=== PATIENT | female | born 2000 | race Caucasian/White ===

== ENCOUNTER 2024-02-28 10:14 | Outpatient (OUT) | payer OTHER, SELFPAY ==
--- NOTE | 2024-02-28 10:14 | US_ITS ---
The [address] [address] Patient Name: ARGENIS PINA MRN: [id number] date: 2000 Sex: F Assigned Patient Location: [facility] Current Patient Location: Accession/Order Number: [id number] Exam Date: 02/28/2024 10:15 Report Date: 03/03/2024 04:19 At the request of: MIKE PILLAI Procedure: US OB >= 14 weeks Fetus EXAMINATION: US OB >= 14 weeks Fetus HISTORY: Missed menses COMPARISON: No relevant comparison available. FINDINGS: Heart Rate: 144.39 bpm Amniotic Fluid Volume: Subjectively normal Number: 1 Position: Variable BIOMETRY: BPD: 3.03 cm; 15 weeks 4 days; 44.20 % HC: 11.78 cm; 15 weeks 6 days; 47.30 % AC: 10.13 cm; 16 weeks 1 day; 72 % FL: 1.84 cm; 15 weeks 3 days; 40.40 % EFW: 135.43 g; 56 % FL/AC: 18.18 FL/BPD: 60.77 HC/AC: 1.16 GESTATIONAL AGE: Age by EDC: 15 weeks 4 days ZEINAB by EDC: 08/17/2024 Age by US: 15 weeks 5 days ZEINAB by US: 08/16/2024 US/US OB >= 14 weeks Fetus IMPRESSION: 1. Single live intrauterine . Electronically authenticated by: CHARITY FLORES Date: 03/03/2024 04:19
== END 2024-02-28 10:15 | disposition home or self-care (01) ==
LOC: NOMS 10:14
PROVIDERS: Visit Provider Obstetrics & Gynecology
DX: N92.6 Irregular menstruation, unspecified (principal); Z3A.15 15 weeks gestation of pregnancy
CPT/HCPCS: 76815

== ENCOUNTER 2024-02-28 11:34 | Outpatient (OUT) | payer OTHER, SELFPAY ==
[2024-02-28 12:04] LABS: Basophils Absolute Auto 0.1 10^3/uL (0.0-0.1); Basophils Percent Auto 0.6 % (0.2-2.0); Eosinophils Absolute Auto 0.1 10^3/uL (0.0-0.7); Eosinophils Percent Auto 0.8 % (0.9-7.0); Hemoglobin 11.3 g/dL (12.0-16.0); Immature Granulocytes Abs Auto 0.04 10^3/uL (0.00-0.03); Immature Granulocytes Pct Auto 0.5 % (0.0-0.5); Lymphocytes Absolute Auto 2.4 10^3/uL (1.2-3.8); Lymphocytes Percent Auto 27.7 % (20.5-60.0); Mean Corpuscular HGB Conc 35.3 g/dL (29.9-35.2); Mean Corpuscular Hemoglobin 32.3 pg (26.7-34.0); Mean Corpuscular Volume 91.4 fL (81.0-99.0); Mean Platelet Volume 9.9 fL (9.5-13.5); Monocytes Absolute Auto 0.4 10^3/uL (0.3-0.8); Monocytes Percent Auto 5.1 % (1.7-12.0); Neutrophils Absolute Auto 5.6 10^3/uL (1.4-6.5); Neutrophils Percent Auto 65.3 % (43.0-75.0); Platelet Count 208 10^3/uL (150-450); Red Cell Distribution Width 13.4 % (11.0-15.0); White Blood Count 8.6 10^3/uL (4.0-11.0)
[2024-02-28 12:08] LABS: BOX Test Sent Out Y
[2024-02-28 12:44] LABS: Estimated Average Glucose 85 mg/dL; Glycohemoglobin A1C 4.6 % (4.5-6.2)
[2024-02-29 06:10] LABS: HBsAg Screen Negative (Negative); HCV Ab Non Reactive (Non Reactive); HIV Ab/p24 Ag Screen Non Reactive (Non Reactive)
[2024-02-29 07:11] LABS: Rubella Antibodies, IgG 1.31 index (Immune >0.99)
[2024-02-29 12:08] LABS: Rapid Plasma Reagin, Quant Non Reactive titer (NonRea<1:1)
== END 2024-02-28 11:35 | disposition home or self-care (01) ==
LOC: LAB 11:38
PROVIDERS: Visit Provider Obstetrics & Gynecology
DX: Z36.0 Encounter for antenatal screening for chromosomal anomalies (principal); N92.6 Irregular menstruation, unspecified
CPT/HCPCS: 36415; 83036; 85025; 86592; 86762; 86803; 86850; 86900; 86901; 87086; 87340; 87389

== ENCOUNTER 2024-03-16 21:21 | Outpatient (REF) | payer OTHER, SELFPAY ==
--- OUTSIDE RECORDS SUMMARY | 2024-03-16 21:25 | XMS_ITS | CCD ---
Author Organization [facility] Care Team Providers Care Pediatric Rn Name Role Phone ROSAS, DR MCKEON Attending Unavailable REQUEST, DR DAVIDSON LISTED Primary Care Unavaila ble ROSAS, DR MCKEON Admitting Unavailable ROSAS, DR MCKEON Attending Unavailable REQUEST, DR DAVIDSON LISTED Primary Care Unavaila ble ROSAS, DR MCKEON Consulting Unavailable ROSAS, DR MCKEON Admitting Unavailable MORGOSBRYCE Consulting Unavailable ROSAS, DR MCKEON Procedure Practitioner Unavailab JORGE [place] Consulting Unavailable ROSAS, DR MCKEON Attending Unavailable ROSAS, DR MCKEON Admitting Unavailable ROSAS, DR MCKEON Attending Unavailable REQUEST, DR DAVIDSON LISTED Primary Care Unavaila ble ROSAS, DR MCKEON Admitting Unavailable ROSAS, DR MCKEON Attending Unavailable REQUEST, DR DAVIDSON LISTED Primary Care Unavaila ble ROSAS, DR MCKEON Admitting Unavailable ROSAS, DR MCKEON Attending Unavailable REQUEST, DR DAVIDSON LISTED Primary Care Unavaila ble ROSAS, DR MCKEON Admitting Unavailable ROSAS, DR MCKEON Attending Unavailable CHESTER, DR CHASITY Barber Consulting Unavailable ROSAS, DR MCKEON Admitting Unavailable ROSAS, DR MCKEON Consulting Unavailable REQUEST, DR DAVIDSON LISTED Primary Care Unavaila ble ROSAS, DR MCKEON Attending Unavailable ROSAS, DR MCKEON Consulting Unavailable ROSAS, DR MCKEON Admitting Unavailable ROSAS, DR MCKEON Attending Unavailable REQUEST, DR DAVIDSON LISTED Primary Care Unavaila ble ROSAS, DR MCKEON Consulting Unavailable ROSAS, DR MCKEON Admitting Unavailable ZIEBER, DR CHARITY Felix Consulting Unavailable ROSAS, DR MCKEON Attending Unavailable REQUEST, DR DAVIDSON LISTED Primary Care Unavaila ble ROSAS, DR MCKEON Consulting Unavailable ROSAS, DR MCKEON Admitting Unavailable ZIEBER, DR CHARITY Felix Consulting Unavailable Gilbert TANK BUILDER AND ERECTOR-PROJECT BUYER, Evelin Gonsalvesth Attending Unavailable HERI ARREOLA Referring Unavailable HERI ARREOLA Primary Care Unavailable HERI ARREOLA Attending Unavailable HERI ARREOLA Referring Unavailable HERI ARREOLA Primary Care Unavailable ANNALISE ROUSE Attending Unavailable HERI ARREOLA Referring Unavailable HERI ARREOLA Primary Care Unavailable Problems Active Problems Problem Classification Problem Date Documented Date Episodic/Chronic OB-related trauma to perineum and vulva (1 source) First degree perineal laceration during delivery; Translations: [FIRST DEG PERINEAL LAC DUR DELIV] Onset: 03-27-2022 Episodic Other complications of ; puerperium affecting management of mother (1 source) Streptococcus B carrier state complicating childbirth; Translations: [STREP B TORRES STATE COMP CHILDBIRTH] Onset: 03-27-2022 Episodic Other complications of (2 sources) Other viral diseases complicating , third trimester; Translations: [OTH VIRAL DZ COMP PREG THIRD TRI] Onset: 03-22-2022 Episodic Other complications of (4 sources) Maternal 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, not applicable or unspecified; Translations: [MAT CARE RELIGIOUS EDUCATION COORDINATOR MALFORM FETUS NA/UNS] Onset: 02-28-2022 Episodic Other female genital disorders (1 source) Other specified noninflammatory disorders of vagina; Translations: [OTH SPEC NONINFLAMMATORY D/O VAGINA] Onset: 03-17-2022 Episodic Other and delivery including normal (9 sources) Encounter for routine follow-up; Translations: [Single live ] Onset: 01-08-2022 Episodic Other screening for suspected conditions (not mental disorders or infectious disease) (4 sources) Encounter for screening for Streptococcus B; Translations: [ENC SCR STREPTOCOCCUS B] Onset: 03-12-2022 Episodic Residual codes; unclassified (1 source) 37 weeks gestation of ; Translations: [37 WEEKS GESTATION OF ] Onset: 03-27-2022 Episodic Residual codes; unclassified (1 source) 34 weeks gestation of ; Translations: [34 WEEKS GESTATION OF ] Onset: 03-02-2022 Episodic Residual codes; unclassified (1 source) 30 weeks gestation of ; Translations: [30 WEEKS GESTATION OF ] Onset: 02-04-2022 Episodic Unclassified (1 source) CONTACT W/AND (SUSP) EXPOS COVID-19; Translations: [CONTACT W/AND (SUSP) EXPOS COVID-19] Onset: 03-27-2022 Unclassified (1 source) new patient Onset: 10-21-2023 Unclassified (1 source) Annual Exam Onset: 10-21-2023 Viral infection (1 source) Herpesviral infection, unspecified; Translations: [Herpesviral infection, unspecified] Onset: 02-18-2024 Episodic Past or Other Problems Problem Classification Problem Date Documented Da te Episodic/Chronic Other nutritional; endocrine; and metabolic disorders (2 sources) Underweight; Translations: [Underweight] Onset: 10-21-2023 Episodic Results Test Name Value Interpretation Reference Range Facil ity CBC AND AUTO DIFFon 11-15-19 ABSOLUTE BASOPHIL 0.0 X10E9/L Normal 0.0-0.2 [facility] Comment on above: Performed By: #### C BCA, CMP, FEPR, THYR, 08458-5 #### [facility] ([id number]) [address], [address] [place] [address] ABSOLUTE NEUTROPHIL 2.5 X10E9/L Normal 1.5-6.6 [facility] Comment on above: Performed By: #### C BCA, CMP, FEPR, THYR, 07214-6 #### [facility] ([id number]) [address] [address] [place] [address] Basophils/100 WBC (Bld) 0.8 % Normal [facility] Comment on above: Performed By: #### C BCA, CMP, FEPR, THYR, 61881-1 #### [facility] ([id number]) [address] [place] [address] Eosinophils (Bld) [#/Vol] 0.1 10*3/uL Normal 0.0-0.4 [facility] Comment on above: Performed By: #### C BCA, CMP, FEPR, THYR, 87859-3 #### [facility] ([id number]) [address], [address] [place] [address] Eosinophils/100 WBC (Bld) 1.4 % Normal [facility] Comment on above: Performed By: #### C BCA, CMP, FEPR, THYR, 90040-9 #### [facility] ([id number]) [address], [facility] [address] [place] [address] Erythrocyte distribution width (RBC) [Ratio] 12.9 % Normal 11.5-15.0 [facility] Comment on above: Performed By: #### C BCA, CMP, FEPR, THYR, 15625-4 #### [facility] ([id number]) [address], [facility] [address] [place] [address] Hematocrit (Bld) [Volume fraction] 35.4 % Normal 35-47 [facility] Comment on above: Performed By: #### C BCA, CMP, FEPR, THYR, 82840-6 #### [facility] ([id number]) [address] [address] [place] [address] Hemoglobin (Bld) [Mass/Vol] 12.2 g/dL Normal 11.7-15.5 [facility] Comment on above: Performed By: #### C BCA, CMP, FEPR, THYR, 00644-9 #### [facility] ([id number]) [address] [address] [place] [address] Lymphocytes (Bld) [#/Vol] 2.1 10*3/uL Normal 1.0-3.5 [facility] Comment on above: Performed By: #### C BCA, CMP, FEPR, THYR, 03625-4 #### [facility] ([id number]) [address] [address] [place] [address] Lymphocytes/100 WBC (Bld) 41.5 % Normal [facility] Comment on above: Performed By: #### C BCA, CMP, FEPR, THYR, 14356-6 #### [facility] ([id number]) [address] [place] [address] MCH (RBC) [Entitic mass] 31.2 pg Normal 27-34 [facility] Comment on above: Performed By: #### C BCA, CMP, FEPR, THYR, 44859-9 #### [facility] ([id number]) [address], [address] [place] [address] MCHC (RBC) [Mass/Vol] 34.5 g/dL Normal 32-36 [facility] Comment on above: Performed By: #### C BCA, CMP, FEPR, THYR, 32033-0 #### [facility] ([id number]) [address] [place] [address] MCV (RBC) [Entitic vol] 90 fL Normal 80-100 [facility] Comment on above: Performed By: #### C BCA, CMP, FEPR, THYR, 44224-5 #### [facility] ([id number]) [address] [place] [address] Monocytes (Bld) [#/Vol] 0.4 10*3/uL Normal 0-0.9 [facility] Comment on above: Performed By: #### C BCA, CMP, FEPR, THYR, 97716-6 #### [facility] ([id number]) [address] [place] [address] Monocytes/100 WBC (Bld) 7.0 % Normal [facility] Comment on above: Performed By: #### C BCA, CMP, FEPR, THYR, 24312-5 #### [facility] ([id number]) [address] [place] [address] Neutrophils/100 WBC (Bld) 49.3 % Normal [facility] Comment on above: Performed By: #### C BCA, CMP, FEPR, THYR, 87790-5 #### [facility] ([id number]) [address] [place] [address] Platelet mean volume (Bld) [Entitic vol] 8.7 fL Normal 7-12 [facility] Comment on above: Performed By: #### C BCA, CMP, FEPR, THYR, 68739-7 #### [facility] ([id number]) [address], [address] [place] [address] Platelets (Bld) [#/Vol] 232 10*3/uL Normal 150-450 [facility] Comment on above: Performed By: #### C BCA, CMP, FEPR, THYR, 50047-6 #### [facility] ([id number]) [address] [place] [address] RBC COUNT 3.92 X10E12/L Normal 3.80-5.20 [facility] Comment on above: Performed By: #### C BCA, CMP, FEPR, THYR, 41556-1 #### [facility] ([id number]) [address] [address] [place] [address] WBC (Bld) [#/Vol] 5.0 10*3/uL Normal 4.0-11.0 [facility] Comment on above: Performed By: #### C BCA, CMP, FEPR, THYR, 84860-1 #### [facility] ([id number]) [address] [place] [address] COMPREHENSIVE METABOLIC PANE Wang 11-15-2023 Albumin [Mass/Vol] 4.4 g/dL Normal 3.2-5.3 [facility] Comment on above: Performed By: #### C BCA, CMP, FEPR, THYR, 07195-2 #### [facility] ([id number]) [address] [place] [address] ALP [Catalytic activity/Vol] 37 U/L Low 39-130 [facility] Comment on above: Performed By: #### C BCA, CMP, FEPR, THYR, 78409-1 #### [facility] ([id number]) [address] [place] [address] ALT [Catalytic activity/Vol] 11 U/L Normal 0-31 [facility] Comment on above: Performed By: #### C BCA, CMP, FEPR, THYR, 04338-6 #### [facility] ([id number]) [address] [place] [address] Anion gap [Moles/Vol] 9 mmol/L Normal 5-15 [facility] Comment on above: Performed By: #### C BCA, CMP, FEPR, THYR, 69646-9 #### [facility] ([id number]) [address] [place] [address] AST [Catalytic activity/Vol] 15 U/L Normal 0-41 [facility] Comment on above: Performed By: #### C BCA, CMP, FEPR, THYR, 35794-6 #### [facility] ([id number]) [address] [place] [address] Bilirubin [Mass/Vol] 1.4 mg/dL High 0.3-1.2 [facility] Comment on above: Performed By: #### C BCA, CMP, FEPR, THYR, 05178-5 #### [facility] ([id number]) [address] [place] [address] Calcium [Mass/Vol] 9.1 mg/dL Normal 8.5-10.5 [facility] Comment on above: Performed By: #### C BCA, CMP, FEPR, THYR, 66977-9 #### [facility] ([id number]) [address] [place] [address] Chloride [Moles/Vol] 104 mmol/L Normal 98-109 [facility] Comment on above: Performed By: #### C BCA, CMP, FEPR, THYR, 51543-6 #### [facility] ([id number]) [address] [place] [address] CO2 [Moles/Vol] 25 mmol/L Normal 22-32 [facility] Comment on above: Performed By: #### C BCA, CMP, FEPR, THYR, 33619-1 #### [facility] ([id number]) [address] [place] [address] Creatinine [Mass/Vol] 0.74 mg/dL Normal 0.40-1.00 [facility] Comment on above: Result Comment: METH OD TRACEABLE TO IDMS STANDARD Performed By: #### C BCA, CMP, FEPR, THYR, 71911-9 #### [facility] ([id number]) [address] [place] [address] eGFR (CKD-EPI) NON-RACE DEPENDENT >90 Normal >59 [facility] Comment on above: Result Comment: Reported eGFR is based on the CKD-EPI 2020 equation that does not use a race coefficient. Performed By: #### C BCA, CMP, FEPR, THYR, 77527-4 #### [facility] ([id number]) [address] [place] [address] Glucose [Mass/Vol] 100 mg/dL High 65-99 [facility] Comment on above: Performed By: #### C BCA, CMP, FEPR, THYR, 43246-6 #### [facility] ([id number]) [address] [place] [address] Potassium [Moles/Vol] 3.7 mmol/L Normal 3.5-5.0 [facility] Comment on above: Performed By: #### C BCA, CMP, FEPR, THYR, 97221-0 #### [facility] ([id number]) [address] [place] [address] Protein [Mass/Vol] 6.9 g/dL Normal 6.0-8.0 [facility] Comment on above: Performed By: #### C BCA, CMP, FEPR, THYR, 32822-6 #### [facility] ([id number]) [address] [address] [place] [address] Sodium [Moles/Vol] 138 mmol/L Normal 134-146 [facility] Comment on above: Performed By: #### C BCA, CMP, FEPR, THYR, 93552-6 #### [facility] ([id number]) [address] [address] [place] [address] Urea nitrogen [Mass/Vol] 12 mg/dL Normal 5-23 [facility] Comment on above: Performed By: #### C BCA, CMP, FEPR, THYR, 52721-7 #### [facility] ([id number]) [address] [place] [address] IRON PROFILEon 11-15-2023 Iron [Mass/Vol] 81 ug/dL Normal 50-170 [facility] Comment on above: Performed By: #### C BCA, CMP, FEPR, THYR, 50295-1 #### [facility] ([id number]) [address] [address] [place] [address] IRON BINDING 309 ug/dL Normal 250-425 [facility] Comment on above: Performed By: #### C BCA, CMP, FEPR, THYR, 48082-1 #### [facility] ([id number]) [address] [place] [address] IRON SATURATION 26 % SATURATION Normal 15-50 [facility] Comment on above: Performed By: #### C BCA, CMP, FEPR, THYR, 50452-4 #### [facility] ([id number]) [address] [place] [address] THYROID PROFILEon 11-15-2023 Free T4 [Mass/Vol] 1.01 ng/dL Normal 0.61-1.60 [facility] Comment on above: Performed By: #### C BCA, CMP, FEPR, THYR, 63061-2 #### [facility] ([id number]) [address] [facility] [address] [place] [address] TSH 1.81 uIU/mL Normal 0.49-4.67 [facility] Comment on above: Performed By: #### C BCA, CMP, FEPR, THYR, 50282-4 #### [facility] ([id number]) [address] [facility] [address] [place] [address] Vitamin D+Metabolites [Mass/ Vol]on 11-15-2023 VITAMIN D 25 HYD TOT 18.7 ng/mL Low 30-100 [facility] Comment on above: Result Comment: Vitamin D status 25 [place] Vitamin D Deficiency <20 ng/mL Insufficiency 20-29 ng/mL Sufficiency 30-100 ng/mL Toxicity >100 ng/mL NOTE: A pediatric reference range has not been established by the comber setter of this kit. The [place] [employer] recommends a Vitamin D level of = or >20ng/mL in infants and children. Performed By: #### C BCA, CMP, FEPR, THYR, 89112-7 #### [facility] ([id number]) [address] [facility] [facility] [facility] [address] [address] [place] [address] Urgent Care Office/Clinic No zcakary 07-10-2023 Urgent Care Office/Clinic Note Chief Complaint Pt states N/v starting today History of Present Illness Argenis Pina is a 23 Years old Female who presents with nausea and vomiting that started today. Patient states that she has had 6 episodes of vomiting. Denies any abdominal pain, constipation or diarrhea. She is not experiencing fever, chills, shortness of breath or wheezing. She states that she has had some nasal congestion, rhinorrhea and a cough for the past couple of weeks since she was exposed to her son who had RSV. She declines COVID testing in office today. No [id number]-[id number]-[id number] medications for symptom management. Significant other is experiencing similar symptoms. Patient states that it is possible that she is but she does not think that she has. She states that her period is due in 2 days. Review of Systems General Other General: No fever, chills EENMT Nasal congestion: Yes Nasal discharge: Yes Sore_throat: No Gastrointestinal Abdominal pain: No Diarrhea: No Nausea: Yes Vomiting: Yes Genitourinary Dysuria: No Frequency: No Hematuria: No Urgency: No Musculoskeletal Muscle aches: No Neurological Headache: Yes Physical Exam Vitals & Measurements T: 36.7 ?C (Oral) HR: 112 (Peripheral) RR: 20 BP: 132/74 SpO2: 96 HT: 160 cm WT: 48.5 kg WT: 48.5 kg (Dosing) BMI: 18.95 General: Alert and oriented, well nourished, no acute distress. HENT: Normocephalic, pearly aguayo tympanic membranes, normal hearing, moist oral mucosa, no sinus tenderness. Oropharynx without erythema, swelling or exudate. Neck: Supple, non-tender, no lymphadenopathy. Lungs: Clear to auscultation, non-labored respiration. Heart: Rapid rate, regular rhythm, no murmur. Abdomen: Soft, non-tender, non-distended, normal bowel sounds. Skin: Skin is warm, dry and pink. Neurologic: Awake, alert, and oriented X3. Psychiatric: Cooperative, appropriate mood and affect. Additional Vitals BP Position/Location: Sitting Assessment/Plan 1. Nausea and vomiting Increase fluids and rest at home. Continue to increase fluids as tolerated. Rehydrate with fluids such as water, Powerade, Gatorade or Propel. Recommend bland diet, as tolerated. BRAT-bananas, rice, applesauce, toast as tolerated Foods high in simple sugars, juice, and highly sugared liquids should be avoided. Dairy products should also be avoided for the next 1 to 2 days. Carbonated soft drinks should also be avoided. Drink plenty of fluids and take salt in soups and salted crackers. Follow-up with your PCP for any further concerns. Go to the ER for any worsening or emergent symptoms. Medical Decision Making Chronic conditions NOT treated during this visit that affected my overall medical decision making: [] Treatment plans discussed but not opted for at this time: [] Prescribed medication that requires intensive monitoring for toxicity: [] I have reviewed the patient?s medication list for medication interactions/contrai ndications and/or for upcoming procedures: [yes] Time Spent with the Patient I have personally spent [10] minutes on this date, directly related to today's patient visit, including pre and post visit work, for this date of service. Time listed does not include time spent on separately billable services. Physician Comments Reviewed assessment and plan as explained above and patient is agreeable. No questions upon discharge. Patient medical history reviewed, vital signs and nurses notes reviewed as documented. This report has been created using voice recognition software. It may contain minor errors which are inherent in voice recognition technology. Problem List/Past Medical History Ongoing No chronic problems Historical No qualifying data Procedure/Surgical History denies Medications No active medications Allergies No Known Allergies Social History Tobacco 4 or less cigarettes(less than 1/4 pack)/day in last 30 days Use:. Cigarettes Lab Results Test Name Test Result Date/Time Result Negative 07/10/2023 19:11 EST Amb Influenza A Probe Negative 07/10/2023 19:06 EST Amb Influenza B Probe Negative 07/10/2023 19:06 EST Electronically signed by Evelin Smith 07/10/23 19:47 EST Normal [facility] CBC AUTO DIFFon 03-23-2022 BASO # 0.0 103/ul Normal 0.0-0.1 [facility] Comment on above: Performed By: #### C BC #### [facility] [address] [address] [address] Ana Maria Alexandre Basophils/100 WBC (Bld) 0.2 % Normal 0.2-2.0 [facility] Comment on above: Performed By: #### C BC #### [facility] [address] [place] [address] Dr. Ana Maria Alexandre EO # 0.0 103/ul Normal 0.0-0.[address] [facility] Comment on above: Performed By: #### C BC #### [facility] [address] [place] [address] Dr. Ana Maria Alexandre Eosinophils/100 WBC (Bld) 0.3 % Critically low 0.9-7.0 [facility] Comment on above: Performed By: #### C BC #### [facility] [address] [place] [address] Dr. Ana Maria Alexandre Erythrocyte distribution width (RBC) [Ratio] 12.9 % Normal 11.0-15.0 [facility] Comment on above: Performed By: #### C BC #### [facility] [address] [place] [address] Dr. Ana Maria Alexandre Hematocrit (Bld) [Volume fraction] 25.6 % Critically low 36.0-48.0 [facility] Comment on above: Performed By: #### C BC #### [facility] [address] [place] [address] Dr. Ana Maria Alexandre Hemoglobin (Bld) [Mass/Vol] 8.5 g/dL Critically low 12.0-16.0 [facility] Comment on above: Performed By: #### C BC #### [facility] [address] [place] [address] Dr. Ana Maria Alexandre IG # 0.05 10e3/ul Critically high 0.00-0.03 [facility] Comment on above: Performed By: #### C BC #### [facility] [address] [place] [address] Dr. Ana Maria Alexandre IG % 0.4 % Normal 0.0-0.[address] [facility] Comment on above: Performed By: #### C BC #### [facility] [address] [place] [address] Dr. Ana Maria Alexandre LYMPH # 2.5 103/ul Normal 1.2-3.[address] [facility] Comment on above: Performed By: #### C BC #### [facility] [address] [place] [address] Dr. Ana Maria Alexandre Lymphocytes/100 WBC (Bld) 17.2 % Critically low 20.5-60.[address] [facility] Comment on above: Performed By: #### C BC #### [facility] [address] [place] [address] Dr. Ana Maria Alexandre MANUAL DIFF REQ NO Normal [facility] Comment on above: Performed By: #### C BC #### [facility] [address] [place] [address] Dr. Ana Maria Alexandre MCH (RBC) [Entitic mass] 28.1 pg Normal 26.7-34.[address] [facility] Comment on above: Performed By: #### C BC #### [facility] [address] [place] [address] Dr. Ana Maria Alexandre MCHC (RBC) [Mass/Vol] 33.2 g/dL Normal 29.9-35.[address] [facility] Comment on above: Performed By: #### C BC #### [facility] [address] [place] [address] Dr. Ana Maria Alexandre MCV (RBC) [Entitic vol] 84.5 fL Normal 81.0-99.[address] [facility] Comment on above: Performed By: #### C BC #### [facility] [address] [place] [address] Dr. Ana Maria Alexandre MONO # 0.9 103/ul Critically high 0.3-0.8 [facility] Comment on above: Performed By: #### C BC #### [facility] [address] [place] [address] Dr. Ana Maria Alexandre Monocytes/100 WBC (Bld) 6.0 % Normal 1.7-12.[address] [facility] Comment on above: Performed By: #### C BC #### [facility] [address] [place] [address] Dr. Ana Maria Alexandre NEUT # 10.8 103/ul Critically high 1.4-6.5 [facility] Comment on above: Performed By: #### C BC #### [facility] [address] [place] [address] Dr. Ana Maria Alexandre Neutrophils/100 WBC (Bld) 75.9 % Critically high 43.0-75.[address] [facility] Comment on above: Performed By: #### C BC #### [facility] [address] [place] [address] Dr. Ana Maria Alexandre Platelet mean volume (Bld) [Entitic vol] 11.4 fL Normal 9.5-13.[address] [facility] Comment on above: Performed By: #### C BC #### [facility] [address] [place] [address] Dr. Ana Maria Alexandre PLT 152 103/ul Normal 150-[address] [facility] Comment on above: Performed By: #### C BC #### [facility] [address] [place] [address] Dr. Ana Maria Alexandre RBC 3.03 106/ul Critically low 4.20-5.40 [facility] Comment on above: Performed By: #### C BC #### [facility] [address] [place] [address] Dr. Ana aMria Alexandre WBC 14.2 103/ul Critically high 4.0-11.0 [facility] Comment on above: Performed By: #### C BC #### [facility] [address] [place] [address] Dr. Ana Maria Alexandre CBC AUTO DIFFon 03-22-2022 BASO # 0.0 103/ul Normal 0.0-0.[address] [facility] Comment on above: Performed By: #### C BC #### [facility] [address] [place] [address] Dr. Ana Maria Alexandre Basophils/100 WBC (Bld) 0.3 % Normal 0.2-2.[address] [facility] Comment on above: Performed By: #### C BC #### [facility] [address] [place] [address] Dr. Ana Maria Alexandre EO # 0.1 103/ul Normal 0.0-0.[address] [facility] Comment on above: Performed By: #### C BC #### [facility] [address] [place] [address] Dr. Ana Maria Alexandre Eosinophils/100 WBC (Bld) 0.6 % Critically low 0.9-7.0 [facility] Comment on above: Performed By: #### C BC #### [facility] [address] [place] [address] Dr. Ana Maria Alexandre Erythrocyte distribution width (RBC) [Ratio] 12.6 % Normal 11.0-15.0 [facility] Comment on above: Performed By: #### C BC #### [facility] [address] [place] [address] Dr. Ana Maria Alexandre Hematocrit (Bld) [Volume fraction] 30.4 % Critically low 36.0-48.0 [facility] Comment on above: Performed By: #### C BC #### [facility] [address] [place] [address] Dr. Ana Maria Alexandre Hemoglobin (Bld) [Mass/Vol] 9.9 g/dL Critically low 12.0-16.0 [facility] Comment on above: Performed By: #### C BC #### [facility] [address] [place] [address] Dr. Ana Maria Alexandre IG # 0.08 10e3/ul Critically high 0.00-0.03 [facility] Comment on above: Performed By: #### C BC #### [facility] [address] [place] [address] Dr. Ana Maria Alexandre IG % 0.6 % Critically high 0.0-0.5 [facility] Comment on above: Performed By: #### C BC #### [facility] [address] [place] [address] Dr. Ana Maria Alexandre LYMPH # 1.9 103/ul Normal 1.2-3.[address] [facility] Comment on above: Performed By: #### C BC #### [facility] [address] [place] [address] Dr. Ana Maria Alexandre Lymphocytes/100 WBC (Bld) 15.5 % Critically low 20.5-60.0 [facility] Comment on above: Performed By: #### C BC #### [facility] [address] [place] [address] Dr. Ana Maria Alexandre MANUAL DIFF REQ NO Normal [facility] Comment on above: Performed By: #### C BC #### [facility] [address] [place] [address] Dr. Ana Maria Alexandre MCH (RBC) [Entitic mass] 27.5 pg Normal 26.7-34.0 [facility] Comment on above: Performed By: #### C BC #### [facility] [address] [place] [address] Dr. Ana Maria Alexandre MCHC (RBC) [Mass/Vol] 32.6 g/dL Normal 29.9-35.2 [facility] Comment on above: Performed By: #### C BC #### [facility] [address] [place] [address] Dr. Ana Maria Alexandre MCV (RBC) [Entitic vol] 84.4 fL Normal 81.0-99.0 [facility] Comment on above: Performed By: #### C BC #### [facility] [address] [place] [address] Dr. Ana Maria Alexandre MONO # 0.7 103/ul Normal 0.3-0.8 [facility] Comment on above: Performed By: #### C BC #### [facility] [address] [place] [address] Dr. Ana Maria Alexandre Monocytes/100 WBC (Bld) 5.2 % Normal 1.7-12.[address] [facility] Comment on above: Performed By: #### C BC #### [facility] [address] [place] [address] Dr. Ana Maria Alexandre NEUT # 9.7 103/ul Critically high 1.4-6.5 [facility] Comment on above: Performed By: #### C BC #### [facility] [address] [place] [address] Dr. Ana Maria Alexandre Neutrophils/100 WBC (Bld) 77.8 % Critically high 43.0-75.[address] [facility] Comment on above: Performed By: #### C BC #### [facility] [address] [place] [address] Dr. Ana Maria Alexandre Platelet mean volume (Bld) [Entitic vol] 11.5 fL Normal 9.5-13.[address] [facility] Comment on above: Performed By: #### C BC #### [facility] [address] [place] [address] Dr. Ana Maria Alexandre PLT 202 103/ul Normal 150-[address] [facility] Comment on above: Performed By: #### C BC #### [facility] [address] [place] [address] Dr. Ana Maria Alexandre RBC 3.60 106/ul Critically low 4.20-5.40 [facility] Comment on above: Performed By: #### C BC #### [facility] [address] [place] [address] Dr. Ana Maria Alexandre WBC 12.5 103/ul Critically high 4.0-11.0 [facility] Comment on above: Performed By: #### C BC #### [facility] [address] [place] [address] Dr. Ana Maria Alexandre Covid-19 PCR ([facility])on 03-02 SARS-CoV-2 (COVID-19) RNA RUTH ANN+probe Ql (Unsp spec) Not detected Normal NOT DETECTED [facility] Comment on above: Result Comment: When diagnostic testing is negative, the possibility of a false negative should be considered in the context of a patient's recent exposures and the presence of clinical signs and symptoms consistent with SARS-CoV-2. This test is not yet approved or cleared by the [place] FDA. When there are no FDA-approved or cleared tests available, and other criteria are met, FDA can make tests available under an emergency access mechanism called an Emergency Use Authorization (EUA). The EUA for this test is supported by the [place] of Health and Human Service's declaration that circumstances exist to justify the emergency use of in vitro diagnostics for the detection and/or diagnosis of the virus that causes COVID-19. This EUA will remain in effect for the duration of the COVID-19 declaration justifying emergency of IVDs, unless it is terminated or revoked by the FDA (after which the test may no longer be used). Performed By: #### C VDTBH #### [facility] [address] [address] [address] Ana Maria Alexandre DRUG SCREEN RAPID (URINE)on 03-22-2022 AMP Negative Normal NEGATIVE [facility] Comment on above: Performed By: #### D RUGRPD #### [facility] [address] [address] [address] Ana Maria Alexandre BAR Negative Normal NEGATIVE [facility] Comment on above: Performed By: #### D RUGRPD #### [facility] [address] [address] [address] Ana Maria Alexandre BUP Negative Normal NEGATIVE [facility] Comment on above: Performed By: #### D RUGRPD #### [facility] [address] [place] [address] Dr. Ana Maria Alexandre BZO Negative Normal NEGATIVE [facility] Comment on above: Performed By: #### D RUGRPD #### [facility] [address] [place] [address] Dr. Ana Maria Alexandre BRIGHT Negative Normal NEGATIVE [facility] Comment on above: Performed By: #### D RUGRPD #### [facility] [address] [address] [address] Ana Maria Alexandre CUT-OFFS SEE BELOW Normal [facility] Comment on above: Result Comment: AMP (Amphetamine): 500ng/mL, BAR (Barbituates): 200 ng/mL, BZO (Benzodiazepines): 150 ng/mL, BUP (Buprenorphine): 10 ng/mL, BRIGHT (Cocaine): 150 ng/mL, mAMP (Methamphetamine): 500 ng/mL, MTD (Methadone): 200 ng/mL, OPI (Opiates): 100 ng/mL, OXY (Oxycodone): 100 ng/mL, PCP (Phencyclidine): 25 ng/mL, PPX (Propoxyphene): 300 ng/mL, THC (Cannabinoids): 50 ng/mL, TCA (Trycyclic Antidepressants): 300 ng/mL Performed By: #### D RUGRPD #### [facility] [address] [place] [address] Dr. Ana Maria Alexandre DRUG CUT HEADER DRUG CLASS TEST SYSTEM CUT-OFF CONCENTRATIONS ARE FOLLOWS: Normal [facility] Comment on above: Performed By: #### D RUGRPD #### [facility] [address] [address] [address] Ana Maria Alexandre mAMP Negative Normal NEGATIVE [facility] Comment on above: Performed By: #### D RUGRPD #### [facility] [address] [place] [address] Dr. Ana Maria Alexandre MTD Negative Normal NEGATIVE [facility] Comment on above: Performed By: #### D RUGRPD #### [facility] [address] [place] [address] Dr. Ana Maria Alexandre OPI Negative Normal NEGATIVE [facility] Comment on above: Performed By: #### D RUGRPD #### [facility] [address] [place] [address] Dr. Ana Maria Alexandre OXY Negative Normal NEGATIVE [facility] Comment on above: Performed By: #### D RUGRPD #### [facility] [address] [place] [address] Dr. Ana Maria Alexandre PCP Negative Normal NEGATIVE [facility] Comment on above: Performed By: #### D RUGRPD #### [facility] [address] [place] [address] Dr. Ana Maria Alexandre PPX Negative Normal NEGATIVE [facility] Comment on above: Performed By: #### D RUGRPD #### [facility] [address] [place] [address] Dr. Ana Maria Alexandre TCA Negative Normal NEGATIVE [facility] Comment on above: Performed By: #### D RUGRPD #### [facility] [address] [place] [address] Dr. Ana Maria Alexandre THC Negative Normal NEGATIVE [facility] Comment on above: Performed By: #### D RUGRPD #### [facility] [address] [place] [address] Dr. Ana Maria Alexandre TYPE AND SCREENon 03-22-2022 TYPE AND SCREEN Negative Normal [facility] Comment on above: Performed By: #### T NS #### [facility] [address] [place] [address] Dr. Ana Maria Alexandre GROUP B STREP CULTUREon 03-01 S. agalactiae Ag Ql (Unsp spec) Culture Observations: Called group B to Madeline Hurtado LPN on 03/15 @ 1502 Isolate 1 Streptococcus agalactiae Light growth of ORGANISM 1 Streptococcus agalactiae ANTIBIOTIC M.I.C RX STATUS Benzylpenicillin <=0.06 S F Ampicillin <=0.25 S F Cefotaxime <=0.12 S F Ceftriaxone <=0.12 S F Levofloxacin 0.5 S F Inducible Clindamycin Resistance Neg NEG F Erythromycin >=8 R F Clindamycin >=1 R F Linezolid <=2 S F Vancomycin 0.5 S F Tetracycline >=16 R F Normal [address] [facility] Comment on above: Performed By: #### G BSCX #### [facility] [address] [place] [address] Dr. Ana Maria Alexandre VAGINITIS/VAGINOSIS DNA PROB Chad 03-14-2022 Elena species Negative Normal Negative [facility] Comment on above: Performed By: #### V AGINT #### [facility] [address] [place] [address] Dr. Ana Maria Alexandre Gardnerella vaginalis Negative Normal Negative [facility] Comment on above: Performed By: #### V AGINT #### [facility] [address] [place] [address] Dr. Ana Maria Alexandre Trichomonas vaginalis Negative Normal Negative [facility] Comment on above: Performed By: #### V AGINT #### [facility] [address] [place] [address] Dr. Ana Maria Alexandre US PREG GROWTHon 03-01-2022 US PREG GROWTH EXAMINATION: US PREG GROWTH HISTORY: choroid plexus cyst COMPARISON: No relevant comparison available. FINDINGS: Heart Rate: 155.2 bpm Number: 1.0 Position: CEPHALIC Amniotic Fluid Volume: 13.5 cm Maximum Vertical Pocket: 4.6 cm BIOMETRY: BPD: 8.6 cm cm; 34 weeks 4 days; 50% HC: 31.1 cmcm; 34 weeks 5 days; 20% AC: 30.7 cm cm; 34 weeks 4 days; 57% FL: 6.3 cm cm; 32 weeks 5 days; 6 % EFW: 2349.2 grams; 32% FL/AC: 20.6 FL/BPD: 73.7 HC/AC: 1.0 GESTATIONAL AGE: Age by EDC: 34 weeks 4 days ZEINAB by EDC: 04/07/2022 Age by US: 34 weeks 1 day ZEINAB by US: 04/10/2022 IMPRESSION: 1. Single live intrauterine with growth detailed above. 2. Femur length is at sixth percentile. Electronically authenticated by: CHARITY FLORES Date: 2022-03-01 16:15 Normal [facility] US PREG GROWTHon 02-01-2022 US PREG GROWTH EXAMINATION: US PREG GROWTH HISTORY: choroid plexus cyst COMPARISON: Ultrasound limited 01/08/2022 FINDINGS: Heart Rate: 159.8 bpm Number: 1.0 Position: CEPHALIC Amniotic Fluid Volume: 15.8 cm Maximum Vertical Pocket: 5.4 cm BIOMETRY: BPD: 7.7 cm cm; 30 weeks 6 days HC: 29.2 cmcm; 32 weeks 1 days AC: 26.4 cm cm; 30 weeks 3 days FL: 5.7 cm cm; 29 weeks 6 days EFW: 1580.4 grams; 34% FL/AC: 21.6 FL/BPD: 74.0 HC/AC: 1.1 GESTATIONAL AGE: Age by EDC: 30 weeks 4 days ZEINAB by EDC: 04/07/2022 Age by US: 30 weeks, 6 days ZEINAB by US: 04/05/2022 IMPRESSION: 1. Single live intrauterine with growth detailed above. Electronically authenticated by: CHARITY FLORES Date: 2022-02-01 16:43 Normal [facility] PREG REEVAL ABNon 022 US PREG REEVAL ABN EXAMINATION: US PREG REEVAL ABN HISTORY: screening COMPARISON: No relevant comparison available. FINDINGS: presentation: Cephalic Amniotic fluid volume: 10.7 cm Largest fluid pocket: 3.3 cm Heart rate: 139 bpm BPD: 6.9 cm, 27 weeks 4 days, 50% Head circumference: 26.2 cm, 28 weeks 3 days, 61% Abdominal circumference: 23.3 cm, 27 weeks 5 days, 54% Femur length: 5.1 cm, 27 weeks 3 days, 38% Estimated weight: 1107 g, 2 lbs. 7 oz., 52% Femur length abdominal circumference: 21.95 Femur length at circumference: 19.55 Head circumference to abdominal circumference: 1.12 Clinical age: 27 weeks 2 days Clinical ZEINAB: 04/07/2022 Ultrasound age: 27 weeks 6 days Ultrasound ZEINAB: 04/03/2022 No choroid plexus cyst is observed The hands are not adequately visualized for comment IMPRESSION: Viable p[place]man intrauterine gestation measuring 27 weeks 6 days Electronically authenticated by: CHASITY NGUYEN Date: 2022-01-08 19:27 Normal [facility] Encounters Encounter Date Encounter Type Care Provider Facility Start: 02-18-2024 End: 02-18-2024 ambulatory ANNALISE L [facility] Start: 11-15-2023 End: 11-16-2023 ambulatory [facility] Start: 11-15-2023 Encounter for genera l adult medical examination without abnormal findings [facility] Start: 10-21-2023 End: 10-21-2023 ambulatory [facility] Start: 10-21-2023 Encounter for genera l adult medical examination without abnormal findings [facility] Start: 07-10-2023 End: 07-10-2023 ambulatory Evelin FENG Facility:[facility] Start: 04-02-[address] MIKE PILLAI Facility :[facility] Start: 03-30-[address] MIKE PILLAI Facility :[facility] Start: 03-28-2022 End: 03-28-[address] MIKE PILLAI Facility:[facility] Start: 03-26-[address] MIKE PILLAI Facility :[facility] Start: 03-22-2022 End: 03-24-2022 Evaluation and management of inpatient DR MIKE PILLAI Facility:[facility] Start: 03-12-2022 End: 03-12-[address] DAVIDSON LISTED REQUEST Facility:[facility] Start: 02-28-2022 End: 03-01-[address] MIKE PILLAI Facility:[facility] Start: 01-31-2022 End: 02-01-[address] MIKE PILLAI Facility:[facility] Start: 01-12-[address] MIKE PILLAI Facility :[facility] Start: 01-08-2022 End: 01-09-[address] MIKE PILLAI Facility:[facility] Procedures Date Procedure Procedure Detail Performing Clinician Start: 03-22-2022 Delivery of Products of Conception, External Approach DR MIKE PILLAI Start: 03-22-2022 Drainage of Amniotic Fluid, Therapeutic from Products of Conception, Via Natural or Artificial Opening DR MIKE PILLAI Start: 03-22-2022 Repair Perineum Skin , External Approach DR MIKE PILLAI Payers Date Payer Category Payer Unknown 2023 Private Health Insurance [id number] 2001 Unknown [id number] 2.16.84 [id number] 2001 Unknown [id number] 2.16.84 [id number] 2001 Unknown [id number] 2.16.84 [id number] 2001 Unknown [id number] 2.16.84 [id number] 2001 Unknown [id number] 2.16.84 [id number] 2001 Unknown [id number] 2.16.84 [id number] 2001 Unknown [id number] 2.16.84 [id number] 2001 Unknown [id number] 2.16.84 [id number] 2001 Unknown [id number] 2.16.84 [id number] 2001 Unknown [id number] 2.16.84 [id number] 2001 Unknown [id number] 2.16. [id number] 2001 Unknown [id number] 2.16.8 [id number] 2001 Unknown [id number] 2.16.8 [id number] 2001 Unknown [id number] 2.16.8 [id number] 1959 Self-pay 1958 Unknown [id number] 1959 Unknown [id number] Clinical Note 07-10-2023 Note Date & Type Note Facility 07-10-2023 Note Patient Education Ma terials Name: Argenis Pina Current Date: 07/10/2023 19:27:39 [facility] : 2000 The following sheet(s) are the Patient Education Leaflets for Argenis Pina Vomiting (Adult) Vomiting is a common symptom that may be due to different causes. These include gastroenteritis ( stomach flu ), food poisoning and gastritis. There are other more serious causes of vomiting which may be hard to diagnose early in the illness. Therefore, it is important to watch for the warning signs listed below. The main danger from repeated vomiting is dehydration. This is due to excess loss of water and minerals from the body. When this occurs, your body fluids must be replaced. Home care ? If symptoms are severe, rest at home for the next 24 hours. ? Because your symptoms may be from an infection, wash your hands often and well. If soap and water are not available, use alcohol-based head up operator to keep from spreading the infection to others. ? Wash your hands for at least 20 seconds. Humming the happy birthday song twice while you wash is an easy way to make sure you've washed for 20 seconds. ? Wash your hands after using the toilet, before and after preparing food, before eating food, after changing a diaper, cleaning a wound, caring for a sick person, and blowing your nose, coughing, or sneezing. You should also wash your hands after caring for someone who is sick, touching pet food, or treats, and touching an animal, or animal waste. ? You may use acetaminophen or NSAID medicines like ibuprofen or naproxen to control fever, unless another medicine was prescribed. If you have chronic liver or kidney disease or ever had a stomach ulcer or gastrointestinal bleeding, talk with your doctor before using these medicines. Aspirin should never be used in anyone under 18 years of age who is ill with a fever. It may cause severe liver damage. Don't use NSAID medicines if you are already taking one for another condition (like arthritis) or are on aspirin (such as for heart disease, or after a stroke) ? Don't use tobacco and or drink alcohol, which may worsen your symptoms. ? If medicines for vomiting were prescribed, take as directed. ? Once vomiting stops, then follow these guidelines: During the first 12 to 24 hours follow the diet below: ? Fruit juices. Apple, grape juice, clear fruit drinks, and electrolyte replacement drinks. ? Beverages. Soft drinks without caffeine; mineral water (plain or flavored), decaffeinated tea and coffee. ? Soups. Clear broth and bouillon ? Desserts. Plain gelatin, ice pops, and fruit juice bars. As you feel better, you may add 6 to 8 ounces of yogurt per day. During the next 24 hours you may add the following to the above: ? Hot cereal, plain toast, bread, rolls, crackers ? Plain noodles, rice, mashed potatoes, chicken noodle or rice soup ? Unsweetened canned fruit such as applesauce, bananas (avoid pineapple and citrus) ? Limit caffeine and chocolate. No spices or seasonings except salt. During the next 24 hours: Gradually resume a normal diet, as you feel better and your symptoms lessen. Follow-up care Follow up with your healthcare provider, or as advised. When to seek medical advice Call your healthcare provider right away if any of these occur: ? Constant right-sided lower belly pain or increasing general belly pain ? Continued vomiting (unable to keep liquids down) for 24 hours ? Vomiting blood or coffee grounds ? Swollen belly ? Frequent diarrhea (more than 5 times a day); blood (red or black color) or mucus in diarrhea ? Reduced urine output or extreme thirst ? Weakness, dizziness or fainting ? Unusually drowsy or confused ? Fever of 100.4?F (38?C) oral or higher, or as directed ? Yellow color of the eyes or skin ? [id number] [employer] [address] [place] [address], [place] [address]. All rights reserved. This information is not intended as a substitute for professional medical care. Always follow your healthcare professional's instructions. 1. Nausea and vomiting Increase fluids and rest at home. Continue to increase fluids as tolerated. Rehydrate with fluids such as water, Powerade, Gatorade or Propel. Recommend bland diet, as tolerated. BRAT-bananas, rice, applesauce, toast as tolerated Foods high in simple sugars, juice, and highly sugared liquids should be avoided. Dairy products should also be avoided for the next 1 to 2 days. Carbonated soft drinks should also be avoided. Drink plenty of fluids and take salt in soups and salted crackers. Follow-up with your PCP for any further concerns. Go to the ER for any worsening or emergent symptoms. [facility] Summary Purpose Family History No Family History Records FoundNo Family History Records FoundNo Family History Records FoundNo Family History Records Found Advance Directives No Advanced Directives Records FoundNo Advanced Directives Records FoundNo Advanced Directives Records FoundNo Advanced Directives Records Found Additional Source Comments INFORMATION SOURCE (unrecogn ized section and content) DATE CREATED AUTHOR 04/03/2022 [facility] DATE CREATED AUTHOR AUTHOR'S ORGANIZ ATION 07/11/2023 [facility] DATE CREATED AUTHOR AUTHOR'S ORGANIZ ATION 11/18/2023 [facility] DATE CREATED AUTHOR AUTHOR'S ORGANIZ ATION 02/20/2024 [facility] FOR RECORDS PERTAINING TO PATIENTS WHO ARE OR HAVE BEEN ENROLLED IN A CHEMICAL DEPENDENCY/SUBSTANCEABUSE PROGRAM, SOME INFORMATION MAY BE OMITTED. This clinical summary was aggregated from multiple sources. Caution should be exercised in using it in the provision of clinical care. This summary normalizes information from multiple sources, and as a consequence, information in this document may materially change the coding, format and clinical context of patient data. In addition, data may be omitted in some cases. CLINICAL DECISIONS SHOULD BE BASED ON THE PRIMARY CLINICAL RECORDS. [facility]. provides no warranty or guarantee of the accuracy or completeness of information in this document.
[2024-03-20 14:10] LABS: Age Gdln ACOG Testing Note (.); IGP, rfx Aptima HPV ASCU Note (.)
== END 2024-03-16 21:22 | disposition home or self-care (01) ==
LOC: LAB 21:21
PROVIDERS: Visit Provider Obstetrics & Gynecology
DX: Z01.419 Encounter for gynecological examination (general) (routine) without abnormal findings (principal)
CPT/HCPCS: 88175

== ENCOUNTER 2024-03-31 13:09 | Outpatient (OUT) | payer OTHER, SELFPAY ==
--- NOTE | 2024-03-31 13:11 | US_ITS ---
[address] [address] Patient Name: ARGENIS IPNA MRN: [id number] date: 2000 Sex: F Assigned Patient Location: [facility] Current Patient Location: [facility] Accession/Order Number: [id number] Exam Date: 03/31/2024 13:12 Report Date: 03/31/2024 14:19 At the request of: MIKE PILLAI Procedure: US OB cervical length EXAMINATION: US OB anatomy, US OB cervical length HISTORY: ANATOMY COMPARISON: No relevant comparison available. TECHNIQUE: Transabdominal sonographic examination was performed for obstetrical and evaluation. FINDINGS: Number: 1 Heart Rate: 144 bpm H.B. /min Amniotic Fluid Volume: Subjectively normal position: Breech presentation, longitudinal lie Placental Location: Anterior. The placental edge is 4.9 cm from the internal cervical os Cervix Length: 4.21 cm , closed Normal anatomy: Lateral ventricles, cerebellum, posterior fossa, nose, lips, orbits, four-chamber heart, RVOT, LVOT, diaphragm, stomach, kidneys, abdominal cord insertion, bladder, umbilical arteries, three-vessel cord, spine, extremities Abnormal: 3.9 x 6.5 cm choroid plexus cyst BIOMETRY: BPD: 4.45 cm; 19 weeks 3 days; 22.20 % HC: 17.95 cm; 20 weeks 3 days; 53.50 % AC: 15.95 cm; 21 weeks 0 days; 74.20 % FL: 3.43 cm; 20 weeks 6 days; 65.40 % EFW:343.08 g; 82.20 %, 13 ounces FL/AC: 21.50 FL/BPD: 77.08 HC/AC: 1.13 GESTATIONAL AGE: Age by EDC: 20 weeks 1 day ZEINAB by EDC: 2024-08-17 Age by current US: 20 weeks 3 days ZEINAB by current US: 2024-08-15 US/US OB cervical length IMPRESSION: 6.5 mm choroid plexus cyst Borderline low lying placenta Otherwise normal anatomy scan *Reference: [employer] Practice Guideline for the performance of Obstetric Ultrasound Examinations, March 31, 2007. Electronically authenticated by: CHASITY NGUYEN Date: 03/31/2024 14:19
--- NOTE | 2024-03-31 13:12 | US_ITS ---
[address] [address] Patient Name: ARGENIS PINA MRN: [id number] date: 2000 Sex: F Assigned Patient Location: [facility] Current Patient Location: [facility] Accession/Order Number: [id number] Exam Date: 03/31/2024 13:12 Report Date: 03/31/2024 14:19 At the request of: MIKE PILLAI Procedure: US OB anatomy EXAMINATION: US OB anatomy, US OB cervical length HISTORY: ANATOMY COMPARISON: No relevant comparison available. TECHNIQUE: Transabdominal sonographic examination was performed for obstetrical and evaluation. FINDINGS: Number: 1 Heart Rate: 144 bpm H.B. /min Amniotic Fluid Volume: Subjectively normal position: Breech presentation, longitudinal lie Placental Location: Anterior. The placental edge is 4.9 cm from the internal cervical os Cervix Length: 4.21 cm , closed Normal anatomy: Lateral ventricles, cerebellum, posterior fossa, nose, lips, orbits, four-chamber heart, RVOT, LVOT, diaphragm, stomach, kidneys, abdominal cord insertion, bladder, umbilical arteries, three-vessel cord, spine, extremities Abnormal: 3.9 x 6.5 cm choroid plexus cyst BIOMETRY: BPD: 4.45 cm; 19 weeks 3 days; 22.20 % HC: 17.95 cm; 20 weeks 3 days; 53.50 % AC: 15.95 cm; 21 weeks 0 days; 74.20 % FL: 3.43 cm; 20 weeks 6 days; 65.40 % EFW:343.08 g; 82.20 %, 13 ounces FL/AC: 21.50 FL/BPD: 77.08 HC/AC: 1.13 GESTATIONAL AGE: Age by EDC: 20 weeks 1 day ZEINAB by EDC: 2024-08-17 Age by current US: 20 weeks 3 days ZEINAB by current US: 2024-08-15 US/US OB anatomy IMPRESSION: 6.5 mm choroid plexus cyst Borderline low lying placenta Otherwise normal anatomy scan *Reference: [employer] Practice Guideline for the performance of Obstetric Ultrasound Examinations, March 31, 2007. Electronically authenticated by: CHASITY NGUYEN Date: 03/31/2024 14:19
--- OUTSIDE RECORDS SUMMARY | 2024-03-31 13:23 | XMS_ITS | CCD ---
Author Organization [facility] Care Team Providers Care Social Work Program Coordinator Name Role Phone ROSAS, DR MCKEON Attending [...] Admitting Unavailable ROSAS, DR MCKEON Attending Unavailable [place], DR CHASITY Barber [employer] Unavailable ROSAS, DR [...] Unavailable ZIEBER, DR CHARITY Felix Consulting Unavailable [place] OPHTHALMIC PHOTOGRAPHER-HEALTH INFORMATION SPECIALIST, Evelin Gonsalvesth Attending Unavailable HERI ARREOLA Referring Unavailable ELBAHERI Primary Care Unavailable HERI ARREOLA Attending Unavailable HERI ARREOLA Referring Unavailable HERI ARREOLA Primary Care Unavailable ANNALISE ROUSE Attending Unavailable HERI ARREOLA Referring Unavailable ELBAHERI Primary Care Unavailable MIKE PILLAI Attending Unavailable Problems Active Problems Problem Classification Problem [...] not applicable or unspecified; Translations: [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] Onset: 02-28-2022 Episodic Other [...] Facil ity CBC AND AUTO DIFFon 11-15-19 24 ABSOLUTE BASOPHIL 0.0 X10E9/L Normal 0.0-0.2 [place] Comment on above: Performed By: #### C BCA, CMP, FEPR, THYR, 19557-4 #### [facility] ([id number]) [address], [address] [place] [address] ABSOLUTE NEUTROPHIL 2.5 X10E9/L Normal 1.5-6.6 [facility] Comment on above: Performed By: #### C BCA, CMP, FEPR, THYR, 24725-6 #### [facility] ([id number]) [address], [address] [place] [address] Basophils/100 WBC (Bld) 0.8 % Normal [facility] Comment on above: Performed By: #### C BCA, CMP, FEPR, THYR, 71098-0 #### [facility] ([id number]) [address], [address] [place] [address] Eosinophils (Bld) [#/Vol] 0.1 10*3/uL Normal 0.0-0.4 [facility] Comment on above: Performed By: #### C BCA, CMP, FEPR, THYR, 41302-1 #### [facility] ([id number]) [address] [address] [place] [address] Eosinophils/100 WBC (Bld) 1.4 % Normal [facility] Comment on above: Performed By: #### C BCA, CMP, FEPR, THYR, 23817-0 #### [facility] ([id number]) [address] [address] [place] [address] Erythrocyte distribution width (RBC) [Ratio] 12.9 % Normal 11.5-15.0 [facility] Comment on above: Performed By: #### C BCA, CMP, FEPR, THYR, 88846-9 #### [facility] ([id number]) [address] [address] [place] [address] Hematocrit (Bld) [Volume fraction] 35.4 % Normal 35-47 [facility] Comment on above: Performed By: #### C BCA, CMP, FEPR, THYR, 55430-8 #### [facility] ([id number]) [address] [address] [place] [address] Hemoglobin (Bld) [Mass/Vol] 12.2 g/dL Normal 11.7-15.5 [facility] Comment on above: Performed By: #### C BCA, CMP, FEPR, THYR, 64339-9 #### [facility] ([id number]) [address] [address] [place] [address] Lymphocytes (Bld) [#/Vol] 2.1 10*3/uL Normal 1.0-3.5 [facility] Comment on above: Performed By: #### C BCA, CMP, FEPR, THYR, 02711-4 #### [facility] ([id number]) [address] [address] [place] [address] Lymphocytes/100 WBC (Bld) 41.5 % Normal [facility] Comment on above: Performed By: #### C BCA, CMP, FEPR, THYR, 79331-4 #### [facility] ([id number]) [address] [place] [address] MCH (RBC) [Entitic mass] 31.2 pg Normal 27-34 [facility] Comment on above: Performed By: #### C BCA, CMP, FEPR, THYR, 57681-5 #### [facility] ([id number]) [address] [place] [address] MCHC (RBC) [Mass/Vol] 34.5 g/dL Normal 32-36 [facility] Comment on above: Performed By: #### C BCA, CMP, FEPR, THYR, 81166-0 #### [facility] ([id number]) [address] [place] [address] MCV (RBC) [Entitic vol] 90 fL Normal 80-100 [facility] Comment on above: Performed By: #### C BCA, CMP, FEPR, THYR, 24232-5 #### [facility] ([id number]) [address] [address] [place] [address] Monocytes (Bld) [#/Vol] 0.4 10*3/uL Normal 0-0.9 [facility] Comment on above: Performed By: #### C BCA, CMP, FEPR, THYR, 91064-9 #### [facility] ([id number]) [address] [place] [address] Monocytes/100 WBC (Bld) 7.0 % Normal [facility] Comment on above: Performed By: #### C BCA, CMP, FEPR, THYR, 97447-8 #### [facility] ([id number]) [address] [address] [place] [address] Neutrophils/100 WBC (Bld) 49.3 % Normal [facility] Comment on above: Performed By: #### C BCA, CMP, FEPR, THYR, 42870-4 #### [facility] ([id number]) [address] [address] [place] [address] Platelet mean volume (Bld) [Entitic vol] 8.7 fL Normal 7-12 [facility] Comment on above: Performed By: #### C BCA, CMP, FEPR, THYR, 21434-6 #### [facility] ([id number]) [address] [address] [place] [address] Platelets (Bld) [#/Vol] 232 10*3/uL Normal 150-450 [facility] Comment on above: Performed By: #### C BCA, CMP, FEPR, THYR, 89804-3 #### [facility] ([id number]) [address] [address] [place] [address] RBC COUNT 3.92 X10E12/L Normal 3.80-5.20 [facility] Comment on above: Performed By: #### C BCA, CMP, FEPR, THYR, 10851-3 #### [facility] ([id number]) [address] [address] [place] [address] WBC (Bld) [#/Vol] 5.0 10*3/uL Normal 4.0-11.0 [place] Comment on above: Performed By: #### C BCA, CMP, FEPR, THYR, 37322-1 #### [facility] ([id number]) [address] [address] [place] [address] COMPREHENSIVE METABOLIC PANE Wang 11-15-2023 Albumin [Mass/Vol] 4.4 g/dL Normal 3.2-5.3 [place] Comment on above: Performed By: #### C BCA, CMP, FEPR, THYR, 88816-6 #### [facility] ([id number]) [address] [address] [place] [address] ALP [Catalytic activity/Vol] 37 U/L Low 39-130 [facility] Comment on above: Performed By: #### C BCA, CMP, FEPR, THYR, 62058-4 #### [facility] ([id number]) [address] [place] [address] ALT [Catalytic activity/Vol] 11 U/L Normal 0-31 [facility] Comment on above: Performed By: #### C BCA, CMP, FEPR, THYR, 55508-7 #### [facility] ([id number]) [address] [place] [address] Anion gap [Moles/Vol] 9 mmol/L Normal 5-15 [facility] Comment on above: Performed By: #### C BCA, CMP, FEPR, THYR, 48963-1 #### [facility] ([id number]) [address] [place] [address] AST [Catalytic activity/Vol] 15 U/L Normal 0-41 [facility] Comment on above: Performed By: #### C BCA, CMP, FEPR, THYR, 33519-1 #### [facility] ([id number]) [address] [place] [address] Bilirubin [Mass/Vol] 1.4 mg/dL High 0.3-1.2 [facility] Comment on above: Performed By: #### C BCA, CMP, FEPR, THYR, 88265-4 #### [facility] ([id number]) [address] [place] [address] Calcium [Mass/Vol] 9.1 mg/dL Normal 8.5-10.5 [place] Comment on above: Performed By: #### C BCA, CMP, FEPR, THYR, 44892-8 #### [facility] ([id number]) [address] [place] [address] Chloride [Moles/Vol] 104 mmol/L Normal 98-109 [facility] Comment on above: Performed By: #### C BCA, CMP, FEPR, THYR, 61413-5 #### [facility] ([id number]) [address] [place] [address] CO2 [Moles/Vol] 25 mmol/L Normal 22-32 [facility] Comment on above: Performed By: #### C BCA, CMP, FEPR, THYR, 55817-9 #### [facility] ([id number]) [address] [address] [place] [address] Creatinine [Mass/Vol] 0.74 mg/dL Normal 0.40-1.00 [facility] Comment on above: Result Comment: METH OD TRACEABLE TO IDMS STANDARD Performed By: #### C BCA, CMP, FEPR, THYR, 52956-1 #### [facility] ([id number]) [address] [place] [address] eGFR (CKD-EPI) NON-RACE DEPENDENT >90 Normal >59 [facility] Comment on above: Result Comment: Reported eGFR is based on the CKD-EPI 2020 equation that does not use a race coefficient. Performed By: #### C BCA, CMP, FEPR, THYR, 35543-2 #### [facility] ([id number]) [address] [place] [address] Glucose [Mass/Vol] 100 mg/dL High 65-99 [place] Comment on above: Performed By: #### C BCA, CMP, FEPR, THYR, 56259-5 #### [facility] ([id number]) [address] [address] [place] [address] Potassium [Moles/Vol] 3.7 mmol/L Normal 3.5-5.0 [facility] Comment on above: Performed By: #### C BCA, CMP, FEPR, THYR, 38147-3 #### [facility] ([id number]) [address] [place] [address] Protein [Mass/Vol] 6.9 g/dL Normal 6.0-8.0 [place] Comment on above: Performed By: #### C BCA, CMP, FEPR, THYR, 06417-9 #### [facility] ([id number]) [address], [facility] [address] [place] [address] Sodium [Moles/Vol] 138 mmol/L Normal 134-146 [place] Comment on above: Performed By: #### C BCA, CMP, FEPR, THYR, 00659-7 #### [facility] ([id number]) [address] [address] [place] [address] Urea nitrogen [Mass/Vol] 12 mg/dL Normal 5-23 [facility] Comment on above: Performed By: #### C BCA, CMP, FEPR, THYR, 41385-0 #### [facility] ([id number]) [address] [address] [place] [address] IRON PROFILEon 11-15-2023 Iron [Mass/Vol] 81 ug/dL Normal 50-170 [facility] Comment on above: Performed By: #### C BCA, CMP, FEPR, THYR, 47344-3 #### [facility] ([id number]) [address] [address] [place] [address] IRON BINDING 309 ug/dL Normal 250-425 [facility] Comment on above: Performed By: #### C BCA, CMP, FEPR, THYR, 56083-5 #### [facility] ([id number]) [address] [address] [place] [address] IRON SATURATION 26 % SATURATION Normal 15-50 [facility] Comment on above: Performed By: #### C BCA, CMP, FEPR, THYR, 79423-7 #### [facility] ([id number]) [address] [place] [address] THYROID PROFILEon 11-15-2023 Free T4 [Mass/Vol] 1.01 ng/dL Normal 0.61-1.60 [place] Comment on above: Performed By: #### C BCA, CMP, FEPR, THYR, 79193-1 #### [facility] ([id number]) [address] [place] [address] TSH 1.81 uIU/mL Normal 0.49-4.67 [facility] Comment on above: Performed By: #### C BCA, CMP, FEPR, THYR, 00140-7 #### [facility] ([id number]) [address] [place] [address] Vitamin D+Metabolites [Mass/ Vol]on 11-15-2023 VITAMIN D 25 HYD TOT 18.7 ng/mL Low 30-100 [facility] Comment on above: Result Comment: Vitamin D status 25 [place] Vitamin D Deficiency <20 ng/mL Insufficiency 20-29 ng/mL Sufficiency 30-100 ng/mL Toxicity >100 ng/mL NOTE: A pediatric reference range has not been established by the counter cutter of this kit. The [place] [employer] recommends a Vitamin D level of = or >20ng/mL in infants and children. Performed By: #### C BCA, CMP, FEPR, THYR, 94711-8 #### [facility] ([id number]) [address] [place] [address] Urgent Care Office/Clinic No zackary 07-10-2023 Urgent Care Office/Clinic Note Chief Complaint [...] declines COVID testing in office today. No [id number] medications for symptom management. Significant other is [...] by Evelin Smith 07/10/23 19:47 EST Normal [facility] CBC AUTO DIFFon 03-23-2022 BASO # 0.0 103/ul Normal 0.0-0.1 [facility] Comment on above: Performed By: #### C BC #### [facility] [address] [address] [address] Ana Maria Alexandre Basophils/100 WBC (Bld) 0.2 % Normal 0.2-2.0 [facility] Comment on above: Performed By: #### C BC #### [facility] [address] [place] [address] Dr. Ana Maria Alexandre EO # 0.0 103/ul Normal 0.0-0.7 [facility] Comment on above: Performed By: #### C BC #### [facility] [address] [place] [address] Dr. Ana Maria Alexandre Eosinophils/100 WBC (Bld) 0.3 % Critically low 0.9-7.0 [facility] Comment on above: Performed By: #### C BC #### [facility] [address] [place] [address] Dr. Ana Maria Alexandre Erythrocyte distribution width (RBC) [Ratio] 12.9 % Normal 11.0-15.0 [facility] Comment on above: Performed By: #### C BC #### [facility] [address] [place] [address] Dr. Ana Maria Alexandre Hematocrit (Bld) [Volume fraction] 25.6 % Critically low 36.0-48.0 [facility] Comment on above: Performed By: #### C BC #### [facility] [address] [place] [address] Dr. Ana Maria Alexandre Hemoglobin (Bld) [Mass/Vol] 8.5 g/dL Critically low 12.0-16.0 [facility] Comment on above: Performed By: #### C BC #### [facility] [address] [place] [address] Dr. Ana Maria Alexandre IG # 0.05 10e3/ul Critically high 0.00-0.03 [facility] Comment on above: Performed By: #### C BC #### [facility] [address] [place] [address] Dr. Ana Maria Alexandre IG % 0.4 % Normal 0.0-0.5 [facility] Comment on above: Performed By: #### C BC #### [facility] [address] [place] [address] Dr. Ana Maria Alexandre LYMPH # 2.5 103/ul Normal 1.2-3.8 [facility] Comment on above: Performed By: #### C BC #### [facility] [address] [place] [address] Dr. Ana Maria Alexandre Lymphocytes/100 WBC (Bld) 17.2 % Critically low 20.5-60.0 [facility] Comment on above: Performed By: #### C BC #### [facility] [address] [place] [address] Dr. Ana Maria Alexandre MANUAL DIFF REQ NO Normal [facility] Comment on above: Performed By: #### C BC #### [facility] [address] [place] [address] Dr. Ana Maria Alexandre MCH (RBC) [Entitic mass] 28.1 pg Normal 26.7-34.0 [facility] Comment on above: Performed By: #### C BC #### [facility] [address] [place] [address] Dr. Ana Maria Alexandre MCHC (RBC) [Mass/Vol] 33.2 g/dL Normal 29.9-35.2 [facility] Comment on above: Performed By: #### C BC #### [facility] [address] [place] [address] Dr. Ana Maria Alexandre MCV (RBC) [Entitic vol] 84.5 fL Normal 81.0-99.0 [facility] Comment on above: Performed By: #### C BC #### [facility] [address] [place] [address] Dr. Ana Maria Alexandre MONO # 0.9 103/ul Critically high 0.3-0.8 [facility] Comment on above: Performed By: #### C BC #### [facility] [address] [place] [address] Dr. Ana Maria Alexandre Monocytes/100 WBC (Bld) 6.0 % Normal 1.7-12.0 [facility] Comment on above: Performed By: #### C BC #### [facility] [address] [place] [address] Dr. Ana Maria Alexandre NEUT # 10.8 103/ul Critically high 1.4-6.5 [facility] Comment on above: Performed By: #### C BC #### [facility] [address] [address] [address] Ana Maria Alexandre Neutrophils/100 WBC (Bld) 75.9 % Critically high 43.0-75.0 [facility] Comment on above: Performed By: #### C BC #### [facility] [address] [address] [address] Ana Maria Alexandre Platelet mean volume (Bld) [Entitic vol] 11.4 fL Normal 9.5-13.5 [facility] Comment on above: Performed By: #### C BC #### [facility] [address] [address] [address] Ana Maria Alexandre PLT 152 103/ul Normal 150-450 [facility] Comment on above: Performed By: #### C BC #### [facility] [address] [place] [address] Dr. Ana Maria Alexandre RBC 3.03 106/ul Critically low 4.20-5.40 [facility] Comment on above: Performed By: #### C BC #### [facility] [address] [place] [address] Dr. Ana Maria Alexandre WBC 14.2 103/ul Critically high 4.0-11.0 [facility] Comment on above: Performed By: #### C BC #### [facility] [address] [place] [address] Dr. Ana Maria Alexandre CBC AUTO DIFFon 03-22-2022 BASO # 0.0 103/ul Normal 0.0-0.1 [facility] Comment on above: Performed By: #### C BC #### [facility] [address] [place] [address] Dr. Ana Maria Alexandre Basophils/100 WBC (Bld) 0.3 % Normal 0.2-2.0 [facility] Comment on above: Performed By: #### C BC #### [facility] [address] [place] [address] Dr. Ana Maria Alexandre EO # 0.1 103/ul Normal 0.0-0.7 [facility] Comment on above: Performed By: #### C BC #### [facility] [address] [address] [address] Ana Maria Alexandre Eosinophils/100 WBC (Bld) 0.6 % Critically low 0.9-7.0 [facility] Comment on above: Performed By: #### C BC #### [facility] [address] [address] [address] Ana Maria Alexandre Erythrocyte distribution width (RBC) [Ratio] 12.6 % Normal 11.0-15.0 [facility] Comment on above: Performed By: #### C BC #### [facility] [address] [place] [address] Dr. Ana Maria Alexandre Hematocrit (Bld) [Volume fraction] 30.4 % Critically low 36.0-48.0 [facility] Comment on above: Performed By: #### C BC #### [facility] [address] [place] [address] Dr. Ana Maria Alexandre Hemoglobin (Bld) [Mass/Vol] 9.9 g/dL Critically low 12.0-16.0 [facility] Comment on above: Performed By: #### C BC #### [facility] [address] [place] [address] Dr. Ana Maria Alexandre IG # 0.08 10e3/ul Critically high 0.00-0.03 [facility] Comment on above: Performed By: #### C BC #### [facility] [address] [place] [address] Dr. Ana Maria Alexandre IG % 0.6 % Critically high 0.0-0.5 [facility] Comment on above: Performed By: #### C BC #### [facility] [address] [place] [address] Dr. Ana Maria Alexandre LYMPH # 1.9 103/ul Normal 1.2-3.8 [facility] Comment on above: Performed By: #### C BC #### [facility] [address] [place] [address] Dr. Ana Maria Alexandre Lymphocytes/100 WBC (Bld) 15.5 % Critically low 20.5-60.0 [facility] Comment on above: Performed By: #### C BC #### [facility] [address] [place] [address] Dr. Ana Maria Alexandre MANUAL DIFF REQ NO Normal [facility] Comment on above: Performed By: #### C BC #### [facility] [address] [address] [address] Ana Maria Alexandre MCH (RBC) [Entitic mass] 27.5 pg Normal 26.7-34.0 [facility] Comment on above: Performed By: #### C BC #### [facility] [address] [address] [address] Ana Maria Alexandre MCHC (RBC) [Mass/Vol] 32.6 g/dL Normal 29.9-35.2 [facility] Comment on above: Performed By: #### C BC #### [facility] [address] [place] [address] Dr. Ana Maria Alexandre MCV (RBC) [Entitic vol] 84.4 fL Normal 81.0-99.0 [facility] Comment on above: Performed By: #### C BC #### [facility] [address] [place] [address] Dr. Ana Maria Alexandre MONO # 0.7 103/ul Normal 0.3-0.8 [facility] Comment on above: Performed By: #### C BC #### [facility] [address] [place] [address] Dr. Ana Maria Alexandre Monocytes/100 WBC (Bld) 5.2 % Normal 1.7-12.0 [facility] Comment on above: Performed By: #### C BC #### [facility] [address] [place] [address] Dr. Ana Maria Alexandre NEUT # 9.7 103/ul Critically high 1.4-6.5 [facility] Comment on above: Performed By: #### C BC #### [facility] [address] [place] [address] Dr. Ana Maria Alexandre Neutrophils/100 WBC (Bld) 77.8 % Critically high 43.0-75.0 [facility] Comment on above: Performed By: #### C BC #### [facility] [address] [address] [address] Ana Maria Alexandre Platelet mean volume (Bld) [Entitic vol] 11.5 fL Normal 9.5-13.5 [facility] Comment on above: Performed By: #### C BC #### [facility] [address] [place] [address] Dr. Ana Maria Alexandre PLT 202 103/ul Normal 150-450 [facility] Comment on above: Performed By: #### C BC #### [facility] [address] [address] [address] Ana Maria Alexandre RBC 3.60 106/ul Critically low 4.20-5.40 [facility] Comment on above: Performed By: #### C BC #### [facility] [address] [place] [address] Dr. Ana Maria Alexandre WBC 12.5 103/ul Critically high 4.0-11.0 [facility] Comment on above: Performed By: #### C BC #### [facility] [address] [place] [address] Dr. Ana Maria Alexandre [facility] SARS-CoV-2 (COVID-19) RNA RUTH ANN+probe Ql (Unsp spec) Not detected Normal NOT DETECTED [facility] Comment on above: Result Comment: When [...] for this test is supported by the [place] of Health and Human Service's declaration that [...] used). Performed By: #### C VDTBH #### [facility] [address] [place] [address] Dr. Ana Maria Alexandre DRUG SCREEN RAPID (URINE)on 03-22-2022 AMP Negative Normal NEGATIVE [facility] Comment on above: Performed By: #### D RUGRPD #### [facility] [address] [place] [address] Dr. Ana Maria Alexandre BAR Negative Normal NEGATIVE [facility] Comment on above: Performed By: #### D RUGRPD #### [facility] [address] [place] [address] Dr. Ana Maria Alexandre BUP Negative Normal NEGATIVE [facility] Comment on above: Performed By: #### D RUGRPD #### [facility] [address] [place] [address] Dr. Ana Maria Alexandre BZO Negative Normal NEGATIVE [facility] Comment on above: Performed By: #### D RUGRPD #### [facility] [address] [place] [address] Dr. Ana Maria Alexandre BRIGHT Negative Normal NEGATIVE [facility] Comment on above: Performed By: #### D RUGRPD #### [facility] [address] [place] [address] Dr. Ana Maria Alexandre CUT-OFFS SEE BELOW Normal [facility] Comment on above: Result Comment: AMP [...] ng/mL Performed By: #### D RUGRPD #### [facility] [address] [place] [address] Dr. Ana Maria Alexandre DRUG CUT HEADER DRUG CLASS TEST SYSTEM CUT-OFF CONCENTRATIONS ARE FOLLOWS: Normal [facility] Comment on above: Performed By: #### D RUGRPD #### [facility] [address] [place] [address] Dr. Ana Maria Alexandre mAMP Negative Normal NEGATIVE [facility] Comment on above: Performed By: #### D RUGRPD #### [facility] [address] [place] [address] Dr. Ana Maria Alexandre MTD Negative Normal NEGATIVE [facility] Comment on above: Performed By: #### D RUGRPD #### [facility] [address] [place] [address] Dr. Ana Maria Alexandre OPI Negative Normal NEGATIVE [facility] Comment on above: Performed By: #### D RUGRPD #### [facility] [address] [place] [address] Dr. Ana Maria Alexandre OXY Negative Normal NEGATIVE [facility] Comment on above: Performed By: #### D RUGRPD #### [facility] [address] [place] [address] Dr. Ana Maria Alexandre PCP Negative Normal NEGATIVE [facility] Comment on above: Performed By: #### D RUGRPD #### [facility] [address] [place] [address] Dr. Ana Maria Alexandre PPX Negative Normal NEGATIVE [facility] Comment on above: Performed By: #### D RUGRPD #### [facility] [address] [place] [address] Dr. Ana Maria Alexandre TCA Negative Normal NEGATIVE [facility] Comment on above: Performed By: #### D RUGRPD #### [facility] [address] [place] [address] Dr. Ana Maria Alexandre THC Negative Normal NEGATIVE [facility] Comment on above: Performed By: #### D RUGRPD #### [facility] [address] [place] [address] Dr. Ana Maria Alexandre TYPE AND SCREENon 03-22-2022 TYPE AND SCREEN Negative Normal [facility] Comment on above: Performed By: #### T NS #### [facility] [address] [place] [address] Dr. Ana Maria Alexandre GROUP B STREP CULTUREon - S. agalactiae Ag Ql (Unsp spec) Culture [...] F Tetracycline >=16 R F Normal [facility] Comment on above: Performed By: #### G BSCX #### [facility] [address] [place] [address] Dr. Ana Maria Alexandre VAGINITIS/VAGINOSIS DNA PROB Chad 03-14-2022 Elena species Negative Normal Negative [facility] Comment on above: Performed By: #### V AGINT #### [facility] [address] [place] [address] Dr. Ana Maria Alexandre Gardnerella vaginalis Negative Normal Negative [facility] Comment on above: Performed By: #### V AGINT #### [facility] [address] [place] [address] Dr. Ana Maria Alexandre Trichomonas vaginalis Negative Normal Negative [facility] Comment on above: Performed By: #### V AGINT #### [facility] [address] [place] [address] Dr. Ana Maria Alexandre US PREG GROWTHon [...] by: CHARITY FLORES Date: 2022-03-01 16:15 Normal [facility] US PREG GROWTHon 02-01-2022 US PREG [...] by: CHARITY FLORES Date: 2022-02-01 16:43 Normal [facility] US PREG REEVAL ABNon 022 US PREG REEVAL [...] by: CHASITY NGUYEN Date: 2022-01-08 19:27 Normal [facility] Encounters Encounter Date Encounter Type Care Provider Facility Start: 03-16-2024 End: 03-16-2024 ambulatory MIKE PILLAI Not Available Start: 02-28-2024 End: 02-28-2024 ambulatory MIKE PILLAI Not Available Start: 02-18-2024 End: 02-18-2024 ambulatory [facility] Start: 11-15-2023 End: 11-16-2023 ambulatory [facility] Start: 11-15-2023 Encounter for genera l adult medical examination without abnormal findings [facility] Start: 10-21-2023 End: 10-21-2023 ambulatory [facility] Start: 10-21-2023 Encounter for genera l adult medical examination without abnormal findings [facility] Start: 07-10-2023 End: 07-10-2023 [...] PILLAI Facility:[facility] Start: 03-12-2022 End: 03-12-2022 ambulatory NONE LISTED REQUEST Facility:[facility] Start: 02-28-2022 End: 03-01-2022 [...] Payer Unknown 2023 Private Health Insurance [id number] 2001 Unknown [id number] 2.16.84 0.1.634386.3.579.2.593 2001 Unknown [id number] 2.16.84 0.1.295811.3.579.2.593 2001 Unknown [id number] 2.16.84 0.1.523754.3.579.2.593 2001 Unknown [id number] 2.16.84 0.1.179178.3.579.2.593 2001 Unknown [id number] 2.16.84 0.1.257518.3.579.2.593 2001 Unknown [id number] 2.16.84 0.1.370757.3.579.2.593 2001 Unknown [id number] 2.16.84 0.1.584650.3.579.2.593 2001 Unknown [id number] 2.16.84 0.1.533735.3.579.2.593 2001 Unknown [id number] 2.16.84 0.1.894998.3.579.2.593 2001 Unknown [id number] 2.16.84 0.1.455881.3.579.2.593 2001 Unknown [id number] 2.16. 840.1.775226.3.579.2.196 2001 Unknown [id number] 2.16.8 40.1.093813.3.579.2.1286 2001 Unknown [id number] 2.16.8 40.1.690183.3.579.2.1286 2001 Unknown [id number] 2.16.8 40.1.122493.3.579.2.1286 2001 Unknown [id number] 2.16.84 0.1.996801.3.579.2.1259 2001 Unknown [id number] 2.16.84 0.1.188675.3.579.2.1259 1959 Self-pay 1959 Unknown [id number] 1959 Unknown [id number] Clinical Note 07-10-2023 Note Date & Type Note Facility 07-10-2023 Note Patient Education Ma terials Name: Argenis Pina Current Date: 07/10/2023 19:27:39 [facility] : 2000 The following sheet(s) are the Patient Education Leaflets for [facility] Vomiting (Adult) Vomiting is a common symptom [...] and water are not available, use alcohol-based correction warden to keep from spreading the infection to [...] color of the eyes or skin ? [phone] [place] [place] [address]. All rights reserved. This information is not [...] ER for any worsening or emergent symptoms. [facility] Summary Purpose Family History No Family History Records FoundNo Family History Records FoundNo Family History Records FoundNo Family History Records FoundNo Family History Records Found Advance Directives No Advanced Directives Records FoundNo Advanced Directives Records FoundNo Advanced Directives Records FoundNo Advanced Directives Records FoundNo Advanced Directives Records Found Additional Source Comments INFORMATION SOURCE (unrecogn ized section and content) DATE CREATED AUTHOR 04/03/[address] [facility] DATE CREATED AUTHOR AUTHOR'S ORGANIZ ATION 07/11/2023 [facility] DATE CREATED AUTHOR AUTHOR'S ORGANIZ ATION 11/18/2023 [facility] DATE CREATED AUTHOR AUTHOR'S ORGANIZ ATION 02/20/2024 [facility] DATE CREATED AUTHOR AUTHOR'S ORGANIZ ATION 03/17/2024 [facility] FOR RECORDS PERTAINING TO PATIENTS WHO ARE [...] BE BASED ON THE PRIMARY CLINICAL RECORDS. [facility] [employer] [facility]. provides no warranty or guarantee of the accuracy or completeness of information in this document.
== END 2024-03-31 13:10 | disposition home or self-care (01) ==
LOC: NOMS 13:09
PROVIDERS: Visit Provider Obstetrics & Gynecology
DX: O35.03X1 Maternal care for (suspected) central nervous system malformation or damage in fetus, choroid plexus cysts, fetus 1 (principal); Z36.89 Encounter for other specified antenatal screening; Z3A.20 20 weeks gestation of pregnancy
CPT/HCPCS: 76805; 76817

== ENCOUNTER 2024-04-28 08:03 | Outpatient (OUT) | payer OTHER, SELFPAY ==
--- OUTSIDE RECORDS SUMMARY | 2024-04-28 08:05 | XMS_ITS | CCD ---
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 Name Role Phone ORSAS, DR MCKEON Attending Unavailable REQUEST, DR DAVIDSON LISTED Primary Care Unavaila ble ROSAS, DR MCKEON Admitting Unavailable ROSAS, DR MCKEON Attending Unavailable REQUEST, DR DAVIDSON LISTED Primary Care Unavaila ble ROSAS, DR MCKOEN Consulting Unavailable ROSAS, DR MCKEON Admitting Unavailable [...] Admitting Unavailable ROSAS, DR MCKEON Attending Unavailable WEST, DR CHASITY Barber Consulting Unavailable ROSAS, DR MCKEON Admitting Unavailable ROSAS, DR MCKEON Consulting Unavailable REQUEST, DR DAVISDON LISTED Primary Care Unavaila ble ROSAS, DR [...] Unavailable ZIEBER, DR CHARITY Felix Consulting Unavailable HIESTANDHERI Referring Unavailable HIESTAND, HUNTER Primary Care Unavailable HERI ARREOLA Attending Unavailable HERI ARREOLA Referring Unavailable HERI ARREOLA Primary Care Unavailable ANNALISE ROUSE Attending Unavailable HERI ARREOLA Referring Unavailable HERI ARREOLA Primary Care Unavailable MIKE KRISHNAMURTHY Attending Unavailable DAMARI TYLER Attending Unavailable Heri Arreola MD Primary Care Provider Raúl ACEVEDO, Hesham Agosto Attending Unav jocelyn FENG, Evelin Ya Attending Unavailable Medications Current Medications Medication Drug Class(es) Dates Sig (Normalized) Sig (Original) Ttpgxbmc-Avt-Jk-FA (, w/Iron & FA,) 27-0.8 MG tablet (3 sources) Fjzzqfdl-Cpi-Sf-FA (, w/Iron & FA,) 27-0.8 MG tablet 1 (one) time each day at the same time Active valACYclovir 1000 mg oral tablet (3 sources) Herpesvirus Nucleoside Analog DNA Polymerase Inhibitor, Herpes Simplex Virus Nucleoside Analog DNA Polymerase Inhibitor, Herpes Zoster Virus Nucleoside Analog DNA Polymerase Inhibitor Start: 02-18-2024 valACYclovir (Valtrex) 1 g tablet Take 1,000 mg by mouth in the morning. 02/18/2024 Active Problems Active Problems Problem Classification Problem Date [...] not applicable or unspecified; Translations: [MAT CARE DIRECTOR OF HEMOPHILIA MALFORM FETUS NA/UNS] Onset: 02-28-2022 Episodic Other female genital disorders (1 source) Other specified noninflammatory disorders of vagina; Translations: [OTH SPEC NONINFLAMMATORY D/O VAGINA] Onset: 03-17-2022 Episodic Other and delivery including normal (11 sources) Encounter for routine follow-up; Translations: [Single live ] Onset: 01-08-2022 Episodic Other screening for suspected conditions (not mental disorders or infectious disease) (6 sources) Encounter for screening for Streptococcus B; Translations: [Patient encounter status] Onset: 03-12-2022 Episodic Residual codes; unclassified (1 source) 37 weeks gestation of ; Translations: [37 WEEKS GESTATION OF ] Onset: 03-27-2022 Episodic Residual codes; unclassified (1 source) 34 weeks gestation of ; Translations: [34 WEEKS GESTATION OF ] Onset: 03-02-2022 Episodic Residual codes; unclassified (1 source) 30 weeks gestation of ; Translations: [30 WEEKS GESTATION OF ] Onset: 02-04-2022 Episodic Residual codes; unclassified (2 sources) Gestation period, 22 weeks; Translations: [22 weeks gestation of ] 04-13-2024 Episodic Unclassified (1 source) CONTACT W/AND (SUSP) [...] Results Test Name Value Interpretation Reference Range Facility TB-QFTon 04-17-2024 Mitogen minus Nil 9.91 IU/mL Normal [facility] Comment on above: Performed By: #### C [id number] #### [address] [address] Nil Result 0.09 IU/mL Normal [facility] Comment on above: Performed By: #### C [id number] #### [address] [place] [address] QuantiFERON-TB Gold Plus Negative Normal Negative [facility] Comment on above: Result Comment: No i nterferon-gamma response to M. tuberculosis antigens was detected. Latent infection with M. tuberculosis is unlikely. A single negative result does not exclude infection with M. tuberculosis. In patients at high risk for M.tuberculosis infection, a second test should be considered in accordance with the 2017 ATS/IDSA/ CDC Clinical Practice Guidelines for Diagnosis of Tuberculosis in Adults and Children [Danny FINCH et. al. Clin. Infect. Dis. 2017;64(2):111?115]. The reference range for the 'TB1 Ag minus Nil Result' and 'TB2 Ag minus Nil Result' is an Interferon-gamma level Performed By: #### C [id number] #### [place] [address] TB1 Ag minus Nil <0.00 [facility] Comment on above: Performed By: #### C [id number] #### [place] [id number] TB2 Ag minus Nil <0.00 [facility] Comment on above: Performed By: #### C D:[id number] #### [place] [id number] OR Trackon 04-16-2024 QuantiFeron TB Drk Grn Li Hep # [address] [facility] Comment on above: Performed By: #### O iron Tracking Order #### [place] [id number] Specimens Received From [facility] Comment on above: Performed By: #### O [facility] Tracking Order #### [address] [address] Urinalysis macro (dipstick) panel (U)on 04-13-2024 Bilirubin, UA Negative Negative - 4(70) +++ mg/dL [facility] Blood, UA Negative Negative - 50 Luis Alberto/mcL [facility] Clarity, UA Clear [facility] Color, UA Yellow [facility] Glucose, UA Negative Negative - 1999(110) ++++ mg/dL [facility] Interpretation and review of laboratory results Normal [facility] Ketones, UA Negative Negative - 160(16) ++++ mg/dL [facility] Leukocytes, UA Negative Negative - 500+++ Juan C/mcL [facility] Nitrite, UA Negative Negative - Positive [facility] pH, UA 7 5 - 9 [facility] Negative Negative - 1999(20) ++++ mg/dL [facility] Spec Grav, UA 1.025 1 - 1.03 [facility] Urobilinogen, UA 1.0 0.2 - 12 mg/dL [facility] CBC AND AUTO DIFFon 11-15-19 24 ABSOLUTE BASOPHIL 0.0 X10E9/L Normal 0.0-0.2 [facility] Comment on above: Performed By: #### C BCA, CMP, FEPR, THYR, 92927-9 #### [facility] ([id number]) [address], [address] [place] [address] ABSOLUTE NEUTROPHIL 2.5 X10E9/L Normal 1.5-6.6 [facility] Comment on above: Performed By: #### C BCA, CMP, FEPR, THYR, 21814-7 #### [facility] ([id number]) [address] [address] [place] [address] Basophils/100 WBC (Bld) 0.8 % Normal [facility] Comment on above: Performed By: #### C BCA, CMP, FEPR, THYR, 72696-5 #### [facility] ([id number]) [address] [address] [place] [address] Eosinophils (Bld) [#/Vol] 0.1 10*3/uL Normal 0.0-0.4 [facility] Comment on above: Performed By: #### C BCA, CMP, FEPR, THYR, 13547-5 #### [facility] ([id number]) [address], [address] [place] [address] Eosinophils/100 WBC (Bld) 1.4 % Normal [facility] Comment on above: Performed By: #### C BCA, CMP, FEPR, THYR, 51678-4 #### [facility] ([id number]) [address], [facility] [address] [place] [address] Erythrocyte distribution width (RBC) [Ratio] 12.9 % Normal 11.5-15.0 [facility] Comment on above: Performed By: #### C BCA, CMP, FEPR, THYR, 00758-3 #### [facility] ([id number]) [address] [facility] [address] [place] [address] Hematocrit (Bld) [Volume fraction] 35.4 % Normal 35-47 [facility] Comment on above: Performed By: #### C BCA, CMP, FEPR, THYR, 29762-5 #### [facility] ([id number]) [address] [address] [place] [address] Hemoglobin (Bld) [Mass/Vol] 12.2 g/dL Normal 11.7-15.5 [facility] Comment on above: Performed By: #### C BCA, CMP, FEPR, THYR, 48825-2 #### [facility] ([id number]) [address] [address] [place] [address] Lymphocytes (Bld) [#/Vol] 2.1 10*3/uL Normal 1.0-3.5 [facility] Comment on above: Performed By: #### C BCA, CMP, FEPR, THYR, 45617-4 #### [facility] ([id number]) [address] [address] [place] [address] Lymphocytes/100 WBC (Bld) 41.5 % Normal [facility] Comment on above: Performed By: #### C BCA, CMP, FEPR, THYR, 94303-4 #### [facility] ([id number]) [address], [address] [place] [address] MCH (RBC) [Entitic mass] 31.2 pg Normal 27-34 [facility] Comment on above: Performed By: #### C BCA, CMP, FEPR, THYR, 04020-6 #### [facility] ([id number]) [address], [address] [place] [address] MCHC (RBC) [Mass/Vol] 34.5 g/dL Normal 32-36 [facility] Comment on above: Performed By: #### C BCA, CMP, FEPR, THYR, 64613-7 #### [facility] ([id number]) [address] [place] [address] MCV (RBC) [Entitic vol] 90 fL Normal 80-100 [facility] Comment on above: Performed By: #### C BCA, CMP, FEPR, THYR, 75710-2 #### [facility] ([id number]) [address] [address] [place] [address] Monocytes (Bld) [#/Vol] 0.4 10*3/uL Normal 0-0.9 [facility] Comment on above: Performed By: #### C BCA, CMP, FEPR, THYR, 16708-1 #### [facility] ([id number]) [address] [place] [address] Monocytes/100 WBC (Bld) 7.0 % Normal [facility] Comment on above: Performed By: #### C BCA, CMP, FEPR, THYR, 00304-7 #### [facility] ([id number]) [address], [address] [place] [address] Neutrophils/100 WBC (Bld) 49.3 % Normal [facility] Comment on above: Performed By: #### C BCA, CMP, FEPR, THYR, 47074-2 #### [facility] ([id number]) [address] [address] [place] [address] Platelet mean volume (Bld) [Entitic vol] 8.7 fL Normal 7-12 [facility] Comment on above: Performed By: #### C BCA, CMP, FEPR, THYR, 49267-5 #### [facility] ([id number]) [address] [place] [address] Platelets (Bld) [#/Vol] 232 10*3/uL Normal 150-450 [facility] Comment on above: Performed By: #### C BCA, CMP, FEPR, THYR, 51435-0 #### [facility] ([id number]) [address] [address] [place] [address] RBC COUNT 3.92 X10E12/L Normal 3.80-5.20 [facility] Comment on above: Performed By: #### C BCA, CMP, FEPR, THYR, 69892-6 #### [facility] ([id number]) [address] [address] [place] [address] WBC (Bld) [#/Vol] 5.0 10*3/uL Normal 4.0-11.0 [facility] Comment on above: Performed By: #### C BCA, CMP, FEPR, THYR, 14351-1 #### [facility] ([id number]) [address] [place] [address] COMPREHENSIVE METABOLIC PANE Wang 11-15-2023 Albumin [Mass/Vol] 4.4 g/dL Normal 3.2-5.3 [facility] Comment on above: Performed By: #### C BCA, CMP, FEPR, THYR, 54258-5 #### [facility] ([id number]) [address] [address] [place] [address] ALP [Catalytic activity/Vol] 37 U/L Low 39-130 [facility] Comment on above: Performed By: #### C BCA, CMP, FEPR, THYR, 14295-9 #### [facility] ([id number]) [address] [place] [address] ALT [Catalytic activity/Vol] 11 U/L Normal 0-31 [facility] Comment on above: Performed By: #### C BCA, CMP, FEPR, THYR, 04610-8 #### [facility] ([id number]) [address] [place] [address] Anion gap [Moles/Vol] 9 mmol/L Normal 5-15 [facility] Comment on above: Performed By: #### C BCA, CMP, FEPR, THYR, 05739-9 #### [facility] ([id number]) [address] [place] [address] AST [Catalytic activity/Vol] 15 U/L Normal 0-41 [facility] Comment on above: Performed By: #### C BCA, CMP, FEPR, THYR, 72938-0 #### [facility] ([id number]) [address] [place] [address] Bilirubin [Mass/Vol] 1.4 mg/dL High 0.3-1.2 [facility] Comment on above: Performed By: #### C BCA, CMP, FEPR, THYR, 25327-3 #### [facility] ([id number]) [address] [place] [address] Calcium [Mass/Vol] 9.1 mg/dL Normal 8.5-10.5 [facility] Comment on above: Performed By: #### C BCA, CMP, FEPR, THYR, 76573-2 #### [facility] ([id number]) [address] [place] [address] Chloride [Moles/Vol] 104 mmol/L Normal 98-109 [facility] Comment on above: Performed By: #### C BCA, CMP, FEPR, THYR, 91167-0 #### [facility] ([id number]) [address] [place] [address] CO2 [Moles/Vol] 25 mmol/L Normal 22-32 [facility] Comment on above: Performed By: #### C BCA, CMP, FEPR, THYR, 43883-3 #### [facility] ([id number]) [address] [place] [address] Creatinine [Mass/Vol] 0.74 mg/dL Normal 0.40-1.00 [facility] Comment on above: Result Comment: METH OD TRACEABLE TO IDMS STANDARD Performed By: #### C BCA, CMP, FEPR, THYR, 89178-6 #### [facility] ([id number]) [address] [place] [address] eGFR (CKD-EPI) NON-RACE DEPENDENT >90 Normal >59 [facility] Comment on above: Result Comment: Reported eGFR is based on the CKD-EPI 2020 equation that does not use a race coefficient. Performed By: #### C BCA, CMP, FEPR, THYR, 60278-2 #### [facility] ([id number]) [address] [place] [address] Glucose [Mass/Vol] 100 mg/dL High 65-99 [facility] Comment on above: Performed By: #### C BCA, CMP, FEPR, THYR, 27865-6 #### [facility] ([id number]) [address] [address] [place] [address] Potassium [Moles/Vol] 3.7 mmol/L Normal 3.5-5.0 [facility] Comment on above: Performed By: #### C BCA, CMP, FEPR, THYR, 07026-0 #### [facility] ([id number]) [address] [address] [place] [address] Protein [Mass/Vol] 6.9 g/dL Normal 6.0-8.0 [facility] Comment on above: Performed By: #### C BCA, CMP, FEPR, THYR, 20417-8 #### [facility] ([id number]) [address] [address] [place] [address] Sodium [Moles/Vol] 138 mmol/L Normal 134-146 [facility] Comment on above: Performed By: #### C BCA, CMP, FEPR, THYR, 17797-0 #### [facility] ([id number]) [address] [address] [place] [address] Urea nitrogen [Mass/Vol] 12 mg/dL Normal 5-23 [facility] Comment on above: Performed By: #### C BCA, CMP, FEPR, THYR, 21079-2 #### [facility] ([id number]) [address] [address] [place] [address] IRON PROFILEon 11-15-2023 Iron [Mass/Vol] 81 ug/dL Normal 50-170 [facility] Comment on above: Performed By: #### C BCA, CMP, FEPR, THYR, 56891-6 #### [facility] ([id number]) [address] [address] [place] [address] IRON BINDING 309 ug/dL Normal 250-425 [facility] Comment on above: Performed By: #### C BCA, CMP, FEPR, THYR, 48766-5 #### [facility] ([id number]) [address] [address] [place] [address] IRON SATURATION 26 % SATURATION Normal 15-50 [facility] Comment on above: Performed By: #### C BCA, CMP, FEPR, THYR, 36777-5 #### [facility] ([id number]) [address] [place] [address] THYROID PROFILEon 11-15-2023 Free T4 [Mass/Vol] 1.01 ng/dL Normal 0.61-1.60 [facility] Comment on above: Performed By: #### C BCA, CMP, FEPR, THYR, 19304-1 #### [facility] ([id number]) [address] [address] [place] [address] TSH 1.81 uIU/mL Normal 0.49-4.67 [facility] Comment on above: Performed By: #### C BCA, CMP, FEPR, THYR, 81183-3 #### [facility] ([id number]) [address] [facility] [address] [place] [address] Vitamin D+Metabolites [Mass/ Vol]on 11-15-2023 VITAMIN D 25 HYD TOT 18.7 ng/mL Low 30-100 [facility] Comment on above: Result Comment: Vitamin D status 25 [place] Vitamin D Deficiency <20 ng/mL Insufficiency 20-29 ng/mL Sufficiency 30-100 ng/mL Toxicity >100 ng/mL NOTE: A pediatric reference range has not been established by the community engagement specialist of this kit. The [place] [employer] recommends a Vitamin D level of = or >20ng/mL in infants and children. Performed By: #### C BCA, CMP, FEPR, THYR, 04103-4 #### [facility] ([id number]) [address] [facility] [address] [place] [address] Urgent Care Office/Clinic No zackary 07-10-2023 Urgent Care Office/Clinic Note Chief Complaint Pt states N/v starting today History of Present Illness Angela Meeks is a 23 Years old Female who [...] declines COVID testing in office today. No ccxo-ebj-rfaqbke medications for symptom management. Significant other is [...] by Evelin Smith 07/10/23 19:47 EST Normal [facility] CBC AUTO DIFFon 03-23-2022 BASO # 0.0 103/ul Normal 0.0-0.1 [facility] Comment on above: Performed By: #### C BC #### [facility] [address] [address] [address] Ana Maria Alexandre Basophils/100 WBC (Bld) 0.2 % Normal 0.2-2.0 [facility] Comment on above: Performed By: #### C BC #### [facility] [address] [place] [address] Dr. Ana Maria Alexandre EO # 0.0 103/ul Normal 0.0-0.[address] [facility] Comment on above: Performed By: #### C BC #### [facility] [address] [place] [address] Dr. Ana Maria Alexandre Eosinophils/100 WBC (Bld) 0.3 % Critically low 0.9-7.0 [facility] Comment on above: Performed By: #### C BC #### [facility] [address] [place] [address] Dr. Ana Maria Alexandre Erythrocyte distribution width (RBC) [Ratio] 12.9 % Normal 11.0-15.0 [facility] Comment on above: Performed By: #### C BC #### [facility] [address] [place] [address] Dr. Ana Maria Alexandre Hematocrit (Bld) [Volume fraction] 25.6 % Critically low 36.0-48.0 [facility] Comment on above: Performed By: #### C BC #### [facility] [address] [place] [address] Dr. Ana Maria Alexandre Hemoglobin (Bld) [Mass/Vol] 8.5 g/dL Critically low 12.0-16.0 [facility] Comment on above: Performed By: #### C BC #### [facility] [address] [place] [address] Dr. Ana Maria Alexandre IG # 0.05 10e3/ul Critically high 0.00-0.03 [facility] Comment on above: Performed By: #### C BC #### [facility] [address] [place] [address] Dr. Ana Maria Alexandre IG % 0.4 % Normal 0.0-0.[address] [facility] Comment on above: Performed By: #### C BC #### [facility] [address] [place] [address] Dr. Ana Maria Alexandre LYMPH # 2.5 103/ul Normal 1.2-3.[address] [facility] Comment on above: Performed By: #### C BC #### [facility] [address] [place] [address] Dr. Ana Maria Alexandre Lymphocytes/100 WBC (Bld) 17.2 % Critically low 20.5-60.[address] [facility] Comment on above: Performed By: #### C BC #### [facility] [address] [place] [address] Dr. Ana Maria Alexandre MANUAL DIFF REQ NO Normal [facility] Comment on above: Performed By: #### C BC #### [facility] [address] [place] [address] Dr. Ana Maria Alexandre MCH (RBC) [Entitic mass] 28.1 pg Normal 26.7-34.[address] [facility] Comment on above: Performed By: #### C BC #### [facility] [address] [place] [address] Dr. Ana Maria Alexandre MCHC (RBC) [Mass/Vol] 33.2 g/dL Normal 29.9-35.[address] [facility] Comment on above: Performed By: #### C BC #### [facility] [address] [place] [address] Dr. Ana Maria Alexandre MCV (RBC) [Entitic vol] 84.5 fL Normal 81.0-99.[address] [facility] Comment on above: Performed By: #### C BC #### [facility] [address] [place] [address] Dr. Ana Maria Alexandre MONO # 0.9 103/ul Critically high 0.3-0.8 [facility] Comment on above: Performed By: #### C BC #### [facility] [address] [place] [address] Dr. Ana Maria Alexandre Monocytes/100 WBC (Bld) 6.0 % Normal 1.7-12.[address] [facility] Comment on above: Performed By: #### C BC #### [facility] [address] [place] [address] Dr. Ana Maria Alexandre NEUT # 10.8 103/ul Critically high 1.4-6.5 [facility] Comment on above: Performed By: #### C BC #### [facility] [address] [place] [address] Dr. Ana Maria Alexandre Neutrophils/100 WBC (Bld) 75.9 % Critically high 43.0-75.[address] [facility] Comment on above: Performed By: #### C BC #### [facility] [address] [place] [address] Dr. Ana Maria Alexandre Platelet mean volume (Bld) [Entitic vol] 11.4 fL Normal 9.5-13.[address] [facility] Comment on above: Performed By: #### C BC #### [facility] [address] [place] [address] Dr. Ana Maria Alexandre PLT 152 103/ul Normal 150-[address] [facility] Comment on above: Performed By: #### C BC #### [facility] [address] [place] [address] Dr. Ana Maria Alexandre RBC 3.03 106/ul Critically low 4.20-5.40 [facility] Comment on above: Performed By: #### C BC #### [facility] [address] [place] [address] Dr. Ana Maria Alexandre WBC 14.2 103/ul Critically high 4.0-11.0 [facility] Comment on above: Performed By: #### C BC #### [facility] [address] [place] [address] Dr. Ana Maria Alexandre CBC AUTO DIFFon 03-22-2022 BASO # 0.0 103/ul Normal 0.0-0.[address] [facility] Comment on above: Performed By: #### C BC #### [facility] [address] [place] [address] Dr. Ana Maria Alexandre Basophils/100 WBC (Bld) 0.3 % Normal 0.2-2.[address] [facility] Comment on above: Performed By: #### C BC #### [facility] [address] [place] [address] Dr. Ana Maria Alexandre EO # 0.1 103/ul Normal 0.0-0.[address] [facility] Comment on above: Performed By: #### C BC #### [facility] [address] [place] [address] Dr. Ana Maria Alexandre Eosinophils/100 WBC (Bld) 0.6 % Critically low 0.9-7.0 [facility] Comment on above: Performed By: #### C BC #### [facility] [address] [place] [address] Dr. Ana Maria Alexandre Erythrocyte distribution width (RBC) [Ratio] 12.6 % Normal 11.0-15.0 [facility] Comment on above: Performed By: #### C BC #### [facility] [address] [place] [address] Dr. Ana Maria Alexandre Hematocrit (Bld) [Volume fraction] 30.4 % Critically low 36.0-48.0 [facility] Comment on above: Performed By: #### C BC #### [facility] [address] [place] [address] Dr. Ana Maria Alexandre Hemoglobin (Bld) [Mass/Vol] 9.9 g/dL Critically low 12.0-16.0 [facility] Comment on above: Performed By: #### C BC #### [facility] [address] [place] [address] Dr. Ana Maria Alexandre IG # 0.08 10e3/ul Critically high 0.00-0.03 [facility] Comment on above: Performed By: #### C BC #### [facility] [address] [place] [address] Dr. Ana Maria Alexandre IG % 0.6 % Critically high 0.0-0.5 [facility] Comment on above: Performed By: #### C BC #### [facility] [address] [place] [address] Dr. Ana Maria Alexandre LYMPH # 1.9 103/ul Normal 1.2-3.[address] [facility] Comment on above: Performed By: #### C BC #### [facility] [address] [place] [address] Dr. Ana Maria Alexandre Lymphocytes/100 WBC (Bld) 15.5 % Critically low 20.5-60.0 [facility] Comment on above: Performed By: #### C BC #### [facility] [address] [place] [address] Dr. Ana Maria Alexandre MANUAL DIFF REQ NO Normal [facility] Comment on above: Performed By: #### C BC #### [facility] [address] [place] [address] Dr. Ana Maria Alexanrde MCH (RBC) [Entitic mass] 27.5 pg Normal 26.7-34.0 [facility] Comment on above: Performed By: #### C BC #### [facility] [address] [place] [address] Dr. Ana Maria Alexandre MCHC (RBC) [Mass/Vol] 32.6 g/dL Normal 29.9-35.2 [facility] Comment on above: Performed By: #### C BC #### [facility] [address] [place] [address] Dr. Ana Maria Alexandre MCV (RBC) [Entitic vol] 84.4 fL Normal 81.0-99.0 [facility] Comment on above: Performed By: #### C BC #### [facility] [address] [place] [address] Dr. Ana Maria Alexandre MONO # 0.7 103/ul Normal 0.3-0.8 [facility] Comment on above: Performed By: #### C BC #### [facility] [address] [place] [address] Dr. Ana Maria Alexandre Monocytes/100 WBC (Bld) 5.2 % Normal 1.7-12.[address] [facility] Comment on above: Performed By: #### C BC #### [facility] [address] [place] [address] Dr. Ana Maria Alexandre NEUT # 9.7 103/ul Critically high 1.4-6.5 [facility] Comment on above: Performed By: #### C BC #### [facility] [address] [place] [address] Dr. Ana Maria Alexandre Neutrophils/100 WBC (Bld) 77.8 % Critically high 43.0-75.[address] [facility] Comment on above: Performed By: #### C BC #### [facility] [address] [place] [address] Dr. Ana Maria Alexandre Platelet mean volume (Bld) [Entitic vol] 11.5 fL Normal 9.5-13.[address] [facility] Comment on above: Performed By: #### C BC #### [facility] [address] [place] [address] Dr. Ana Maria Alexandre PLT 202 103/ul Normal 150-[address] [facility] Comment on above: Performed By: #### C BC #### [facility] [address] [place] [address] Dr. Ana Maria Alexandre RBC 3.60 106/ul Critically low 4.20-5.40 [facility] Comment on above: Performed By: #### C BC #### [facility] [address] [place] [address] Dr. Ana Maria Alexandre WBC 12.5 103/ul Critically high 4.0-11.0 [facility] Comment on above: Performed By: #### C BC #### [facility] [address] [place] [address] Dr. Ana Maria Alexandre Covid-19 PCR ([facility])on 03-02 SARS-CoV-2 (COVID-19) RNA RUTH ANN+probe Ql (Unsp spec) Not detected Normal NOT DETECTED [facility] Comment on above: Result Comment: When [...] for this test is supported by the [place] of Health and Human Service's declaration that [...] used). Performed By: #### C VDTBH #### [facility] [address] [address] [address] Ana Maria Alexandre DRUG SCREEN RAPID (URINE)on 03-22-2022 AMP Negative Normal NEGATIVE [facility] Comment on above: Performed By: #### D RUGRPD #### [facility] [address] [address] [address] Ana Maria Alexandre BAR Negative Normal NEGATIVE [facility] Comment on above: Performed By: #### D RUGRPD #### [facility] [address] [address] [address] Ana Maria Alexandre BUP Negative Normal NEGATIVE [facility] Comment on above: Performed By: #### D RUGRPD #### [facility] [address] [place] [address] Dr. Ana Maria Alexandre BZO Negative Normal NEGATIVE [facility] Comment on above: Performed By: #### D RUGRPD #### [facility] [address] [place] [address] Dr. Ana Maria Alexandre BRIGHT Negative Normal NEGATIVE [facility] Comment on above: Performed By: #### D RUGRPD #### [facility] [address] [address] [address] Ana Maria Alexandre CUT-OFFS SEE BELOW Normal [facility] Comment on above: Result Comment: AMP [...] ng/mL Performed By: #### D RUGRPD #### [facility] [address] [place] [address] Dr. Ana aMria Alexandre DRUG CUT HEADER DRUG CLASS TEST SYSTEM CUT-OFF CONCENTRATIONS ARE FOLLOWS: Normal [facility] Comment on above: Performed By: #### D RUGRPD #### [facility] [address] [address] [address] Ana Maria Alexandre mAMP Negative Normal NEGATIVE [facility] Comment on above: Performed By: #### D RUGRPD #### [facility] [address] [place] [address] Dr. Ana Maria Alexandre MTD Negative Normal NEGATIVE [facility] Comment on above: Performed By: #### D RUGRPD #### [facility] [address] [place] [address] Dr. Ana Maria Alexandre OPI Negative Normal NEGATIVE [facility] Comment on above: Performed By: #### D RUGRPD #### [facility] [address] [place] [address] Dr. Ana Maria Alexandre OXY Negative Normal NEGATIVE [facility] Comment on above: Performed By: #### D RUGRPD #### [facility] [address] [place] [address] Dr. Ana Maria Alexandre PCP Negative Normal NEGATIVE [facility] Comment on above: Performed By: #### D RUGRPD #### [facility] [address] [place] [address] Dr. Ana Maria Alexandre PPX Negative Normal NEGATIVE [facility] Comment on above: Performed By: #### D RUGRPD #### [facility] [address] [place] [address] Dr. Ana Maria Alexadnre TCA Negative Normal NEGATIVE [facility] Comment on above: Performed By: #### D RUGRPD #### [facility] [address] [place] [address] Dr. Ana Maria Alexandre THC Negative Normal NEGATIVE [facility] Comment on above: Performed By: #### D RUGRPD #### [facility] [address] [place] [address] Dr. Ana Maria Alexandre TYPE AND SCREENon 03-22-2022 TYPE AND SCREEN Negative Normal [facility] Comment on above: Performed By: #### T NS #### [facility] [address] [place] [address] Dr. Ana Maria Alexandre GROUP B STREP [...] F Tetracycline >=16 R F Normal [facility] Comment on above: Performed By: #### G BSCX #### [facility] [address] [place] [address] Dr. Ana Maria Alexandre VAGINITIS/VAGINOSIS DNA PROB Chad 03-14-2022 Elena species Negative Normal Negative [facility] Comment on above: Performed By: #### V AGINT #### [facility] [address] [place] [address] Dr. Ana Maria Alexandre Gardnerella vaginalis Negative Normal Negative [facility] Comment on above: Performed By: #### V AGINT #### [facility] [address] [place] [address] Dr. Ana Maria Alexandre Trichomonas vaginalis Negative Normal Negative [facility] Comment on above: Performed By: #### V AGINT #### [facility] [address] [place] [address] Dr. Ana Maria Alexandre US PREG GROWTHon [...] by: CHARITY FLORES Date: 2022-03-01 16:15 Normal [facility] US PREG GROWTHon 02-01-2022 US PREG GROWTH [...] by: CHARITY FLORES Date: 2022-02-01 16:43 Normal [facility] PREG REEVAL ABNon 022 US PREG REEVAL [...] by: CHASITY NGUYEN Date: 2022-01-08 19:27 Normal [facility] Vital Signs Date Time Vital Sign Value Performing Clinician Christiei lity 04-13-2024 13:46-0400 Body weight 51.26 kg Damari GALAVIZ Work Phone: [facility] 04-13-2024 13:46-0400 Diastolic blood pressure 62 mm[Hg] Damari GALAVIZ Work Phone: [facility] 04-13-2024 13:46-0400 Systolic blood pressure 100 mm[Hg] Damari GALAVIZ Work Phone: [facility] Encounters Encounter Date Encounter Type Care Provider Facility Start: 04-16-2024 End: 04-16-2024 ambulatory Hesham Olsen MD Facility:[facility] Start: 04-13-2024 End: 04-13-2024 Bamboo flowsheet Damari GALAVIZ Work Phone: [facility] Start: 04-13-2024 End: 04-13-2024 Bamboo flowsheet Damari GALAVIZ Work Phone: [facility] Start: 04-13-2024 End: 04-13-2024 flow sheet Damari GALAVIZ Work Phone: [facility] Comment on above: Diabetes mellitus sc reening; Second trimester ; 22 weeks gestation of Start: 04-13-2024 End: 04-13-2024 ambulatory DAMARI TYLER Not Available Start: 03-16-2024 End: 03-16-2024 ambulatory MIKE ROSAS Not Available Start: 02-28-2024 End: 02-28-2024 ambulatory MIKE ROSAS Not Available Start: 02-18-2024 End: 02-18-2024 [facility] Start: 11-15-2023 End: 11-16-2023 ambulatory [facility] Start: 11-15-2023 Encounter for genera l adult medical examination without abnormal findings [facility] Start: 10-21-2023 End: 10-21-2023 ambulatory [facility] Start: 10-21-2023 Encounter for genera l adult medical examination without abnormal findings [facility] Start: 07-10-2023 End: 07-10-2023 ambulatory Evelin Matamoros 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 Facility:[facility] Start: 04-02-[address] MIKE KRISHNAMURTHY Facility :[facility] Start: 03-30-[address] MIKE KRISHNAMURTHY Facility :[facility] Start: 03-28-2022 End: 03-28-[address] MIKE KRISHNAMURTHY Facility:[facility] Start: 03-26-[address] MIKE KRISHNAMURTHY Facility :[facility] Start: 03-22-2022 End: 03-24-2022 Evaluation and management of inpatient DR MIKE KRISHNAMURTHY Facility:[facility] Start: 03-12-2022 End: 03-12-[address] LETY RAYMOND Facility:[facility] Start: 02-28-2022 End: 03-01-[address] MIKE KRISHNAMURTHY Facility:[facility] Start: 01-31-2022 End: 02-01-[address] MIKE KRISHNAMURTHY Facility:[facility] Start: 01-12-[address] MIKE KRISHNAMURTHY Facility :[facility] Start: 01-08-2022 End: 01-09-[address] MIKE KRISHNAMURTHY Facility:[facility] Procedures Date Procedure Procedure Detail Performing Clinician Start: 04-13-2024 Urnls dip stick/tabl et rgnt non-auto w/o micrscp Damari GALAVIZ Work Phone: Start: 03-22-2022 Delivery of Products of Conception, External Approach DR MIKE KRISHNAMURTHY Start: 03-22-2022 Drainage of Amniotic Fluid, Therapeutic from Products of Conception, Via Natural or Artificial Opening DR MIKE KRISHNAMURTHY Start: 03-22-2022 Repair Perineum Skin , External Approach DR MIKE KRISHNAMURTHY Plan of Treatment Date Care Activity Detail Author Start: 05-11-2024 End: 05-11-2024 Patient encounter procedure 05/11/2024 11:20 AM EST Routine [facility] [address] [place] [id number] Mike Krishnamurthy DO [address] [place], [place] [id number] [facility] Start: 04-28-2024 End: 04-28-2024 Professional / ancillary services management 04/28/2024 8:00 AM EDT Ancillary Procedure [facility] [address] [place] [address] [facility] Start: 04-13-2024 End: 04-13-2025 CBC panel - Blood by Automated count CBC Lab Routine Diabetes mellitus screening Expected: 04/13/2024 (Approximate), Expires: 04/13/2025 [facility] Work Phone: Comment on above: Expected: 04/13/2024 (Approximate), Expires: 04/13/2025 Start: 04-13-2024 End: 04-13-2025 Measurement of glucose 1 hour after glucose challenge for glucose tolerance test Glucose tolerance, 1 hour Lab Routine Diabetes mellitus screening Expected: 04/13/2024 (Approximate), Expires: 04/13/2025 [facility] Comment on above: Expected: 04/13/2024 (Approximate), Expires: 04/13/2025 Start: 04-13-2024 End: 04-13-2024 Patient encounter procedure 04/13/2024 1:30 PM EDT Routine [facility] [address] [place] [id number] Damari Tyler PA [address] [place], [place] [id number] Arrived [facility] Comment on above: Arrived Payers Date Payer Category Payer Unknown 2023 Private Health Insurance [facility] [id number] 2023 Private Health Insurance [id number] 2001 Unknown [id number] [id number]. 593 2001 Unknown [id number] 2.16.840.1.211298.3.579.2. 593 2001 Unknown [id number] 2.16.840.1.362619.3.579.2. 593 2001 Unknown [id number] 2.16.840.1.628704.3.579.2. 593 2001 Unknown [id number] 2.16.840.1.288822.3.579.2. 593 2001 Unknown [id number] 2.16.840.1.641283.3.579.2. 593 2001 Unknown [id number] 2.16.840.1.479852.3.579.2. 593 2001 Unknown [id number] 2.16.840.1.610483.3.579.2. 593 2001 Unknown [id number] 2.16.840.1.421031.3.579.2. 593 2001 Unknown [id number] 2.16.840.1.472502.3.579.2. 593 2001 Unknown [id number] 2.16.840.1.633123.3.579.2. 1286 2001 Unknown [id number] 2.16.840.1.390909.3.579.2. 1286 2001 Unknown [id number] 2.16.840.1.559955.3.579.2. 1286 2001 Unknown [id number] 2.16.840.1.043946.3.579.2. 9 2001 Unknown [id number] 2.16.840.1.922924.3.579.2. 9 2001 Unknown [id number] 2.16.840.1.133518.3.579.2. 1259 2001 Unknown [id number] 2.16.840.1.439008.3.579.2. 196 1959 Self-pay 1959 Unknown [id number] 1959 Unknown [id number] Social History Date Type Detail Facility [place] [facility] [place] smoking consumption unknown [facility] Start: 11-25-2023 [facility] Start: 2000 Sex assigned at Not on file [facility] Start: 04-13-2024 Gender identity Not on file [facility] Start: 04-13-2024 Tobacco smoking stat [facility] Never smoked tobacco [facility] End: 11-30-2023 History of tobacco use Cigarette Smoker [facility] History of tobacco use Passive smoker [facility] Start: 04-13-2024 Alcoholic beverage intake Ex-drinker (finding) [facility] Start: 04-13-2024 History of Social function [facility] History of Present illness Narrative 04-13-2024 ANASTACIA Barragan - 04/13/2024 1:30 PM EDT Note Date & Type Note Facility 04-13-2024 History of Presen t illness Narrative Reason for Appointment: Patient ID: Angela Meeks is a 24 y.o. female who presents for No chief complaint on file. Patient presents today for Return OB appointment. MEDICATIONS Current Outpatient Medications Medication Instructions Fopwpenf-Zoi-Gl-FA (, w/Iron & FA,) 27-0.8 MG tablet Every 24 hours valACYclovir (VALTREX) 1,000 mg, Oral, Daily RT ALLERGIES No Known Allergies PROBLEMS Active Ambulatory Problems Diagnosis Date Noted No Active Ambulatory Problems Resolved Ambulatory Problems Diagnosis Date Noted No Resolved Ambulatory Problems No Additional Past Medical History HISTORY PAST MEDICAL HISTORY SOCIAL HISTORY No past medical history on file. Social History Tobacco Use Smoking status: Not on file Smokeless tobacco: Not on file Substance Use Topics Alcohol use: Not on file Drug use: Not on file FAMILY HISTORY No family history on file. SURGICAL HISTORY No past surgical history on file. REVIEW OF SYSTEMS Review of Systems: Review of Systems Constitutional: Negative. HENT: Negative. Eyes: Negative. Respiratory: Negative. Cardiovascular: Negative. Gastrointestinal: Negative. Genitourinary: Negative. Musculoskeletal: Negative. Skin: Negative. Neurological: Negative. All other systems reviewed and are negative. Hematological: Negative. Endocrine: Negative. Allergic/Immunologic: Negative. OBJECTIVE Objective: Physical Exam Constitutional: Appearance: Normal appearance. She is normal weight. HENT: Head: Normocephalic. Cardiovascular: Rate and Rhythm: Normal rate. Pulses: Normal pulses. Pulmonary: Effort: Pulmonary effort is normal. Breath sounds: Normal breath sounds. Abdominal: Palpations: Abdomen is soft. Musculoskeletal: General: Normal range of motion. Neurological: General: No focal deficit present. Mental Status: She is alert and oriented to person, place, and time. Psychiatric: Mood and Affect: Mood normal. Behavior: Behavior normal. Thought Content: Thought content normal. Judgment: Judgment normal. Vitals and nursing note reviewed. Vitals: There is no height or weight on file to calculate BMI. BP: Patient's last menstrual period was 11/11/2023. ASSESSMENT & PLAN ICD-10-CM 1. Diabetes mellitus screening Z13.1 CBC Glucose tolerance, 1 hour CBC Glucose tolerance, 1 hour CANCELED: CBC CANCELED: Glucose tolerance, 1 hour 2. Second trimester Z34.92 3. 22 weeks gestation of Z3A.22 POCT urinalysis dipstick manually resulted Return OB: Patient presents today for a routine obstetrics appointment. Patient is currently 22w0d . Patient states she is doing well but has complaints of being tired due to current . Orders Placed This Encounter Procedures CBC Glucose tolerance, 1 hour POCT urinalysis dipstick manually resulted Follow Up: Patient is to return to office in 4 weeks for routine OB appointment. Documented by Abbey Vines on behalf of: ANASTACIA Barragan documented in this encounter [facility] Clinical Note 07-10-2023 Note Date & Type Note Facility 07-10-2023 Note Patient Education Ma terials Name: Angela Meeks Current Date: 07/10/2023 19:27:39 [place] : 2000 The following sheet(s) are the Patient Education Leaflets for Angela Meeks Vomiting (Adult) Vomiting is a common symptom [...] and water are not available, use alcohol-based custom home installer to keep from spreading the infection to [...] color of the eyes or skin ? [phone] [employer] [place] [address], [place] [address]. All rights reserved. This information is not [...] ER for any worsening or emergent symptoms. [facility] Evaluation note Note Date & Type Note Facility Evaluation note Diagnosis Diabetes mellitus screening Screening for diabetes mellitus Second trimester state, incidental 22 weeks gestation of documented in this encounter [facility] Summary Purpose Family History No Family History Records FoundNo Family History Records FoundNo Family History Records FoundNo Family History Records FoundNo Family History Records Found Advance Directives No Advanced Directives Records FoundNo Advanced Directives Records FoundNo Advanced Directives Records FoundNo Advanced Directives Records FoundNo Advanced Directives Records Found Additional Source Comments INFORMATION SOURCE (unrecogn ized section and content) DATE CREATED AUTHOR 04/03/2022 [facility] DATE CREATED AUTHOR AUTHOR'S ORGANIZ ATION 11/18/2023 [facility] DATE CREATED AUTHOR AUTHOR'S ORGANIZ ATION 02/20/2024 [facility] DATE CREATED AUTHOR AUTHOR'S ORGANIZ ATION 04/15/2024 [facility] EPIC DATE CREATED AUTHOR AUTHOR'S ORGANIZ ATION 04/18/2024 [facility] Care Teams (unrecognized sec tion and content) 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 [email or web address] [facility]. provides no warranty or guarantee of the accuracy or completeness of information in this document.
--- NOTE | 2024-04-28 08:06 | US_ITS ---
The [address] [address] Patient Name: ARGENIS PINA MRN: [id number] date: 2000 Sex: F Assigned Patient Location: [facility] Current Patient Location: [facility] Accession/Order Number: [id number] Exam Date: 04/28/2024 08:07 Report Date: 04/28/2024 11:21 At the request of: MIKE PILLAI Procedure: US OB placenta EXAMINATION: US OB follow up, US OB placenta HISTORY: CHOROID PLEXUS CYST , low-lying placenta COMPARISON: No relevant comparison available. FINDINGS: HEART RATE: 140 bpm ANATOMY: Normal appearance of the choroid plexus bilaterally. PLACENTA: Anterior with lower margin 3.6 cm from the internal os. OTHER: None. GA: 24 weeks 1 day ZEINAB: 08/17/2024 US/US OB placenta IMPRESSION: 1. Anterior placenta which is no longer low-lying. 2. Normal appearance of the lateral ventricles and choroid plexus bilaterally. Previously seen choroid plexus cyst is no longer present. Electronically authenticated by: CHARITY FLORES Date: 04/28/2024 11:21
--- NOTE | 2024-04-28 08:06 | US_ITS ---
The [address] [address] Patient Name: ARGENIS PINA MRN: [id number] date: 2000 Sex: F Assigned Patient Location: [facility] Current Patient Location: [facility] Accession/Order Number: [id number] Exam Date: 04/28/2024 08:06 Report Date: 04/28/2024 11:21 At the request of: MIKE PILLAI Procedure: US OB follow up EXAMINATION: US OB follow up, US OB placenta HISTORY: CHOROID PLEXUS CYST , low-lying placenta COMPARISON: No relevant comparison available. FINDINGS: HEART RATE: 140 bpm ANATOMY: Normal appearance of the choroid plexus bilaterally. PLACENTA: Anterior with lower margin 3.6 cm from the internal os. OTHER: None. GA: 24 weeks 1 day ZEINAB: 08/17/2024 US/US OB follow up IMPRESSION: 1. Anterior placenta which is no longer low-lying. 2. Normal appearance of the lateral ventricles and choroid plexus bilaterally. Previously seen choroid plexus cyst is no longer present. Electronically authenticated by: CHARITY FLORES Date: 04/28/2024 11:21
== END 2024-04-28 08:04 | disposition home or self-care (01) ==
LOC: NOMS 08:03
PROVIDERS: Visit Provider Obstetrics & Gynecology
DX: O44.42 Low lying placenta NOS or without hemorrhage, second trimester (principal); Z36.2 Encounter for other antenatal screening follow-up; G93.0 Cerebral cysts; Z3A.24 24 weeks gestation of pregnancy
CPT/HCPCS: 76815; 76816

== ENCOUNTER 2024-07-16 16:14 | Outpatient (OUT) | payer OTHER, SELFPAY ==
--- NOTE | 2024-07-16 16:16 | US_ITS ---
[address] [address] Patient Name: ARGENIS PINA MRN: [id number] date: 2000 Sex: F Assigned Patient Location: US Current Patient Location: US Accession/Order Number: [id number] Exam Date: 07/16/2024 16:24 Report Date: 07/16/2024 20:32 At the request of: SLIME TYLER Procedure: US OB growth EXAMINATION: US OB growth HISTORY: SGA P05.10 COMPARISON: Ultrasound OB anatomy 03/31/2024, ultrasound OB follow-up 04/28/2024 FINDINGS: Heart Rate: 149.17 bpm Amniotic Fluid Volume: 17.2 cm; normal range Number: 1 Position: CEPHALIC BIOMETRY: BPD: 8.96 cm; 36 weeks 2 days; 77.20 % HC: 34.32 cm; 39 weeks 4 days; 96.90 % AC: 32.56 cm; 36 weeks 3 days; 84.30 % FL: 6.87 cm; 35 weeks 2 days; 39.50 % EFW: 2949.67 g; 77.70 % FL/AC: 21.10 FL/BPD: 76.71 HC/AC: 1.05 GESTATIONAL AGE: Age by EDC: 35 weeks 3 days ZEINAB by EDC: 2024-08-17 Age by US: 36 weeks 6 days ZEINAB by US: 2024-08-07 US/US OB growth IMPRESSION: 1. Single live intrauterine with growth detailed above. 2. Possible nuchal cord. 3. Knotted umbilical cord. Follow-up recommended. Electronically authenticated by: CHARITY FLORES Date: 07/16/2024 20:32
== END 2024-07-16 16:15 | disposition home or self-care (01) ==
LOC: US 16:14
PROVIDERS: Visit Provider Physician Assistant
DX: O26.843 Uterine size-date discrepancy, third trimester (principal); Z3A.35 35 weeks gestation of pregnancy
CPT/HCPCS: 76816

== ENCOUNTER 2024-07-21 15:49 | Outpatient (OUT) | payer OTHER, SELFPAY ==
[2024-07-21 16:13] LABS: Basophils Percent Auto 0.4 % (0.2-2.0); Eosinophils Absolute Auto 0.1 10^3/uL (0.0-0.7); Eosinophils Percent Auto 0.7 % (0.9-7.0); Hematocrit 31.5 % (36.0-48.0); Hemoglobin 10.6 g/dL (12.0-16.0); Immature Granulocytes Abs Auto 0.04 10^3/uL (0.00-0.03); Immature Granulocytes Pct Auto 0.4 % (0.0-0.5); Lymphocytes Absolute Auto 1.8 10^3/uL (1.2-3.8); Lymphocytes Percent Auto 19.4 % (20.5-60.0); Mean Corpuscular HGB Conc 33.7 g/dL (29.9-35.2); Mean Corpuscular Hemoglobin 30.9 pg (26.7-34.0); Mean Corpuscular Volume 91.8 fL (81.0-99.0); Mean Platelet Volume 11.1 fL (9.5-13.5); Monocytes Absolute Auto 0.5 10^3/uL (0.3-0.8); Monocytes Percent Auto 5.7 % (1.7-12.0); Neutrophils Absolute Auto 6.7 10^3/uL (1.4-6.5); Neutrophils Percent Auto 73.4 % (43.0-75.0); Platelet Count 230 10^3/uL (150-450); Red Blood Count 3.43 10^6/uL (4.20-5.40); Red Cell Distribution Width 11.9 % (11.0-15.0); White Blood Count 9.1 10^3/uL (4.0-11.0)
[2024-07-21 16:51] LABS: Alanine Aminotransferase 94 U/L (14-59); Albumin Globulin Ratio 0.5; Albumin Level 2.2 g/dL (3.4-5.0); Alkaline Phosphatase 274 U/L (46-116); Aspartate Amino Transferase 36 U/L (15-37); Bilirubin Direct 0.4 mg/dL (0.0-0.2); Bilirubin Total 1.1 mg/dL (0.2-1.0); Globulin 4.5 g/dL; Thyroid Stimulating Hormone 3.037 uIU/mL (0.358-3.740); Total Protein 6.7 g/dL (6.4-8.2)
[2024-07-23 05:09] LABS: HCV Antibody Non Reactive (Non Reactive)
== END 2024-07-21 15:50 | disposition home or self-care (01) ==
LOC: LAB 15:49
PROVIDERS: Visit Provider Obstetrics & Gynecology
DX: L29.9 Pruritus, unspecified (principal)
CPT/HCPCS: 36415; 80076; 82239; 84443; 85025; 86803

== ENCOUNTER 2024-07-21 16:00 | Observation (INO) | payer OTHER, SELFPAY ==
--- NOTE | 2024-07-21 16:45 | US_ITS ---
The [address] [address] Patient Name: ARGENIS PINA MRN: [facility]:[id number] date: 2000 Sex: F Assigned Patient Location: [facility] Current Patient Location: [facility] Accession/Order Number: [id number] Exam Date: 07/21/2024 17:45 Report Date: 07/21/2024 19:52 At the request of: MIKE PILLAI Procedure: US OB umbilical artery Examination:US OB umbilical artery INDICATION:nuchal cord and true knot COMPARISON:07/16/2024 TECHNIQUE:Real-time sonography of the fetus was performed. FINDINGS:There is a single live intrauterine gestation in cephalic presentation. heartbeat 155 bpm was obtained. SALLY is 18.7 cm with largest pocket of fluid measuring 6.9 cm. There is a three-vessel cord present. There is normal forward vascular flow present within the umbilical arteries. Again noted is a nuchal cord and true knot appearance of the umbilical cord similar in appearance to the previous examination from 07/16/2024. US/US OB umbilical artery IMPRESSION: Single live intrauterine gestation in cephalic presentation. There is a nuchal cord and a true knot appearance of the umbilical cord on today's exam similar in appearance to the previous study. There is normal vascular flow in the umbilical arteries. Electronically authenticated by: WILNER PAUL Date: 07/21/2024 19:52
--- NOTE | 2024-07-21 16:47 | US_ITS ---
[address] [address] Patient Name: ARGENIS PINA MRN: [facility]:[id number] date: 2000 Sex: F Assigned Patient Location: [facility] Current Patient Location: [facility] Accession/Order Number: [id number] Exam Date: 07/21/2024 17:45 Report Date: 07/21/2024 23:35 At the request of: MIKE PILLAI Procedure: US OB BPP w non-stress EXAMINATION: US OB BPP w non-stress HISTORY:LGA COMPARISON: Ultrasound OB biophysical 07/21/2024 TECHNIQUE: Ultrasound biophysical profile was performed in the radiology department. BREATHING MOVEMENTS: 2 GROSS BODY MOVEMENTS: 2 TONE: 2 QUALITATIVE AMNIOTIC FLUID VOLUME: 2 PRESENTATION: Cephalic HEART RATE: 155 bpm AMNIOTIC FLUID VOLUME: 18.7 cm; normal range GESTATIONAL AGE: 36 weeks 1 day US/US OB BPP w non-stress IMPRESSION: Total biophysical profile score: 8 Electronically authenticated by: CHARITY FLORES Date: 07/21/2024 23:35
--- OUTSIDE RECORDS SUMMARY | 2024-07-21 16:53 | XMS_ITS | CCD ---
Author Organization [facility] Care Team Providers Care 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 Name Role Phone RAGHU, DR MCKEON Attending Unavailable REQUEST, DR DAVIDSON LISTED Primary Care Unavaila ble RAGHU, DR MCKEON Admitting Unavailable RAGHU, DR MCKEON Attending Unavailable REQUEST, DR DAVIDSON LISTED Primary Care Unavaila ble RAGHU, DR MCKEON Consulting Unavailable RAGHU, DR MCKEON Admitting Unavailable MORGOSBRYCE Consulting Unavailable RAGHU, DR MCKEON Procedure Practitioner Unavailab JORGE Alegria Consulting Unavailable RAGHU, DR MCKEON Attending Unavailable RAGHU, DR MCKEON Admitting Unavailable RAGHU, DR MCKEON Attending Unavailable REQUEST, NONE LISTED Primary Care Unavaila ble RAGHU, DR MCKEON Admitting Unavailable RAGHU, DR MCKEON Attending Unavailable REQUEST, NONE LISTED Primary Care Unavaila ble RAGHU, DR MCKEON Admitting Unavailable RAGHU, DR MCKEON Attending Unavailable REQUEST, DR DAVIDSON LISTED Primary Care Unavaila ble RAGHU, DR MCKEON Admitting Unavailable RAGHU, DR MCKEON Attending Unavailable WEST, DR CHASITY Barber Consulting Unavailable RAGHU, DR MCKEON Admitting Unavailable RAGHU, DR MCKEON Consulting Unavailable REQUEST, DR DAVIDSON LISTED Primary Care Unavaila ble RAGHU, DR MCKEON Attending Unavailable RAGHU, DR MCKEON Consulting Unavailable RAGHU, DR MCKEON Admitting Unavailable RAGHU, DR MCKEON Attending Unavailable REQUEST, DR DAVIDSON LISTED Primary Care Unavaila ble RAGHU, DR MCKEON Consulting Unavailable RAGHU, DR MCKEON Admitting Unavailable ZIEBER, DR CHARITY Felix Consulting Unavailable RAGHU, DR MCKEON Attending Unavailable REQUEST, DR DAVIDSON LISTED Primary Care Unavaila ble RAGHU, DR MCKEON Consulting Unavailable RAGHU, DR MCKEON Admitting Unavailable ZIEBER, DR CHARITY Felix Consulting Unavailable LINGESTHERI MERCHANT Referring Unavailable HERI ARREOLA Primary Care Unavailable HERI ARREOLA Attending Unavailable HERI ARREOLA Referring Unavailable HERI ARREOLA Primary Care Unavailable ANNALISE ROUSE Attending Unavailable HERI ARREOLA Referring Unavailable HERI ARREOLA Primary Care Unavailable Heri Arreola MD Primary Care Provider Hesham Olsen MD Attending Siddhartha FENG, Evelin Ya Attending Unavailable MIKE KRISHNAMURTHY Attending Unavailable DAMARI TYLER Attending Unavailable MIKE KRISHNAMURTHY Attending Unavailable DAMARI TYLER Attending Unavailable DAMARI TYLER Attending Unavailable MIKE KRISHNAMURTHY Attending Unavailable Medications Current Medications Medication Drug Class(es) Dates Sig (Normalized) Sig (Original) Dralzptm-Pvr-Cy-FA (, w/Iron & FA,) 27-0.8 MG tablet (20 sources) Kjfgsntu-Jcy-Va-FA (, w/Iron & FA,) 27-0.8 MG tablet 1 (one) time each day at the same time Active valACYclovir 500 mg oral tablet (20 sources) Herpesvirus Nucleoside Analog DNA Polymerase Inhibitor, Herpes Simplex Virus Nucleoside Analog DNA Polymerase Inhibitor, Herpes Zoster Virus Nucleoside Analog DNA Polymerase Inhibitor Start: 05-11-2024 End: 07-17-2024 take 1 tablet by mouth once daily valACYclovir (Valtrex) 500 MG tablet Indications: HSV infection Take 1 tablet (500 mg) by mouth Daily 30 tablet 11 06/17/2024 07/17/2024 Active Start: 02-18-2024 valACYclovir ( Valtrex) 1 g tablet Take 1,000 mg by mouth in the morning. 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 NA/UNS] Onset: 02-28-2022 Episodic Other female genital disorders (1 source) Other specified noninflammatory disorders of vagina; Translations: [OTH SPEC NONINFLAMMATORY D/O VAGINA] Onset: 03-17-2022 Episodic Other female genital disorders (2 sources) Vaginal discharge; Translations: [Other specified noninflammatory disorders of vagina] 03-16-2024 Episodic Other and delivery including normal (20 sources) Encounter for routine follow-up; Translations: [Single live ] Onset: 01-08-2022 Episodic Other screening for suspected conditions (not mental disorders or infectious disease) (8 sources) Encounter for screening for Streptococcus B; [...] [22 weeks gestation of ] 04-13-2024 Episodic Residual codes; unclassified (14 sources) Gestation period, 26 weeks; Translations: [26 weeks gestation of ] Onset: 05-11-2024 05-11-2024 Episodic Residual codes; unclassified (10 sources) Gestation period, 28 weeks; Translations: [28 weeks gestation of ] Onset: 05-25-2024 05-25-2024 Episodic Residual codes; unclassified (2 sources) Gestation period, 18 weeks; Translations: [18 weeks gestation of ] 03-16-2024 Episodic Residual codes; unclassified (2 sources) Gestation period, 31 weeks; Translations: [31 weeks gestation of ] 06-17-2024 Episodic Residual codes; unclassified (2 sources) Gestation period, 35 weeks; Translations: [35 weeks gestation of ] 07-14-2024 Episodic Short gestation; low weight; and growth retardation (2 sources) Getky-zpu-dvkql baby; Translations: [ small for gestational age, unspecified weight] 06-17-2024 Episodic Unclassified (1 source) CONTACT W/AND (SUSP) EXPOS COVID-19; Translations: [CONTACT W/AND (SUSP) EXPOS COVID-19] Onset: 03-27-2022 Unclassified (1 source) new patient Onset: 10-21-2023 Unclassified (1 source) Annual Exam Onset: 10-21-2023 Viral infection (5 sources) Herpesviral infection, unspecified; Translations: [Herpes simplex] Onset: 02-18-2024 05-11-2024 Episodic Past or Other Problems Problem Classification Problem Date Documented Da te Episodic/Chronic Other nutritional; endocrine; and metabolic disorders (2 sources) Underweight; Translations: [Underweight] Onset: 10-21-2023 Episodic Results Test Name Value Interpretation Reference Range Facility Urinalysis macro (dipstick) panel (U)on 07-14-2024 Bilirubin, UA Positive Negative - 4(70) +++ mg/dL [facility] Blood, UA Negative Negative - 50 Luis Alberto/mcL [facility] Clarity, UA Clear [facility] re Color, UA [facility] Glucose, UA Negative Negative - 1999(110) ++++ mg/dL [facility] Interpretation and review of laboratory results Abnormal [facility] re Ketones, UA Positive Negative - 160(16) ++++ mg/dL [facility] Leukocytes, UA Trace Negative - 500+++ Juan C/mcL [facility] Nitrite, UA Negative Negative - Positive [facility] pH, UA 7.5 5 - 9 [facility] e Protein, UA Positive Negative - 1999(20) ++++ mg/dL [facility] Spec Grav, UA 1.02 1 - 1.03 [facility] Urobilinogen, UA 2.0 0.2 - 12 mg/dL [facility] Urinalysis macro (dipstick) panel (U)on 06-17-2024 Bilirubin, UA Negative Negative - 4(70) +++ mg/dL [facility] Blood, UA Negative Negative - 50 Luis Alberto/mcL [facility] Clarity, UA Clear [facility] re Color, UA Yellow [facility] Glucose, UA Negative Negative - 1999(110) ++++ mg/dL [facility] Interpretation and review of laboratory results Normal [facility] re Ketones, UA Negative Negative - 160(16) ++++ mg/dL [facility] Leukocytes, UA Negative Negative - 500+++ Juan C/mcL [facility] Nitrite, UA Negative Negative - Positive [facility] pH, UA 7 5 - 9 [facility] Protein, UA Negative Negative - 1999(20) ++++ mg/dL [facility] Spec Grav, UA 1.025 1 - 1.03 [facility] Urobilinogen, UA 0.2 0.2 - 12 mg/dL [facility] Urinalysis macro (dipstick) panel (U)on 05-25-2024 Bilirubin, UA Negative Negative - 4(70) +++ mg/dL [facility] Blood, UA Negative Negative - 50 Luis Alberto/mcL [facility] Clarity, UA Clear [facility] re Color, UA Yellow [facility] e Glucose, UA Negative Negative - 1999(110) ++++ mg/dL [facility] Interpretation and review of laboratory results Abnormal [facility] re Ketones, UA Negative Negative - 160(16) ++++ mg/dL [facility] Leukocytes, UA Few Negative - 500+++ Juan C/mcL [facility] Comment on above: small Nitrite, UA Negative Negative - Positive [facility] pH, UA 7 5 - 9 [facility] Protein, UA Negative Negative - 1999(20) ++++ mg/dL [facility] Spec Grav, UA 1.015 1 - 1.03 [facility] Urobilinogen, UA 1.0 0.2 - 12 mg/dL [facility] Urinalysis macro (dipstick) panel (U)on 05-11-2024 Bilirubin, UA Negative Negative - 4(70) +++ mg/dL [facility] Blood, UA Negative Negative - 50 Luis Alberto/mcL [facility] Clarity, UA Clear [facility] re Color, UA Yellow [facility] e Glucose, UA Negative Negative - 1999(110) ++++ mg/dL [facility] Interpretation and review of laboratory results Normal [facility] re Ketones, UA Negative Negative - 160(16) ++++ mg/dL [facility] Leukocytes, UA Negative Negative - 500+++ Juan C/mcL [facility] Nitrite, UA Negative Negative - Positive [facility] pH, UA 7 5 - 9 [facility] e Protein, UA Negative Negative - 1999(20) ++++ mg/dL [facility] Spec Grav, UA 1.015 1 - 1.03 [facility] Urobilinogen, UA 1.0 0.2 - 12 mg/dL [facility] e TB-QFTon 04-17-2024 Mitogen minus Nil 9.91 IU/mL Normal [facility] Comment on above: Performed By: #### C [id number] #### [place] [address] Nil Result 0.09 IU/mL Normal [facility] Comment on above: Performed By: #### C D:[id number] #### [place] [id number] QuantiFERON-TB Gold Plus Negative Normal Negative [facility] Comment on above: Result Comment: No i [...] Diagnosis of Tuberculosis in Adults and Children [Kristinen DM et. al. Clin. Infect. Dis. 2017;64(2):111?115]. The reference range for the 'TB1 Ag minus Nil Result' and 'TB2 Ag minus Nil Result' is an Interferon-gamma level Performed By: #### C [id number] #### [address] [address] TB1 Ag minus Nil <0.00 [facility] Comment on above: Performed By: #### C [id number] #### [place] [address] [place] [address] TB2 Ag minus Nil <0.00 [facility] Comment on above: Performed By: #### C [id number] #### [address] [address] [place] Trackon 04-16-2024 QuantiFeron TB Drk Grn Li Hep # 1 [facility] Comment on above: Performed By: #### [facility] Tracking Order #### [address] [address] Specimens Received From [facility] Comment on above: Performed By: #### O [facility] Tracking Order #### [address] [address] Urinalysis macro (dipstick) panel (U)on 04-13-2024 Bilirubin, UA Negative Negative - 4(70) +++ mg/dL [facility] Blood, UA Negative Negative - 50 Luis Alberto/mcL [facility] Clarity, UA Clear [facility] re Color, UA Yellow [facility] Health[facility] e Glucose, UA Negative Negative - 1999(110) ++++ mg/dL [facility] Interpretation and review of laboratory results Normal [facility] re Ketones, UA Negative Negative - 160(16) ++++ mg/dL [facility] Leukocytes, UA Negative Negative - 500+++ Juan C/mcL [facility] Nitrite, UA Negative Negative - Positive [facility] pH, UA 7 5 - 9 [facility] e Protein, UA Negative Negative - 1999(20) ++++ mg/dL [facility] Spec Grav, UA 1.025 1 - 1.03 [facility] care Urobilinogen, UA 1.0 0.2 - 12 mg/dL [facility] IGP,APTIMA HPV,AGE GDLNon AGE GDLN ACOG TESTING Note . [facility] Comment on above: TESTS RESULT FLAG [facility] REF RANGE LAB Clinician Provided Cytology Information Source.............Cervix Other.............. No. of containers..01 ThinPrep Vial Age Algo ACOG Nohemi... FLAG LEGEND: L-Low Normal,H-High Normal,LL-Alert Low,HH-Alert High <-Panic Low,>-Panic High,A-Abnormal,AA-Critical Abnormal Performed at: 01 =G [address] [address] Lor Moy MD, IGP, RFX APTIMA HPV ASCU Note . [facility] Comment on above: TESTS RESULT FLAG ITS REF RANGE LAB DIAGNOSIS: 02 NEGATIVE FOR INTRAEPITHELIAL LESION OR MALIGNANCY. CELLULAR CHANGES ASSOCIATED WITH INFLAMMATION ARE PRESENT. Specimen adequacy: 02 Satisfactory for evaluation. Endocervical and/or squamous metaplastic cells (endocervical component) are present. Performed by: 02 Ameena Burks Graduate Engineer ([facility]) . 02 Note: Note 02 The Pap smear is a screening test designed to aid in the detection of premalignant and malignant conditions of the uterine cervix. It is not a diagnostic procedure and should not be used as the sole means of detecting cervical cancer. Both false-positive and false-negative reports do occur. Test Methodology: Note 02 This liquid based ThinPrep(R) pap test was screened with the use of an image guided system. . 02 The HPV DNA reflex criteria were not met with this specimen result therefore, no HPV testing was performed. FLAG LEGEND: L-Low Normal,H-High Normal,LL-Alert Low,HH-Alert High <-Panic Low,>-Panic High,A-Abnormal,AA-Critical Abnormal Performed at: [address] [address] Lor Moy MD, Performed at: = - [facility] [address] [id number] Unstacker: Lor Moy MD, Phone: [phone] Performed at: [facility] [address] [id number] Unstacker: Lor Moy MD, Phone: [phone] SPATULA-ALONE CERVIX [facility] Health[facility] e URETHRITIS/DISCHARGE PLUS VA GINITIS (HTRX)on 03-18-2024 ATOPOBIUM VAGINAE 0.000 [facility] ATOPOBIUM VAGINAE Not detected [facility] Healthcare BVAB 2,3 (BACTERIAL VAGINOSIS ASSOCIATED BACTERIA 2, 3); MOBILUNCUS SPP 0.000 [facility] BVAB 2,3 (BACTERIAL VAGINOSIS ASSOCIATED BACTERIA 2, 3); MOBILUNCUS SPP Not detected [facility] ELENA ALBICANS, PARAPSILOSIS, TROPICALIS 0.000 [facility] ELENA ALBICANS, PARAPSILOSIS, TROPICALIS Not detected [facility] ELENA GLABRATA 0.000 [facility] ELENA GLABRATA Not detected [facility] ELENA KRUSEI 0.000 [facility] Healt hcare ELENA KRUSEI Not detected [facility] CHLAMYDIA TRACHOMATIS 0.000 [facility] CHLAMYDIA TRACHOMATIS Not detected [facility] ERMB, C; MEFA 23.017 Abnormal [facility] care ERMB, C; MEFA Detected Abnormal [facility] GARDNERELLA VAGINALIS 32.321 Abnormal [facility] GARDNERELLA VAGINALIS Detected Abnormal [facility] Interpretation and review of laboratory results Abnormal [facility] re MEGASPHAERA (TYPES 1, 2) 0.000 [facility] MEGASPHAERA (TYPES 1, 2) Not detected [facility] MYCOPLASMA GENITALIUM 0.000 [facility] MYCOPLASMA GENITALIUM Not detected [facility] NEISSERIA GONORRHOEAE 0.000 [facility] NEISSERIA GONORRHOEAE Not detected [facility] TET B, TET M 25.883 Abnormal [facility] are TET B, TET M Detected Abnormal [facility] are TRICHOMONAS VAGINALIS 0.000 [facility] TRICHOMONAS VAGINALIS Not detected [facility] Urinalysis macro (dipstick) panel (U)on 03-16-2024 Bilirubin, UA Negative Negative - 4(70) +++ mg/dL [facility] Blood, UA Negative Negative - 50 Luis Alberto/mcL [facility] Clarity, UA Clear [facility] re Color, UA Yellow [facility] Glucose, UA Negative Negative - 1999(110) ++++ mg/dL [facility] Interpretation and review of laboratory results Normal [facility] re Ketones, UA Negative Negative - 160(16) ++++ mg/dL [facility] Leukocytes, UA Negative Negative - 500+++ Juan C/mcL [facility] Nitrite, UA Negative Negative - Positive [facility] pH, UA 7.0 5 - 9 [facility] e Protein, UA Negative Negative - 1999(20) ++++ mg/dL [facility] Spec Grav, UA 1.015 1 - 1.03 [facility] Urobilinogen, UA 0.2 0.2 - 12 mg/dL [facility] Health[facility] e ALL CBC WITH AUTO DIFFon BASOPHILS ABSOLUTE AUTO 0.1 [facility] Basophils/100 WBC (Bld) 0.6 % 0.2 - 2.0 % [facility] Eosinophils/100 WBC (Bld) 0.8 % Low 0.9 - 7.0 % [facility] Erythrocyte distribution width (RBC) [Ratio] 13.4 % 11.0 - 15.0 % [facility] Hematocrit (Bld) [Volume fraction] 32.0 % Low 36.0 - 48.0 % [facility] Health[facility] e Hemoglobin (Bld) [Mass/Vol] 11.3 g/dL Low 12.0 - 16.0 g/dL [facility] IMMATURE GRANULOCYTES ABS AUTO 0.04 High [facility] Immature granulocytes/100 WBC (Bld) 0.5 % 0.0 - 0.5 % [facility] Interpretation and review of laboratory results Abnormal [facility] re LYMPHOCYTES ABSOLUTE AUTO 2.4 [facility] Lymphocytes/100 WBC (Bld) 27.7 % 20.5 - 60.0 % [facility] MCH (RBC) [Entitic mass] 32.3 pg 26.7 - 34.0 pg [facility] MCHC (RBC) [Mass/Vol] 35.3 g/dL High 29.9 - 35.2 g/dL [facility] MCV (RBC) [Entitic vol] 91.4 fL 81.0 - 99.0 fL [facility] MONOCYTES ABSOLUTE AUTO 0.4 [facility] Monocytes/100 WBC (Bld) 5.1 % 1.7 - 12.0 % [facility] NEUTROPHILS ABSOLUTE AUTO 5.6 [facility] Neutrophils/100 WBC (Bld) 65.3 % 43.0 - 75.0 % [facility] Platelet mean volume (Bld) [Entitic vol] 9.9 fL 9.5 - 13.5 fL [facility] TBH EO # 0.1 [facility] TBH PLT 208 [facility] TB RBC 3.50 Low [facility] Health[facility] e TBH WBC 8.6 [facility] Health[facility] e HCG ( test) Ql (U)o n 02-28-2024 Interpretation and review of laboratory results Abnormal [facility] re Preg Test, Ur Positive [facility] e Urinalysis macro (dipstick) panel (U)on 02-28-2024 Bilirubin, UA Negative Negative - 4(70) +++ mg/dL [facility] Blood, UA Negative Negative - 50 Luis Alberto/mcL [facility] Clarity, UA Clear [facility] re Color, UA Yellow [facility] Health[facility] e Glucose, UA Negative Negative - 1999(110) ++++ mg/dL [facility] Interpretation and review of laboratory results Normal [facility] re Ketones, UA Negative Negative - 160(16) ++++ mg/dL [facility] Leukocytes, UA Negative Negative - 500+++ Juan C/mcL [facility] Nitrite, UA Negative Negative - Positive [facility] pH, UA 7.0 5 - 9 [facility] e Protein, UA Negative Negative - 1999(20) ++++ mg/dL [facility] Spec Grav, UA 1.020 1 - 1.03 [facility] Urobilinogen, UA 1.0 0.2 - 12 mg/dL [facility] CBC AND AUTO DIFFon 11-15-19 ABSOLUTE BASOPHIL 0.0 X10E9/L Normal 0.0-0.2 [facility] Comment on above: Performed By: #### C BCA, CMP, FEPR, THYR, 98350-1 #### [facility] ([id number]) [address], [address] [place] [address] ABSOLUTE NEUTROPHIL 2.5 X10E9/L Normal 1.5-6.6 [facility] Comment on above: Performed By: #### C BCA, CMP, FEPR, THYR, 04479-1 #### [facility] ([id number]) [address], [address] [place] [address] Basophils/100 WBC (Bld) 0.8 % Normal [facility] Comment on above: Performed By: #### C BCA, CMP, FEPR, THYR, 63477-1 #### [facility] ([id number]) [address], [address] [place] [address] Eosinophils (Bld) [#/Vol] 0.1 10*3/uL Normal 0.0-0.4 [facility] Comment on above: Performed By: #### C BCA, CMP, FEPR, THYR, 54597-4 #### [facility] ([id number]) [address] [address] [place] [address] Eosinophils/100 WBC (Bld) 1.4 % Normal [facility] Comment on above: Performed By: #### C BCA, CMP, FEPR, THYR, 72190-0 #### [facility] ([id number]) [address] [address] [place] [address] Erythrocyte distribution width (RBC) [Ratio] 12.9 % Normal 11.5-15.0 [facility] Comment on above: Performed By: #### C BCA, CMP, FEPR, THYR, 68770-1 #### [facility] ([id number]) [address] [address] [place] [address] Hematocrit (Bld) [Volume fraction] 35.4 % Normal 35-47 [facility] Comment on above: Performed By: #### C BCA, CMP, FEPR, THYR, 72848-0 #### [facility] ([id number]) [address] [address] [place] [address] Hemoglobin (Bld) [Mass/Vol] 12.2 g/dL Normal 11.7-15.5 [facility] Comment on above: Performed By: #### C BCA, CMP, FEPR, THYR, 98691-3 #### [facility] ([id number]) [address] [address] [place] [address] Lymphocytes (Bld) [#/Vol] 2.1 10*3/uL Normal 1.0-3.5 [facility] Comment on above: Performed By: #### C BCA, CMP, FEPR, THYR, 95159-7 #### [facility] ([id number]) [address] [address] [place] [address] Lymphocytes/100 WBC (Bld) 41.5 % Normal [facility] Comment on above: Performed By: #### C BCA, CMP, FEPR, THYR, 38427-9 #### [facility] ([id number]) [address] [place] [address] MCH (RBC) [Entitic mass] 31.2 pg Normal 27-34 [facility] Comment on above: Performed By: #### C BCA, CMP, FEPR, THYR, 26617-9 #### [facility] ([id number]) [address], [facility] [address] [place] [address] MCHC (RBC) [Mass/Vol] 34.5 g/dL Normal 32-36 [facility] Comment on above: Performed By: #### C BCA, CMP, FEPR, THYR, 18023-1 #### [facility] ([id number]) [address] [place] [address] MCV (RBC) [Entitic vol] 90 fL Normal 80-100 [facility] Comment on above: Performed By: #### C BCA, CMP, FEPR, THYR, 65287-1 #### [facility] ([id number]) [address] [address] [place] [address] Monocytes (Bld) [#/Vol] 0.4 10*3/uL Normal 0-0.9 [facility] Comment on above: Performed By: #### C BCA, CMP, FEPR, THYR, 35589-4 #### [facility] ([id number]) [address] [address] [place] [address] Monocytes/100 WBC (Bld) 7.0 % Normal [facility] Comment on above: Performed By: #### C BCA, CMP, FEPR, THYR, 14440-0 #### [facility] ([id number]) [address], [address] [place] [address] Neutrophils/100 WBC (Bld) 49.3 % Normal [facility] Comment on above: Performed By: #### C BCA, CMP, FEPR, THYR, 79322-7 #### [facility] ([id number]) [address], [address] [place] [address] Platelet mean volume (Bld) [Entitic vol] 8.7 fL Normal 7-12 [facility] Comment on above: Performed By: #### C BCA, CMP, FEPR, THYR, 70455-9 #### [facility] ([id number]) [address] [address] [place] [address] Platelets (Bld) [#/Vol] 232 10*3/uL Normal 150-450 [facility] Comment on above: Performed By: #### C BCA, CMP, FEPR, THYR, 84733-0 #### [facility] ([id number]) [address], [facility] [address] [place] [address] RBC COUNT 3.92 X10E12/L Normal 3.80-5.20 [facility] Comment on above: Performed By: #### C BCA, CMP, FEPR, THYR, 16366-1 #### [facility] ([id number]) [address] [address] [place] [address] WBC (Bld) [#/Vol] 5.0 10*3/uL Normal 4.0-11.0 [facility] Comment on above: Performed By: #### C BCA, CMP, FEPR, THYR, 33810-5 #### [facility] ([id number]) [address], [facility] [address] [place] [address] COMPREHENSIVE METABOLIC PANE Wang 11-15-2023 Albumin [Mass/Vol] 4.4 g/dL Normal 3.2-5.3 [facility] Comment on above: Performed By: #### C BCA, CMP, FEPR, THYR, 18731-0 #### [facility] ([id number]) [address], [address] [place] [address] ALP [Catalytic activity/Vol] 37 U/L Low 39-130 [facility] Comment on above: Performed By: #### C BCA, CMP, FEPR, THYR, 35420-4 #### [facility] ([id number]) [address], [address] [place] [address] ALT [Catalytic activity/Vol] 11 U/L Normal 0-31 [facility] Comment on above: Performed By: #### C BCA, CMP, FEPR, THYR, 12552-2 #### [facility] ([id number]) [address], [address] [place] [address] Anion gap [Moles/Vol] 9 mmol/L Normal 5-15 [facility] Comment on above: Performed By: #### C BCA, CMP, FEPR, THYR, 82410-0 #### [facility] ([id number]) [address], [address] [place] [address] AST [Catalytic activity/Vol] 15 U/L Normal 0-41 [facility] Comment on above: Performed By: #### C BCA, CMP, FEPR, THYR, 48474-1 #### [facility] ([id number]) [address], [address] [place] [address] Bilirubin [Mass/Vol] 1.4 mg/dL High 0.3-1.2 [facility] Comment on above: Performed By: #### C BCA, CMP, FEPR, THYR, 00981-7 #### [facility] ([id number]) [address] [place] [address] Calcium [Mass/Vol] 9.1 mg/dL Normal 8.5-10.5 [facility] Comment on above: Performed By: #### C BCA, CMP, FEPR, THYR, 36915-6 #### [facility] ([id number]) [address] [place] [address] Chloride [Moles/Vol] 104 mmol/L Normal 98-109 [facility] Comment on above: Performed By: #### C BCA, CMP, FEPR, THYR, 30082-9 #### [facility] ([id number]) [address], [address] [place] [address] CO2 [Moles/Vol] 25 mmol/L Normal 22-32 [facility] Comment on above: Performed By: #### C BCA, CMP, FEPR, THYR, 36490-7 #### [facility] ([id number]) [address] [place] [address] Creatinine [Mass/Vol] 0.74 mg/dL Normal 0.40-1.00 [facility] Comment on above: Result Comment: METH OD TRACEABLE TO IDMS STANDARD Performed By: #### C BCA, CMP, FEPR, THYR, 99120-1 #### [facility] ([id number]) [address] [place] [address] eGFR (CKD-EPI) NON-RACE DEPENDENT >90 Normal >59 [facility] Comment on above: Result Comment: Reported eGFR is based on the CKD-EPI 2020 equation that does not use a race coefficient. Performed By: #### C BCA, CMP, FEPR, THYR, 37626-7 #### [facility] ([id number]) [address], [address] [place] [address] Glucose [Mass/Vol] 100 mg/dL High 65-99 [facility] Comment on above: Performed By: #### C BCA, CMP, FEPR, THYR, 92415-6 #### [facility] ([id number]) [address], [address] [place] [address] Potassium [Moles/Vol] 3.7 mmol/L Normal 3.5-5.0 [facility] Comment on above: Performed By: #### C BCA, CMP, FEPR, THYR, 21608-2 #### [facility] ([id number]) [address], [address] [place] [address] Protein [Mass/Vol] 6.9 g/dL Normal 6.0-8.0 [facility] Comment on above: Performed By: #### C BCA, CMP, FEPR, THYR, 69207-8 #### [facility] ([id number]) [address] [place] [address] Sodium [Moles/Vol] 138 mmol/L Normal 134-146 [facility] Comment on above: Performed By: #### C BCA, CMP, FEPR, THYR, 36258-2 #### [facility] ([id number]) [address], [address] [place] [address] Urea nitrogen [Mass/Vol] 12 mg/dL Normal 5-23 [facility] Comment on above: Performed By: #### C BCA, CMP, FEPR, THYR, 31975-6 #### [facility] ([id number]) [address] [place] [address] IRON PROFILEon 11-15-2023 Iron [Mass/Vol] 81 ug/dL Normal 50-170 [facility] Comment on above: Performed By: #### C BCA, CMP, FEPR, THYR, 74190-8 #### [facility] ([id number]) [address] [address] [place] [address] IRON BINDING 309 ug/dL Normal 250-425 [facility] Comment on above: Performed By: #### C BCA, CMP, FEPR, THYR, 18493-9 #### [facility] ([id number]) [address] [address] [place] [address] IRON SATURATION 26 % SATURATION Normal 15-50 [facility] Comment on above: Performed By: #### C BCA, CMP, FEPR, THYR, 86580-0 #### [facility] ([id number]) [address] [place] [address] THYROID PROFILEon 11-15-2023 Free T4 [Mass/Vol] 1.01 ng/dL Normal 0.61-1.60 [facility] Comment on above: Performed By: #### C BCA, CMP, FEPR, THYR, 56079-0 #### [facility] ([id number]) [address] [place] [address] TSH 1.81 uIU/mL Normal 0.49-4.67 [facility] Comment on above: Performed By: #### C BCA, CMP, FEPR, THYR, 38966-2 #### [facility] ([id number]) [address] [place] [address] Vitamin D+Metabolites [Mass/ Vol]on 11-15-2023 VITAMIN D 25 HYD TOT 18.7 ng/mL Low 30-100 [facility] Comment on above: Result Comment: Vitamin D status 25 [place] Vitamin D Deficiency <20 ng/mL Insufficiency 20-29 ng/mL Sufficiency 30-100 ng/mL Toxicity >100 ng/mL NOTE: A pediatric reference range has not been established by the collection development librarian of this kit. The [place] [employer] recommends a Vitamin D level of = or >20ng/mL in infants and children. Performed By: #### C BCA, CMP, FEPR, THYR, 34461-1 #### [facility] ([id number]) [address], [address] [place] [address] Urgent Care Office/Clinic No zackary 07-10-2023 Urgent [...] declines COVID testing in office today. No [id number] medications for symptom management. Significant other is [...] reviewed the patient?s medication list for medication interactions/contrain dications and/or for upcoming procedures: [yes] Time Spent [...] by Evelin Smith 07/10/23 19:47 EST Normal [facility] [place] CBC AUTO DIFFon 03-23-2022 BASO # 0.0 103/ul Normal 0.0-0.1 [facility] Comment on above: Performed By: #### C BC #### [facility] [address] [place] [address] Dr. Ana Maria Alexandre Basophils/100 WBC (Bld) 0.2 % Normal 0.2-2.0 [facility] Comment on above: Performed By: #### C BC #### [facility] [address] [place] [address] Dr. Ana Maria Alexandre EO # 0.0 103/ul Normal 0.0-0.7 [facility] Comment on above: Performed By: #### C BC #### [facility] [address] [place] [address] Dr. Ana Maria Alexandre Eosinophils/100 WBC (Bld) 0.3 % Critically low 0.9-7.0 [facility] Comment on above: Performed By: #### C BC #### [facility] [address] [place] [address] Dr. Ana Maria Alexandre Erythrocyte distribution width (RBC) [Ratio] 12.9 % Normal 11.0-15.0 [facility] Comment on above: Performed By: #### C BC #### [facility] [address] [place] [address] Dr. Ana Maria Alexandre Hematocrit (Bld) [Volume fraction] 25.6 % Critically low 36.0-48.0 [facility] Comment on above: Performed By: #### C BC #### [facility] [address] [place] [address] Dr. Ana Maria Alexandre Hemoglobin (Bld) [Mass/Vol] 8.5 g/dL Critically low 12.0-16.0 [facility] Comment on above: Performed By: #### C BC #### [facility] [address] [place] [address] Dr. Ana Maria Alexandre IG # 0.05 10e3/ul Critically high 0.00-0.03 [facility] Comment on above: Performed By: #### C BC #### [facility] [address] [place] [address] Dr. Ana Maria Alexandre IG % 0.4 % Normal 0.0-0.5 [facility] Comment on above: Performed By: #### C BC #### [facility] [address] [place] [address] Dr. Ana Maria Alexandre LYMPH # 2.5 103/ul Normal 1.2-3.8 [facility] Comment on above: Performed By: #### C BC #### [facility] [address] [place] [address] Dr. Ana Maria Alexandre Lymphocytes/100 WBC (Bld) 17.2 % Critically low 20.5-60.0 [facility] Comment on above: Performed By: #### C BC #### [facility] [address] [place] [address] Dr. Ana Maria Alexandre MANUAL DIFF REQ NO Normal [facility] Comment on above: Performed By: #### C BC #### [facility] [address] [place] [address] Dr. Ana Maria Alexandre MCH (RBC) [Entitic mass] 28.1 pg Normal 26.7-34.0 [facility] Comment on above: Performed By: #### C BC #### [facility] [address] [place] [address] Dr. Ana Maria Alexandre MCHC (RBC) [Mass/Vol] 33.2 g/dL Normal 29.9-35.2 [facility] Comment on above: Performed By: #### C BC #### [facility] [address] [place] [address] Dr. Ana Maria Alexandre MCV (RBC) [Entitic vol] 84.5 fL Normal 81.0-99.0 [facility] Comment on above: Performed By: #### C BC #### [facility] [address] [place] [address] Dr. Ana Maria Alexandre MONO # 0.9 103/ul Critically high 0.3-0.8 [facility] Comment on above: Performed By: #### C BC #### [facility] [address] [place] [address] Dr. Ana Maria Alexandre Monocytes/100 WBC (Bld) 6.0 % Normal 1.7-12.0 [facility] Comment on above: Performed By: #### C BC #### [facility] [address] [place] [address] Dr. Ana Maria Alexandre NEUT # 10.8 103/ul Critically high 1.4-6.5 [facility] Comment on above: Performed By: #### C BC #### [facility] [address] [place] [address] Dr. Ana Maria Alexandre Neutrophils/100 WBC (Bld) 75.9 % Critically high 43.0-75.0 [facility] Comment on above: Performed By: #### C BC #### [facility] [address] [place] [address] Dr. Ana Maria Alexandre Platelet mean volume (Bld) [Entitic vol] 11.4 fL Normal 9.5-13.5 [facility] Comment on above: Performed By: #### C BC #### [facility] [address] [place] [address] Dr. Ana Maria Alexandre PLT 152 103/ul Normal 150-450 [facility] Comment on above: Performed By: #### C BC #### [facility] [address] [place] [address] Dr. Ana Maria Alexandre RBC 3.03 106/ul Critically low 4.20-5.40 [facility] Comment on above: Performed By: #### C BC #### [facility] [address] [place] [address] Dr. Ana Maria Alexandre WBC 14.2 103/ul Critically high 4.0-11.0 [facility] Comment on above: Performed By: #### C BC #### [facility] [address] [place] [address] Dr. Ana Maria Alexandre CBC AUTO DIFFon 03-22-2022 BASO # 0.0 103/ul Normal 0.0-0.1 [facility] Comment on above: Performed By: #### C BC #### [facility] [address] [place] [address] Dr. Ana Maria Alexandre Basophils/100 WBC (Bld) 0.3 % Normal 0.2-2.0 [facility] Comment on above: Performed By: #### C BC #### [facility] [address] [place] [address] Dr. Ana Maria Alexandre EO # 0.1 103/ul Normal 0.0-0.7 [facility] Comment on above: Performed By: #### C BC #### [facility] [address] [place] [address] Dr. Ana Maria Alexandre Eosinophils/100 WBC (Bld) 0.6 % Critically low 0.9-7.0 [facility] Comment on above: Performed By: #### C BC #### [facility] [address] [place] [address] Dr. Ana Maria Alexandre Erythrocyte distribution width (RBC) [Ratio] 12.6 % Normal 11.0-15.0 [facility] Comment on above: Performed By: #### C BC #### [facility] [address] [place] [address] Dr. Ana Maria Alexandre Hematocrit (Bld) [Volume fraction] 30.4 % Critically low 36.0-48.0 [facility] Comment on above: Performed By: #### C BC #### [facility] [address] [place] [address] Dr. Ana Maria Alexandre Hemoglobin (Bld) [Mass/Vol] 9.9 g/dL Critically low 12.0-16.0 [facility] Comment on above: Performed By: #### C BC #### [facility] [address] [place] [address] Dr. Ana Maria Alexandre IG # 0.08 10e3/ul Critically high 0.00-0.03 [facility] Comment on above: Performed By: #### C BC #### [facility] [address] [place] [address] Dr. Ana Maria Alexandre IG % 0.6 % Critically high 0.0-0.5 [facility] Comment on above: Performed By: #### C BC #### [facility] [address] [place] [address] Dr. Ana Maria Alexandre LYMPH # 1.9 103/ul Normal 1.2-3.8 [facility] Comment on above: Performed By: #### C BC #### [facility] [address] [place] [address] Dr. Ana Maria Alexandre Lymphocytes/100 WBC (Bld) 15.5 % Critically low 20.5-60.0 [facility] Comment on above: Performed By: #### C BC #### [facility] [address] [place] [address] Dr. Ana Maria Alexandre MANUAL DIFF REQ NO Normal [facility] Comment on above: Performed By: #### C BC #### [facility] [address] [place] [address] Dr. Ana Maria Alexandre MCH (RBC) [Entitic mass] 27.5 pg Normal 26.7-34.0 [facility] Comment on above: Performed By: #### C BC #### [facility] [address] [place] [address] Dr. Ana Maria Alexandre MCHC (RBC) [Mass/Vol] 32.6 g/dL Normal 29.9-35.2 [facility] Comment on above: Performed By: #### C BC #### [facility] [address] [place] [address] Dr. Ana Maria Alexandre MCV (RBC) [Entitic vol] 84.4 fL Normal 81.0-99.0 [facility] Comment on above: Performed By: #### C BC #### [facility] [address] [place] [address] Dr. Ana Maria Alexandre MONO # 0.7 103/ul Normal 0.3-0.8 [facility] Comment on above: Performed By: #### C BC #### [facility] [address] [place] [address] Dr. Ana Maria Alexandre Monocytes/100 WBC (Bld) 5.2 % Normal 1.7-12.0 [facility] Comment on above: Performed By: #### C BC #### [facility] [address] [place] [address] Dr. Ana Maria Alexandre NEUT # 9.7 103/ul Critically high 1.4-6.5 [facility] Comment on above: Performed By: #### C BC #### [facility] [address] [place] [address] Dr. Ana Maria Alexandre Neutrophils/100 WBC (Bld) 77.8 % Critically high 43.0-75.0 [facility] Comment on above: Performed By: #### C BC #### [facility] [address] [address] [address] Ana Maria Alexandre Platelet mean volume (Bld) [Entitic vol] 11.5 fL Normal 9.5-13.5 [facility] Comment on above: Performed By: #### C BC #### [facility] [address] [place] [address] Dr. Ana Maria Alexandre PLT 202 103/ul Normal 150-450 [facility] Comment on above: Performed By: #### C BC #### [facility] [address] [address] [address] Ana Maria Alexandre RBC 3.60 106/ul Critically low 4.20-5.40 [facility] Comment on above: Performed By: #### C BC #### [facility] [address] [place] [address] Dr. Ana Maria Alexandre WBC 12.5 103/ul Critically high 4.0-11.0 [facility] Comment on above: Performed By: #### C BC #### [facility] [address] [place] [address] Dr. Ana Maria Alexandre Covid-19 PCR ([facility])on 03-02 SARS-CoV-2 (COVID-19) RNA RUTH ANN+probe Ql (Unsp spec) Not detected Normal NOT DETECTED [facility] Comment on above: Result Comment: When diagnostic [...] for this test is supported by the Settlement Technician of Health and Human Service's declaration that [...] used). Performed By: #### C VDTBH #### [facility] [address] [place] [address] Dr. Ana Maria Alexandre DRUG SCREEN RAPID (URINE)on 03-22-2022 AMP Negative Normal NEGATIVE [facility] Comment on above: Performed By: #### D RUGRPD #### [facility] [address] [place] [address] Dr. Ana Maria Alexandre BAR Negative Normal NEGATIVE [facility] Comment on above: Performed By: #### D RUGRPD #### [facility] [address] [place] [address] Dr. Ana Maria Alexandre BUP Negative Normal NEGATIVE [facility] Comment on above: Performed By: #### D RUGRPD #### [facility] [address] [place] [address] Dr. Ana Maria Alexandre BZO Negative Normal NEGATIVE [facility] Comment on above: Performed By: #### D RUGRPD #### [facility] [address] [place] [address] Dr. Ana Maria Alexandre BRIGHT Negative Normal NEGATIVE [facility] Comment on above: Performed By: #### D RUGRPD #### [facility] [address] [place] [address] Dr. Ana Maria Alexandre CUT-OFFS SEE BELOW Normal [facility] Comment on above: Result Comment: AMP (Amphetamine): 500ng/mL, BAR (Barbituates): 200 ng/mL, BZO (Benzodiazepines): 150 ng/mL, BUP (Buprenorphine): 10 ng/mL, BRIGHT (Cocaine): 150 ng/mL, mAMP (Methamphetamine): 500 ng/mL, MTD (Methadone): 200 ng/mL, OPI (Opiates): 100 ng/mL, OXY (Oxycodone): 100 ng/mL, PCP (Phencyclidine): 25 ng/mL, PPX (Propoxyphene): 300 ng/mL, THC (Cannabinoids): 50 ng/mL, TCA (Trycyclic Antidepressants): 300 ng/mL Performed By: #### D RUGRPD #### [facility] [address] [place] [address] Dr. Ana Maria Alexandre DRUG CUT HEADER DRUG CLASS TEST SYSTEM CUT-OFF CONCENTRATIONS ARE FOLLOWS: Normal [facility] Comment on above: Performed By: #### D RUGRPD #### [facility] [address] [place] [address] Dr. Ana Maria Alexandre mAMP Negative Normal NEGATIVE [facility] Comment on above: Performed By: #### D RUGRPD #### [facility] [address] [place] [address] Dr. Ana Maria Alexandre MTD Negative Normal NEGATIVE [facility] Comment on above: Performed By: #### D RUGRPD #### [facility] [address] [place] [address] Dr. Ana Maria Alexandre OPI Negative Normal NEGATIVE [facility] Comment on above: Performed By: #### D RUGRPD #### [facility] [address] [place] [address] Dr. Ana Maria Alexandre OXY Negative Normal NEGATIVE [facility] Comment on above: Performed By: #### D RUGRPD #### [facility] [address] [address] [address] Ana Maria Alexandre PCP Negative Normal NEGATIVE [facility] Comment on above: Performed By: #### D RUGRPD #### [facility] [address] [place] [address] Dr. Ana Maria Alexandre PPX Negative Normal NEGATIVE [facility] Comment on above: Performed By: #### D RUGRPD #### [facility] [address] [place] [address] Dr. Ana Maria Alexandre TCA Negative Normal NEGATIVE [facility] Comment on above: Performed By: #### D RUGRPD #### [facility] [address] [place] [address] Dr. Ana Maria Alexandre THC Negative Normal NEGATIVE [facility] Comment on above: Performed By: #### D RUGRPD #### [facility] [address] [place] [address] Dr. Ana Maria Alexandre TYPE AND SCREENon 03-22-2022 TYPE AND SCREEN Negative Normal [facility] Comment on above: Performed By: #### T NS #### [facility] [address] [place] [address] Dr. Ana Maria Alexandre GROUP B STREP [...] F Tetracycline >=16 R F Normal [facility] Comment on above: Performed By: #### G BSCX #### [facility] [address] [place] [address] Dr. Ana Maria Alexandre VAGINITIS/VAGINOSIS DNA PROB Chad 03-14-2022 Elena species Negative Normal Negative [facility] Comment on above: Performed By: #### V AGINT #### [facility] [address] [place] [address] Dr. Ana Maria Alexandre Gardnerella vaginalis Negative Normal Negative [facility] Comment on above: Performed By: #### V AGINT #### [facility] [address] [place] [address] Dr. Ana Maria Alexandre Trichomonas vaginalis Negative Normal Negative [facility] Comment on above: Performed By: #### V AGINT #### [facility] [address] [place] [address] Dr. Ana Maria Alexandre US PREG GROWTHon [...] by: CHARITY FLORES Date: 2022-03-01 16:15 Normal [facility] US PREG GROWTHon 02-01-2022 US PREG [...] by: CHARITY FLORES Date: 2022-02-01 16:43 Normal [facility] PREG REEVAL ABNon US PREG REEVAL ABN EXAMINATION: US PREG [...] by: CHASITY NGUYEN Date: 2022-01-08 19:27 Normal [facility] Vital Signs Date Time Vital Sign Value Performing Clinician Margret hernandez 07-14-2024 13:19-0500 Body weight 58.12 kg Mike Raghu DO Work Phone: [facility] 07-14-2024 13:19-0500 Diastolic blood pressure 62 mm[Hg] Mike Raghu DO Work Phone: [facility] 07-14-2024 13:19-0500 Systolic blood pressure 116 mm[Hg] Mike Raghu DO Work Phone: [facility] 06-17-2024 10:01-0500 Body weight 55.79 kg Damari GALAVIZ Work Phone: [facility] 06-17-2024 10:01-0500 Diastolic blood pressure 62 mm[Hg] Damari GALAVIZ Work Phone: [facility] 06-17-2024 10:01-0500 Systolic blood pressure 104 mm[Hg] Damari GALAVIZ Work Phone: [facility] 05-25-2024 09:51-0500 Body weight 54.43 kg Damari GALAVIZ Work Phone: [facility] 05-25-2024 09:51-0500 Diastolic blood pressure 58 mm[Hg] Damari GALAVIZ Work Phone: [facility] 05-25-2024 09:51-0500 Systolic blood pressure 104 mm[Hg] Damari GALAVIZ Work Phone: [facility] 05-11-2024 11:41-0500 Body weight 53.89 kg Mike Raghu DO Work Phone: [facility] 05-11-2024 11:41-0500 Diastolic blood pressure 60 mm[Hg] Mike Raghu DO Work Phone: [facility] 05-11-2024 11:41-0500 Systolic blood pressure 100 mm[Hg] Mike Raghu DO Work Phone: [facility] 04-13-2024 13:46-0400 Body weight 51.26 kg Damari GALAVIZ Work Phone: [facility] 04-13-2024 13:46-0400 Diastolic blood pressure 62 mm[Hg] Damari GALAVIZ Work Phone: [facility] 04-13-2024 13:46-0400 Systolic blood pressure 100 mm[Hg] Damari GALAVIZ Work Phone: [facility] 03-16-2024 11:38-0400 Body weight 50.8 kg Mike Raghu DO Work Phone: [facility] 03-16-2024 11:38-0400 Diastolic blood pressure 70 mm[Hg] Mike Raghu DO Work Phone: [facility] 03-16-2024 11:38-0400 Systolic blood pressure 120 mm[Hg] Mike Raghu DO Work Phone: [facility] Healthcare Encounters Encounter Date Encounter Type Care Provider Facility Start: 07-14-2024 End: 07-14-2024 Bamboo flowsheet Mike Raghu DO Work Phone: [facility] Start: 07-14-2024 End: 07-14-2024 Bamboo flowsheet Imke Raghu DO Work Phone: [facility] Start: 07-14-2024 End: 07-14-2024 Office outpatient visit 15 minutes Mike Raghu DO Work Phone: [facility] Comment on above: 35 weeks gestation o f ; Third trimester Start: 07-14-2024 End: 07-14-2024 ambulatory MIKE RAGHU Not Available Start: 06-17-2024 End: 06-17-2024 Bamboo flowsheet Damari GALAVIZ Work Phone: [facility] Start: 06-17-2024 End: 06-17-2024 Bamboo flowsheet Damari Tyler PA Work Phone: [facility] Start: 06-17-2024 End: 06-17-2024 ambulatory DAMARI TYLER Not Available Start: 06-17-2024 End: 06-17-2024 Office outpatient visit 15 minutes Damari GALAVIZ Work Phone: [facility] Comment on above: Third trimester preg isabella; 31 weeks gestation of ; HSV infection; SGA (small for gestational age) Start: 05-25-2024 End: 05-25-2024 Bamboo flowsheet Damari GALAVIZ Work Phone: [facility] Start: 05-25-2024 End: 05-25-2024 Bamboo flowsheet Damari GALAVIZ Work Phone: [facility] Start: 05-25-2024 End: 05-25-2024 Office outpatient visit 15 minutes Damari GALAVIZ Work Phone: [facility] Comment on above: 28 weeks gestation o f ; Third trimester Start: 05-25-2024 End: 05-25-2024 ambulatory DAMARI TYLER Not Available Start: 05-11-2024 End: 05-11-2024 Bamboo flowsheet Mike Raghu DO Work Phone: [facility] Start: 05-11-2024 End: 05-11-2024 Bamboo flowsheet Mike Raghu DO Work Phone: [facility] Start: 05-11-2024 End: 05-11-2024 Office outpatient visit 15 minutes Mike Raghu DO Work Phone: [facility] Comment on above: Second trimester pre gnancy; 26 weeks gestation of ; HSV infection Start: 05-11-2024 End: 05-11-2024 ambulatory MIKE RAGHU Not Available Start: 04-16-2024 End: 04-16-2024 ambulatory Hesham Olsen MD Facility:[facility] Start: 04-13-2024 End: 04-13-2024 Bamboo flowsheet Damari GALAVIZ Work Phone: [facility] Start: 04-13-2024 End: 04-13-2024 Bamboo flowsheet Damari GALAVIZ Work Phone: [facility] Start: 04-13-2024 End: 04-13-2024 flow sheet Damari GALAVIZ Work Phone: [facility] Comment on above: Diabetes mellitus sc reening; Second trimester ; 22 weeks gestation of Start: 04-13-2024 End: 04-13-2024 ambulatory DAMARI TYLER Not Available Start: 03-16-2024 End: 03-16-2024 Bamboo flowsheet Mike Raghu DO Work Phone: [facility] Start: 03-16-2024 End: 03-20-2024 Bamboo flowsheet Mike Raghu DO Work Phone: [facility] Start: 03-16-2024 End: 03-20-2024 Clinisync Result Encounter Mike Raghu DO Work Phone: [facility] Unsolicited Start: 03-16-2024 End: 03-18-2024 External Result Encounter Mike Raghu DO Work Phone: [facility] External Department Unsolicited Start: 03-16-2024 End: 03-16-2024 Patient encounter procedure Mike Raghu DO Work Phone: [facility] Healthcare Start: 03-16-2024 End: 03-16-2024 Periodic preventive med est patient 18-39 yrs Mike Raghu DO Work Phone: [facility] Comment on above: 18 weeks gestation o f ; Screening, , for anatomic survey; Well woman exam with routine gynecological exam; Exposure to STD; Vaginal discharge Start: 03-16-2024 End: 03-16-2024 ambulatory MIKE KRISHNAMURTHY Not Available Start: 02-28-2024 End: 02-28-2024 Clinisync Result Encounter Mike Krishnamurthy DO Work Phone: [facility] Unsolicited Start: 02-28-2024 End: 02-28-2024 Clinisync Result Encounter Mike Krishnamurthy DO Work Phone: [facility] Unsolicited Start: 02-28-2024 End: 02-28-2024 ambulatory MIKE RAGHU Not Available Start: 02-28-2024 End: 02-28-2024 Office outpatient visit 5 minutes [facility] Raghu Nurse [facility] Comment on above: GA: 15w4d Start: 02-18-2024 End: 02-18-2024 ambulatory [facility] Start: 11-15-2023 End: 11-16-2023 ambulatory [facility] Start: 11-15-2023 Encounter for genera l adult medical examination without abnormal findings [facility] Start: 10-21-2023 End: 10-21-2023 ambulatory [facility] Start: 10-21-2023 Encounter for genera l adult medical examination without abnormal findings [facility] Start: 07-10-2023 End: 07-10-2023 ambulatory [...] KRISHNAMURTHY Facility:[facility] Start: 03-12-2022 End: 03-12-2022 ambulatory NONE LISTED REQUEST Facility:[facility] Start: 02-28-2022 End: 03-01-[address] MIKE KRISHNAMURTHY Facility:[facility] Start: 01-31-2022 End: 02-01-[address] MIKE KRISHNAMURTHY Facility:[facility] Start: 01-12-[address] MIKE KRISHNAMURTHY Facility :[facility] Start: 01-08-2022 End: 01-09-[address] MIKE KRISHNAMURTHY Facility:[facility] Procedures Date Procedure Procedure Detail Performing Clinician Start: 07-14-2024 Urnls dip stick/tabl et rgnt non-auto w/o micrscp Mike Raghu DO Work Phone: Start: 06-17-2024 Urnls dip stick/tabl et rgnt non-auto w/o micrscp Damari GALAVIZ Work Phone: Start: 05-25-2024 Urnls dip stick/tabl et rgnt non-auto w/o micrscp Mike Raghu DO Work Phone: Start: 05-11-2024 Urnls dip stick/tabl et rgnt non-auto w/o micrscp Mike Raghu DO Work Phone: Start: 04-13-2024 Urnls dip stick/tabl et rgnt non-auto w/o micrscp Damari GALAVIZ Work Phone: Start: 03-16-2024 URETHRITIS/DISCHARGE PLUS VAGINITIS (HTRX) Mike Raghu DO Work Phone: Start: 03-16-2024 Urnls dip stick/tabl et rgnt non-auto w/o micrscp Mike Raghu DO Work Phone: Start: 03-16-2024 IGP,APTIMA HPV,AGE GDLN Mike Raghu DO Work Phone: Start: 02-28-2024 ALL CBC WITH AUTO DIFF Mike Raghu DO Work Phone: Start: 02-28-2024 End: 02-28-2024 Urnls dip stick/tablet rgnt non-auto w/o micrscp Mike Krishnamurthy DO Work Phone: Start: 03-22-2022 Delivery of Products of Conception, External Approach DR MIKE KRISHNAMURTHY Start: 03-22-2022 Drainage of Amniotic Fluid, Therapeutic from Products of Conception, Via Natural or Artificial Opening DR MIKE KRISHNAMURTHY Start: 03-22-2022 Repair Perineum Skin , External Approach DR MIKE KRISHNAMURTHY Plan of Treatment Date Care Activity Detail Author Start: 07-23-2024 End: 07-23-2024 Patient encounter procedure 07/23/2024 3:20 PM EST Routine [facility] [address] [place] [id number] Damari Tyler PA [address] [place], [place] [id number] [facility] Start: 07-14-2024 End: 07-14-2024 Patient encounter procedure 07/14/2024 1:20 PM EST Routine [facility] [address] [place] [phone] Mike Krishnamurthy DO [address] [place] [address] Arrived [facility] Comment on above: Arrived Start: 07-08-2024 End: 07-08-2024 Patient encounter procedure 07/08/2024 2:00 PM EST Routine [facility] [address] [place] [phone] Mike Krishnamurthy DO [address] [place] [address] [facility] Start: 07-08-2024 End: 07-08-2024 Professional / ancillary services management 07/08/2024 1:30 PM EST Ancillary Procedure [facility] [address] [place] [address] [facility] Start: 06-17-2024 End: 06-17-2025 US for US OB SCAN FOR GROWTH Imaging Routine SGA (small for gestational age) Expected: 06/17/2024 (Approximate), Expires: 06/17/2025 [facility] Comment on above: Expected: 06/17/2024 (Approximate), Expires: 06/17/2025 Start: 06-15-2024 End: 06-15-2024 Patient encounter procedure 06/15/2024 9:30 AM EST Routine [facility] [address] [place] [phone] Mike Krishnamurthy, DO [address] [place] [address] [facility] Start: 05-25-2024 End: 05-25-2024 Patient encounter procedure [facility] Comment on above: Arrived Start: 05-11-2024 End: 05-11-2024 Patient encounter procedure 05/11/2024 11:20 AM EST Routine [facility] [address] [place] [id number] Mike Krishnamurthy, DO [address], [place] [id number] [facility] Start: 04-28-2024 End: 04-28-2024 Professional / ancillary services management 04/28/2024 8:00 AM EDT Ancillary Procedure [facility] [address] [place] [phone] [facility] Start: 04-13-2024 End: 04-13-2025 CBC panel - Blood by Automated count CBC Lab Routine Diabetes mellitus screening Expected: 04/13/2024 (Approximate), Expires: 04/13/2025 [facility] Healthcare Work Phone: Comment on above: Expected: 04/13/2024 (Approximate), Expires: 04/13/2025 Start: 04-13-2024 End: 04-13-2025 Measurement of glucose 1 hour after glucose challenge for glucose tolerance test Glucose tolerance, 1 hour Lab Routine Diabetes mellitus screening Expected: 04/13/2024 (Approximate), Expires: 04/13/2025 [facility] Comment on above: Expected: 04/13/2024 (Approximate), Expires: 04/13/2025 Start: 04-13-2024 End: 04-13-2024 Patient encounter procedure [facility] Comment on above: Arrived Start: 03-31-2024 End: 03-31-2024 Professional / ancillary services management 03/31/2024 1:00 PM EDT Ancillary Procedure [facility] [address] [place] [address] [facility] Start: 03-16-2024 End: 04-15-2024 Alpha fetoprotein, maternal Alpha fetoprotein, maternal Lab Routine 18 weeks gestation of Expected: 03/16/2024 (Approximate), Expires: 04/15/2024 [facility] Comment on above: Expected: 03/16/2024 (Approximate), Expires: 04/15/2024 Start: 03-16-2024 End: 03-16-2025 US for US OB ANATOMY SINGLE W US OB CERVICAL LENGTH Imaging Routine Screening, , for anatomic survey Expected: 03/16/2024 (Approximate), Expires: 03/16/2025 [facility] Comment on above: Expected: 03/16/2024 (Approximate), Expires: 03/16/2025 Start: 03-16-2024 End: 03-16-2024 Patient encounter procedure [facility] Comment on above: Arrived Start: 02-28-2024 End: 02-27-2025 ABO/Rh ABO/Rh Lab Routine Missed menses Expected: 02/28/2024 (Approximate), Expires: 02/27/2025 [facility] Comment on above: Expected: 02/28/2024 (Approximate), Expires: 02/27/2025 Start: 02-28-2024 End: 02-27-2025 Blood type and Indirect antibody screen panel - Blood Type and screen Lab Routine Missed menses Expected: 02/28/2024 (Approximate), Expires: 02/27/2025 [facility] Work Phone: Comment on above: Expected: 02/28/2024 (Approximate), Expires: 02/27/2025 Start: 02-28-2024 End: 02-27-2025 US for US OB > 14 WEEKS Imaging Routine Missed menses Expected: 02/28/2024 (Approximate), Expires: 02/27/2025 [facility] Comment on above: Expected: 02/28/2024 (Approximate), Expires: 02/27/2025 Bacteria identified in Urine by Culture Urine culture Microbiology Routine Missed menses Ordered: 02/28/2024 [facility] Comment on above: Ordered: 02/28/2024 CBC W Auto Different ial panel - Blood CBC and differential Lab Routine SGA (small for gestational age) Ordered: 06/17/2024 [facility] Comment on above: Ordered: 06/17/2024 CBC W Auto Different ial panel - Blood CBC and differential Lab Routine Missed menses Ordered: 02/28/2024 [facility] Comment on above: Ordered: 02/28/2024 CHLAMYDIA TRACHOMATI S (GENITO/STI) CHLAMYDIA TRACHOMATIS (GENITO/STI) Lab Routine Exposure to STD Ordered: 03/16/2024 [facility] Comment on above: Ordered: 03/16/2024 Cytology Cervical or vaginal smear or scraping study Pap Smear Pathology and Cytology Routine Well woman exam with routine gynecological exam Ordered: 03/16/2024 [facility] Comment on above: Ordered: 03/16/2024 Hemoglobin A1c/Hemoglobin.total in Blood Hemoglobin A1c Lab Routine SGA (small for gestational age) Ordered: 06/17/2024 [facility] Work Phone: Comment on above: Ordered: 06/17/2024 Hemoglobin A1c/Hemoglobin.total in Blood Hemoglobin A1c Lab Routine Missed menses Ordered: 02/28/2024 [facility] Comment on above: Ordered: 02/28/2024 Hepatitis B virus surface Ag [Presence] in Serum or Plasma by Immunoassay Hepatitis B surface antigen Lab Routine Missed menses Ordered: 02/28/2024 [facility] Comment on above: Ordered: 02/28/2024 Hepatitis C virus Ab [Presence] in Serum or Plasma by Immunoassay Hepatitis C antibody Lab Routine Missed menses Ordered: 02/28/2024 [facility] Comment on above: Ordered: 02/28/2024 HIV-1/HIV-2 antigen/antibody combination immunoassay HIV-1 and HIV-2 antibodies Lab Routine Missed menses Ordered: 02/28/2024 [facility] Comment on above: Ordered: 02/28/2024 Neisseria gonorrhoea e DNA [Presence] in Unspecified specimen by RUTH ANN with probe detection Neisseria gonorrhea DNA probe, direct Lab Routine Exposure to STD Ordered: 03/16/2024 [facility] Comment on above: Ordered: 03/16/2024 Reagin Ab [Presence] in Serum by RPR RPR Lab Routine Missed menses Ordered: 02/28/2024 [facility] Comment on above: Ordered: 02/28/2024 Rubella antibody, IgG Rubella an tibody, IgG Lab Routine Missed menses Ordered: 02/28/2024 [facility] Comment on above: Ordered: 02/28/2024 SURESWAB(R) ADVANCED VAGINITIS PLUS, TMA SURESWAB(R) ADVANCED VAGINITIS PLUS, TMA Pathology and Cytology Routine Vaginal discharge Ordered: 03/16/2024 [facility] Work Phone: Comment on above: Ordered: 03/16/2024 Payers Date Payer Category Payer Medicaid (Managed Care) [employer] [id number] 2023 Unknown 2023 Private Health Insurance [id number] 2023 Private Health Insurance [id number] 2001 Unknown [id number] 2.16.840.1.999854.3.579.2. 593 2001 Unknown [id number] 2.16.840.1.198457.3.579.2. 593 2001 Unknown [id number] 2.16.840.1.511291.3.579.2. 593 2001 Unknown [id number] 2.16.840.1.130132.3.579.2. 593 2001 Unknown [id number] 2.16.840.1.793810.3.579.2. 593 2001 Unknown [id number] 2.16.840.1.503549.3.579.2. 593 2001 Unknown [id number] 2.16.840.1.793015.3.579.2. 593 2001 Unknown [id number] 2.16.840.1.915605.3.579.2. 593 2001 Unknown [id number] 2.16.840.1.401617.3.579.2. 593 2001 Unknown [id number] 2.16.840.1.902706.3.579.2. 593 2001 Unknown [id number] 2.16.840.1.613865.3.579.2. 1286 2001 Unknown [id number] 2.16.840.1.029713.3.579.2. 1286 2001 Unknown [id number] 2.16.840.1.169295.3.579.2. 1286 2001 Unknown [id number] 2.16.840.1.911750.3.579.2. 196 2001 Unknown [id number] 2.16.840.1.216941.3.579.2. 1259 2001 Unknown [id number] 2.16.840.1.462903.3.579.2. 1259 2001 Unknown [id number] 2.16.840.1.320716.3.579.2. 1259 2001 Unknown [id number] 2.16.840.1.051356.3.579.2. 1259 2001 Unknown [id number] 2.16.840.1.284655.3.579.2. 1259 2001 Unknown [id number] 2.16.840.1.705743.3.579.2. 1259 2001 Unknown [id number] 2.16.840.1.654181.3.579.2. 1259 1959 Self-pay 1959 Unknown [id number] 1959 Unknown [id number] Social History Date Type Detail Facility Tobacco smoking stat [facility] Tobacco smoking consumption unknown [facility] Start: 11-25-2023 [facility] Start: 2001 Sex assigned at Not on file [facility] Start: 04-13-2024 Gender identity Not on file [facility] Start: 04-13-2024 Tobacco smoking stat [facility] Never smoked tobacco [facility] End: 11-30-2023 History of tobacco use Cigarette Smoker [facility] History of tobacco use Passive smoker [facility] Start: 04-13-2024 End: 06-17-2024 Alcoholic beverage intake Ex-drinker (finding) [facility] Start: 04-13-2024 History of Social function [facility] Clinical Notes 07-10-2023 to 07-14-2024 Kaleigh Aguilar, GLASS PRODUCTION MACHINE OPERATOR - 07/14/2024 1:20 PM ANASTACIA Lawson - 06/17/2024 9:40 AM ANASTACIA Lawson - 05/25/2024 9:40 AM Beba Mobley LPN - 05/11/2024 11:20 AM ANASTACIA Lawson - 04/13/2024 1:30 PM EDT Note Date & Type Note Facility 07-14-2024 History of Present illness Narrative Reason for Appointment: Patient ID: Angela Meeks is a 24 y.o. female who presents for No chief complaint on file. Patient presents today for Return OB appointment. MEDICATIONS Current Outpatient Medications Medication Instructions Yqaikrxv-Rny-Vf-FA (, w/Iron & FA,) 27-0.8 MG tablet Every 24 hours valACYclovir (VALTREX) 1,000 mg, Oral, Daily RT valACYclovir (VALTREX) 500 mg, Oral, Daily ALLERGIES No Known Allergies PROBLEMS Active Ambulatory Problems Diagnosis Date Noted 26 weeks gestation of 05/11/2024 28 weeks gestation of 05/25/2024 Third trimester 05/25/2024 Resolved Ambulatory Problems Diagnosis Date Noted No Resolved Ambulatory Problems Past Medical History: Diagnosis Date Herpes simplex 2019 HISTORY PAST MEDICAL HISTORY SOCIAL HISTORY Past Medical History: Diagnosis Date Herpes simplex 2019 Social History Tobacco Use Smoking status: Passive Smoke Exposure - Never Smoker Smokeless tobacco: Not on file Substance Use Topics Alcohol use: Not Currently Drug use: Not Currently FAMILY HISTORY No family history on file. [...] Exam Constitutional: Appearance: Normal appearance. She is well-developed. Cardiovascular: Rate and Rhythm: Normal rate and regular rhythm. Pulmonary: Effort: Pulmonary effort is normal. Breath sounds: Normal breath sounds. Abdominal: General: Bowel sounds are normal. There is no distension. Palpations: Abdomen is soft. Tenderness: There is no abdominal tenderness. There is no guarding or rebound. Musculoskeletal: General: No swelling. Normal range of motion. Right lower leg: No edema. Left lower leg: No edema. Neurological: Mental Status: She is alert and oriented to person, place, and time. Skin: General: Skin is warm and dry. Psychiatric: Mood and Affect: Mood normal. Behavior: Behavior normal. Vitals and nursing note reviewed. Exam conducted with a industrial order clerk present. Vitals: There is no height or weight on file to calculate BMI. BP: 116/62 Patient's last menstrual period was 11/11/2023. ASSESSMENT & PLAN ICD-10-CM 1. 35 weeks gestation of Z3A.35 POCT urinalysis dipstick manually resulted 2. Third trimester Z34.93 Return OB: Patient presents today for a routine obstetrics appointment. Patient is currently 35w1d . Patient states she is doing well but has complaints of being tired due to current . Patient has verbalizes frequent movement. labor precautions was discussed/given and patient was instructed to perform kick counts three times a day. Orders Placed This Encounter Procedures POCT urinalysis dipstick manually resulted Follow Up: Patient is to return to office in 1 week for routine OB appointment. Documented by Kaleigh Aguilar LPN on behalf of: Mike Krishnamurthy DO documented in this encounter [facility] 06-17-2024 History of Present illness Narrative Reason for Appointment: Patient ID: Angela Meeks is a 24 y.o. female who presents for Routine Visit Patient presents today for Return OB appointment. MEDICATIONS Current Outpatient Medications Medication Instructions Eetwvdsd-Suf-Ax-FA (, w/Iron & FA,) 27-0.8 MG tablet Every 24 hours valACYclovir (VALTREX) 1,000 mg, Oral, Daily RT valACYclovir (VALTREX) 500 mg, Oral, Daily ALLERGIES No Known Allergies PROBLEMS Active Ambulatory Problems Diagnosis Date Noted 26 weeks gestation of 05/11/2024 28 weeks gestation of 05/25/2024 Third trimester 05/25/2024 Resolved Ambulatory Problems Diagnosis Date Noted No Resolved Ambulatory Problems Past Medical History: Diagnosis Date Herpes simplex 2019 HISTORY PAST MEDICAL HISTORY SOCIAL HISTORY Past Medical History: Diagnosis Date Herpes simplex 2019 Social History Tobacco Use Smoking status: Passive Smoke Exposure - Never Smoker Smokeless tobacco: Not on file Substance Use Topics Alcohol use: Not Currently Drug use: Not Currently FAMILY HISTORY No family history on file. SURGICAL HISTORY No past surgical history on file. REVIEW OF SYSTEMS Review of Systems: Review of Systems All other systems reviewed and are negative. OBJECTIVE Objective: Physical Exam Constitutional: Appearance: Normal [...] weight on file to calculate BMI. BP: 104/62 Patient's last menstrual period was 11/11/2023. ASSESSMENT & PLAN ICD-10-CM 1. Third trimester Z34.93 POCT urinalysis dipstick manually resulted 2. 31 weeks gestation of Z3A.31 3. HSV infection B00.9 valACYclovir (Valtrex) 500 MG tablet Return OB: Patient presents today for a routine obstetrics appointment. Patient is currently 31w2d . Patient states she is doing well but has complaints of being tired due to current . Patient has verbalizes frequent movement. labor precautions was discussed/given and patient was instructed to perform kick counts three times a day. Orders Placed This Encounter Procedures POCT urinalysis dipstick manually resulted Pt was advised that rx for Valtrex was sent to pharmacy to begin taking at 32 weeks until delivery. Pt verbally understood. Follow Up: Patient is to return to office in 2 week for routine OB appointment. Documented by Carolina De Dios MA on behalf of: ANASTACIA Barragan documented in this encounter [facility] 05-25-2024 History of Present illness Narrative Reason for Appointment: Patient ID: Angela Meeks is a 24 y.o. female who presents for Routine Visit Patient presents today for Return OB appointment. MEDICATIONS Current Outpatient Medications Medication Instructions Htwagrki-Ffc-Ye-FA (, w/Iron & FA,) 27-0.8 MG tablet Every 24 hours valACYclovir (VALTREX) 1,000 mg, Oral, Daily RT valACYclovir (VALTREX) 500 mg, Oral, Daily ALLERGIES No Known Allergies PROBLEMS Active Ambulatory Problems Diagnosis Date Noted 26 weeks gestation of 05/11/2024 28 weeks gestation of 05/25/2024 Third trimester 05/25/2024 Resolved Ambulatory Problems Diagnosis Date Noted No Resolved Ambulatory Problems Past Medical History: Diagnosis Date Herpes simplex 2019 HISTORY PAST MEDICAL HISTORY SOCIAL HISTORY Past Medical History: Diagnosis Date Herpes simplex 2019 Social History Tobacco Use Smoking status: Passive Smoke Exposure - Never Smoker Smokeless tobacco: Not on file Substance Use Topics Alcohol use: Not Currently Drug use: Not Currently FAMILY HISTORY No family history on file. SURGICAL HISTORY No past surgical history on file. REVIEW OF SYSTEMS Review of Systems: Review of Systems All other systems reviewed and are negative. OBJECTIVE Objective: Physical Exam Constitutional: Appearance: Normal [...] weight on file to calculate BMI. BP: 104/58 Patient's last menstrual period was 11/11/2023. ASSESSMENT & PLAN ICD-10-CM 1. 28 weeks gestation of Z3A.28 POCT urinalysis dipstick manually resulted 2. Third trimester Z34.93 POCT urinalysis dipstick manually resulted Return OB: Patient presents today for a routine obstetrics appointment. Patient is currently 28w0d . Patient states she is doing well but has complaints of being tired due to current . Patient has verbalizes frequent movement. Orders Placed This Encounter Procedures POCT urinalysis dipstick manually resulted Follow Up: Patient is to return to office in 2 week for routine OB appointment. Documented by ANASTACIA Barragan on behalf of: ANASTACIA Barragan documented in this encounter [facility] 05-11-2024 History of Present illness Narrative Reason for Appointment: Patient ID: Angela Meeks is a 24 y.o. female who presents for Routine Visit Patient presents today for Return OB appointment. MEDICATIONS Current Outpatient Medications Medication Instructions Nyfnjrwi-Aqe-Bx-FA (, w/Iron & FA,) 27-0.8 MG tablet Every 24 hours valACYclovir (VALTREX) 1,000 mg, Oral, Daily RT ALLERGIES No Known Allergies PROBLEMS Active Ambulatory Problems Diagnosis Date Noted No Active Ambulatory Problems Resolved Ambulatory Problems Diagnosis Date Noted No Resolved Ambulatory Problems Past Medical History: Diagnosis Date Herpes simplex 2019 HISTORY PAST MEDICAL HISTORY SOCIAL HISTORY Past Medical History: Diagnosis Date Herpes simplex 2019 Social History Tobacco Use Smoking status: Passive Smoke Exposure - Never Smoker Smokeless tobacco: Not on file Substance Use Topics Alcohol use: Not Currently Drug use: Not Currently FAMILY HISTORY No family history on file. SURGICAL HISTORY History reviewed. No pertinent surgical history. REVIEW OF SYSTEMS Review of Systems: Review of Systems All other systems reviewed and are negative. OBJECTIVE Objective: Physical Exam Constitutional: Appearance: Normal appearance. She is well-developed. Cardiovascular: Rate and Rhythm: Normal rate and regular rhythm. Pulmonary: Effort: Pulmonary effort is normal. Breath sounds: Normal breath sounds. Abdominal: General: Bowel sounds are normal. There is no distension. Palpations: Abdomen is soft. Tenderness: There is no abdominal tenderness. There is no guarding or rebound. Musculoskeletal: General: No swelling. Normal range of motion. Right lower leg: No edema. Left lower leg: No edema. Neurological: Mental Status: She is alert and oriented to person, place, and time. Skin: General: Skin is warm and dry. Psychiatric: Mood and Affect: Mood normal. Behavior: Behavior normal. Vitals and nursing note reviewed. Exam conducted with a industrial order clerk present. Vitals: There is no height or weight on file to calculate BMI. BP: 100/60 Patient's last menstrual period was 11/11/2023. ASSESSMENT & PLAN ICD-10-CM 1. Second trimester Z34.92 Urine dip 2. 26 weeks gestation of Z3A.26 Urine dip Patient presents today for a routine obstetrics appointment. Patient is currently 26w0d with a Estimated Date of Delivery: 08/17/24. Patient given order for 1 hour glucose and CBC prior to leaving as she could not find her other order. Discussed HSV treatment to be sent to [facility] in [place]. Patient voiced that she does have tingling in her fingers that radiates to elbow at night. Patient to return to clinic in 2 weeks for routine OB appointment. Documented by Radha Mobley LPN on behalf of: Mike Krishnamurthy DO documented in this encounter [facility] 04-13-2024 History of Present illness Narrative Reason for Appointment: Patient ID: Angela Meeks is a 24 y.o. female who presents for No chief complaint on file. Patient presents today for Return OB appointment. MEDICATIONS Current Outpatient Medications Medication Instructions Hyohgvcv-Hzs-Ai-FA (, w/Iron & FA,) 27-0.8 MG tablet [...] of: ANASTACIA Barragan documented in this encounter [facility] 03-16-2024 History of Present illness Narrative Reason for Appointment: Patient ID: Angela Meeks is a 24 y.o. female who presents for Routine Visit, Well Women Visit, and STI Screening Patient presents today for Annual Exam. and Return OB appointment. MEDICATIONS Current Outpatient Medications Medication Instructions Ijoydplg-Wtm-Zm-FA (, w/Iron & FA,) 27-0.8 MG tablet Every 24 hours valACYclovir (VALTREX) 1,000 mg, Oral, Daily RT ALLERGIES No Known Allergies PROBLEMS Active Ambulatory Problems Diagnosis Date Noted No Active Ambulatory Problems Resolved Ambulatory Problems Diagnosis Date Noted No Resolved Ambulatory Problems No Additional Past Medical History HISTORY PAST MEDICAL HISTORY SOCIAL HISTORY History reviewed. No pertinent past medical history. Social History Tobacco Use Smoking status: Not on file Smokeless tobacco: Not on file Substance Use Topics Alcohol use: Not on file Drug use: Not on file FAMILY HISTORY No family history on file. SURGICAL HISTORY History reviewed. No pertinent surgical history. REVIEW OF SYSTEMS Review of Systems: Review of Systems All other systems reviewed and are negative. OBJECTIVE Objective: Physical Exam Constitutional: Appearance: Normal appearance. She is well-developed. Genitourinary: Vulva normal. Cardiovascular: Rate and Rhythm: Normal rate and regular rhythm. Pulmonary: Effort: Pulmonary effort is normal. Breath sounds: Normal breath sounds. Abdominal: General: Bowel sounds are normal. There is no distension. Palpations: Abdomen is soft. Tenderness: There is no abdominal tenderness. There is no guarding or rebound. Musculoskeletal: General: No swelling. Normal range of motion. Right lower leg: No edema. Left lower leg: No edema. Neurological: Mental Status: She is alert and oriented to person, place, and time. Skin: General: Skin is warm and dry. Psychiatric: Mood and Affect: Mood normal. Behavior: Behavior normal. Vitals and nursing note reviewed. Exam conducted with a industrial order clerk present. Vitals: There is no height or weight on file to calculate BMI. BP: 120/70 Patient's last menstrual period was 11/11/2023. ASSESSMENT & PLAN ICD-10-CM 1. 18 weeks gestation of Z3A.18 POCT urinalysis dipstick manually resulted Alpha fetoprotein, maternal Alpha fetoprotein, maternal 2. Screening, , for anatomic survey Z36.89 US OB ANATOMY SINGLE W US OB CERVICAL LENGTH 3. Well woman exam with routine gynecological exam Z01.419 Pap Smear 4. Exposure to STD Z20.2 CHLAMYDIA TRACHOMATIS (GENITO/STI) Neisseria gonorrhea DNA probe, direct 5. Vaginal discharge N89.8 SURESWAB(R) ADVANCED VAGINITIS PLUS, TMA Return OB/Annual Exam: Patient presents today for an annual exam/routine obstetrics appointment-patient declined breast exam. Patient is currently 18w0d . Patient is doing well and states she has no complaints. Pap/cultures was obtained without difficulty and patient was given [facility] order to have obtained. Orders Placed This Encounter Procedures US OB ANATOMY SINGLE W US OB CERVICAL LENGTH CHLAMYDIA TRACHOMATIS (GENITO/STI) Neisseria gonorrhea DNA probe, direct Alpha fetoprotein, maternal POCT urinalysis dipstick manually resulted Follow Up: Patient is to return to our office in 4 weeks for routine OB appointment Documented by Radha Mobley LPN on behalf of: Mike Krishnamurthy DO documented in this encounter [facility] 02-28-2024 History of Present illness Narrative Reason for Appointment: Patient ID: Angela Meeks is a 24 y.o. female who presents for Amenorrhea Patient presents today for a Nurse OB Intake appointment. Patient is 15w4d with a Estimated Date of Delivery: 08/17/24 OB History Para Term AB Living 1 SAB IAB Ectopic Multiple Live Births # Outcome Date GA Lbr Hammad/2nd Weight Sex Type Anes PTL Lv 1 Current Current Medications: has a current medication list which includes the following prescription(s): valacyclovir and (w/iron & fa). Medical History: Active Ambulatory Problems Diagnosis Date Noted No Active Ambulatory Problems Resolved Ambulatory Problems Diagnosis Date Noted No Resolved Ambulatory Problems No Additional Past Medical History No family history on file. Social History Tobacco Use Smoking status: Not on file Smokeless tobacco: Not on file Substance Use Topics Alcohol use: Not on file Drug use: Not on file History reviewed. No pertinent surgical history. No Known Allergies Vitals: There is no height or weight on file to calculate BMI. BP: Patient's last menstrual period was 11/11/2023. Assessment/Plan Diagnoses and all orders for this visit: Missed menses - Type and screen; Future - ABO/Rh; Future - CBC and differential - Hemoglobin A1c - RPR - Rubella antibody, IgG - Hepatitis B surface antigen - Hepatitis C antibody - HIV-1 and HIV-2 antibodies - Urine culture - POCT , urine manually resulted - POCT urinalysis dipstick manually resulted - US OB > 14 WEEKS; Future Nurse Note: OB Intake: Patient presents today for first OB visit. Patients history has been reviewed in great detail including any potential risks. Patient signed consent forms and patient desires testing in both trimesters. Patient currently has no complaints and has been advised to drink 6-8 glasses of water a day, eat no raw or undercooked meat, and stay away from [facility]. Patient has also been advised to not change litter boxes and eat 6 small meals a day. Patient has been consulted regarding the do's and don'ts of . Patient was given labs and all questions and concerns were answered. Follow Up: Patient is to return in 4 weeks for routine OB appointment. Follow Up: Patient is to have labs drawn at directed and return to office for initial OB appointment with provider. Patient may call office as needed with any concerns or questions. Nurse Visit Completed by: Thais Engel LPN documented in this encounter [facility] 07-10-2023 Note Patient Education Ma terials Name: Angela Meeks Shagufta Current Date: 07/10/2023 19:27:39 [place] : 2000 [facility]: [id number] The following sheet(s) are the Patient Education [...] and water are not available, use alcohol-based gis database administrator to keep from spreading the infection to [...] color of the eyes or skin ? [employer]. [address] [place] [address]. All rights reserved. This information is not [...] ER for any worsening or emergent symptoms. [facility] Evaluation note Diagnosis Diabetes mellitus screening Screening for diabetes mellitus Second trimester state, incidental 22 weeks gestation of [facility] Diagnosis Second trimester state, incidental 26 weeks gestation of HSV infection Herpes simplex without mention of complication [facility] Diagnosis 28 weeks gestation of Third trimester state, incidental [facility] Diagnosis 18 weeks gestation of Screening, , for anatomic survey Encounter for anatomic survey Well woman exam with routine gynecological exam Routine gynecological examination Exposure to STD Vaginal discharge Leukorrhea, not specified as infective [facility] Diagnosis Third trimester state, incidental 31 weeks gestation of HSV infection Herpes simplex without mention of complication SGA (small for gestational age) Xhqnb-bmn-ivzel without mention of malnutrition, unspecified (weight) [facility] Diagnosis Missed menses [facility] Diagnosis 35 weeks gestation of Third trimester state, incidental documented in this encounter [facility] Summary [...] and content) DATE CREATED AUTHOR 04/03/2022 [facility] DATE CREATED AUTHOR AUTHOR'S ORGANIZ ATION 11/18/2023 [facility] DATE CREATED AUTHOR AUTHOR'S ORGANIZ ATION 02/20/2024 [facility] DATE CREATED AUTHOR AUTHOR'S ORGANIZ ATION 04/18/2024 [facility] DATE CREATED AUTHOR AUTHOR'S ORGANIZ ATION 07/17/2024 [facility] EPIC Care Teams (unrecognized sec tion and content) 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 Relationship Specialty Start Date End Date Heri Arreola MD [address] [place] [address], [address] [place] [address] PCP - General Family Medicine 02/28/24 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 Relationship Specialty Start Date End Date Heri Arreola MD [address] [place] [address], [address] [place] [address] PCP - General Family Medicine 02/28/24 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 Relationship Specialty Start Date End Date Heri Arreola MD [address] [place] [address], [address] [place] [address] PCP - General Family Medicine 02/28/24 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 Relationship Specialty Start Date End Date Heri Arreola MD [address] [place] [address], [address] [place] [address] PCP - General Family Medicine 02/28/24 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 Relationship Specialty Start Date End Date Heri Arreola MD [address] [place] [address], [address] [place] [address] PCP - General Family Medicine 02/28/24 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 Relationship Specialty Start Date End Date Heri Arreola MD [address] [place] [address], [address] [place] [address] PCP - General Family Medicine 02/28/24 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 Relationship Specialty Start Date End Date Heri Arreola MD [address] [place] [address], [address] [place] [address] PCP - General Family Medicine 02/28/24 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 Relationship Specialty Start Date End Date Heri Arreola MD [address] [place] [address], [address] [place] [address] PCP - General Family Medicine 02/28/24 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 Relationship Specialty Start Date End Date Heri Arreola MD [address] [place] [address], [address] [place] [address] PCP - General Family Medicine 02/28/24 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 Relationship Specialty Start Date End Date Heri Arreola MD [address] [place] [address], [address] [place] [address] PCP - General Family Medicine 02/28/24 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 [facility]. provides no warranty or guarantee of the accuracy or completeness of information in this document.
== END 2024-07-21 18:51 | disposition home or self-care (01) ==
PROVIDERS: Admitting Provider Obstetrics & Gynecology; Visit Provider Obstetrics & Gynecology
DX: O26.893 Other specified pregnancy related conditions, third trimester (principal); L29.9 Pruritus, unspecified; Z3A.36 36 weeks gestation of pregnancy
CPT/HCPCS: 36415; 76818; 76820; 80076; 82239; 84443; 85025; 86803; G0378; G0379

== ENCOUNTER 2024-07-23 08:32 | Outpatient (REF) | payer OTHER, SELFPAY ==
--- OUTSIDE RECORDS SUMMARY | 2024-07-24 08:38 | XMS_ITS | CCD ---
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] Onset: 02-28-2022 Episodic Other [...] of ] 04-13-2024 Episodic Residual codes; unclassified (16 sources) Gestation period, 26 weeks; Translations: [26 weeks gestation of ] Onset: 05-11-2024 05-11-2024 Episodic Residual codes; unclassified (12 sources) Gestation period, 28 weeks; Translations: [28 [...] low weight; and growth retardation (2 sources) Inxor-eqq-keyxc baby; Translations: [ small for gestational age, [...] WITH AUTO DIFFon BASOPHILS ABSOLUTE AUTO 0 [facility] Basophils/100 WBC (Bld) 0.4 % 0.2 - 2.0 % [facility] Eosinophils/100 WBC (Bld) 0.7 % Low 0.9 - 7.0 % [facility] Erythrocyte distribution width (RBC) [Ratio] 11.9 % 11.0 - 15.0 % [facility] Hematocrit (Bld) [Volume fraction] 31.5 % Low 36.0 - 48.0 % [facility] Hem[facility] (Bld) [Mass/Vol] 10.6 g/dL Low 12.0 - 16.0 g/dL [facility] IMMATURE GRANULOCYTES ABS AUTO 0.04 High [facility] Immature granulocytes/100 WBC (Bld) 0.4 % 0.0 - 0.5 % [facility] Interpretation and review of laboratory results Abnormal [facility] LYMPHOCYTES ABSOLUTE AUTO 1.8 [facility] Lymphocytes/100 WBC (Bld) 19.4 % Low 20.5 - 60.0 % [facility] MCH (RBC) [Entitic mass] 30.9 pg 26.7 - 34.0 pg [facility] MCHC (RBC) [Mass/Vol] 33.7 g/dL 29.9 - 35.2 g/dL [facility] MCV (RBC) [Entitic vol] 91.8 fL 81.0 - 99.0 fL [facility] MONOCYTES ABSOLUTE AUTO 0.5 [facility] Monocytes/100 WBC (Bld) 5.7 % 1.7 - 12.0 % [facility] NEUTROPHILS ABSOLUTE AUTO 6.7 High [facility] Neutrophils/100 WBC (Bld) 73.4 % 43.0 - 75.0 % [facility] Platelet mean volume (Bld) [Entitic vol] 11.1 fL 9.5 - 13.5 fL [facility] TBH EO # 0.1 [facility]T 230 [facility] TB RBC 3.43 Low [facility] TBH WBC 9.1 [facility] e Urinalysis macro (dipstick) panel (U)on 07-14-2024 Bilirubin, UA Positive Negative - 4(70) +++ mg/dL [facility] Blood, UA Negative Negative - 50 Luis Alberto/mcL [facility] Clarity, UA Clear [facility] re Color, UA [facility] Glucose, UA Negative Negative - 1999(110) ++++ mg/dL [facility] Interpretation and review of laboratory results Abnormal [facility] re Ketones, UA Positive Negative - 160(16) ++++ mg/dL [facility] Leukocytes, UA Trace Negative - 500+++ Juan C/mcL [facility] Nitrite, UA Negative Negative - Positive [facility] pH, UA 7.5 5 - 9 [facility] Protein, UA Positive Negative - 1999(20) ++++ mg/dL [facility] Spec Grav, UA 1.02 1 - 1.03 [facility] Urobilinogen, UA 2.0 0.2 - 12 mg/dL [facility] Urinalysis macro (dipstick) panel (U)on 06-17-2024 Bilirubin, UA Negative Negative - 4(70) +++ mg/dL [facility] Healthcare Blood, UA Negative Negative - 50 Luis Alberto/mcL [facility] Healthcare Clarity, UA Clear [facility] re Color, UA Yellow [facility] Glucose, UA Negative Negative - 1999(110) ++++ mg/dL [facility] Interpretation and review of laboratory results Normal [facility] re Ketones, UA Negative Negative - 160(16) ++++ mg/dL [facility] Leukocytes, UA Negative Negative - 500+++ Juan C/mcL [facility] Nitrite, UA Negative Negative - Positive [facility] pH, UA 7 5 - 9 [facility] Health[facility] e Protein, UA Negative Negative - 1999(20) ++++ mg/dL [facility] Spec Grav, UA 1.025 1 - 1.03 [facility] Urobilinogen, UA 0.2 0.2 - 12 mg/dL [facility] Urinalysis macro (dipstick) panel (U)on 05-25-2024 Bilirubin, UA Negative Negative - 4(70) +++ mg/dL [facility] Blood, UA Negative Negative - 50 Luis Alberto/mcL [facility] Healthcare Clarity, UA Clear [facility] re Color, UA Yellow [facility] Healthcar e Glucose, UA Negative Negative - 1999(110) ++++ mg/dL [facility] Interpretation and review of laboratory results Abnormal [facility] re Ketones, UA Negative Negative - 160(16) ++++ mg/dL [facility] Leukocytes, UA Few Negative - 500+++ Juan C/mcL [facility] Healthcare Comment on above: small Nitrite, UA Negative Negative - Positive [facility] pH, UA 7 5 - 9 [facility] Protein, UA Negative Negative - 1999(20) ++++ mg/dL [facility] Spec Grav, UA 1.015 1 - 1.03 [facility] care Urobilinogen, UA 1.0 0.2 - 12 mg/dL [facility] Urinalysis macro (dipstick) panel (U)on 05-11-2024 Bilirubin, UA Negative Negative - 4(70) +++ mg/dL [facility] Blood, UA Negative Negative - 50 Luis Alberto/mcL [facility] Healthcare Clarity, UA Clear [facility] re Color, UA Yellow [facility] Glucose, UA Negative Negative - 1999(110) ++++ mg/dL [facility] Interpretation and review of laboratory results Normal [facility] re Ketones, UA Negative Negative - 160(16) ++++ mg/dL [facility] Leukocytes, UA Negative Negative - 500+++ Juan C/mcL [facility] Nitrite, UA Negative Negative - Positive [facility] pH, UA 7 5 - 9 [facility] e Protein, UA Negative Negative - 1999(20) ++++ mg/dL [facility] Spec Grav, UA 1.015 1 - 1.03 [facility] Urobilinogen, UA 1.0 0.2 - 12 mg/dL [facility] TB-QFTon 04-17-2024 Mitogen minus Nil 9.91 IU/mL Normal [facility] Comment on above: Performed By: #### C D:[id number] #### [place] [address] Nil Result 0.09 IU/mL Normal [facility] Comment on above: Performed By: #### C D:[id number] #### [place] [address] QuantiFERON-TB Gold Plus Negative Normal Negative [facility] Comment on above: Result Comment: No [...] an Interferon-gamma level Performed By: #### C D:[id number] #### [place] [address] TB1 Ag minus Nil <0.00 Normal [facility] Comment on above: Performed By: #### C D:[id number] #### [facility] [address] [place] [address] TB2 Ag minus Nil <0.00 Normal [facility] Comment on above: Performed By: #### C D:[id number] #### [facility] [address] [place] [address] OR Trackon 04-16-2024 QuantiFeron TB Drk Grn Li Hep # 1 [facility] Comment on above: Performed By: #### O utrea Tracking Order #### [address] [address] Specimens Received From [facility] Comment on above: Performed By: #### O [facility] Tracking Order #### [address] [address] Urinalysis macro (dipstick) panel (U)on 04-13-2024 Bilirubin, UA Negative Negative - 4(70) +++ mg/dL [facility] Blood, UA Negative Negative - 50 Luis Alberto/mcL [facility] Clarity, UA Clear [facility] Health[facility] re Color, UA Yellow [facility] Sumpto e Glucose, UA Negative Negative - 1999(110) ++++ mg/dL [facility] Interpretation and review of laboratory results Normal [facility] re Ketones, UA Negative Negative - 160(16) ++++ mg/dL [facility] Leukocytes, UA Negative Negative - 500+++ Juan C/mcL [facility] Nitrite, UA Negative Negative - Positive [facility] pH, UA 7 5 - 9 [facility] Sumpto e Protein, UA Negative Negative - 1999(20) ++++ mg/dL [facility] Spec Grav, UA 1.025 1 - 1.03 [facility] Urobilinogen, UA 1.0 0.2 - 12 mg/dL [facility] IGP,APTIMA HPV,AGE GDLNon AGE GDLN ACOG TESTING Note . [facility] Comment on above: TESTS RESULT FLAG UN ITS REF RANGE LAB Clinician Provided Cytology Information Source.............Cervix Other.............. No. of containers..01 ThinPrep Vial Age Mihir DE Nohemi... FLAG LEGEND: L-Low Normal,H-High Normal,LL-Alert Low,HH-Alert High <-Panic Low,>-Panic High,A-Abnormal,AA-Critical Abnormal Performed at: 01 [facility] [address] [place] [address] Lor Moy MD, IGP, RFX APTIMA HPV ASCU Note . [facility] Comment on above: TESTS RESULT FLAG UN ITS REF RANGE LAB DIAGNOSIS: 02 NEGATIVE FOR INTRAEPITHELIAL LESION OR MALIGNANCY. CELLULAR CHANGES ASSOCIATED WITH INFLAMMATION ARE PRESENT. Specimen adequacy: 02 Satisfactory for evaluation. Endocervical and/or squamous metaplastic cells (endocervical component) are present. Performed by: 02 Ameena Burks Design Intern ([facility]) . 02 Note: Note 02 The Pap [...] <-Panic Low,>-Panic High,A-Abnormal,AA-Critical Abnormal Performed at: [address] [address] Lor Moy MD, Performed at: =[facility] [id number] Damage Adjuster: Lor Moy MD, Phone: [phone] Performed at: [address] [id number] Damage Adjuster: Lor Moy MD, Phone: [phone] SPATULA-ALONE CERVIX [facility] Healthcar e URETHRITIS/DISCHARGE PLUS VA GINITIS (HTRX)on 03-18-2024 ATOPOBIUM VAGINAE 0.000 [facility] ATOPOBIUM VAGINAE Not detected [facility] BVAB [...] [facility] ELENA KRUSEI Not detected [facility] Hea lthcare CHLAMYDIA TRACHOMATIS 0.000 [facility] CHLAMYDIA TRACHOMATIS Not detected [facility] Healthcare ERMB, C; MEFA 23.017 Abnormal [facility] care ERMB, C; MEFA Detected Abnormal [facility] GARDNERELLA VAGINALIS 32.321 Abnormal [facility] GARDNERELLA VAGINALIS Detected Abnormal [facility] Interpretation and review of laboratory results Abnormal [facility] re MEGASPHAERA (TYPES 1, 2) 0.000 [facility] MEGASPHAERA (TYPES 1, 2) Not detected [facility] MYCOPLASMA GENITALIUM 0.000 [facility] MYCOPLASMA GENITALIUM Not detected [facility] NEISSERIA GONORRHOEAE 0.000 [facility] NEISSERIA GONORRHOEAE Not detected [facility] TET B, TET M 25.883 Abnormal [facility] are TET B, TET M Detected Abnormal [facility] are TRICHOMONAS VAGINALIS 0.000 [facility] TRICHOMONAS VAGINALIS Not detected [facility] Urinalysis macro (dipstick) panel (U)on 03-16-2024 Bilirubin, UA Negative Negative - 4(70) +++ mg/dL [facility] Blood, UA Negative Negative - 50 Luis Alberto/mcL [facility] Clarity, UA Clear [facility] re Color, UA Yellow [facility] e Glucose, UA Negative Negative - 1999(110) ++++ mg/dL [facility] Interpretation and review of laboratory results Normal [facility] re Ketones, UA Negative Negative - 160(16) ++++ mg/dL [facility] Leukocytes, UA Negative Negative - 500+++ Juan C/mcL [facility] Nitrite, UA Negative Negative - Positive [facility] pH, UA 7.0 5 - 9 [facility] Health[facility] e Protein, UA Negative Negative - 1999(20) ++++ mg/dL [facility] Spec Grav, UA 1.015 1 - 1.03 [facility] Urobilinogen, UA 0.2 0.2 - 12 mg/dL [facility] Health[facility] e ALL CBC WITH AUTO DIFFon BASOPHILS ABSOLUTE AUTO 0.1 [facility] Basophils/100 WBC (Bld) 0.6 % 0.2 - 2.0 % [facility] Eosinophils/100 WBC (Bld) 0.8 % Low 0.9 - 7.0 % [facility] Erythrocyte distribution width (RBC) [Ratio] 13.4 % 11.0 - 15.0 % [facility] Hematocrit (Bld) [Volume fraction] 32.0 % Low 36.0 - 48.0 % [facility] Health[facility] e Hemoglobin (Bld) [Mass/Vol] 11.3 g/dL Low 12.0 - 16.0 g/dL [facility] IMMATURE GRANULOCYTES ABS AUTO 0.04 High [facility] Immature granulocytes/100 WBC (Bld) 0.5 % 0.0 - 0.5 % [facility] Interpretation and review of laboratory results Abnormal [facility] re LYMPHOCYTES ABSOLUTE AUTO 2.4 [facility] Lymphocytes/100 WBC (Bld) 27.7 % 20.5 - 60.0 % [facility] MCH (RBC) [Entitic mass] 32.3 pg 26.7 - 34.0 pg [facility] MCHC (RBC) [Mass/Vol] 35.3 g/dL High 29.9 - 35.2 g/dL [facility] MCV (RBC) [Entitic vol] 91.4 fL 81.0 - 99.0 fL [facility] MONOCYTES ABSOLUTE AUTO 0.4 [facility] Monocytes/100 WBC (Bld) 5.1 % 1.7 - 12.0 % [facility] NEUTROPHILS ABSOLUTE AUTO 5.6 [facility] Neutrophils/100 WBC (Bld) 65.3 % 43.0 - 75.0 % [facility] Platelet mean volume (Bld) [Entitic vol] 9.9 fL 9.5 - 13.5 fL [facility] TBH EO # 0.1 [facility] PLT 208 [facility] TB RBC 3.50 Low [facility] TB WBC 8.6 [facility] HCG ( test) Ql (U)o n 02-28-2024 Interpretation and review of laboratory results Abnormal [facility] re Preg Test, Ur Positive [facility] Urinalysis macro (dipstick) panel (U)on 02-28-2024 Bilirubin, UA Negative Negative - 4(70) +++ mg/dL [facility] Blood, UA Negative Negative - 50 Luis Alberto/mcL [facility] Clarity, UA Clear [facility] re Color, UA Yellow [facility] Health[facility] e Glucose, UA Negative Negative - 1999(110) ++++ mg/dL [facility] Interpretation and review of laboratory results Normal [facility] re Ketones, UA Negative Negative - 160(16) ++++ mg/dL [facility] Leukocytes, UA Negative Negative - 500+++ Juan C/mcL [facility] Nitrite, UA Negative Negative - Positive [facility] pH, UA 7.0 5 - 9 [facility] Protein, UA Negative Negative - 1999(20) ++++ mg/dL [facility] Spec Grav, UA 1.020 1 - 1.03 [facility] Urobilinogen, UA 1.0 0.2 - 12 mg/dL [facility] e CBC AND AUTO DIFFon 11-15-19 24 ABSOLUTE BASOPHIL 0.0 X10E9/L Normal 0.0-0.2 [facility] Comment on above: Performed By: #### C BCA, CMP, FEPR, THYR, 42033-8 #### [facility] ([id number]) [address], [address] [place] [address] ABSOLUTE NEUTROPHIL 2.5 X10E9/L Normal 1.5-6.6 [facility] Comment on above: Performed By: #### C BCA, CMP, FEPR, THYR, 73242-2 #### [facility] ([id number]) [address], [address] [place] [address] Basophils/100 WBC (Bld) 0.8 % Normal [facility] Comment on above: Performed By: #### C BCA, CMP, FEPR, THYR, 40102-2 #### [facility] ([id number]) [address], [address] [place] [address] Eosinophils (Bld) [#/Vol] 0.1 10*3/uL Normal 0.0-0.4 [facility] Comment on above: Performed By: #### C BCA, CMP, FEPR, THYR, 44048-8 #### [facility] ([id number]) [address], [address] [place] [address] Eosinophils/100 WBC (Bld) 1.4 % Normal [facility] Comment on above: Performed By: #### C BCA, CMP, FEPR, THYR, 74971-7 #### [facility] ([id number]) [address] [address] [place] [address] Erythrocyte distribution width (RBC) [Ratio] 12.9 % Normal 11.5-15.0 [facility] Comment on above: Performed By: #### C BCA, CMP, FEPR, THYR, 97670-5 #### [facility] ([id number]) [address] [address] [place] [address] Hematocrit (Bld) [Volume fraction] 35.4 % Normal 35-47 [facility] Comment on above: Performed By: #### C BCA, CMP, FEPR, THYR, 44400-1 #### [facility] ([id number]) [address] [address] [place] [address] Hemoglobin (Bld) [Mass/Vol] 12.2 g/dL Normal 11.7-15.5 [facility] Comment on above: Performed By: #### C BCA, CMP, FEPR, THYR, 14068-0 #### [facility] ([id number]) [address] [address] [place] [address] Lymphocytes (Bld) [#/Vol] 2.1 10*3/uL Normal 1.0-3.5 [facility] Comment on above: Performed By: #### C BCA, CMP, FEPR, THYR, 68541-5 #### [facility] ([id number]) [address] [address] [place] [address] Lymphocytes/100 WBC (Bld) 41.5 % Normal [facility] Comment on above: Performed By: #### C BCA, CMP, FEPR, THYR, 11225-9 #### [facility] ([id number]) [address], [address] [place] [address] MCH (RBC) [Entitic mass] 31.2 pg Normal 27-34 [facility] Comment on above: Performed By: #### C BCA, CMP, FEPR, THYR, 44052-0 #### [facility] ([id number]) [address] [address] [place] [address] MCHC (RBC) [Mass/Vol] 34.5 g/dL Normal 32-36 [facility] Comment on above: Performed By: #### C BCA, CMP, FEPR, THYR, 20393-0 #### [facility] ([id number]) [address] [address] [place] [address] MCV (RBC) [Entitic vol] 90 fL Normal 80-100 [facility] Comment on above: Performed By: #### C BCA, CMP, FEPR, THYR, 81081-5 #### [facility] ([id number]) [address] [address] [place] [address] Monocytes (Bld) [#/Vol] 0.4 10*3/uL Normal 0-0.9 [facility] Comment on above: Performed By: #### C BCA, CMP, FEPR, THYR, 25016-7 #### [facility] ([id number]) [address] [address] [place] [address] Monocytes/100 WBC (Bld) 7.0 % Normal [facility] Comment on above: Performed By: #### C BCA, CMP, FEPR, THYR, 34807-3 #### [facility] ([id number]) [address], [address] [place] [address] Neutrophils/100 WBC (Bld) 49.3 % Normal [facility] Comment on above: Performed By: #### C BCA, CMP, FEPR, THYR, 55766-8 #### [facility] ([id number]) [address], [address] [place] [address] Platelet mean volume (Bld) [Entitic vol] 8.7 fL Normal 7-12 [facility] Comment on above: Performed By: #### C BCA, CMP, FEPR, THYR, 51290-6 #### [facility] ([id number]) [address], [address] [place] [address] Platelets (Bld) [#/Vol] 232 10*3/uL Normal 150-450 [facility] Comment on above: Performed By: #### C BCA, CMP, FEPR, THYR, 94608-4 #### [facility] ([id number]) [address] [place] [address] RBC COUNT 3.92 X10E12/L Normal 3.80-5.20 [facility] Comment on above: Performed By: #### C BCA, CMP, FEPR, THYR, 77946-8 #### [facility] ([id number]) [address] [address] [place] [address] WBC (Bld) [#/Vol] 5.0 10*3/uL Normal 4.0-11.0 [facility] Comment on above: Performed By: #### C BCA, CMP, FEPR, THYR, 66442-8 #### [facility] ([id number]) [address], [address] [place] [address] COMPREHENSIVE METABOLIC PANE Wang 11-15-2023 Albumin [Mass/Vol] 4.4 g/dL Normal 3.2-5.3 [facility] Comment on above: Performed By: #### C BCA, CMP, FEPR, THYR, 10182-4 #### [facility] ([id number]) [address], [address] [place] [address] ALP [Catalytic activity/Vol] 37 U/L Low 39-130 [facility] Comment on above: Performed By: #### C BCA, CMP, FEPR, THYR, 97998-3 #### [facility] ([id number]) [address] [place] [address] ALT [Catalytic activity/Vol] 11 U/L Normal 0-31 [facility] Comment on above: Performed By: #### C BCA, CMP, FEPR, THYR, 56335-6 #### [facility] ([id number]) [address] [place] [address] Anion gap [Moles/Vol] 9 mmol/L Normal 5-15 [facility] Comment on above: Performed By: #### C BCA, CMP, FEPR, THYR, 60891-4 #### [facility] ([id number]) [address], [address] [place] [address] AST [Catalytic activity/Vol] 15 U/L Normal 0-41 [facility] Comment on above: Performed By: #### C BCA, CMP, FEPR, THYR, 86420-5 #### [facility] ([id number]) [address], [address] [place] [address] Bilirubin [Mass/Vol] 1.4 mg/dL High 0.3-1.2 [facility] Comment on above: Performed By: #### C BCA, CMP, FEPR, THYR, 77368-2 #### [facility] ([id number]) [address] [place] [address] Calcium [Mass/Vol] 9.1 mg/dL Normal 8.5-10.5 [facility] Comment on above: Performed By: #### C BCA, CMP, FEPR, THYR, 82284-1 #### [facility] ([id number]) [address] [place] [address] Chloride [Moles/Vol] 104 mmol/L Normal 98-109 [facility] Comment on above: Performed By: #### C BCA, CMP, FEPR, THYR, 50955-1 #### [facility] ([id number]) [address] [place] [address] CO2 [Moles/Vol] 25 mmol/L Normal 22-32 [facility] Comment on above: Performed By: #### C BCA, CMP, FEPR, THYR, 59002-2 #### [facility] ([id number]) [address], [address] [place] [address] Creatinine [Mass/Vol] 0.74 mg/dL Normal 0.40-1.00 [facility] Comment on above: Result Comment: METH OD TRACEABLE TO IDMS STANDARD Performed By: #### C BCA, CMP, FEPR, THYR, 45613-6 #### [facility] ([id number]) [address], [address] [place] [address] eGFR (CKD-EPI) NON-RACE DEPENDENT >90 Normal >59 [facility] Comment on above: Result Comment: Reported eGFR is based on the CKD-EPI 2020 equation that does not use a race coefficient. Performed By: #### C BCA, CMP, FEPR, THYR, 96064-8 #### [facility] ([id number]) [address] [address] [place] [address] Glucose [Mass/Vol] 100 mg/dL High 65-99 [facility] Comment on above: Performed By: #### C BCA, CMP, FEPR, THYR, 92012-1 #### [facility] ([id number]) [address] [address] [place] [address] Potassium [Moles/Vol] 3.7 mmol/L Normal 3.5-5.0 [facility] Comment on above: Performed By: #### C BCA, CMP, FEPR, THYR, 47045-0 #### [facility] ([id number]) [address] [address] [place] [address] Protein [Mass/Vol] 6.9 g/dL Normal 6.0-8.0 [facility] Comment on above: Performed By: #### C BCA, CMP, FEPR, THYR, 96913-9 #### [facility] ([id number]) [address] [address] [place] [address] Sodium [Moles/Vol] 138 mmol/L Normal 134-146 [facility] Comment on above: Performed By: #### C BCA, CMP, FEPR, THYR, 75979-9 #### [facility] ([id number]) [address] [address] [place] [address] Urea nitrogen [Mass/Vol] 12 mg/dL Normal 5-23 [facility] Comment on above: Performed By: #### C BCA, CMP, FEPR, THYR, 15744-8 #### [facility] ([id number]) [address] [address] [place] [address] IRON PROFILEon 11-15-2023 Iron [Mass/Vol] 81 ug/dL Normal 50-170 [facility] Comment on above: Performed By: #### C BCA, CMP, FEPR, THYR, 36810-9 #### [facility] ([id number]) [address] [address] [place] [address] IRON BINDING 309 ug/dL Normal 250-425 [facility] Comment on above: Performed By: #### C BCA, CMP, FEPR, THYR, 29771-9 #### [facility] ([id number]) [address] [address] [place] [address] IRON SATURATION 26 % SATURATION Normal 15-50 [facility] Comment on above: Performed By: #### C BCA, CMP, FEPR, THYR, 80859-3 #### [facility] ([id number]) [address] [address] [place] [address] THYROID PROFILEon 11-15-2023 Free T4 [Mass/Vol] 1.01 ng/dL Normal 0.61-1.60 [facility] Comment on above: Performed By: #### C BCA, CMP, FEPR, THYR, 64294-7 #### [facility] ([id number]) [address] [address] [place] [address] TSH 1.81 uIU/mL Normal 0.49-4.67 [facility] Comment on above: Performed By: #### C BCA, CMP, FEPR, THYR, 80247-0 #### [facility] ([id number]) [address] [facility] [address] [place] [address] Vitamin D+Metabolites [Mass/ Vol]on 11-15-2023 VITAMIN D 25 HYD TOT 18.7 ng/mL Low 30-100 [facility] Comment on above: Result Comment: Vitamin D status 25 [place] Vitamin D Deficiency <20 ng/mL Insufficiency 20-29 ng/mL Sufficiency 30-100 ng/mL Toxicity >100 ng/mL NOTE: A pediatric reference range has not been established by the honeycomb blanket maker of this kit. The [employer] [employer] recommends a Vitamin D level of = or >20ng/mL in infants and children. Performed By: #### C BCA, CMP, FEPR, THYR, 47547-9 #### [facility] ([id number]) [address] [address] [place] [address] Urgent Care Office/Clinic No zackary 07-10-2023 Urgent [...] declines COVID testing in office today. No jkja-okt-zldjkeu medications for symptom management. Significant other is [...] by Evelin Smith 07/10/23 19:47 EST Normal [facility] CBC AUTO DIFFon 03-23-2022 BASO # 0.0 103/ul Normal 0.0-0.1 [place] Comment on above: Performed By: #### C BC #### [facility] [address] [address] [address] Ana Maria Alexandre Basophils/100 WBC (Bld) 0.2 % Normal 0.2-2.0 [place] Comment on above: Performed By: #### C BC #### [facility] [address] [place] [address] Dr. Ana Maria Alexandre EO # 0.0 103/ul Normal 0.0-0.7 [place] Comment on above: Performed By: #### C BC #### [facility] [address] [place] [address] Dr. Ana Maria Alexandre Eosinophils/100 WBC (Bld) 0.3 % Critically low 0.9-7.0 [place] Comment on above: Performed By: #### C BC #### [facility] [address] [place] [address] Dr. Ana Maria Alexandre Erythrocyte distribution width (RBC) [Ratio] 12.9 % Normal 11.0-15.0 [place] Comment on above: Performed By: #### C BC #### [facility] [address] [place] [address] Dr. Ana Maria Alexandre Hematocrit (Bld) [Volume fraction] 25.6 % Critically low 36.0-48.0 [place] Comment on above: Performed By: #### C BC #### [facility] [address] [place] [address] Dr. Ana Maria Alexandre Hemoglobin (Bld) [Mass/Vol] 8.5 g/dL Critically low 12.0-16.0 [place] Comment on above: Performed By: #### C BC #### [facility] [address] [place] [address] Dr. Ana Maria Alexandre IG # 0.05 10e3/ul Critically high 0.00-0.03 [facility] Comment on above: Performed By: #### C BC #### [facility] [address] [place] [address] Dr. Ana Maria Alexandre IG % 0.4 % Normal 0.0-0.5 [facility] Comment on above: Performed By: #### C BC #### [facility] [address] [place] [address] Dr. Ana Maria Alexandre LYMPH # 2.5 103/ul Normal 1.2-3.8 [facility] Comment on above: Performed By: #### C BC #### [facility] [address] [place] [address] Dr. Ana Maria Alexandre Lymphocytes/100 WBC (Bld) 17.2 % Critically low 20.5-60.0 [facility] Comment on above: Performed By: #### C BC #### [facility] [address] [place] [address] Dr. Ana Maria Alexandre MANUAL DIFF REQ NO Normal [facility] Comment on above: Performed By: #### C BC #### [facility] [address] [address] [address] Ana Maria Alexandre MCH (RBC) [Entitic mass] 28.1 pg Normal 26.7-34.0 [facility] Comment on above: Performed By: #### C BC #### [facility] [address] [place] [address] Dr. Ana Maria Alexandre MCHC (RBC) [Mass/Vol] 33.2 g/dL Normal 29.9-35.2 [facility] Comment on above: Performed By: #### C BC #### [facility] [address] [place] [address] Dr. Ana Maria Alexandre MCV (RBC) [Entitic vol] 84.5 fL Normal 81.0-99.0 [facility] Comment on above: Performed By: #### C BC #### [facility] [address] [place] [address] Dr. Ana Maria Alexandre MONO # 0.9 103/ul Critically high 0.3-0.8 [facility] Comment on above: Performed By: #### C BC #### [facility] [address] [place] [address] Dr. Ana Maria Alexandre Monocytes/100 WBC (Bld) 6.0 % Normal 1.7-12.0 [facility] Comment on above: Performed By: #### C BC #### [facility] [address] [place] [address] Dr. Ana Maria Alexandre NEUT # 10.8 103/ul Critically high 1.4-6.5 [facility] Comment on above: Performed By: #### C BC #### [facility] [address] [place] [address] Dr. Ana Maria Alexandre Neutrophils/100 WBC (Bld) 75.9 % Critically high 43.0-75.0 [place] Comment on above: Performed By: #### C BC #### [facility] [address] [place] [address] Dr. Ana Maria Alexandre Platelet mean volume (Bld) [Entitic vol] 11.4 fL Normal 9.5-13.5 [facility] Comment on above: Performed By: #### C BC #### [facility] [address] [place] [address] Dr. Ana Maria Alexandre PLT 152 103/ul Normal 150-450 [facility] Comment on above: Performed By: #### C BC #### [facility] [address] [place] [address] Dr. Ana Maria Alexandre RBC 3.03 106/ul Critically low 4.20-5.40 [facility] Comment on above: Performed By: #### C BC #### [facility] [address] [place] [address] Dr. Ana Maria Alexandre WBC 14.2 103/ul Critically high 4.0-11.0 [facility] Comment on above: Performed By: #### C BC #### [facility] [address] [place] [address] Dr. Ana Maria Alexandre CBC AUTO DIFFon 03-22-2022 BASO # 0.0 103/ul Normal 0.0-0.1 [facility] Comment on above: Performed By: #### C BC #### [facility] [address] [place] [address] Dr. Ana Maria Alexandre Basophils/100 WBC (Bld) 0.3 % Normal 0.2-2.0 [facility] Comment on above: Performed By: #### C BC #### [facility] [address] [place] [address] Dr. Ana Maria Alexandre EO # 0.1 103/ul Normal 0.0-0.7 [facility] Comment on above: Performed By: #### C BC #### [facility] [address] [place] [address] Dr. Ana Maria Alexandre Eosinophils/100 WBC (Bld) 0.6 % Critically low 0.9-7.0 [place] Comment on above: Performed By: #### C BC #### [facility] [address] [place] [address] Dr. Ana Maria Alexandre Erythrocyte distribution width (RBC) [Ratio] 12.6 % Normal 11.0-15.0 [place] Comment on above: Performed By: #### C BC #### [facility] [address] [place] [address] Dr. Ana Maria Alexandre Hematocrit (Bld) [Volume fraction] 30.4 % Critically low 36.0-48.0 [place] Comment on above: Performed By: #### C BC #### [facility] [address] [place] [address] Dr. Ana Maria Alexandre Hemoglobin (Bld) [Mass/Vol] 9.9 g/dL Critically low 12.0-16.0 [place] Comment on above: Performed By: #### C BC #### [facility] [address] [place] [address] Dr. Ana Maria Alexandre IG # 0.08 10e3/ul Critically high 0.00-0.03 [facility] Comment on above: Performed By: #### C BC #### [facility] [address] [place] [address] Dr. Ana Maria Alexandre IG % 0.6 % Critically high 0.0-0.5 [facility] Comment on above: Performed By: #### C BC #### [facility] [address] [place] [address] Dr. Ana Maria Alexandre LYMPH # 1.9 103/ul Normal 1.2-3.8 [facility] Comment on above: Performed By: #### C BC #### [facility] [address] [place] [address] Dr. Ana Maria Alexandre Lymphocytes/100 WBC (Bld) 15.5 % Critically low 20.5-60.0 [place] Comment on above: Performed By: #### C BC #### [facility] [address] [place] [address] Dr. Ana Maria Alexandre MANUAL DIFF REQ NO Normal [facility] Comment on above: Performed By: #### C BC #### [facility] [address] [place] [address] Dr. Ana Maria Alexandre MCH (RBC) [Entitic mass] 27.5 pg Normal 26.7-34.0 [place] Comment on above: Performed By: #### C BC #### [facility] [address] [place] [address] Dr. Ana Maria Alexandre MCHC (RBC) [Mass/Vol] 32.6 g/dL Normal 29.9-35.2 [place] Comment on above: Performed By: #### C BC #### [facility] [address] [place] [address] Dr. Ana Maria Alexandre MCV (RBC) [Entitic vol] 84.4 fL Normal 81.0-99.0 [place] Comment on above: Performed By: #### C BC #### [facility] [address] [place] [address] Dr. Ana Maria Alexandre MONO # 0.7 103/ul Normal 0.3-0.8 [facility] Comment on above: Performed By: #### C BC #### [facility] [address] [place] [address] Dr. Ana Maria Alexandre Monocytes/100 WBC (Bld) 5.2 % Normal 1.7-12.0 [place] Comment on above: Performed By: #### C BC #### [facility] [address] [place] [address] Dr. Ana Maria Alexandre NEUT # 9.7 103/ul Critically high 1.4-6.5 [facility] Comment on above: Performed By: #### C BC #### [facility] [address] [place] [address] Dr. Ana Maria Alexandre Neutrophils/100 WBC (Bld) 77.8 % Critically high 43.0-75.0 [facility] Comment on above: Performed By: #### C BC #### [facility] [address] [place] [address] Dr. Ana Maria Alexandre Platelet mean volume (Bld) [Entitic vol] 11.5 fL Normal 9.5-13.5 [facility] Comment on above: Performed By: #### C BC #### [facility] [address] [place] [address] Dr. Ana Maria Alexandre PLT 202 103/ul Normal 150-450 [facility] Comment on above: Performed By: #### C BC #### [facility] [address] [place] [address] Dr. Ana Maria Alexandre RBC 3.60 106/ul Critically low 4.20-5.40 [facility] Comment on above: Performed By: #### C BC #### [facility] [address] [place] [address] Dr. Ana Maria Alexandre WBC 12.5 103/ul Critically high 4.0-11.0 [facility] Comment on above: Performed By: #### C BC #### [facility] [address] [place] [address] Dr. Ana Maria Alexandre Covid-19 PCR ([facility])on 03-02 SARS-CoV-2 (COVID-19) RNA RUTH ANN+probe Ql (Unsp spec) Not detected Normal NOT DETECTED [facility] Comment on above: Result Comment: When [...] for this test is supported by the [employer] and Human Service's declaration that [...] used). Performed By: #### C VDTBH #### [facility] [address] [address] [address] Ana Maria Alexandre DRUG SCREEN RAPID (URINE)on 03-22-2022 AMP Negative Normal NEGATIVE [place] Comment on above: Performed By: #### D RUGRPD #### [facility] [address] [address] [address] Ana Maria Alexandre BAR Negative Normal NEGATIVE [facility] Comment on above: Performed By: #### D RUGRPD #### [facility] [address] [address] [address] Ana Maria Alexandre BUP Negative Normal NEGATIVE [place] Comment on above: Performed By: #### D RUGRPD #### [facility] [address] [place] [address] Dr. Ana Maria Alexandre BZO Negative Normal NEGATIVE [facility] Comment on above: Performed By: #### D RUGRPD #### [facility] [address] [place] [address] Dr. Ana Maria Alexandre BRIGHT Negative Normal NEGATIVE [place] Comment on above: Performed By: #### D RUGRPD #### [facility] [address] [address] [address] Ana Maria Alexandre CUT-OFFS SEE BELOW Normal [place] Comment on above: Result Comment: AMP (Amphetamine): 500ng/mL, BAR (Barbituates): 200 ng/mL, BZO (Benzodiazepines): 150 ng/mL, BUP (Buprenorphine): 10 ng/mL, BRIGHT (Cocaine): 150 ng/mL, mAMP (Methamphetamine): 500 ng/mL, MTD (Methadone): 200 ng/mL, OPI (Opiates): 100 ng/mL, OXY (Oxycodone): 100 ng/mL, PCP (Phencyclidine): 25 ng/mL, PPX (Propoxyphene): 300 ng/mL, THC (Cannabinoids): 50 ng/mL, TCA (Trycyclic Antidepressants): 300 ng/mL Performed By: #### D RUGRPD #### [facility] [address] [place] [address] Dr. Ana Maria Alexandre DRUG CUT HEADER DRUG CLASS TEST SYSTEM CUT-OFF CONCENTRATIONS ARE FOLLOWS: Normal [place] Comment on above: Performed By: #### D RUGRPD #### [facility] [address] [address] [address] Ana Maria Alexandre mAMP Negative Normal NEGATIVE [place] Comment on above: Performed By: #### D RUGRPD #### [facility] [address] [address] [address] Ana Maria Alexandre MTD Negative Normal NEGATIVE [facility] Comment on above: Performed By: #### D RUGRPD #### [facility] [address] [place] [address] Dr. Ana Maria Alexandre OPI Negative Normal NEGATIVE [place] Comment on above: Performed By: #### D RUGRPD #### [facility] [address] [place] [address] Dr. Ana Maria Alexandre OXY Negative Normal NEGATIVE [place] Comment on above: Performed By: #### D RUGRPD #### [facility] [address] [place] [address] Dr. Ana Maria Alexandre PCP Negative Normal NEGATIVE [place] Comment on above: Performed By: #### D RUGRPD #### [facility] [address] [address] [address] Ana Maria Alexandre PPX Negative Normal NEGATIVE [place] Comment on above: Performed By: #### D RUGRPD #### [facility] [address] [place] [address] Dr. Ana Maria Alexandre TCA Negative Normal NEGATIVE [place] Comment on above: Performed By: #### D RUGRPD #### [facility] [address] [place] [address] Dr. Ana Maria Alexandre THC Negative Normal NEGATIVE [facility] Comment on above: Performed By: #### D RUGRPD #### [facility] [address] [place] [address] Dr. Ana Maria Alexandre TYPE AND SCREENon 03-22-2022 TYPE AND SCREEN Negative Normal [facility] Comment on above: Performed By: #### T NS #### [facility] [address] [place] [address] Dr. Ana Maria Alexandre GROUP B STREP [...] F Tetracycline >=16 R F Normal [facility] Comment on above: Performed By: #### G BSCX #### [facility] [address] [place] [address] Dr. Ana Maria Alexandre VAGINITIS/VAGINOSIS DNA PROB Chad 03-14-2022 Elena species Negative Normal Negative [facility] Comment on above: Performed By: #### V AGINT #### [facility] [address] [place] [address] Dr. Ana Maria Alexandre Gardnerella vaginalis Negative Normal Negative [place] Comment on above: Performed By: #### V AGINT #### [facility] [address] [place] [address] Dr. Ana Maria Alexandre Trichomonas vaginalis Negative Normal Negative [place] Comment on above: Performed By: #### V AGINT #### [facility] [address] [place] [address] Dr. Ana Maria Alexandre US PREG GROWTHon [...] by: CHARITY FLORES Date: 2022-03-01 16:15 Normal [place] US PREG GROWTHon 02-01-2022 US PREG GROWTH [...] by: CHARITY FLORES Date: 2022-02-01 16:43 Normal [place] US PREG REEVAL ABNon 022 US PREG [...] by: CHASITY NGUYEN Date: 2022-01-08 19:27 Normal [place] Vital Signs Date Time Vital Sign Value Performing Clinician Margret hernandez 07-14-2024 13:19-0500 Body weight 58.12 kg Mike Raghu DO Work Phone: [facility] 07-14-2024 13:19-0500 Diastolic blood pressure 62 mm[Hg] Mike Raghu DO Work Phone: [facility] 07-14-2024 13:19-0500 Systolic blood pressure 116 mm[Hg] Mike Raghu DO Work Phone: [facility] 06-17-2024 10:01-0500 Body weight 55.79 kg Damari Tyler PA Work Phone: [facility] 06-17-2024 10:01-0500 Diastolic blood pressure 62 mm[Hg] Daamri Memo PA Work Phone: [facility] 06-17-2024 10:01-0500 Systolic blood pressure 104 mm[Hg] Damari Memo PA Work Phone: [facility] 05-25-2024 09:51-0500 Body weight 54.43 kg Damari Avella PA Work Phone: [facility] 05-25-2024 09:51-0500 Diastolic blood pressure 58 mm[Hg] Damari Memo PA Work Phone: [facility] 05-25-2024 09:51-0500 Systolic blood pressure 104 mm[Hg] Damari Avella PA Work Phone: [facility] 05-11-2024 11:41-0500 Body weight 53.89 kg Mike Raghu DO Work Phone: [facility] 05-11-2024 11:41-0500 Diastolic blood pressure 60 mm[Hg] Mike Raghu DO Work Phone: [facility] 05-11-2024 11:41-0500 Systolic blood pressure 100 mm[Hg] Mike Raghu DO Work Phone: [facility] 04-13-2024 13:46-0400 Body weight 51.26 kg Damari GALAVIZ Work Phone: [facility] 04-13-2024 13:46-0400 Diastolic blood pressure 62 mm[Hg] Damari GALAVIZ Work Phone: [facility] 04-13-2024 13:46-0400 Systolic blood pressure 100 mm[Hg] Damari GALAVIZ Work Phone: [facility] 03-16-2024 11:38-0400 Body weight 50.8 kg Mike Raghu DO Work Phone: [facility] 03-16-2024 11:38-0400 Diastolic blood pressure 70 mm[Hg] Mike Raghu DO Work Phone: [facility] 03-16-2024 11:38-0400 Systolic blood pressure 120 mm[Hg] Mike Raghu DO Work Phone: [facility] Healthcare Encounters Encounter Date Encounter Type Care Provider Facility Start: 07-23-2024 End: 07-23-2024 Bamboo flowsheet Damari GALAVIZ Work Phone: [facility] Start: 07-23-2024 End: 07-23-2024 Bamboo flowsheet Damari GALAVIZ Work Phone: [facility] Start: 07-21-2024 End: 07-21-2024 Clinisync Result Encounter Mike Raghu DO Work Phone: [facility] External Department Unsolicited Start: 07-21-2024 End: 07-21-2024 Clinisync Result Encounter Mike Raghu DO Work Phone: [facility] External Department Unsolicited Start: 07-14-2024 End: 07-14-2024 Bamboo flowsheet Mike Raghu DO Work Phone: [facility] Start: 07-14-2024 End: 07-14-2024 Bamboo flowsheet Mike Raghu DO Work Phone: [facility] Start: 07-14-2024 End: 07-14-2024 Office [...] 04-16-2024 End: 04-16-2024 ambulatory Hesham Olsen MD Facility:[facility] Start: 04-13-2024 End: 04-13-2024 Bamboo flowsheet Damari GALAVIZ Work Phone: [facility] Start: 04-13-2024 End: 04-13-2024 Bamboo flowsheet Damari GALAVIZ Work Phone: [facility] Start: 04-13-2024 End: 04-13-2024 flow sheet Damari GALAVIZ Work Phone: [facility] Comment on above: Diabetes mellitus [...] 02-28-2024 End: 02-28-2024 Clinisync Result Encounter Mike Garcíao DO Work Phone: [facility] External Department Unsolicited Start: 02-28-2024 End: 02-28-2024 ambulatory MIKE GARCÍAO Not Available Start: 02-28-2024 End: 02-28-2024 Office outpatient visit 5 minutes [facility] Raghu Nurse [facility] Comment on above: GA: 15w4d Start: 02-18-2024 End: 02-18-2024 ambulatory [facility] Angie [facility] Start: 11-15-2023 End: 11-16-2023 ambulatory [facility] Start: 11-15-2023 Encounter for genera l adult medical examination without abnormal findings [facility] Start: 10-21-2023 End: 10-21-2023 ambulatory [facility] Start: 10-21-2023 Encounter for genera l adult medical examination without abnormal findings [facility] Start: 07-10-2023 End: 07-10-2023 ambulatory Evelin Matamoros [employer] [employer] Facility:[facility] Start: 04-02-2022 ambulatory [...] Start: 01-31-2022 End: 02-01-[address] MIKE KRISHNAMURHTY Facility:[facility] Start: 01-12-[address] MIKE KRISHNAMURTHY [...] Phone: Start: 03-16-2024 IGP,APTIMA HPV,AGE GDLN Mike Krishnamurthy DO Work Phone: Start: 02-28-2024 ALL CBC WITH AUTO DIFF Mike Garcíao DO Work Phone: Start: 02-28-2024 End: 02-28-2024 Urnls dip stick/tablet rgnt non-auto w/o micrscp Mike Raghu DO Work Phone: Start: 03-22-2022 Delivery of Products of Conception, External Approach DR MIKE KRISHNAMURTHY Start: 03-22-2022 Drainage of Amniotic Fluid, Therapeutic from Products of Conception, Via Natural or Artificial Opening DR MIKE KRISHNAMURTHY Start: 03-22-2022 Repair Perineum Skin , External Approach DR MIKE KRISHNAMURTHY Plan of Treatment Date Care Activity Detail Author Start: 07-23-2024 End: 07-23-2024 Patient encounter procedure [facility] Comment on above: Arrived Start: 07-14-2024 End: 07-14-2024 Patient encounter procedure 07/14/2024 1:20 PM EST Routine [facility] [address] [id number] Mike Krishnamurthy, DO [address] [place] [address] Arrived [facility] Comment on above: Arrived Start: 07-08-2024 End: 07-08-2024 Patient encounter procedure 07/08/2024 2:00 PM EST Routine [facility] [address] [place] [id number] Mike Krishnamurthy, DO [address] [place] [address] [facility] Start: 07-08-2024 End: 07-08-2024 Professional / ancillary services management 07/08/2024 1:30 PM EST Ancillary Procedure [facility] [address] [place] [address] [facility] Start: 06-17-2024 End: 06-17-2025 US for US OB SCAN FOR GROWTH Imaging Routine SGA (small for gestational age) Expected: 06/17/2024 (Approximate), Expires: 06/17/2025 [facility] Comment on above: Expected: 06/17/2024 (Approximate), Expires: 06/17/2025 Start: 06-15-2024 End: 06-15-2024 Patient encounter procedure 06/15/2024 9:30 AM EST Routine [facility] [address] [place] [address] Mike Krishnamurthy, DO [address] [place] [address] [facility] Start: 05-25-2024 End: 05-25-2024 Patient encounter procedure [facility] Comment on above: Arrived Start: 05-11-2024 End: 05-11-2024 Patient encounter procedure 05/11/2024 11:20 AM EST Routine [facility] [address] [place] [address] Mike Krishnamurthy, DO [address] [place] [address] [facility] Start: 04-28-2024 End: 04-28-2024 Professional / ancillary services management 04/28/2024 8:00 AM EDT Ancillary Procedure [facility] [address] [place] [id number] [facility] Start: 04-13-2024 End: 04-13-2025 [...] mellitus screening Expected: 04/13/2024 (Approximate), Expires: 04/13/2025 [facility] Comment on above: Expected: 04/13/2024 (Approximate), Expires: 04/13/2025 Start: 04-13-2024 End: 04-13-2024 Patient encounter procedure [facility] Comment on above: Arrived Start: 03-31-2024 End: 03-31-2024 Professional / ancillary services management 03/31/2024 1:00 PM EDT Ancillary Procedure [facility] [address] [facility] [place] [id number] [facility] Start: 03-16-2024 End: 04-15-2024 Alpha fetoprotein, maternal Alpha fetoprotein, maternal Lab Routine 18 weeks gestation of Expected: 03/16/2024 (Approximate), Expires: 04/15/2024 [facility] Comment on above: Expected: 03/16/2024 (Approximate), Expires: 04/15/2024 Start: 03-16-2024 End: 03-16-2025 US for US OB ANATOMY SINGLE W US OB CERVICAL LENGTH Imaging Routine Screening, , for anatomic survey Expected: 03/16/2024 (Approximate), Expires: 03/16/2025 [facility] Comment on above: Expected: 03/16/2024 (Approximate), Expires: 03/16/2025 Start: 03-16-2024 End: 03-16-2024 Patient encounter procedure [facility] Comment on above: Arrived Start: 02-28-2024 End: 02-27-2025 ABO/Rh ABO/Rh Lab Routine Missed menses Expected: 02/28/2024 (Approximate), Expires: 02/27/2025 [facility] Comment on above: Expected: 02/28/2024 (Approximate), Expires: 02/27/2025 Start: 02-28-2024 End: 02-27-2025 Blood type and Indirect antibody screen panel - Blood Type and screen Lab Routine Missed menses Expected: 02/28/2024 (Approximate), Expires: 02/27/2025 [facility] Work Phone: Comment on above: Expected: 02/28/2024 (Approximate), Expires: 02/27/2025 Start: 02-28-2024 End: 02-27-2025 US for US OB > 14 WEEKS Imaging Routine Missed menses Expected: 02/28/2024 (Approximate), Expires: 02/27/2025 [facility] Comment on above: Expected: 02/28/2024 (Approximate), Expires: 02/27/2025 Bacteria identified in Urine by Culture Urine culture Microbiology Routine Missed menses Ordered: 02/28/2024 [facility] Comment on above: Ordered: 02/28/2024 CBC W Auto Different ial panel - Blood CBC and differential Lab Routine SGA (small for gestational age) Ordered: 06/17/2024 [facility] Comment on above: Ordered: 06/17/2024 CBC W Auto Different ial panel - Blood CBC and differential Lab Routine Missed menses Ordered: 02/28/2024 [facility] Comment on above: Ordered: 02/28/2024 CHLAMYDIA TRACHOMATI S (GENITO/STI) CHLAMYDIA TRACHOMATIS (GENITO/STI) Lab Routine Exposure to STD Ordered: 03/16/2024 [facility] Comment on above: Ordered: 03/16/2024 Cytology Cervical or vaginal smear or scraping study Pap Smear Pathology and Cytology Routine Well woman exam with routine gynecological exam Ordered: 03/16/2024 [facility] Comment on above: Ordered: 03/16/2024 Hemoglobin A1c/Hemoglobin.total in Blood Hemoglobin A1c Lab Routine SGA (small for gestational age) Ordered: 06/17/2024 [facility] Work Phone: Comment on above: Ordered: 06/17/2024 Hemoglobin A1c/Hemoglobin.total in Blood Hemoglobin A1c Lab Routine Missed menses Ordered: 02/28/2024 [facility] Comment on above: Ordered: 02/28/2024 Hepatitis B virus surface Ag [Presence] in Serum or Plasma by Immunoassay Hepatitis B surface antigen Lab Routine Missed menses Ordered: 02/28/2024 [facility] Comment on above: Ordered: 02/28/2024 Hepatitis C virus Ab [Presence] in Serum or Plasma by Immunoassay Hepatitis C antibody Lab Routine Missed menses Ordered: 02/28/2024 [facility] Comment on above: Ordered: 02/28/2024 HIV-1/HIV-2 antigen/antibody combination immunoassay HIV-1 and HIV-2 antibodies Lab Routine Missed menses Ordered: 02/28/2024 [facility] Comment on above: Ordered: 02/28/2024 Neisseria gonorrhoea e DNA [Presence] in Unspecified specimen by RUTH ANN with probe detection Neisseria gonorrhea DNA probe, direct Lab Routine Exposure to STD Ordered: 03/16/2024 [facility] Comment on above: Ordered: 03/16/2024 Reagin Ab [Presence] in Serum by RPR RPR Lab Routine Missed menses Ordered: 02/28/2024 [facility] Comment on above: Ordered: 02/28/2024 Rubella antibody, IgG Rubella an tibody, IgG Lab Routine Missed menses Ordered: 02/28/2024 [facility] Comment on above: Ordered: 02/28/2024 SURESWAB(R) ADVANCED VAGINITIS PLUS, TMA SURESWAB(R) ADVANCED VAGINITIS PLUS, TMA Pathology and Cytology Routine Vaginal discharge Ordered: 03/16/2024 [facility] Work Phone: Comment on above: Ordered: 03/16/2024 Payers Date Payer Category Payer Medicaid (Managed Care) [employer] [id number] 2023 Unknown 2023 Private Health Insurance [id number] 2023 Private Health Insurance [id number] 2001 Unknown [id number] 2.16.840.1.464045.3.579.2. 593 2001 Unknown [id number] 2.16.840.1.692806.3.579.2. 593 2001 Unknown [id number] 2.16.840.1.031633.3.579.2. 593 2001 Unknown [id number] 2.16.840.1.047768.3.579.2. 593 2001 Unknown [id number] 2.16.840.1.642363.3.579.2. 593 2001 Unknown [id number] 2.16.840.1.105154.3.579.2. 593 2001 Unknown [id number] 2.16.840.1.554117.3.579.2. 593 2001 Unknown [id number] 2.16.840.1.870802.3.579.2. 593 2001 Unknown [id number] 2.16.840.1.222360.3.579.2. 593 2001 Unknown [id number] 2.16.840.1.734953.3.579.2. 593 2001 Unknown [id number] 2.16.840.1.452912.3.579.2. 1286 2001 Unknown [id number] 2.16.840.1.196698.3.579.2. 1286 2001 Unknown [id number] 2.16.840.1.849693.3.579.2. 1286 2001 Unknown [id number] 2.16.840.1.295352.3.579.2. 196 2001 Unknown [id number] 2.16.840.1.660391.3.579.2. 1259 2001 Unknown [id number] 2.16.840.1.004055.3.579.2. 9 2001 Unknown [id number] 2.16.840.1.008324.3.579.2. 9 2001 Unknown [id number] 2.16.840.1.855014.3.579.2. 9 2001 Unknown [id number] 2.16.840.1.463990.3.579.2. 9 2001 Unknown [id number] 2.16.840.1.048270.3.579.2. 9 2001 Unknown [id number] 2.16.840.1.633915.3.579.2. 1259 1959 Self-pay 1959 Unknown [id number] 1959 Unknown [id number] Social History Date Type Detail Facility Tobacco smoking stat [facility] Tobacco smoking consumption unknown [facility] Start: 11-25-2023 [facility] Start: 2001 Sex assigned at Not on file [facility] Start: 04-13-2024 Gender identity Not on file [facility] Start: 04-13-2024 Tobacco smoking stat [facility] Never smoked tobacco [facility] End: 11-30-2023 [...] appointment. MEDICATIONS Current Outpatient Medications Medication Instructions Lcwrxvkv-Csa-Dx-FA (, w/Iron & FA,) 27-0.8 MG tablet [...] nursing note reviewed. Exam conducted with a dress finisher present. Vitals: There is no height or [...] Mike Krishnamurthy DO documented in this encounter [facility] 06-17-2024 History of Present illness Narrative Reason for Appointment: Patient ID: Angela Meeks is a 24 y.o. female who presents for Routine Visit Patient presents today for Return OB appointment. MEDICATIONS Current Outpatient Medications Medication Instructions Eutpamua-Hqj-Vk-FA (, w/Iron & FA,) 27-0.8 MG tablet [...] ANASTACIA Barragan documented in this encounter [facility] 05-25-2024 History of Present illness Narrative Reason for Appointment: Patient ID: Angela Meeks is a 24 y.o. female who presents for Routine Visit Patient presents today for Return OB appointment. MEDICATIONS Current Outpatient Medications Medication Instructions Vlvmjpnq-Qmk-Ze-FA (, w/Iron & FA,) 27-0.8 MG tablet [...] ANASTACIA Barragan documented in this encounter [facility] 05-11-2024 History of Present illness Narrative Reason for Appointment: Patient ID: Angela Meeks is a 24 y.o. female who presents for Routine Visit Patient presents today for Return OB appointment. MEDICATIONS Current Outpatient Medications Medication Instructions Gyqxlcyx-Xww-Za-FA (, w/Iron & FA,) 27-0.8 MG tablet [...] nursing note reviewed. Exam conducted with a dress finisher present. Vitals: There is no height or [...] Discussed HSV treatment to be sent to [facility] in [place]. Patient voiced that she does have tingling in her fingers that radiates to elbow at night. Patient to return to clinic in 2 weeks for routine OB appointment. Documented by Radha Mobley LPN on behalf of: Mike Krishnamurthy DO documented in this encounter [facility] 04-13-2024 History of Present illness Narrative Reason for Appointment: Patient ID: Angela Meeks is a 24 y.o. female who presents for No chief complaint on file. Patient presents today for Return OB appointment. MEDICATIONS Current Outpatient Medications Medication Instructions Uywqwvkx-Fpj-Py-FA (, w/Iron & FA,) 27-0.8 MG tablet [...] ANASTACIA Barragan documented in this encounter [facility] 03-16-2024 History of Present illness Narrative Reason for Appointment: Patient ID: Angela Meeks is a 24 y.o. female who presents for Routine Visit, Well Women Visit, and STI Screening Patient presents today for Annual Exam. and Return OB appointment. MEDICATIONS Current Outpatient Medications Medication Instructions Vmicowkz-Brt-Yo-FA (, w/Iron & FA,) 27-0.8 MG tablet [...] nursing note reviewed. Exam conducted with a dress finisher present. Vitals: There is no height or [...] obtained without difficulty and patient was given [facility] order to have obtained. Orders Placed This [...] Mike Krishnamurthy DO documented in this encounter [facility] 02-28-2024 History of Present illness Narrative Reason [...] or undercooked meat, and stay away from [facility]. Patient has also been advised to not [...] Thais Engel LPN documented in this encounter [facility] 07-10-2023 Note Patient Education Ma grace Name: [...] and water are not available, use alcohol-based db2 dba to keep from spreading the infection to [...] of the eyes or skin ? [employer]. [address] [place] [address], [place] [address]. All rights reserved. This information is not [...] ER for any worsening or emergent symptoms. [facility] Evaluation note Diagnosis Diabetes mellitus screening [...] of complication SGA (small for gestational age) Tqthy-zsm-wltej without mention of malnutrition, unspecified (weight) documented [...] and content) DATE CREATED AUTHOR 04/03/2022 [facility] DATE CREATED AUTHOR AUTHOR'S ORGANIZ ATION 11/18/2023 [facility] DATE CREATED AUTHOR AUTHOR'S ORGANIZ ATION 02/20/2024 [facility] DATE CREATED AUTHOR AUTHOR'S ORGANIZ ATION 04/18/2024 [facility] DATE CREATED AUTHOR AUTHOR'S ORGANIZ ATION 07/17/2024 [facility] EPIC Care Teams (unrecognized sec tion and content) Back Wedger Relationship Specialty Start Date End Date Heri Arreola MD [address] [place] [address], [address] [place] [address] PCP - General Family Medicine 02/28/24 Back Wedger Relationship Specialty Start Date End Date Heri Arreola MD [address] [place] [address], [address] [place] [address] PCP - General Family Medicine 02/28/24 Back Wedger Relationship Specialty Start Date End Date Heri Arreola MD [address] [place] [address], [address] [place] [address] PCP - General Family Medicine 02/28/24 Back Wedger Relationship Specialty Start Date End Date Heri Arreola MD [address] [place] [address], [address] [place] [address] PCP - General Family Medicine 02/28/24 Back Wedger Relationship Specialty Start Date End Date Heri Arreola MD [address] [place] [address], [address] [place] [address] PCP - General Family Medicine 02/28/24 Back Wedger Relationship Specialty Start Date End Date Heri Arreola MD [address] [place] [address], [address] [place] [address] PCP - General Family Medicine 02/28/24 Back Wedger Relationship Specialty Start Date End Date Heri Arreola MD [address] [place] [address], [address] [place] [address] PCP - General Family Medicine 02/28/24 Back Wedger Relationship Specialty Start Date End Date Heri Arreola MD [address] [place] [address], [address] [place] [address] PCP - General [facility] Medicine 02/28/24 Back Wedger Relationship Specialty Start Date End Date Heri Arreola MD [address] [place] [address], [address] [place] [address] PCP - [facility] 02/28/24 Back Wedger Relationship Specialty Start Date End Date Heri Arreola MD [address] [place] [address], [address] [place], [place] [id number] PCP - [facility] 02/28/24 Back Wedger Relationship Specialty Start Date End Date Heri Arreola MD [address] [place] [address], [address] [place] [address] PCP - [facility] Medicine 02/28/24 Reason for Visit (unrecogniz ed [...] BE BASED ON THE PRIMARY CLINICAL RECORDS. [facility] [employer] [facility]. provides no warranty or guarantee of the accuracy or completeness of information in this document.
== END 2024-07-23 08:33 | disposition home or self-care (01) ==
LOC: LAB 08:32
PROVIDERS: Visit Provider Physician Assistant
DX: Z34.93 Encounter for supervision of normal pregnancy, unspecified, third trimester (principal)
CPT/HCPCS: 36415; 87081

== ENCOUNTER 2024-07-24 00:37 | Outpatient (OUT) | payer OTHER, SELFPAY ==
--- OUTSIDE RECORDS SUMMARY | 2024-07-24 00:42 | XMS_ITS | CCD ---
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] Onset: 02-28-2022 Episodic Other [...] of ] 04-13-2024 Episodic Residual codes; unclassified (15 sources) Gestation period, 26 weeks; Translations: [26 weeks gestation of ] Onset: 05-11-2024 05-11-2024 Episodic Residual codes; unclassified (11 sources) Gestation period, 28 weeks; Translations: [28 [...] low weight; and growth retardation (2 sources) Mamge-gfj-hvwxj baby; Translations: [ small for gestational age, [...] Test Name Value Interpretation Reference Range Facility ALL CBC WITH AUTO DIFFon BASOPHILS ABSOLUTE AUTO 0 [facility] Basophils/100 WBC (Bld) 0.4 % 0.2 - 2.0 % [facility] Eosinophils/100 WBC (Bld) 0.7 % Low 0.9 - 7.0 % [facility] Erythrocyte distribution width (RBC) [Ratio] 11.9 % 11.0 - 15.0 % [facility] Hematocrit (Bld) [Volume fraction] 31.5 % Low 36.0 - 48.0 % [facility] (Bld) [Mass/Vol] 10.6 g/dL Low 12.0 - 16.0 g/dL [facility] IMMATURE GRANULOCYTES ABS AUTO 0.04 High [facility] Immature granulocytes/100 WBC (Bld) 0.4 % 0.0 - 0.5 % [facility] Interpretation and review of laboratory results Abnormal [facility] LYMPHOCYTES ABSOLUTE AUTO 1.8 [facility] Lymphocytes/100 WBC (Bld) 19.4 % Low 20.5 - 60.0 % [facility] MCH (RBC) [Entitic mass] 30.9 pg 26.7 - 34.0 pg [facility] MCHC (RBC) [Mass/Vol] 33.7 g/dL 29.9 - 35.2 g/dL [facility] MCV (RBC) [Entitic vol] 91.8 fL 81.0 - 99.0 fL [facility] MONOCYTES ABSOLUTE AUTO 0.5 [facility] Monocytes/100 WBC (Bld) 5.7 % 1.7 - 12.0 % [facility] NEUTROPHILS ABSOLUTE AUTO 6.7 High [facility] Neutrophils/100 WBC (Bld) 73.4 % 43.0 - 75.0 % [facility] Platelet mean volume (Bld) [Entitic vol] 11.1 fL 9.5 - 13.5 fL [facility] TBH EO # 0.1 [facility] TB PLT 230 [facility] e TB RBC 3.43 Low [facility] e TBH WBC 9.1 [facility] e Urinalysis macro (dipstick) panel (U)on 07-14-2024 Bilirubin, UA Positive Negative - 4(70) +++ mg/dL [facility] Blood, UA Negative Negative - 50 Luis Alberto/mcL [facility] Clarity, UA Clear [facility] re Color, UA Beatrice [facility] Glucose, UA Negative Negative - 1999(110) ++++ mg/dL [facility] Interpretation and review of laboratory results Abnormal [facility] re Ketones, UA Positive Negative - 160(16) ++++ mg/dL [facility] Leukocytes, UA Trace Negative - 500+++ Juan C/mcL [facility] Nitrite, UA Negative Negative - Positive [facility] pH, UA 7.5 5 - 9 [facility] Health[facility] Protein, UA Positive Negative - 1999(20) ++++ mg/dL [facility] Spec Grav, UA 1.02 1 - 1.03 [facility] Urobilinogen, UA 2.0 0.2 - 12 mg/dL [facility] Urinalysis macro (dipstick) panel (U)on 06-17-2024 Bilirubin, UA Negative Negative - 4(70) +++ mg/dL [facility] Healthcare Blood, UA Negative Negative - 50 Luis Alberto/mcL [facility] Healthcare Clarity, UA Clear [facility] re Color, UA Yellow [facility] Glucose, UA Negative Negative - 1999(110) ++++ mg/dL [facility] Interpretation and review of laboratory results Normal [facility] re Ketones, UA Negative Negative - 160(16) ++++ mg/dL [facility] Leukocytes, UA Negative Negative - 500+++ Juan C/mcL [facility] Nitrite, UA Negative Negative - Positive [facility] pH, UA 7 5 - 9 [facility] Health[facility] e Protein, UA Negative Negative - 1999(20) ++++ mg/dL [facility] Spec Grav, UA 1.025 1 - 1.03 [facility] Urobilinogen, UA 0.2 0.2 - 12 mg/dL [facility] Urinalysis macro (dipstick) panel (U)on 05-25-2024 Bilirubin, UA Negative Negative - 4(70) +++ mg/dL [facility] Blood, UA Negative Negative - 50 Luis Alberto/mcL [facility] Healthcare Clarity, UA Clear [facility] re Color, UA Yellow [facility] Health[facility] e Glucose, UA Negative Negative - 1999(110) ++++ mg/dL [facility] Interpretation and review of laboratory results Abnormal [facility] re Ketones, UA Negative Negative - 160(16) ++++ mg/dL [facility] Leukocytes, UA Few Negative - 500+++ Juan C/mcL [facility] Healthcare Comment on above: small Nitrite, UA Negative Negative - Positive [facility] pH, UA 7 5 - 9 [facility] Protein, UA Negative Negative - 1999(20) ++++ mg/dL [facility] Spec Grav, UA 1.015 1 - 1.03 [facility] care Urobilinogen, UA 1.0 0.2 - 12 mg/dL [facility] Urinalysis macro (dipstick) panel (U)on 05-11-2024 Bilirubin, UA Negative Negative - 4(70) +++ mg/dL [facility] Blood, UA Negative Negative - 50 Luis Alberto/mcL [facility] Healthcare Clarity, UA Clear [facility] re Color, UA Yellow [facility] Glucose, UA Negative Negative - 1999(110) ++++ mg/dL [facility] Interpretation and review of laboratory results Normal [facility] re Ketones, UA Negative Negative - 160(16) ++++ mg/dL [facility] Leukocytes, UA Negative Negative - 500+++ Juan C/mcL [facility] Nitrite, UA Negative Negative - Positive [facility] pH, UA 7 5 - 9 [facility] e Protein, UA Negative Negative - 1999(20) ++++ mg/dL [facility] Spec Grav, UA 1.015 1 - 1.03 [facility] Urobilinogen, UA 1.0 0.2 - 12 mg/dL [facility] TB-QFTon 04-17-2024 Mitogen minus Nil 9.91 IU/mL Normal [facility] Comment on above: Performed By: #### C D:[id number] #### [place] [address] Nil Result 0.09 IU/mL Normal [facility] Comment on above: Performed By: #### C [id number] #### [place] [address] QuantiFERON-TB Gold Plus Negative Normal Negative [facility] Comment on above: Result Comment: No [...] an Interferon-gamma level Performed By: #### C D:[id number] #### [place] [id number] TB1 Ag minus Nil <0.00 Normal [facility] Comment on above: Performed By: #### C D:[id number] #### [facility] [address] [place] [address] TB2 Ag minus Nil <0.00 Normal [facility] Comment on above: Performed By: #### C D:[id number] #### [facility] [address] [place] [address] OR Trackon 04-16-2024 QuantiFeron TB Drk Grn Li Hep # 1 [facility] Comment on above: Performed By: #### O utrea Tracking Order #### [address] [address] Specimens Received From [facility] Comment on above: Performed By: #### O [facility] Tracking Order #### [address] [address] Urinalysis macro (dipstick) panel (U)on 04-13-2024 Bilirubin, UA Negative Negative - 4(70) +++ mg/dL [facility] Blood, UA Negative Negative - 50 Luis Alberto/mcL [facility] Clarity, UA Clear [facility] re Color, UA Yellow [facility] [employer] e Glucose, UA Negative Negative - 1999(110) ++++ mg/dL [facility] Interpretation and review of laboratory results Normal [facility] re Ketones, UA Negative Negative - 160(16) ++++ mg/dL [facility] Leukocytes, UA Negative Negative - 500+++ Juan C/mcL [facility] Nitrite, UA Negative Negative - Positive [facility] pH, UA 7 5 - 9 [facility] [employer] e Protein, UA Negative Negative - 1999(20) ++++ mg/dL [facility] Spec Grav, UA 1.025 1 - 1.03 [facility] Urobilinogen, UA 1.0 0.2 - 12 mg/dL [facility] IGP,APTIMA HPV,AGE GDLNon AGE GDLN ACOG TESTING Note . [facility] Comment on above: TESTS RESULT FLAG UN ITS REF RANGE LAB Clinician Provided Cytology Information Source.............Cervix Other.............. No. of containers..01 ThinPrep Vial Age Mihir DE Nohemi... FLAG LEGEND: L-Low Normal,H-High Normal,LL-Alert Low,HH-Alert High <-Panic Low,>-Panic High,A-Abnormal,AA-Critical Abnormal Performed at: 01 [facility] [address] [place] [address] Lor Moy MD, IGP, RFX APTIMA HPV ASCU Note . [facility] Comment on above: TESTS RESULT FLAG UN ITS REF RANGE LAB DIAGNOSIS: 02 NEGATIVE FOR INTRAEPITHELIAL LESION OR MALIGNANCY. CELLULAR CHANGES ASSOCIATED WITH INFLAMMATION ARE PRESENT. Specimen adequacy: 02 Satisfactory for evaluation. Endocervical and/or squamous metaplastic cells (endocervical component) are present. Performed by: 02 Ameena Burks Multimedia Editor ([facility]) . 02 Note: Note 02 The [...] <-Panic Low,>-Panic High,A-Abnormal,AA-Critical Abnormal Performed at: [address] [address] Lor Moy MD, Performed at: =[facility] [id number] [employer] Operator: Lor Myo MD, Phone: [phone] Performed at: [address] [id number] [employer] Operator: Lor Moy MD, Phone: [phone] SPATULA-ALONE CERVIX [facility] Healthcar e URETHRITIS/DISCHARGE PLUS VA GINITIS (HTRX)on 03-18-2024 ATOPOBIUM VAGINAE 0.000 [facility] ATOPOBIUM VAGINAE Not detected [facility] BVAB 2,3 (BACTERIAL VAGINOSIS ASSOCIATED BACTERIA 2, 3); MOBILUNCUS SPP 0.000 [facility] BVAB 2,3 (BACTERIAL VAGINOSIS ASSOCIATED BACTERIA 2, 3); MOBILUNCUS SPP Not detected [facility] ELENA ALBICANS, PARAPSILOSIS, TROPICALIS 0.000 [facility] ELENA ALBICANS, PARAPSILOSIS, TROPICALIS Not detected [facility] ELENA GLABRATA 0.000 [facility] ELENA GLABRATA Not detected [facility] ELENA KRUSEI 0.000 [facility] ELENA KRUSEI Not detected [facility] CHLAMYDIA TRACHOMATIS 0.000 [facility] CHLAMYDIA TRACHOMATIS Not detected [facility] Healthcare ERMB, C; MEFA 23.017 Abnormal [facility] care ERMB, C; MEFA Detected Abnormal [facility] GARDNERELLA VAGINALIS 32.321 Abnormal [facility] GARDNERELLA VAGINALIS Detected Abnormal [facility] Interpretation and review of laboratory results Abnormal [facility] re MEGASPHAERA (TYPES 1, 2) 0.000 [facility] MEGASPHAERA (TYPES 1, 2) Not detected [facility] MYCOPLASMA GENITALIUM 0.000 [facility] MYCOPLASMA GENITALIUM Not detected [facility] NEISSERIA GONORRHOEAE 0.000 [facility] NEISSERIA GONORRHOEAE Not detected [facility] TET B, TET M 25.883 Abnormal [facility] TET B, TET M Detected Abnormal [facility] are TRICHOMONAS VAGINALIS 0.000 [facility] TRICHOMONAS VAGINALIS Not detected [facility] Urinalysis macro (dipstick) panel (U)on 03-16-2024 Bilirubin, UA Negative Negative - 4(70) +++ mg/dL [facility] Blood, UA Negative Negative - 50 Luis Alberto/mcL [facility] Clarity, UA Clear [facility] re Color, UA Yellow [facility] e Glucose, UA Negative Negative - 1999(110) ++++ mg/dL [facility] Interpretation and review of laboratory results Normal [facility] re Ketones, UA Negative Negative - 160(16) ++++ mg/dL [facility] Leukocytes, UA Negative Negative - 500+++ Juan C/mcL [facility] Nitrite, UA Negative Negative - Positive [facility] pH, UA 7.0 5 - 9 [facility] Healthcar e Protein, UA Negative Negative - 1999(20) ++++ mg/dL [facility] Spec Grav, UA 1.015 1 - 1.03 [facility] Urobilinogen, UA 0.2 0.2 - 12 mg/dL [facility] Healthcar e ALL CBC WITH AUTO DIFFon BASOPHILS ABSOLUTE AUTO 0.1 [facility] Basophils/100 WBC (Bld) 0.6 % 0.2 - 2.0 % [facility] Eosinophils/100 WBC (Bld) 0.8 % Low 0.9 - 7.0 % [facility] Erythrocyte distribution width (RBC) [Ratio] 13.4 % 11.0 - 15.0 % [facility] Hematocrit (Bld) [Volume fraction] 32.0 % Low 36.0 - 48.0 % [facility] Health[facility] e Hemoglobin (Bld) [Mass/Vol] 11.3 g/dL Low 12.0 - 16.0 g/dL [facility] IMMATURE GRANULOCYTES ABS AUTO 0.04 High [facility] Immature granulocytes/100 WBC (Bld) 0.5 % 0.0 - 0.5 % [facility] Interpretation and review of laboratory results Abnormal [facility] re LYMPHOCYTES ABSOLUTE AUTO 2.4 [facility] Lymphocytes/100 WBC (Bld) 27.7 % 20.5 - 60.0 % [facility] MCH (RBC) [Entitic mass] 32.3 pg 26.7 - 34.0 pg [facility] MCHC (RBC) [Mass/Vol] 35.3 g/dL High 29.9 - 35.2 g/dL [facility] MCV (RBC) [Entitic vol] 91.4 fL 81.0 - 99.0 fL [facility] MONOCYTES ABSOLUTE AUTO 0.4 [facility] Monocytes/100 WBC (Bld) 5.1 % 1.7 - 12.0 % [facility] NEUTROPHILS ABSOLUTE AUTO 5.6 [facility] Neutrophils/100 WBC (Bld) 65.3 % 43.0 - 75.0 % [facility] Platelet mean volume (Bld) [Entitic vol] 9.9 fL 9.5 - 13.5 fL [facility] TBH EO # 0.1 [facility] TB PLT 208 [facility] TB RBC 3.50 Low [facility] e TB WBC 8.6 [facility] e HCG ( test) Ql (U)o n 02-28-2024 Interpretation and review of laboratory results Abnormal [facility] re Preg Test, Ur Positive [facility] Health[facility] e Urinalysis macro (dipstick) panel (U)on 02-28-2024 Bilirubin, UA Negative Negative - 4(70) +++ mg/dL [facility] Blood, UA Negative Negative - 50 Luis Alberto/mcL [facility] Clarity, UA Clear [facility] re Color, UA Yellow [facility] Health[facility] e Glucose, UA Negative Negative - 1999(110) ++++ mg/dL [facility] Interpretation and review of laboratory results Normal [facility] re Ketones, UA Negative Negative - 160(16) ++++ mg/dL [facility] Leukocytes, UA Negative Negative - 500+++ Juan C/mcL [facility] Nitrite, UA Negative Negative - Positive [facility] pH, UA 7.0 5 - 9 [facility] Protein, UA Negative Negative - 1999(20) ++++ mg/dL [facility] Spec Grav, UA 1.020 1 - 1.03 [facility] Urobilinogen, UA 1.0 0.2 - 12 mg/dL [facility] Healthcar e CBC AND AUTO DIFFon 11-15-19 24 ABSOLUTE BASOPHIL 0.0 X10E9/L Normal 0.0-0.2 [facility] Comment on above: Performed By: #### C BCA, CMP, FEPR, THYR, 20844-4 #### [facility] ([id number]) [address], [address] [place] [address] ABSOLUTE NEUTROPHIL 2.5 X10E9/L Normal 1.5-6.6 [facility] Comment on above: Performed By: #### C BCA, CMP, FEPR, THYR, 28140-7 #### [facility] ([id number]) [address], [address] [place] [address] Basophils/100 WBC (Bld) 0.8 % Normal [facility] Comment on above: Performed By: #### C BCA, CMP, FEPR, THYR, 26721-8 #### [facility] ([id number]) [address], [address] [place] [address] Eosinophils (Bld) [#/Vol] 0.1 10*3/uL Normal 0.0-0.4 [facility] Comment on above: Performed By: #### C BCA, CMP, FEPR, THYR, 96061-0 #### [facility] ([id number]) [address], [address] [place] [address] Eosinophils/100 WBC (Bld) 1.4 % Normal [facility] Comment on above: Performed By: #### C BCA, CMP, FEPR, THYR, 05693-5 #### [facility] ([id number]) [address] [address] [place] [address] Erythrocyte distribution width (RBC) [Ratio] 12.9 % Normal 11.5-15.0 [facility] Comment on above: Performed By: #### C BCA, CMP, FEPR, THYR, 62392-5 #### [facility] ([id number]) [address] [address] [place] [address] Hematocrit (Bld) [Volume fraction] 35.4 % Normal 35-47 [facility] Comment on above: Performed By: #### C BCA, CMP, FEPR, THYR, 71105-6 #### [facility] ([id number]) [address] [address] [place] [address] Hemoglobin (Bld) [Mass/Vol] 12.2 g/dL Normal 11.7-15.5 [facility] Comment on above: Performed By: #### C BCA, CMP, FEPR, THYR, 09636-9 #### [facility] ([id number]) [address] [address] [place] [address] Lymphocytes (Bld) [#/Vol] 2.1 10*3/uL Normal 1.0-3.5 [facility] Comment on above: Performed By: #### C BCA, CMP, FEPR, THYR, 43813-1 #### [facility] ([id number]) [address] [address] [place] [address] Lymphocytes/100 WBC (Bld) 41.5 % Normal [facility] Comment on above: Performed By: #### C BCA, CMP, FEPR, THYR, 06810-8 #### [facility] ([id number]) [address] [place] [address] MCH (RBC) [Entitic mass] 31.2 pg Normal 27-34 [facility] Comment on above: Performed By: #### C BCA, CMP, FEPR, THYR, 18828-2 #### [facility] ([id number]) [address] [address] [place] [address] MCHC (RBC) [Mass/Vol] 34.5 g/dL Normal 32-36 [facility] Comment on above: Performed By: #### C BCA, CMP, FEPR, THYR, 84782-9 #### [facility] ([id number]) [address] [address] [place] [address] MCV (RBC) [Entitic vol] 90 fL Normal 80-100 [facility] Comment on above: Performed By: #### C BCA, CMP, FEPR, THYR, 20572-2 #### [facility] ([id number]) [address] [address] [place] [address] Monocytes (Bld) [#/Vol] 0.4 10*3/uL Normal 0-0.9 [facility] Comment on above: Performed By: #### C BCA, CMP, FEPR, THYR, 19773-0 #### [facility] ([id number]) [address] [address] [place] [address] Monocytes/100 WBC (Bld) 7.0 % Normal [facility] Comment on above: Performed By: #### C BCA, CMP, FEPR, THYR, 42545-0 #### [facility] ([id number]) [address] [place] [address] Neutrophils/100 WBC (Bld) 49.3 % Normal [facility] Comment on above: Performed By: #### C BCA, CMP, FEPR, THYR, 93859-6 #### [facility] ([id number]) [address] [place] [address] Platelet mean volume (Bld) [Entitic vol] 8.7 fL Normal 7-12 [facility] Comment on above: Performed By: #### C BCA, CMP, FEPR, THYR, 94464-9 #### [facility] ([id number]) [address] [place] [address] Platelets (Bld) [#/Vol] 232 10*3/uL Normal 150-450 [facility] Comment on above: Performed By: #### C BCA, CMP, FEPR, THYR, 41196-7 #### [facility] ([id number]) [address] [place] [address] RBC COUNT 3.92 X10E12/L Normal 3.80-5.20 [facility] Comment on above: Performed By: #### C BCA, CMP, FEPR, THYR, 60646-0 #### [facility] ([id number]) [address] [address] [place] [address] WBC (Bld) [#/Vol] 5.0 10*3/uL Normal 4.0-11.0 [facility] Comment on above: Performed By: #### C BCA, CMP, FEPR, THYR, 54661-7 #### [facility] ([id number]) [address] [place] [address] COMPREHENSIVE METABOLIC PANE Wang 11-15-2023 Albumin [Mass/Vol] 4.4 g/dL Normal 3.2-5.3 [facility] Comment on above: Performed By: #### C BCA, CMP, FEPR, THYR, 25002-3 #### [facility] ([id number]) [address] [place] [address] ALP [Catalytic activity/Vol] 37 U/L Low 39-130 [facility] Comment on above: Performed By: #### C BCA, CMP, FEPR, THYR, 85103-0 #### [facility] ([id number]) [address] [place] [address] ALT [Catalytic activity/Vol] 11 U/L Normal 0-31 [facility] Comment on above: Performed By: #### C BCA, CMP, FEPR, THYR, 32377-5 #### [facility] ([id number]) [address] [place] [address] Anion gap [Moles/Vol] 9 mmol/L Normal 5-15 [facility] Comment on above: Performed By: #### C BCA, CMP, FEPR, THYR, 43619-3 #### [facility] ([id number]) [address] [place] [address] AST [Catalytic activity/Vol] 15 U/L Normal 0-41 [facility] Comment on above: Performed By: #### C BCA, CMP, FEPR, THYR, 72163-7 #### [facility] ([id number]) [address] [place] [address] Bilirubin [Mass/Vol] 1.4 mg/dL High 0.3-1.2 [facility] Comment on above: Performed By: #### C BCA, CMP, FEPR, THYR, 12983-2 #### [facility] ([id number]) [address] [place] [address] Calcium [Mass/Vol] 9.1 mg/dL Normal 8.5-10.5 [facility] Comment on above: Performed By: #### C BCA, CMP, FEPR, THYR, 76352-1 #### [facility] ([id number]) [address] [place] [address] Chloride [Moles/Vol] 104 mmol/L Normal 98-109 [facility] Comment on above: Performed By: #### C BCA, CMP, FEPR, THYR, 09125-6 #### [facility] ([id number]) [address] [place] [address] CO2 [Moles/Vol] 25 mmol/L Normal 22-32 [facility] Comment on above: Performed By: #### C BCA, CMP, FEPR, THYR, 88698-8 #### [facility] ([id number]) [address] [place] [address] Creatinine [Mass/Vol] 0.74 mg/dL Normal 0.40-1.00 [facility] Comment on above: Result Comment: METH OD TRACEABLE TO IDMS STANDARD Performed By: #### C BCA, CMP, FEPR, THYR, 69881-2 #### [facility] ([id number]) [address] [place] [address] eGFR (CKD-EPI) NON-RACE DEPENDENT >90 Normal >59 [facility] Comment on above: Result Comment: Reported eGFR is based on the CKD-EPI 2020 equation that does not use a race coefficient. Performed By: #### C BCA, CMP, FEPR, THYR, 44486-6 #### [facility] ([id number]) [address] [address] [place] [address] Glucose [Mass/Vol] 100 mg/dL High 65-99 [facility] Comment on above: Performed By: #### C BCA, CMP, FEPR, THYR, 28050-2 #### [facility] ([id number]) [address] [address] [place] [address] Potassium [Moles/Vol] 3.7 mmol/L Normal 3.5-5.0 [facility] Comment on above: Performed By: #### C BCA, CMP, FEPR, THYR, 74268-7 #### [facility] ([id number]) [address] [address] [place] [address] Protein [Mass/Vol] 6.9 g/dL Normal 6.0-8.0 [facility] Comment on above: Performed By: #### C BCA, CMP, FEPR, THYR, 12290-7 #### [facility] ([id number]) [address] [address] [place] [address] Sodium [Moles/Vol] 138 mmol/L Normal 134-146 [facility] Comment on above: Performed By: #### C BCA, CMP, FEPR, THYR, 28042-3 #### [facility] ([id number]) [address] [address] [place] [address] Urea nitrogen [Mass/Vol] 12 mg/dL Normal 5-23 [facility] Comment on above: Performed By: #### C BCA, CMP, FEPR, THYR, 00653-8 #### [facility] ([id number]) [address] [place] [address] IRON PROFILEon 11-15-2023 Iron [Mass/Vol] 81 ug/dL Normal 50-170 [facility] Comment on above: Performed By: #### C BCA, CMP, FEPR, THYR, 86194-9 #### [facility] ([id number]) [address] [place] [address] IRON BINDING 309 ug/dL Normal 250-425 [facility] Comment on above: Performed By: #### C BCA, CMP, FEPR, THYR, 93109-5 #### [facility] ([id number]) [address] [address] [place] [address] IRON SATURATION 26 % SATURATION Normal 15-50 [facility] Comment on above: Performed By: #### C BCA, CMP, FEPR, THYR, 52352-7 #### [facility] ([id number]) [address] [place] [address] THYROID PROFILEon 11-15-2023 Free T4 [Mass/Vol] 1.01 ng/dL Normal 0.61-1.60 [facility] Comment on above: Performed By: #### C BCA, CMP, FEPR, THYR, 22546-1 #### [facility] ([id number]) [address] [place] [address] TSH 1.81 uIU/mL Normal 0.49-4.67 [facility] Comment on above: Performed By: #### C BCA, CMP, FEPR, THYR, 38836-7 #### [facility] ([id number]) [address] [place] [address] Vitamin D+Metabolites [Mass/ Vol]on 11-15-2023 VITAMIN D 25 HYD TOT 18.7 ng/mL Low 30-100 [facility] Comment on above: Result Comment: Vitamin D status 25 [place] Vitamin D Deficiency <20 ng/mL Insufficiency 20-29 ng/mL Sufficiency 30-100 ng/mL Toxicity >100 ng/mL NOTE: A pediatric reference range has not been established by the art gallery internship of this kit. The [employer] [employer] recommends a Vitamin D level of = or >20ng/mL in infants and children. Performed By: #### C BCA, CMP, FEPR, THYR, 78680-9 #### [facility] ([id number]) [address] [address] [place] [address] Urgent Care Office/Clinic No zackary 07-10-2023 Urgent [...] declines COVID testing in office today. No [id number]-[id number] medications for symptom management. Significant other is [...] by Evelin Smith 07/10/23 19:47 EST Normal [facility] CBC AUTO DIFFon 03-23-2022 BASO # 0.0 103/ul Normal 0.0-0.1 [facility] Comment on above: Performed By: #### C BC #### [facility] [address] [address] [address] Ana Maria Alexandre Basophils/100 WBC (Bld) 0.2 % Normal 0.2-2.0 [facility] Comment on above: Performed By: #### C BC #### [facility] [address] [place] [address] Dr. Ana Maria Alexandre EO # 0.0 103/ul Normal 0.0-0.7 [facility] Comment on above: Performed By: #### C BC #### [facility] [address] [place] [address] Dr. Ana Maria Alexandre Eosinophils/100 WBC (Bld) 0.3 % Critically low 0.9-7.0 [facility] Comment on above: Performed By: #### C BC #### [facility] [address] [place] [address] Dr. Ana Maria Alexandre Erythrocyte distribution width (RBC) [Ratio] 12.9 % Normal 11.0-15.0 [facility] Comment on above: Performed By: #### C BC #### [facility] [address] [place] [address] Dr. Ana Maria Alexandre Hematocrit (Bld) [Volume fraction] 25.6 % Critically low 36.0-48.0 [facility] Comment on above: Performed By: #### C BC #### [facility] [address] [place] [address] Dr. Ana Maria Alexandre Hemoglobin (Bld) [Mass/Vol] 8.5 g/dL Critically low 12.0-16.0 [facility] Comment on above: Performed By: #### C BC #### [facility] [address] [place] [address] Dr. Ana Maria Alexandre IG # 0.05 10e3/ul Critically high 0.00-0.03 [facility] Comment on above: Performed By: #### C BC #### [facility] [address] [place] [address] Dr. Ana Maria Alexandre IG % 0.4 % Normal 0.0-0.5 [facility] Comment on above: Performed By: #### C BC #### [facility] [address] [place] [address] Dr. Ana Maria Alexandre LYMPH # 2.5 103/ul Normal 1.2-3.8 [facility] Comment on above: Performed By: #### C BC #### [facility] [address] [place] [address] Dr. Ana Maria Alexandre Lymphocytes/100 WBC (Bld) 17.2 % Critically low 20.5-60.0 [facility] Comment on above: Performed By: #### C BC #### [facility] [address] [place] [address] Dr. Ana Maria Alexandre MANUAL DIFF REQ NO Normal [facility] Comment on above: Performed By: #### C BC #### [facility] [address] [address] [address] Ana Maria Alexandre MCH (RBC) [Entitic mass] 28.1 pg Normal 26.7-34.0 [facility] Comment on above: Performed By: #### C BC #### [facility] [address] [place] [address] Dr. Ana Maria Alexandre MCHC (RBC) [Mass/Vol] 33.2 g/dL Normal 29.9-35.2 [facility] Comment on above: Performed By: #### C BC #### [facility] [address] [place] [address] Dr. Ana Maria Alexandre MCV (RBC) [Entitic vol] 84.5 fL Normal 81.0-99.0 [facility] Comment on above: Performed By: #### C BC #### [facility] [address] [place] [address] Dr. Ana Maria Alexandre MONO # 0.9 103/ul Critically high 0.3-0.8 [facility] Comment on above: Performed By: #### C BC #### [facility] [address] [place] [address] Dr. Ana Maria Alexandre Monocytes/100 WBC (Bld) 6.0 % Normal 1.7-12.0 [facility] Comment on above: Performed By: #### C BC #### [facility] [address] [place] [address] Dr. Ana Maria Alexandre NEUT # 10.8 103/ul Critically high 1.4-6.5 [facility] Comment on above: Performed By: #### C BC #### [facility] [address] [place] [address] Dr. Ana Maria Alexandre Neutrophils/100 WBC (Bld) 75.9 % Critically high 43.0-75.0 [facility] Comment on above: Performed By: #### C BC #### [facility] [address] [place] [address] Dr. Ana Maria Alexandre Platelet mean volume (Bld) [Entitic vol] 11.4 fL Normal 9.5-13.5 [facility] Comment on above: Performed By: #### C BC #### [facility] [address] [place] [address] Dr. Ana Maria Alexandre PLT 152 103/ul Normal 150-450 [facility] Comment on above: Performed By: #### C BC #### [facility] [address] [place] [address] Dr. Ana Maria Alexandre RBC 3.03 106/ul Critically low 4.20-5.40 [facility] Comment on above: Performed By: #### C BC #### [facility] [address] [place] [address] Dr. Ana Maria Alexandre WBC 14.2 103/ul Critically high 4.0-11.0 [facility] Comment on above: Performed By: #### C BC #### [facility] [address] [place] [address] Dr. Ana Maria Alexandre CBC AUTO DIFFon 03-22-2022 BASO # 0.0 103/ul Normal 0.0-0.1 [facility] Comment on above: Performed By: #### C BC #### [facility] [address] [place] [address] Dr. Ana Maria Alexandre Basophils/100 WBC (Bld) 0.3 % Normal 0.2-2.0 [facility] Comment on above: Performed By: #### C BC #### [facility] [address] [place] [address] Dr. Ana Maria Alexandre EO # 0.1 103/ul Normal 0.0-0.7 [facility] Comment on above: Performed By: #### C BC #### [facility] [address] [place] [address] Dr. Ana Maria Alexandre Eosinophils/100 WBC (Bld) 0.6 % Critically low 0.9-7.0 [facility] Comment on above: Performed By: #### C BC #### [facility] [address] [place] [address] Dr. Ana Maria Alexandre Erythrocyte distribution width (RBC) [Ratio] 12.6 % Normal 11.0-15.0 [facility] Comment on above: Performed By: #### C BC #### [facility] [address] [place] [address] Dr. Ana Maria Alexandre Hematocrit (Bld) [Volume fraction] 30.4 % Critically low 36.0-48.0 [facility] Comment on above: Performed By: #### C BC #### [facility] [address] [place] [address] Dr. Ana Maria Alexandre Hemoglobin (Bld) [Mass/Vol] 9.9 g/dL Critically low 12.0-16.0 [facility] Comment on above: Performed By: #### C BC #### [facility] [address] [place] [address] Dr. Ana Maria Alexandre IG # 0.08 10e3/ul Critically high 0.00-0.03 [facility] Comment on above: Performed By: #### C BC #### [facility] [address] [place] [address] Dr. Ana Maria Alexandre IG % 0.6 % Critically high 0.0-0.5 [facility] Comment on above: Performed By: #### C BC #### [facility] [address] [place] [address] Dr. Ana Maria Alexandre LYMPH # 1.9 103/ul Normal 1.2-3.8 [facility] Comment on above: Performed By: #### C BC #### [facility] [address] [place] [address] Dr. Ana Maria Alexandre Lymphocytes/100 WBC (Bld) 15.5 % Critically low 20.5-60.0 [facility] Comment on above: Performed By: #### C BC #### [facility] [address] [place] [address] Dr. Ana Maria Alexandre MANUAL DIFF REQ NO Normal [facility] Comment on above: Performed By: #### C BC #### [facility] [address] [place] [address] Dr. Ana Maria Alexandre MCH (RBC) [Entitic mass] 27.5 pg Normal 26.7-34.0 [facility] Comment on above: Performed By: #### C BC #### [facility] [address] [place] [address] Dr. Ana Maria Alexandre MCHC (RBC) [Mass/Vol] 32.6 g/dL Normal 29.9-35.2 [facility] Comment on above: Performed By: #### C BC #### [facility] [address] [place] [address] Dr. Ana Maria Alexandre MCV (RBC) [Entitic vol] 84.4 fL Normal 81.0-99.0 [facility] Comment on above: Performed By: #### C BC #### [facility] [address] [place] [address] Dr. Ana Maria Alexandre MONO # 0.7 103/ul Normal 0.3-0.8 [facility] Comment on above: Performed By: #### C BC #### [facility] [address] [place] [address] Dr. Ana Maria Alexandre Monocytes/100 WBC (Bld) 5.2 % Normal 1.7-12.0 [facility] Comment on above: Performed By: #### C BC #### [facility] [address] [place] [address] Dr. Ana Maria Alexandre NEUT # 9.7 103/ul Critically high 1.4-6.5 [facility] Comment on above: Performed By: #### C BC #### [facility] [address] [place] [address] Dr. Ana Maria Alexandre Neutrophils/100 WBC (Bld) 77.8 % Critically high 43.0-75.0 [facility] Comment on above: Performed By: #### C BC #### [facility] [address] [place] [address] Dr. Ana Maria Alexandre Platelet mean volume (Bld) [Entitic vol] 11.5 fL Normal 9.5-13.5 [facility] Comment on above: Performed By: #### C BC #### [facility] [address] [place] [address] Dr. Ana Maria Alexandre PLT 202 103/ul Normal 150-450 [facility] Comment on above: Performed By: #### C BC #### [facility] [address] [place] [address] Dr. Ana Maria Alexandre RBC 3.60 106/ul Critically low 4.20-5.40 [facility] Comment on above: Performed By: #### C BC #### [facility] [address] [place] [address] Dr. Ana Maria Alexandre WBC 12.5 103/ul Critically high 4.0-11.0 [facility] Comment on above: Performed By: #### C BC #### [facility] [address] [place] [address] Dr. Ana Maria Alexandre Covid-19 PCR ([facility])on 03-02 SARS-CoV-2 (COVID-19) RNA RUTH ANN+probe Ql (Unsp spec) Not detected Normal NOT DETECTED [facility] Comment on above: Result Comment: When [...] for this test is supported by the [employer] of Health and Human Service's declaration that [...] used). Performed By: #### C VDTBH #### [facility] [address] [address] [address] Ana Maria Alexandre DRUG SCREEN RAPID (URINE)on 03-22-2022 AMP Negative Normal NEGATIVE [facility] Comment on above: Performed By: #### D RUGRPD #### [facility] [address] [address] [address] Ana Maria Alexandre BAR Negative Normal NEGATIVE [facility] Comment on above: Performed By: #### D RUGRPD #### [facility] [address] [address] [address] Ana Maria Alexandre BUP Negative Normal NEGATIVE [facility] Comment on above: Performed By: #### D RUGRPD #### [facility] [address] [place] [address] Dr. Ana Maria Alexandre BZO Negative Normal NEGATIVE [facility] Comment on above: Performed By: #### D RUGRPD #### [facility] [address] [place] [address] Dr. Ana Maria Alexandre BRIGHT Negative Normal NEGATIVE [facility] Comment on above: Performed By: #### D RUGRPD #### [facility] [address] [address] [address] Ana Maria Alexandre CUT-OFFS SEE BELOW Normal [facility] Comment on above: Result Comment: AMP [...] ng/mL Performed By: #### D RUGRPD #### [facility] [address] [place] [address] Dr. Ana Maria Alexandre DRUG CUT HEADER DRUG CLASS TEST SYSTEM CUT-OFF CONCENTRATIONS ARE FOLLOWS: Normal [facility] Comment on above: Performed By: #### D RUGRPD #### [facility] [address] [address] [address] Ana Maria Alexandre mAMP Negative Normal NEGATIVE [facility] Comment on above: Performed By: #### D RUGRPD #### [facility] [address] [address] [address] Ana Maria Alexandre MTD Negative Normal NEGATIVE [facility] Comment on above: Performed By: #### D RUGRPD #### [facility] [address] [place] [address] Dr. Ana Maria Alexandre OPI Negative Normal NEGATIVE [facility] Comment on above: Performed By: #### D RUGRPD #### [facility] [address] [place] [address] Dr. Ana Maria Alexandre OXY Negative Normal NEGATIVE [facility] Comment on above: Performed By: #### D RUGRPD #### [facility] [address] [place] [address] Dr. Ana Maria Alexandre PCP Negative Normal NEGATIVE [facility] Comment on above: Performed By: #### D RUGRPD #### [facility] [address] [address] [address] Ana Maria Alexandre PPX Negative Normal NEGATIVE [facility] Comment on above: Performed By: #### D RUGRPD #### [facility] [address] [place] [address] Dr. Ana Maria Alexandre TCA Negative Normal NEGATIVE [facility] Comment on above: Performed By: #### D RUGRPD #### [facility] [address] [place] [address] Dr. Ana Maria Alexandre THC Negative Normal NEGATIVE [facility] Comment on above: Performed By: #### D RUGRPD #### [facility] [address] [place] [address] Dr. Ana Maria Alexandre TYPE AND SCREENon 03-22-2022 TYPE AND SCREEN Negative Normal [facility] Comment on above: Performed By: #### T NS #### [facility] [address] [place] [address] Dr. Ana Maria Alexandre GROUP B STREP [...] F Tetracycline >=16 R F Normal [facility] Comment on above: Performed By: #### G BSCX #### [facility] [address] [place] [address] Dr. Ana Maria Alexandre VAGINITIS/VAGINOSIS DNA PROB Chad 03-14-2022 Elena species Negative Normal Negative [facility] Comment on above: Performed By: #### V AGINT #### [facility] [address] [place] [address] Dr. Ana Maria Alexandre Gardnerella vaginalis Negative Normal Negative [facility] Comment on above: Performed By: #### V AGINT #### [facility] [address] [place] [address] Dr. Ana Maria Alexandre Trichomonas vaginalis Negative Normal Negative [facility] Comment on above: Performed By: #### V AGINT #### [facility] [address] [place] [address] Dr. Ana Maria Alexandre US PREG GROWTHon [...] by: CHARITY FLORES Date: 2022-03-01 16:15 Normal [facility] US PREG GROWTHon 02-01-2022 US PREG [...] by: CHARITY FLORES Date: 2022-02-01 16:43 Normal [facility] US PREG REEVAL ABNon 022 US [...] weeks 6 days Electronically authenticated by: CHASITY NGUYNE Date: 2022-01-08 19:27 Normal [facility] Vital Signs Date Time Vital Sign Value Performing Clinician Margret hernandez 07-14-2024 13:19-0500 Body weight 58.12 kg Mike Raghu DO Work Phone: [facility] 07-14-2024 13:19-0500 Diastolic blood pressure 62 mm[Hg] Mike Raghu DO Work Phone: [facility] 07-14-2024 13:19-0500 Systolic blood pressure 116 mm[Hg] Mike Raghu DO Work Phone: [facility] 06-17-2024 10:01-0500 Body weight 55.79 kg Damari Tyler PA Work Phone: [facility] 06-17-2024 10:01-0500 Diastolic blood pressure 62 mm[Hg] Damari Memo PA Work Phone: [facility] 06-17-2024 10:01-0500 Systolic blood pressure 104 mm[Hg] Damari Memo PA Work Phone: [facility] 05-25-2024 09:51-0500 Body weight 54.43 kg Damari Newton PA Work Phone: [facility] 05-25-2024 09:51-0500 Diastolic blood pressure 58 mm[Hg] Damari Memo PA Work Phone: [facility] 05-25-2024 09:51-0500 Systolic blood pressure 104 mm[Hg] Damari Newton PA Work Phone: [facility] 05-11-2024 11:41-0500 Body weight 53.89 kg Mike Raghu DO Work Phone: [facility] 05-11-2024 11:41-0500 Diastolic blood pressure 60 mm[Hg] Mike Raghu DO Work Phone: [facility] 05-11-2024 11:41-0500 Systolic blood pressure 100 mm[Hg] Mike Raghu DO Work Phone: [facility] 04-13-2024 13:46-0400 Body weight 51.26 kg Damari GALAVIZ Work Phone: [facility] 04-13-2024 13:46-0400 Diastolic blood pressure 62 mm[Hg] Damari GALAVIZ Work Phone: [facility] 04-13-2024 13:46-0400 Systolic blood pressure 100 mm[Hg] Damari GALAVIZ Work Phone: [facility] 03-16-2024 11:38-0400 Body weight 50.8 kg Mike Raghu DO Work Phone: [facility] 03-16-2024 11:38-0400 Diastolic blood pressure 70 mm[Hg] Mike Raghu DO Work Phone: [facility] 03-16-2024 11:38-0400 Systolic blood pressure 120 mm[Hg] Mike Raghu DO Work Phone: [facility] Healthcare Encounters Encounter Date Encounter Type Care Provider Facility Start: 07-21-2024 End: 07-21-2024 Clinisync Result Encounter Mike Raghu DO Work Phone: [facility] External Department Unsolicited Start: 07-21-2024 End: 07-21-2024 Clinisync Result Encounter Mike Raghu DO Work Phone: [facility] External Department Unsolicited Start: 07-14-2024 End: 07-14-2024 Bamboo flowsheet Mike Raghu DO Work Phone: [facility] Start: 07-14-2024 End: 07-14-2024 Bamboo flowsheet Mike Raghu DO Work Phone: [facility] Start: 07-14-2024 End: 07-14-2024 Office outpatient visit 15 minutes Mike Raghu DO Work Phone: [facility] Comment on above: 35 weeks [...] Phone: [facility] Comment on above: Third trimester preg isabella; 31 weeks gestation of ; HSV infection; SGA (small for gestational age) Start: 05-25-2024 End: 05-25-2024 Bamboo flowsheet Damari GALAVIZ Work Phone: [facility] Start: 05-25-2024 End: 05-25-2024 Bamboo flowsheet Damari Tyler PA Work Phone: [facility] Start: 05-25-2024 [...] 04-16-2024 End: 04-16-2024 ambulatory Hesham Olsen MD Facility:[facility] Start: 04-13-2024 End: 04-13-2024 Bamboo flowsheet Damari [...] [facility] External Department Unsolicited Start: 03-16-2024 End: 03-16-2024 Patient encounter procedure Mike Raghu DO Work Phone: [facility] Start: 03-16-2024 End: 03-16-2024 Periodic preventive med est patient 18-39 yrs Mike Raghu DO Work Phone: [facility] Comment on above: 18 weeks gestation o f ; Screening, , for anatomic survey; Well woman exam with routine gynecological exam; Exposure to STD; Vaginal discharge Start: 03-16-2024 End: 03-16-2024 ambulatory MIKE RAGHU Not Available Start: 02-28-2024 End: 02-28-2024 Clinisync Result Encounter Mike Raghu DO Work Phone: [facility] External Department Unsolicited Start: 02-28-2024 End: 02-28-2024 Clinisync Result Encounter Mike Raghu DO Work Phone: [facility] External Department Unsolicited Start: 02-28-2024 End: 02-28-2024 ambulatory MIKE RAMACHANDRANZIO Not Available Start: 02-28-2024 End: 02-28-2024 Office outpatient visit 5 minutes [facility] Raghu Nurse [facility] Comment on above: GA: 15w4d Start: 02-18-2024 End: 02-18-2024 ambulatory [facility] Angie [facility] Start: 11-15-2023 End: 11-16-2023 ambulatory [facility] Start: 11-15-2023 Encounter for genera l adult medical examination without abnormal findings [facility] Start: 10-21-2023 End: 10-21-2023 ambulatory [facility] Start: 10-21-2023 Encounter for genera l adult medical examination without abnormal findings [facility] Start: 07-10-2023 End: 07-10-2023 ambulatory Evelin Matamoros MICROBIOLOGICAL ANALYST-[employer] Facility:[facility] Start: 04-02-2022 ambulatory [...] Date Procedure Procedure Detail Performing Clinician Start: 07-21-2024 ALL CBC WITH AUTO DIFF Mike Raghu DO Work Phone: Start: 07-14-2024 Urnls dip stick/tabl et rgnt [...] 02-28-2024 ALL CBC WITH AUTO DIFF Mike Krishnamurthy DO Work Phone: Start: 02-28-2024 End: 02-28-2024 [...] Routine [facility] [address] [place] [id number] Damari Tyler, PA [address] [place] [address] [facility] Start: 07-14-2024 End: 07-14-2024 Patient encounter procedure 07/14/2024 1:20 PM EST Routine [facility] [address] [place] [id number] Mike Krishnamurthy DO [address] [place] [address] Arrived [facility] Comment on above: Arrived Start: 07-08-2024 End: 07-08-2024 Patient encounter procedure 07/08/2024 2:00 PM EST Routine [facility] [address] [place] [id number] Mike Krishnamurthy DO [address] [place] [address] [facility] Start: 07-08-2024 End: 07-08-2024 Professional / ancillary services management 07/08/2024 1:30 PM EST Ancillary Procedure [facility] [address] [place] [id number] [facility] Start: 06-17-2024 End: 06-17-2025 US for US OB SCAN FOR GROWTH Imaging Routine SGA (small for gestational age) Expected: 06/17/2024 (Approximate), Expires: 06/17/2025 [facility] Comment on above: Expected: 06/17/2024 (Approximate), Expires: 06/17/2025 Start: 06-15-2024 End: 06-15-2024 Patient encounter procedure 06/15/2024 9:30 AM EST Routine [facility] [address] [place] [id number] Mike Krishnamurthy, DO [address] [place] [address] [facility] Start: 05-25-2024 End: 05-25-2024 Patient encounter procedure [facility] Comment on above: Arrived Start: 05-11-2024 End: 05-11-2024 Patient encounter procedure 05/11/2024 11:20 AM EST Routine [facility] [address] [place] [id number] Mike Krishnamurthy, DO [address] [place] [address] [facility] Start: 04-28-2024 End: 04-28-2024 Professional / ancillary services management 04/28/2024 8:00 AM EDT Ancillary Procedure [facility] [address] [place] [id number] [facility] Start: 04-13-2024 End: 04-13-2025 CBC panel - Blood by Automated count CBC Lab Routine Diabetes mellitus screening Expected: 04/13/2024 (Approximate), Expires: 04/13/2025 [facility] Work Phone: Comment on above: Expected: [...] EDT Ancillary Procedure [facility] [address] [facility] [address] [facility] Start: 03-16-2024 End: 04-15-2024 [...] Missed menses Expected: 02/28/2024 (Approximate), Expires: 02/27/2025 [facility] Work Phone: Comment on above: Expected: 02/28/2024 (Approximate), Expires: 02/27/2025 Start: 02-28-2024 End: 02-27-2025 US for US OB > 14 WEEKS Imaging Routine Missed menses Expected: 02/28/2024 (Approximate), Expires: 02/27/2025 [facility] Comment on above: Expected: 02/28/2024 (Approximate), Expires: 02/27/2025 Bacteria identified in Urine by Culture Urine culture Microbiology Routine Missed menses Ordered: 02/28/2024 [facility] Comment on above: Ordered: 02/28/2024 CBC W Auto Different ial panel - Blood CBC and differential Lab Routine SGA (small for gestational age) Ordered: 06/17/2024 [facility] Comment on above: Ordered: 06/17/2024 CBC W Auto Different ial panel - Blood CBC and differential Lab Routine Missed menses Ordered: 02/28/2024 [facility] Comment on above: Ordered: 02/28/2024 CHLAMYDIA TRACHOMATI S (GENITO/STI) CHLAMYDIA TRACHOMATIS (GENITO/STI) Lab Routine Exposure to STD Ordered: 03/16/2024 [facility] Comment on above: Ordered: 03/16/2024 Cytology Cervical or vaginal smear or scraping study Pap Smear Pathology and Cytology Routine Well woman exam with routine gynecological exam Ordered: 03/16/2024 [facility] Comment on above: Ordered: 03/16/2024 Hemoglobin A1c/Hemoglobin.total in Blood Hemoglobin A1c Lab Routine SGA (small for gestational age) Ordered: 06/17/2024 [facility] Work Phone: Comment on above: Ordered: 06/17/2024 Hemoglobin A1c/Hemoglobin.total in Blood Hemoglobin A1c Lab Routine Missed menses Ordered: 02/28/2024 [facility] Comment on above: Ordered: 02/28/2024 Hepatitis B virus surface Ag [Presence] in Serum or Plasma by Immunoassay Hepatitis B surface antigen Lab Routine Missed menses Ordered: 02/28/2024 [facility] Comment on above: Ordered: 02/28/2024 Hepatitis C virus Ab [Presence] in Serum or Plasma by Immunoassay Hepatitis C antibody Lab Routine Missed menses Ordered: 02/28/2024 [facility] Comment on above: Ordered: 02/28/2024 HIV-1/HIV-2 antigen/antibody combination immunoassay HIV-1 and HIV-2 antibodies Lab Routine Missed menses Ordered: 02/28/2024 [facility] Comment on above: Ordered: 02/28/2024 Neisseria gonorrhoea e DNA [Presence] in Unspecified specimen by RUTH ANN with probe detection Neisseria gonorrhea DNA probe, direct Lab Routine Exposure to STD Ordered: 03/16/2024 [facility] Comment on above: Ordered: 03/16/2024 Reagin Ab [Presence] in Serum by RPR RPR Lab Routine Missed menses Ordered: 02/28/2024 [facility] Comment on above: Ordered: 02/28/2024 Rubella antibody, IgG Rubella an tibody, IgG Lab Routine Missed menses Ordered: 02/28/2024 [facility] Comment on above: Ordered: 02/28/2024 SURESWAB(R) ADVANCED VAGINITIS PLUS, TMA SURESWAB(R) ADVANCED VAGINITIS PLUS, TMA Pathology and Cytology Routine Vaginal discharge Ordered: 03/16/2024 [facility] Work Phone: Comment on above: Ordered: 03/16/2024 Payers Date Payer Category Payer Medicaid (Managed Care) [facility] [id number] 2023 Unknown 2023 Private Health Insurance [id number] 2023 Private Health Insurance [id number] 2001 Unknown [id number] 2.16.840.1.220450.3.579.2. 593 2001 Unknown [id number] 2.16.840.1.020197.3.579.2. 593 2001 Unknown [id number] 2.16.840.1.085410.3.579.2. 593 2001 Unknown [id number] 2.16.840.1.493858.3.579.2. 593 2001 Unknown [id number] 2.16.840.1.488862.3.579.2. 593 2001 Unknown [id number] 2.16.840.1.720389.3.579.2. 593 2001 Unknown [id number] 2.16840.1.066745.3.579.2. 593 2001 Unknown [id number] 2.16.840.1.043679.3.579.2. 593 2001 Unknown [id number] 2.16.840.1.726585.3.579.2. 593 2001 Unknown [id number] 2.16.840.1.489629.3.579.2. 593 2001 Unknown [id number] 2.16.840.1.272803.3.579.2. 1286 2001 Unknown [id number] 2.16.840.1.253846.3.579.2. 1286 2001 Unknown [id number] 2.16.840.1.118453.3.579.2. 1286 2001 Unknown [id number] 2.16.840.1.271978.3.579.2. 196 2001 Unknown [id number] 2.16.840.1.558015.3.579.2. 1259 2001 Unknown [id number] 2.16.840.1.209727.3.579.2. 9 2001 Unknown [id number] 2.16.840.1.052335.3.579.2. 9 2001 Unknown [id number] 2.16.840.1.803329.3.579.2. 9 2001 Unknown [id number] 2.16.840.1.382471.3.579.2. 9 2001 Unknown [id number] 2.16.840.1.176502.3.579.2. 9 2001 Unknown [id number] 2.16.840.1.530179.3.579.2. 1259 1959 Self-pay 1959 Unknown [id number] 1959 Unknown [id number] Social History Date Type Detail Facility Tobacco smoking stat [facility] Tobacco smoking consumption unknown [facility] Start: 11-25-2023 [facility] Start: 2001 Sex assigned at Not on file [facility] Start: 04-13-2024 Gender identity Not on file [facility] Start: 04-13-2024 Tobacco smoking stat [facility] Never smoked tobacco [facility] End: 11-30-2023 History of tobacco use Cigarette Smoker [facility] History of tobacco use Passive smoker [facility] Start: 04-13-2024 End: 06-17-2024 Alcoholic beverage intake Ex-drinker (finding) [facility] Start: 04-13-2024 History of Social function [facility] Clinical Notes 07-10-2023 to 07-14-2024 Kaleigh Aguilar, QUEENIE - 07/14/2024 1:20 PM ANASTACIA Lawson - [...] appointment. MEDICATIONS Current Outpatient Medications Medication Instructions Rutprtji-Ytt-Fb-FA (, w/Iron & FA,) 27-0.8 MG tablet [...] nursing note reviewed. Exam conducted with a web master present. Vitals: There is no height or [...] Mike Krishnamurthy DO documented in this encounter [facility] 06-17-2024 History of Present illness Narrative Reason for Appointment: Patient ID: Angela Meeks is a 24 y.o. female who presents for Routine Visit Patient presents today for Return OB appointment. MEDICATIONS Current Outpatient Medications Medication Instructions Zyopbtne-Jdk-Nd-FA (, w/Iron & FA,) 27-0.8 MG tablet [...] of: ANASTACIA Barragan documented in this encounter [facility] 05-25-2024 History of Present illness Narrative Reason for Appointment: Patient ID: Angela Meeks is a 24 y.o. female who presents for Routine Visit Patient presents today for Return OB appointment. MEDICATIONS Current Outpatient Medications Medication Instructions Mwsrmmql-Cfn-Yq-FA (, w/Iron & FA,) 27-0.8 MG tablet [...] of: ANASTACIA Barragan documented in this encounter [facility] 05-11-2024 History of Present illness Narrative Reason for Appointment: Patient ID: Angela Meeks is a 24 y.o. female who presents for Routine Visit Patient presents today for Return OB appointment. MEDICATIONS Current Outpatient Medications Medication Instructions Iwrtqcny-Jot-Kx-FA (, w/Iron & FA,) 27-0.8 MG tablet [...] nursing note reviewed. Exam conducted with a web master present. Vitals: There is no height or [...] Discussed HSV treatment to be sent to [facility] in [place]. Patient voiced that she does have tingling in her fingers that radiates to elbow at night. Patient to return to clinic in 2 weeks for routine OB appointment. Documented by Radha Mobley LPN on behalf of: Mike Krishnamurthy DO documented in this encounter [facility] 04-13-2024 History of Present illness Narrative Reason for Appointment: Patient ID: Angela Meeks is a 24 y.o. female who presents for No chief complaint on file. Patient presents today for Return OB appointment. MEDICATIONS Current Outpatient Medications Medication Instructions Akjnjpvu-Gkt-Xt-FA (, w/Iron & FA,) 27-0.8 MG tablet [...] of: ANASTACIA Barragan documented in this encounter [facility] 03-16-2024 History of Present illness Narrative Reason for Appointment: Patient ID: Angela Meeks is a 24 y.o. female who presents for Routine Visit, Well Women Visit, and STI Screening Patient presents today for Annual Exam. and Return OB appointment. MEDICATIONS Current Outpatient Medications Medication Instructions Lfyodubo-Mxp-Ei-FA (, w/Iron & FA,) 27-0.8 MG tablet [...] nursing note reviewed. Exam conducted with a web master present. Vitals: There is no height or [...] obtained without difficulty and patient was given [facility] order to have obtained. Orders Placed [...] Mike Krishnamurthy DO documented in this encounter [facility] 02-28-2024 History of Present illness Narrative Reason [...] or undercooked meat, and stay away from [facility]. Patient has also been advised to not [...] Thais Engel LPN documented in this encounter [facility] 07-10-2023 Note Patient Education Ma grace Name: Angela Meeks Current Date: 07/10/2023 19:27:39 [...] and water are not available, use alcohol-based security supervisor to keep from spreading the infection to [...] color of the eyes or skin ? [id number] [employer]. [address] [place] [address], [place] [address]. All rights reserved. This information is not [...] ER for any worsening or emergent symptoms. [facility] Evaluation note Diagnosis Diabetes mellitus screening Screening [...] of complication SGA (small for gestational age) Cmzde-ujw-enkid without mention of malnutrition, unspecified (weight) documented [...] and content) DATE CREATED AUTHOR 04/03/2022 [facility] DATE CREATED AUTHOR AUTHOR'S ORGANIZ ATION 11/18/2023 [facility] DATE CREATED AUTHOR AUTHOR'S ORGANIZ ATION 02/20/2024 [facility] DATE CREATED AUTHOR AUTHOR'S ORGANIZ ATION 04/18/2024 [facility] DATE CREATED AUTHOR AUTHOR'S ORGANIZ ATION 07/17/2024 [facility] Special[facility] [employer] Care Teams (unrecognized sec tion and content) Hospice Care Consultant Relationship Specialty Start Date End Date Heri Arreola MD [address] [place] [address], [address] [place] [address] PCP - General Family Medicine 02/28/24 Hospice Care Consultant Relationship Specialty Start Date End Date Heri Arreola MD [address] [place] [address], [address] [place] [address] PCP - General Family Medicine 02/28/24 Hospice Care Consultant Relationship Specialty Start Date End Date Heri Arreola MD [address] [place] [address], [address] [place] [address] PCP - General Family Medicine 02/28/24 Hospice Care Consultant Relationship Specialty Start Date End Date Heri Arreola MD [address] [place] [address], [address] [place] [address] PCP - General Family Medicine 02/28/24 Hospice Care Consultant Relationship Specialty Start Date End Date Heri Arreola MD [address] [place] [address], [address] [place] [address] PCP - General Family Medicine 02/28/24 Hospice Care Consultant Relationship Specialty Start Date End Date Heri Arreola MD [address] [place] [address], [address] [place] [address] PCP - General Family Medicine 02/28/24 Hospice Care Consultant Relationship Specialty Start Date End Date Heri Arreola MD [address] [place] [address], [address] [place] [address] PCP - General Family Medicine 02/28/24 Hospice Care Consultant Relationship Specialty [place] [address] [place] [address], [address] [place] [address] PCP - [facility] Medicine 02/28/24 Hospice Care Consultant Relationship Specialty Start Date End Date Heri Arreola MD [address] [place] [address], [address] [place] [address] PCP - [facility] 02/28/24 Hospice Care Consultant Relationship Specialty Start Date End Date Heri Arreola MD [address] [place] [address], [address] [place] [address] PCP - [facility] 02/28/24 Hospice Care Consultant Relationship Specialty Start Date End Date Heri Arreola MD [address] [place] [address], [address] [place] [address] PCP - [facility] 02/28/24 Reason for Visit (unrecogniz ed section [...] BE BASED ON THE PRIMARY CLINICAL RECORDS. [facility]. provides no warranty or guarantee of the accuracy or completeness of information in this document.
[2024-07-24 20:10] VITALS: BP 124/67; PULSE 88; TEMP 36.7
[2024-07-24 20:11] VITALS: BP 124/67; PULSE 88
== END 2024-07-24 20:41 | disposition home or self-care (01) ==
LOC: US 00:37 → FBC 19:59
PROVIDERS: Visit Provider Obstetrics & Gynecology
DX: L29.9 Pruritus, unspecified (principal); O36.5930 Maternal care for other known or suspected poor fetal growth, third trimester, not applicable or unspecified; O69.81X0 Labor and delivery complicated by cord around neck, without compression, not applicable or unspecified; O69.2XX0 Labor and delivery complicated by other cord entanglement, with compression, not applicable or unspecified
CPT/HCPCS: 59025

== ENCOUNTER 2024-07-25 09:43 | Outpatient (OUT) | payer OTHER, SELFPAY ==
--- NOTE | 2024-07-25 09:45 | US_ITS ---
The [address] [address] Patient Name: ARGENIS PINA MRN: [id number] date: 2000 Sex: F Assigned Patient Location: US Current Patient Location: US Accession/Order Number: [id number] Exam Date: 07/25/2024 09:50 Report Date: 07/26/2024 00:03 At the request of: MIKE PILLAI Procedure: US OB BPP w non-stress EXAMINATION: US OB BPP w non-stress HISTORY:TRUE KNOT OF UMBILICAL CORD O69.2XX0 COMPARISON: Ultrasound OB biophysical 07/21/2024 TECHNIQUE: Ultrasound biophysical profile was performed in the radiology department. BREATHING MOVEMENTS: 2 GROSS BODY MOVEMENTS: 2 TONE: 2 QUALITATIVE AMNIOTIC FLUID VOLUME: 2 PRESENTATION: Cephalic HEART RATE: 147 bpm AMNIOTIC FLUID VOLUME: 15.6 cm; normal range. GESTATIONAL AGE: 36 weeks 5 days US/US OB BPP w non-stress IMPRESSION: 1. Total biophysical profile score: 8 2. Nuchal cord 3. Knot within umbilical cord is again seen. Electronically authenticated by: CHARITY FLORES Date: 07/26/2024 00:03
--- NOTE | 2024-07-25 09:45 | US_ITS ---
[place] [id number] Patient Name: ARGENIS PINA MRN: [id number] date: 2000 Sex: F Assigned Patient Location: US Current Patient Location: US Accession/Order Number: [id number] Exam Date: 07/25/2024 09:50 Report Date: 07/26/2024 00:05 At the request of: MIKE PILLAI Procedure: US OB umbilical artery EXAMINATION: US OB umbilical artery HISTORY: TRUE KNOT OF UMBILICAL CORD O69.2XX0 COMPARISON: Ultrasound OB umbilical artery 07/21/2024 TECHNIQUE: Duplex Doppler evaluation of the umbilical arteries. FINDINGS: HEART RATE: 147 bpm UMBILICAL ARTERIES: 2 GESTATIONAL AGE: 36 weeks 5 days WAVEFORM: Normal upstroke. No notching. Forward flow in diastole. PEAK SYSTOLIC VELOCITY: 96 cm/s END DIASTOLIC VELOCITY: 47 cm/s SYST/DIAST RATIO (S:D): 2.0 RESISTIVE INDEX: 0.5 US/US OB umbilical artery IMPRESSION: 1. Class 0 = Normal umbilical artery blood velocity 2. Umbilical knot and nuchal cord are again seen. Electronically authenticated by: CHARITY FLORES Date: 07/26/2024 00:05
--- OUTSIDE RECORDS SUMMARY | 2024-07-25 09:46 | XMS_ITS | CCD ---
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 Name Role Phone RAGHU, DR MCKEON Attending [...] DR CHASITY Barber Consulting Unavailable RAGHU, DR MCKOEN Admitting Unavailable RAGHU, DR MCKEON Consulting Unavailable [...] Care Provider Raúl ACEVEDO, Hesham Agosto Attending Siddhartha FENG, Evelin Ya Attending Unavailable MIKE KRISHNAMURTHY Attending Unavailable DAMARI TYLER Attending Unavailable MIKE KRISHNAMURTHY Attending Unavailable DAMARI TYLER Attending Unavailable DAMARI TYLER Attending Unavailable MIKE KRISHNAMURTHY Attending Unavailable Heri Arreloa MD Primary Care Provider Medications Current Medications Medication Drug Class(es) Dates Sig (Normalized) Sig (Original) acyclovir 200 mg oral capsule (1 source) Herpesvirus Nucleoside Analog DNA Polymerase Inhibitor, Herpes Simplex Virus Nucleoside Analog DNA Polymerase Inhibitor, Herpes Zoster Virus Nucleoside Analog DNA Polymerase Inhibitor Start: 01-02-2023 take 4 capsules by mouth at bedtime as needed acyclovir (ZOVIRAX) 200 mg capsule Indications: HSV-2 infection TAKE 4 CAPSULES BY MOUTH IN THE MORNING AND AT BEDTIME NEEDED FOR SYMPTOMS 270 capsule 5 01/02/2023 Active 18-czyy-kzvqct 9-dha 31 mg iron- 1 mg-200 mg capsule (1 source) Start: 01-30-2023 take 1 capsule by mouth in the morning 94-zeyq-fgaidz 9-dha 31 mg iron- 1 mg-200 mg capsule Indications: Attempting to conceive , Patient desires Take 1 capsule by mouth in the morning. 90 capsule 3 01/30/2023 Active Zecpfacs-Csb-Fz-FA (, w/Iron & FA,) 27-0.8 MG tablet (20 sources) Wxrthljx-Tuy-Fl-FA (, w/Iron & FA,) 27-0.8 MG tablet [...] applicable or unspecified; Translations: [MAT CARE LOG DECK TENDER MALFORM FETUS NA/UNS] Onset: 02-28-2022 Episodic Other [...] low weight; and growth retardation (2 sources) Cleuj-sga-khgzl baby; Translations: [ small for gestational age, unspecified weight] 06-17-2024 Episodic Unclassified (1 source) CONTACT W/AND (SUSP) EXPOS COVID-19; Translations: [CONTACT W/AND (SUSP) EXPOS COVID-19] Onset: 03-27-2022 Unclassified (1 source) new patient Onset: 10-21-2023 Unclassified (1 source) Annual Exam Onset: 10-21-2023 Viral infection (1 source) Anogenital herpesviral infection; Translations: [Anogenital herpesviral infection, unspecified] Onset: 01-30-2023 01-30-2023 Chronic Viral infection (5 sources) Herpesviral infection, unspecified; Translations: [Herpes simplex] Onset: 02-18-2024 05-11-2024 Episodic Past or Other Problems Problem Classification Problem Date Documented Da te Episodic/Chronic Mood disorders (1 source) Mood disorders Onset: 08-07-2021 08-07-2021 Other female genital disorders (1 source) History of pelvic inflammatory disease; Translations: [Personal history of other diseases of the female genital tract] Onset: 08-25-2021 08-25-2021 Episodic Other nutritional; endocrine; and metabolic disorders (2 sources) Underweight; Translations: [Underweight] Onset: 10-21-2023 Episodic Results Test Name Value Interpretation Reference Range Facility ALL CBC WITH AUTO DIFFon BASOPHILS ABSOLUTE AUTO 0 [facility] Basophils/100 WBC (Bld) 0.4 % 0.2 - 2.0 % [facility] Eosinophils/100 WBC (Bld) 0.7 % Low 0.9 - 7.0 % [facility] Erythrocyte distribution width (RBC) [Ratio] 11.9 % 11.0 - 15.0 % [facility] Hematocrit (Bld) [Volume fraction] 31.5 % Low 36.0 - 48.0 % [facility] Hemoglobin (Bld) [Mass/Vol] 10.6 g/dL Low 12.0 - 16.0 g/dL [facility] IMMATURE GRANULOCYTES ABS AUTO 0.[address] [facility] Immature granulocytes/100 WBC (Bld) 0.4 % 0.0 - 0.5 % [facility] Interpretation and review of laboratory results Abnormal [facility] LYMPHOCYTES ABSOLUTE AUTO 1.8 [facility] Lymphocytes/100 WBC (Bld) 19.4 % Low 20.5 - 60.0 % [facility] MCH (RBC) [Entitic mass] 30.9 pg 26.7 - 34.[address] [facility] MCHC (RBC) [Mass/Vol] 33.7 g/dL 29.9 - 35.2 g/dL [facility] MCV (RBC) [Entitic vol] 91.8 fL 81.0 - 99.[address] [facility] MONOCYTES ABSOLUTE AUTO 0.5 [facility] Monocytes/100 WBC (Bld) 5.7 % 1.7 - 12.0 % [facility] NEUTROPHILS ABSOLUTE AUTO 6.[address] [facility] Neutrophils/100 WBC (Bld) 73.4 % 43.0 - 75.0 % [facility] Platelet mean volume (Bld) [Entitic vol] 11.1 fL 9.5 - 13.[address] [facility] TB EO # 0.1 [facility] PLT 230 [facility] TB RBC 3.43 Low [facility] TB WBC 9.1 [facility] Urinalysis macro (dipstick) panel (U)on 07-14-2024 Bilirubin, UA Positive Negative - 4(70) +++ mg/dL [facility] Blood, UA Negative Negative - 50 Luis Alberto/mcL [facility] Healthcare Clarity, UA Clear [facility] Color, UA Beatrice [facility] Glucose, UA Negative Negative - 1999(110) ++++ mg/dL [facility] Interpretation and review of laboratory results Abnormal [facility] Ketones, UA Positive Negative - 160(16) ++++ mg/dL [facility] Leukocytes, UA Trace Negative - 500+++ Juan C/mcL [facility] Healthcare Nitrite, UA Negative Negative - Positive [facility] pH, UA 7.5 5 - 9 [facility] Protein, UA Positive Negative - 1999(20) ++++ mg/dL [facility] Spec Grav, UA 1.02 1 - 1.03 [facility] Urobilinogen, UA 2.0 0.2 - 12 mg/dL [facility]inalysis macro (dipstick) panel (U)on 06-17-2024 Bilirubin, UA Negative Negative - 4(70) +++ mg/dL [facility] Blood, UA Negative Negative - 50 Luis Alberto/mcL [facility] Clarity, UA Clear [facility] Color, UA Yellow [facility] Glucose, UA Negative Negative - 1999(110) ++++ mg/dL [facility] Interpretation and review of laboratory results Normal [facility] re Ketones, UA Negative Negative - 160(16) ++++ mg/dL [facility] Healthcare Leukocytes, UA Negative Negative - 500+++ Juan C/mcL [facility] Healthcare Nitrite, UA Negative Negative - Positive [facility] pH, UA 7 5 - 9 [facility] Protein, UA Negative Negative - 1999(20) ++++ mg/dL [facility] Spec Grav, UA 1.025 1 - 1.03 [facility] Urobilinogen, UA 0.2 0.2 - 12 mg/dL [facility] Urinalysis macro (dipstick) panel (U)on 05-25-2024 Bilirubin, UA Negative Negative - 4(70) +++ mg/dL [facility] Blood, UA Negative Negative - 50 Luis Alberto/mcL [facility] Clarity, UA Clear [facility] Color, UA Yellow [facility] Glucose, UA Negative Negative - 1999(110) ++++ mg/dL [facility] Interpretation and review of laboratory results Abnormal [facility] Ketones, UA Negative Negative - 160(16) ++++ mg/dL [facility] Leukocytes, UA Few Negative - 500+++ Juan C/mcL [facility] Healthcare Comment on above: small Nitrite, UA Negative Negative - Positive [facility] Healthcare pH, UA 7 5 - 9 [facility] Protein, UA Negative Negative - 1999(20) ++++ mg/dL [facility] Healthcare Spec Grav, UA 1.015 1 - 1.03 [facility] Health care Urobilinogen, UA 1.0 0.2 - 12 mg/dL [facility] Healthcare [facility] Health[facility] e Urinalysis macro (dipstick) panel (U)on 05-11-2024 Bilirubin, UA Negative Negative - 4(70) +++ mg/dL [facility] Healthcare Blood, UA Negative Negative - 50 Luis Alberto/mcL [facility] Healthcare Clarity, UA Clear [facility] Color, UA Yellow [facility] Glucose, UA Negative Negative - 1999(110) ++++ mg/dL [facility] Interpretation and review of laboratory results Normal [facility] Ketones, UA Negative Negative - 160(16) ++++ mg/dL [facility] Healthcare Leukocytes, UA Negative Negative - 500+++ Juan C/mcL [facility] Healthcare Nitrite, UA Negative Negative - Positive [facility] pH, UA 7 5 - 9 [facility] Healthcar e Protein, UA Negative Negative - 1999(20) ++++ mg/dL [facility] Healthcare Spec Grav, UA 1.015 1 - 1.03 [facility] Health care Urobilinogen, UA 1.0 0.2 - 12 mg/dL [facility] TB-QFTon 04-17-2024 Mitogen minus Nil 9.91 IU/mL Normal [facility] Comment on above: Performed By: #### C D:[id number] #### [address] [address] Nil Result 0.09 IU/mL [facility] Comment on above: Performed By: #### C D:[id number] #### [address] [address] QuantiFERON-TB Gold Plus Negative Normal Negative [facility] Comment on above: Result Comment: No [...] an Interferon-gamma level Performed By: #### C D:[id number] #### [place] [id number] TB1 Ag minus Nil <0.00 [facility] Comment on above: Performed By: #### C D:[id number] #### [address] [address] TB2 Ag minus Nil <0.00 [facility] Comment on above: Performed By: #### C D:[id number] #### [address] [address] OR Trackon 04-16-2024 QuantiFeron TB Drk Grn Li Hep # 1 [facility] Comment on above: Performed By: #### O iron Tracking Order #### [address] [address] Specimens Received From [facility] Comment on above: Performed By: #### O iron Tracking Order #### [address] [place] [address] Urinalysis macro (dipstick) panel (U)on 04-13-2024 Bilirubin, UA Negative Negative - 4(70) +++ mg/dL [facility] Blood, UA Negative Negative - 50 Luis Alberto/mcL [facility] Clarity, UA Clear [facility] re Color, UA Yellow [facility] Glucose, UA Negative Negative - 1999(110) ++++ mg/dL [facility] Interpretation and review of laboratory results Normal [facility] re Ketones, UA Negative Negative - 160(16) ++++ mg/dL [facility] Leukocytes, UA Negative Negative - 500+++ Juan C/mcL [facility] Nitrite, UA Negative Negative - Positive [facility] pH, UA 7 5 - 9 [facility] e Protein, UA Negative Negative - 1999(20) ++++ mg/dL [facility] Spec Grav, UA 1.025 1 - 1.03 [facility] Urobilinogen, UA 1.0 0.2 - 12 mg/dL [facility] IGP,APTIMA HPV,AGE GDLNon AGE GDLN ACOG TESTING Note . [facility] Comment on above: TESTS RESULT FLAG UN ITS REF RANGE LAB Clinician Provided Cytology Information Source.............Cervix Other.............. No. of containers..01 ThinPrep Vial Age Algo ACOG Nohemi... -30 07 FLAG LEGEND: L-Low Normal,H-High Normal,LL-Alert Low,HH-Alert High <-Panic Low,>-Panic High,A-Abnormal,AA-Critical Abnormal Performed at: 01 =[facility] [address] [facility] [place] [address] Lor Moy MD, IGP, RFX APTIMA HPV ASCU Note . [facility] Comment on above: TESTS RESULT FLAG UN ITS REF RANGE LAB DIAGNOSIS: 02 NEGATIVE FOR INTRAEPITHELIAL LESION OR MALIGNANCY. CELLULAR CHANGES ASSOCIATED WITH INFLAMMATION ARE PRESENT. Specimen adequacy: 02 Satisfactory for evaluation. Endocervical and/or squamous metaplastic cells (endocervical component) are present. Performed by: Agatha Burks, [employer] ([facility]) . 02 Note: Note 02 The [...] <-Panic Low,>-Panic High,A-Abnormal,AA-Critical Abnormal Performed at: [address] [address] Lor Moy MD, Performed at: = - [facility] [id number] Educational Guidance Counselor: Lor Moy MD, Phone: [phone] Performed at: [facility] [address] [id number] Educational Guidance Counselor: Lor Moy MD, Phone: [phone] SPATULA-ALONE CERVIX [facility] URETHRITIS/DISCHARGE PLUS VA GINITIS (HTRX)on 03-18-2024 ATOPOBIUM VAGINAE 0.000 [facility] ATOPOBIUM VAGINAE Not detected [facility] Healthcare BVAB 2,3 (BACTERIAL VAGINOSIS ASSOCIATED BACTERIA 2, 3); MOBILUNCUS SPP 0.000 [facility] BVAB 2,3 (BACTERIAL VAGINOSIS ASSOCIATED BACTERIA 2, 3); MOBILUNCUS SPP Not detected [facility] ELENA ALBICANS, PARAPSILOSIS, TROPICALIS 0.000 [facility] ELENA ALBICANS, PARAPSILOSIS, TROPICALIS Not detected [facility] ELENA GLABRATA 0.000 [facility] ELENA GLABRATA Not detected [facility] ELENA KRUSEI 0.000 [facility] ELENA KRUSEI Not detected [facility] CHLAMYDIA TRACHOMATIS 0.000 [facility] CHLAMYDIA TRACHOMATIS Not detected [facility] ERMB, C; MEFA 23.017 Abnormal [facility] ERMB, C; MEFA Detected Abnormal [facility] GARDNERELLA VAGINALIS 32.[address] [facility] GARDNERELLA VAGINALIS Detected Abnormal [facility] Healthcare Interpretation and review of laboratory results Abnormal [facility]ca re MEGASPHAERA (TYPES 1, 2) 0.000 [facility] Healthcare MEGASPHAERA (TYPES 1, 2) Not detected [facility] MYCOPLASMA GENITALIUM 0.000 [facility] MYCOPLASMA GENITALIUM Not detected [facility] NEISSERIA GONORRHOEAE 0.000 [facility] NEISSERIA GONORRHOEAE Not detected [facility] TET B, TET M 25.883 Abnormal [facility] Healthc are TET B, TET M Detected Abnormal [facility] are TRICHOMONAS VAGINALIS 0.000 [facility] TRICHOMONAS VAGINALIS Not detected [facility] e Urinalysis macro (dipstick) panel (U)on 03-16-2024 Bilirubin, UA Negative Negative - 4(70) +++ mg/dL [facility] Blood, UA Negative Negative - 50 Luis Alberto/mcL [facility] Clarity, UA Clear [facility] re Color, UA Yellow [facility] e Glucose, UA Negative Negative - 1999(110) ++++ mg/dL [facility] Interpretation and review of laboratory results Normal [facility] Ketones, UA Negative Negative - 160(16) ++++ mg/dL [facility] Leukocytes, UA Negative Negative - 500+++ Juan C/mcL [facility] Nitrite, UA Negative Negative - Positive [facility] pH, UA 7.0 5 - 9 [facility] Protein, UA Negative Negative - 1999(20) ++++ mg/dL [facility] Spec Grav, UA 1.015 1 - 1.03 [facility] Urobilinogen, UA 0.2 0.2 - 12 mg/dL [facility] ALL CBC WITH AUTO DIFFon BASOPHILS ABSOLUTE AUTO 0.1 [facility] Basophils/100 WBC (Bld) 0.6 % 0.2 - 2.0 % [facility] Eosinophils/100 WBC (Bld) 0.8 % Low 0.9 - 7.0 % [facility] Erythrocyte distribution width (RBC) [Ratio] 13.4 % 11.0 - 15.0 % [facility] Hematocrit (Bld) [Volume fraction] 32.0 % Low 36.0 - 48.0 % [facility] e Hemoglobin (Bld) [Mass/Vol] 11.3 g/dL Low 12.0 - 16.0 g/dL [facility] IMMATURE GRANULOCYTES ABS AUTO 0.[address] [facility] Immature granulocytes/100 WBC (Bld) 0.5 % 0.0 - 0.5 % [facility] Interpretation and review of laboratory results Abnormal [facility] LYMPHOCYTES ABSOLUTE AUTO 2.4 [facility] Lymphocytes/100 WBC (Bld) 27.7 % 20.5 - 60.0 % [facility] MCH (RBC) [Entitic mass] 32.3 pg 26.7 - 34.[address] [facility] MCHC (RBC) [Mass/Vol] 35.3 g/dL High 29.9 - 35.2 g/dL [facility] MCV (RBC) [Entitic vol] 91.4 fL 81.0 - 99.[address] [facility] MONOCYTES ABSOLUTE AUTO 0.4 [facility] Monocytes/100 WBC (Bld) 5.1 % 1.7 - 12.0 % [facility] NEUTROPHILS ABSOLUTE AUTO 5.6 [facility] Neutrophils/100 WBC (Bld) 65.3 % 43.0 - 75.0 % [facility] Platelet mean volume (Bld) [Entitic vol] 9.9 fL 9.5 - 13.[address] [facility] TBH EO # 0.1 [facility] TB PLT 208 [facility] e TB RBC 3.50 Low [facility] TB WBC 8.6 [facility] HCG ( test) Ql (U)o n 02-28-2024 Interpretation and review of laboratory results Abnormal [facility] re Preg Test, Ur Positive [facility] e Urinalysis macro (dipstick) panel (U)on 02-28-2024 Bilirubin, UA Negative Negative - 4(70) +++ mg/dL [facility] Blood, UA Negative Negative - 50 Luis Alberto/mcL [facility] Clarity, UA Clear [facility] re Color, UA Yellow [facility] Glucose, UA Negative Negative - 1999(110) ++++ mg/dL [facility] Interpretation and review of laboratory results Normal [facility] re Ketones, UA Negative Negative - 160(16) ++++ mg/dL [facility] Leukocytes, UA Negative Negative - 500+++ Juan C/mcL [facility] Nitrite, UA Negative Negative - Positive [facility] pH, UA 7.0 5 - 9 [facility] e Protein, UA Negative Negative - 1999(20) ++++ mg/dL [facility] Spec Grav, UA 1.020 1 - 1.03 [facility] Urobilinogen, UA 1.0 0.2 - 12 mg/dL [facility] CBC AND AUTO DIFFon 11-15-19 24 ABSOLUTE BASOPHIL 0.0 X10E9/L Normal 0.0-0.2 [facility] Comment on above: Performed By: #### C BCA, CMP, FEPR, THYR, 22137-5 #### [facility] ([id number]) [address], [address] [place] [address] ABSOLUTE NEUTROPHIL 2.5 X10E9/L Normal 1.5-6.6 [facility] Comment on above: Performed By: #### C BCA, CMP, FEPR, THYR, 02431-8 #### [facility] ([id number]) [address], [address] [place] [address] Basophils/100 WBC (Bld) 0.8 % Normal [facility] [place] Comment on above: Performed By: #### C BCA, CMP, FEPR, THYR, 15299-7 #### [facility] ([id number]) [address], [address] [place] [address] Eosinophils (Bld) [#/Vol] 0.1 10*3/uL Normal 0.0-0.4 [facility] Comment on above: Performed By: #### C BCA, CMP, FEPR, THYR, 22571-9 #### [facility] ([id number]) [address], [address] [place] [address] Eosinophils/100 WBC (Bld) 1.4 % Normal [facility] Comment on above: Performed By: #### C BCA, CMP, FEPR, THYR, 19649-3 #### [facility] ([id number]) [address], [address] [place] [address] Erythrocyte distribution width (RBC) [Ratio] 12.9 % Normal 11.5-15.0 [facility] Comment on above: Performed By: #### C BCA, CMP, FEPR, THYR, 61939-4 #### [facility] ([id number]) [address], [address] [place] [address] Hematocrit (Bld) [Volume fraction] 35.4 % Normal 35-47 [facility] [place] Comment on above: Performed By: #### C BCA, CMP, FEPR, THYR, 49230-8 #### [facility] ([id number]) [address], [address] [place] [address] Hemoglobin (Bld) [Mass/Vol] 12.2 g/dL Normal 11.7-15.5 [facility] Comment on above: Performed By: #### C BCA, CMP, FEPR, THYR, 21143-2 #### [facility] ([id number]) [address] [address] [place] [address] Lymphocytes (Bld) [#/Vol] 2.1 10*3/uL Normal 1.0-3.5 [facility] Comment on above: Performed By: #### C BCA, CMP, FEPR, THYR, 64254-1 #### [facility] ([id number]) [address], [address] [place] [address] Lymphocytes/100 WBC (Bld) 41.5 % Normal [facility] Comment on above: Performed By: #### C BCA, CMP, FEPR, THYR, 44387-2 #### [facility] ([id number]) [address] [address] [place] [address] MCH (RBC) [Entitic mass] 31.2 pg Normal 27-34 [facility] [place] Comment on above: Performed By: #### C BCA, CMP, FEPR, THYR, 32008-0 #### [facility] ([id number]) [address] [address] [place] [address] MCHC (RBC) [Mass/Vol] 34.5 g/dL Normal 32-36 [facility] [place] Comment on above: Performed By: #### C BCA, CMP, FEPR, THYR, 75671-4 #### [facility] ([id number]) [address], [address] [place] [address] MCV (RBC) [Entitic vol] 90 fL Normal 80-100 [facility] [place] Comment on above: Performed By: #### C BCA, CMP, FEPR, THYR, 43595-4 #### [facility] ([id number]) [address], [facility] [address] [place] [address] Monocytes (Bld) [#/Vol] 0.4 10*3/uL Normal 0-0.9 [facility] Comment on above: Performed By: #### C BCA, CMP, FEPR, THYR, 80952-3 #### [facility] ([id number]) [address], [facility] [address] [place] [address] Monocytes/100 WBC (Bld) 7.0 % Normal [facility] [place] Comment on above: Performed By: #### C BCA, CMP, FEPR, THYR, 85925-0 #### [facility] ([id number]) [address] [address] [place] [address] Neutrophils/100 WBC (Bld) 49.3 % Normal [facility] [place] Comment on above: Performed By: #### C BCA, CMP, FEPR, THYR, 88773-8 #### [facility] ([id number]) [address], [facility] [address] [place] [address] Platelet mean volume (Bld) [Entitic vol] 8.7 fL Normal 7-12 [facility] [place] Comment on above: Performed By: #### C BCA, CMP, FEPR, THYR, 37741-6 #### [facility] ([id number]) [address] [address] [place] [address] Platelets (Bld) [#/Vol] 232 10*3/uL Normal 150-450 [facility] Comment on above: Performed By: #### C BCA, CMP, FEPR, THYR, 33327-9 #### [facility] ([id number]) [address], [address] [place] [address] RBC COUNT 3.92 X10E12/L Normal 3.80-5.20 [facility] [place] Comment on above: Performed By: #### C BCA, CMP, FEPR, THYR, 27867-1 #### [facility] ([id number]) [address], [facility] [address] [place] [address] WBC (Bld) [#/Vol] 5.0 10*3/uL Normal 4.0-11.0 [facility] Comment on above: Performed By: #### C BCA, CMP, FEPR, THYR, 58396-1 #### [facility] ([id number]) [address], [address] [place] [address] COMPREHENSIVE METABOLIC PANE Wang 11-15-2023 Albumin [Mass/Vol] 4.4 g/dL Normal 3.2-5.3 [facility] Comment on above: Performed By: #### C BCA, CMP, FEPR, THYR, 88432-8 #### [facility] ([id number]) [address] [place] [address] ALP [Catalytic activity/Vol] 37 U/L Low 39-130 [facility] Comment on above: Performed By: #### C BCA, CMP, FEPR, THYR, 35108-5 #### [facility] ([id number]) [address], [address] [place] [address] ALT [Catalytic activity/Vol] 11 U/L Normal 0-31 [facility] Comment on above: Performed By: #### C BCA, CMP, FEPR, THYR, 07590-6 #### [facility] ([id number]) [address], [address] [place] [address] Anion gap [Moles/Vol] 9 mmol/L Normal 5-15 [facility] Comment on above: Performed By: #### C BCA, CMP, FEPR, THYR, 12038-8 #### [facility] ([id number]) [address], [address] [place] [address] AST [Catalytic activity/Vol] 15 U/L Normal 0-41 [facility] Comment on above: Performed By: #### C BCA, CMP, FEPR, THYR, 17439-2 #### [facility] ([id number]) [address], [address] [place] [address] Bilirubin [Mass/Vol] 1.4 mg/dL High 0.3-1.2 [facility] Comment on above: Performed By: #### C BCA, CMP, FEPR, THYR, 06969-4 #### [facility] ([id number]) [address] [place] [address] Calcium [Mass/Vol] 9.1 mg/dL Normal 8.5-10.5 [facility] Comment on above: Performed By: #### C BCA, CMP, FEPR, THYR, 12285-8 #### [facility] ([id number]) [address], [address] [place] [address] Chloride [Moles/Vol] 104 mmol/L Normal 98-109 [facility] Comment on above: Performed By: #### C BCA, CMP, FEPR, THYR, 86778-1 #### [facility] ([id number]) [address], [address] [place] [address] CO2 [Moles/Vol] 25 mmol/L Normal 22-32 [facility] Comment on above: Performed By: #### C BCA, CMP, FEPR, THYR, 26039-7 #### [facility] ([id number]) [address], [address] [place] [address] Creatinine [Mass/Vol] 0.74 mg/dL Normal 0.40-1.00 [facility] Comment on above: Result Comment: METH OD TRACEABLE TO IDMS STANDARD Performed By: #### C BCA, CMP, FEPR, THYR, 72423-2 #### [facility] ([id number]) [address] [address] [place] [address] eGFR (CKD-EPI) NON-RACE DEPENDENT >90 Normal >59 [facility] Comment on above: Result Comment: Reported eGFR is based on the CKD-EPI 2020 equation that does not use a race coefficient. Performed By: #### C BCA, CMP, FEPR, THYR, 36311-2 #### [facility] ([id number]) [address] [address] [place] [address] Glucose [Mass/Vol] 100 mg/dL High 65-99 [facility] Comment on above: Performed By: #### C BCA, CMP, FEPR, THYR, 06810-0 #### [facility] ([id number]) [address] [address] [place] [address] Potassium [Moles/Vol] 3.7 mmol/L Normal 3.5-5.0 [facility] Comment on above: Performed By: #### C BCA, CMP, FEPR, THYR, 79467-9 #### [facility] ([id number]) [address] [address] [place] [address] Protein [Mass/Vol] 6.9 g/dL Normal 6.0-8.0 [facility] Comment on above: Performed By: #### C BCA, CMP, FEPR, THYR, 89991-9 #### [facility] ([id number]) [address] [address] [place] [address] Sodium [Moles/Vol] 138 mmol/L Normal 134-146 [facility] Comment on above: Performed By: #### C BCA, CMP, FEPR, THYR, 50400-1 #### [facility] ([id number]) [address] [address] [place] [address] Urea nitrogen [Mass/Vol] 12 mg/dL Normal 5-23 [facility] Comment on above: Performed By: #### C BCA, CMP, FEPR, THYR, 95571-6 #### [facility] ([id number]) [address] [place] [address] IRON PROFILEon 11-15-2023 Iron [Mass/Vol] 81 ug/dL Normal 50-170 [facility] Comment on above: Performed By: #### C BCA, CMP, FEPR, THYR, 30094-6 #### [facility] ([id number]) [address], [address] [place] [address] IRON BINDING 309 ug/dL Normal 250-425 [facility] Comment on above: Performed By: #### C BCA, CMP, FEPR, THYR, 02560-5 #### [facility] ([id number]) [address] [place] [address] IRON SATURATION 26 % SATURATION Normal 15-50 [facility] Comment on above: Performed By: #### C BCA, CMP, FEPR, THYR, 11915-4 #### [facility] ([id number]) [address] [place] [address] THYROID PROFILEon 11-15-2023 Free T4 [Mass/Vol] 1.01 ng/dL Normal 0.61-1.60 [facility] Comment on above: Performed By: #### C BCA, CMP, FEPR, THYR, 25287-4 #### [facility] ([id number]) [address] [place] [address] TSH 1.81 uIU/mL Normal 0.49-4.67 [facility] Comment on above: Performed By: #### C BCA, CMP, FEPR, THYR, 94881-3 #### [facility] ([id number]) [address] [place] [address] Vitamin D+Metabolites [Mass/ Vol]on 11-15-2023 VITAMIN D 25 HYD TOT 18.7 ng/mL Low 30-100 [facility] Comment on above: Result Comment: Vitamin D status 25 [place] Vitamin D Deficiency <20 ng/mL Insufficiency 20-29 ng/mL Sufficiency 30-100 ng/mL Toxicity >100 ng/mL NOTE: A pediatric reference range has not been established by the echocardiograph tech of this kit. The [place] [employer] recommends a Vitamin D level of = or >20ng/mL in infants and children. Performed By: #### C BCA, CMP, FEPR, THYR, 24087-7 #### [facility] ([id number]) [address] [facility], [address] [place] [address] Urgent Care Office/Clinic No zackary 07-10-2023 Urgent [...] declines COVID testing in office today. No hypv-aul-[id number] medications for symptom management. Significant other is [...] Negative 07/10/2023 19:06 EST Electronically signed by Shiloh FENG Evelin Holloawybeth 07/10/23 19:47 EST Normal [facility] CBC AUTO DIFFon 03-23-2022 BASO # 0.0 103/ul Normal 0.0-0.1 [facility] Comment on above: Performed By: #### C BC #### Laboratory [address] [place] [address] Dr. Ana Maria Alexandre Basophils/100 WBC (Bld) 0.2 % Normal 0.2-2.0 [facility] Comment on above: Performed By: #### C BC #### Laboratory [address] [place] [address] Dr. Ana Maria Alexandre EO # 0.0 103/ul Normal 0.0-0.7 The Comment on above: Performed By: #### C BC #### Laboratory [address] [place] [address] Dr. Ana Maria Alexandre Eosinophils/100 WBC (Bld) 0.3 % Critically low 0.9-7.0 The Comment on above: Performed By: #### C BC #### Laboratory [address] [place] [address] Dr. Ana Maria Alexandre Erythrocyte distribution width (RBC) [Ratio] 12.9 % Normal 11.0-15.0 [facility] Comment on above: Performed By: #### C BC #### Laboratory [address] [place] [address] Dr. Ana Maria Alexandre Hematocrit (Bld) [Volume fraction] 25.6 % Critically low 36.0-48.0 [facility] Comment on above: Performed By: #### C BC #### Laboratory [address] [place] [address] Dr. Ana Maria Alexandre Hemoglobin (Bld) [Mass/Vol] 8.5 g/dL Critically low 12.0-16.0 [facility] Comment on above: Performed By: #### C BC #### Laboratory [address] [place] [address] Dr. Ana Maria Alexandre IG # 0.05 10e3/ul Critically high 0.00-0.03 [facility] Comment on above: Performed By: #### C BC #### Laboratory [address] [place] [address] Dr. Ana Maria Alexandre IG % 0.4 % Normal 0.0-0.5 [facility] Comment on above: Performed By: #### C BC #### Laboratory [address] [place] [address] Dr. Ana Maria Alexandre LYMPH # 2.5 103/ul Normal 1.2-3.8 [facility] Comment on above: Performed By: #### C BC #### Laboratory [address] [place] [address] Dr. Ana Maria Alexandre Lymphocytes/100 WBC (Bld) 17.2 % Critically low 20.5-60.0 [facility] Comment on above: Performed By: #### C BC #### Laboratory [address] [place] [address] Dr. Ana Maria Alexandre MANUAL DIFF REQ NO Normal [facility] Comment on above: Performed By: #### C BC #### Laboratory [address] [place] [address] Dr. Ana Maria Alexandre MCH (RBC) [Entitic mass] 28.1 pg Normal 26.7-34.0 [facility] Comment on above: Performed By: #### C BC #### Laboratory [address] [place] [address] Dr. Ana Maria Alexandre MCHC (RBC) [Mass/Vol] 33.2 g/dL Normal 29.9-35.2 The Comment on above: Performed By: #### C BC #### Laboratory [address] [address] [address] Ana Maria Alexandre MCV (RBC) [Entitic vol] 84.5 fL Normal 81.0-99.0 The Comment on above: Performed By: #### C BC #### Laboratory [address] [address] [address] Ana Maria Alexandre MONO # 0.9 103/ul Critically high 0.3-0.8 [facility] Comment on above: Performed By: #### C BC #### Laboratory [address] [address] [address] Ana Maria Alexandre Monocytes/100 WBC (Bld) 6.0 % Normal 1.7-12.0 The Comment on above: Performed By: #### C BC #### Laboratory [address] [address] [address] Ana Maria Alexandre NEUT # 10.8 103/ul Critically high 1.4-6.5 [facility] Comment on above: Performed By: #### C BC #### Laboratory [address] [address] [address] Ana Maria Alexandre Neutrophils/100 WBC (Bld) 75.9 % Critically high 43.0-75.0 The Comment on above: Performed By: #### C BC #### Laboratory [address] [address] [address] Ana Maria Alexandre Platelet mean volume (Bld) [Entitic vol] 11.4 fL Normal 9.5-13.5 The Comment on above: Performed By: #### C BC #### Laboratory [address] [address] [address] Ana Maria Alexandre PLT 152 103/ul Normal 150-450 The Comment on above: Performed By: #### C BC #### Laboratory [address] [address] [address] Ana Maria Alexandre RBC 3.03 106/ul Critically low 4.20-5.40 [facility] Comment on above: Performed By: #### C BC #### Laboratory [address] [address] [address] Ana Maria Alexandre WBC 14.2 103/ul Critically high 4.0-11.0 [facility] Comment on above: Performed By: #### C BC #### Laboratory [address] [place] [address] Dr. Ana Maria Alexandre CBC AUTO DIFFon 03-22-2022 BASO # 0.0 103/ul Normal 0.0-0.1 The Comment on above: Performed By: #### C BC #### Laboratory [address] [place] [address] Dr. Ana Maria Alexandre Basophils/100 WBC (Bld) 0.3 % Normal 0.2-2.0 [facility] Comment on above: Performed By: #### C BC #### Laboratory [address] [place] [address] Dr. Ana Maria Alexandre EO # 0.1 103/ul Normal 0.0-0.7 [facility] Comment on above: Performed By: #### C BC #### Laboratory [address] [place] [address] Dr. Ana Maria Alexandre Eosinophils/100 WBC (Bld) 0.6 % Critically low 0.9-7.0 [facility] Comment on above: Performed By: #### C BC #### Laboratory [address] [place] [address] Dr. Ana Maria Alexandre Erythrocyte distribution width (RBC) [Ratio] 12.6 % Normal 11.0-15.0 The Comment on above: Performed By: #### C BC #### Laboratory [address] [place] [address] Dr. Ana Maria Alexandre Hematocrit (Bld) [Volume fraction] 30.4 % Critically low 36.0-48.0 [facility] Comment on above: Performed By: #### C BC #### Laboratory [address] [address] [address] Ana Maria Alexandre Hemoglobin (Bld) [Mass/Vol] 9.9 g/dL Critically low 12.0-16.0 [facility] Comment on above: Performed By: #### C BC #### Laboratory [address] [place] [address] Dr. Ana Maria Alexandre IG # 0.08 10e3/ul Critically high 0.00-0.03 [facility] Comment on above: Performed By: #### C BC #### Laboratory [address] [place] [address] Dr. Ana Maria Alexandre IG % 0.6 % Critically high 0.0-0.5 [facility] Comment on above: Performed By: #### C BC #### Laboratory [address] [place] [address] Dr. Ana Maria Alexandre LYMPH # 1.9 103/ul Normal 1.2-3.8 [facility] Comment on above: Performed By: #### C BC #### Laboratory [address] [place] [address] Dr. Ana Maria Alexandre Lymphocytes/100 WBC (Bld) 15.5 % Critically low 20.5-60.0 [facility] Comment on above: Performed By: #### C BC #### Laboratory [address] [place] [address] Dr. Ana Maria Alexandre MANUAL DIFF REQ NO Normal [facility] Comment on above: Performed By: #### C BC #### Laboratory [address] [place] [address] Dr. Ana Maria Alexandre MCH (RBC) [Entitic mass] 27.5 pg Normal 26.7-34.0 [facility] Comment on above: Performed By: #### C BC #### Laboratory [address] [place] [address] Dr. Ana Maria Alexandre MCHC (RBC) [Mass/Vol] 32.6 g/dL Normal 29.9-35.2 The Comment on above: Performed By: #### C BC #### Laboratory [address] [place] [address] Dr. Ana Maria Alexandre MCV (RBC) [Entitic vol] 84.4 fL Normal 81.0-99.0 [facility] Comment on above: Performed By: #### C BC #### Laboratory [address] [place] [address] Dr. Ana Maria Alexandre MONO # 0.7 103/ul Normal 0.3-0.8 [facility] Comment on above: Performed By: #### C BC #### Laboratory [address] [place] [address] Dr. Ana Maria Alexandre Monocytes/100 WBC (Bld) 5.2 % Normal 1.7-12.0 [facility] Comment on above: Performed By: #### C BC #### Laboratory [address] [place] [address] Dr. Ana Maria Alexandre NEUT # 9.7 103/ul Critically high 1.4-6.5 [facility] Comment on above: Performed By: #### C BC #### Laboratory [address] [place] [address] Dr. Ana Maria Alexandre Neutrophils/100 WBC (Bld) 77.8 % Critically high 43.0-75.0 [facility] Comment on above: Performed By: #### C BC #### Laboratory [address] [place] [address] Dr. Ana Maria Alexandre Platelet mean volume (Bld) [Entitic vol] 11.5 fL Normal 9.5-13.5 The Comment on above: Performed By: #### C BC #### Laboratory [address] [place] [address] Dr. Ana Maria Alexandre PLT 202 103/ul Normal 150-450 The Comment on above: Performed By: #### C BC #### Laboratory [address] [place] [address] Dr. Ana Maria Alexandre RBC 3.60 106/ul Critically low 4.20-5.40 [facility] Comment on above: Performed By: #### C BC #### Laboratory [address] [place] [address] Dr. Ana Maria Alexandre WBC 12.5 103/ul Critically high 4.0-11.0 [facility] Comment on above: Performed By: #### C BC #### Laboratory [address] [place] [address] Dr. Ana Maria Alexandre Covid-19 PCR ([facility])on 03-02 SARS-CoV-2 (COVID-19) RNA RUTH ANN+probe Ql (Unsp spec) Not detected Normal NOT DETECTED The Comment on above: Result Comment: When diagnostic [...] for this test is supported by the [place] [employer] and Human Service's declaration that [...] used). Performed By: #### C VDTBH #### Laboratory [address] [place] [address] Dr. Ana Maria Alexandre DRUG SCREEN RAPID (URINE)on 03-22-2022 AMP Negative Normal NEGATIVE [facility] Comment on above: Performed By: #### D RUGRPD #### Laboratory [address] [place] [address] Dr. Ana Maria Alexandre BAR Negative Normal NEGATIVE The Comment on above: Performed By: #### D RUGRPD #### Laboratory [address] [place] [address] Dr. Ana Maria Alexandre BUP Negative Normal NEGATIVE The Comment on above: Performed By: #### D RUGRPD #### Laboratory [address] [place] [address] Dr. Ana Maria Alexandre BZO Negative Normal NEGATIVE The Comment on above: Performed By: #### D RUGRPD #### Laboratory [address] [place] [address] Dr. Ana Maria Alexandre BRIGHT Negative Normal NEGATIVE [facility] Comment on above: Performed By: #### D RUGRPD #### Laboratory [address] [place] [address] Dr. Ana Maria Alexandre CUT-OFFS SEE BELOW Normal [facility] Comment on above: Result Comment: [...] ng/mL Performed By: #### D RUGRPD #### Laboratory [address] [place] [address] Dr. Ana Maria Alexandre DRUG CUT HEADER DRUG CLASS TEST SYSTEM CUT-OFF CONCENTRATIONS ARE FOLLOWS: Normal [facility] Comment on above: Performed By: #### D RUGRPD #### Laboratory [address] [place] [address] Dr. Ana Maria Alexandre mAMP Negative Normal NEGATIVE The Comment on above: Performed By: #### D RUGRPD #### Laboratory [address] [place] [address] Dr. Ana Maria Alexandre MTD Negative Normal NEGATIVE [facility] Comment on above: Performed By: #### D RUGRPD #### Laboratory [address] [place] [address] Dr. Ana Maria Alexandre OPI Negative Normal NEGATIVE [facility] Comment on above: Performed By: #### D RUGRPD #### Laboratory [address] [place] [address] Dr. Ana Maria Alexandre OXY Negative Normal NEGATIVE [facility] Comment on above: Performed By: #### D RUGRPD #### Laboratory [address] [place] [address] Dr. Ana Maria Alexandre PCP Negative Normal NEGATIVE [facility] Comment on above: Performed By: #### D RUGRPD #### Laboratory [address] [place] [address] Dr. Ana Maria Alexandre PPX Negative Normal NEGATIVE [facility] Comment on above: Performed By: #### D RUGRPD #### Laboratory [address] [place] [address] Dr. Ana Maria Alexandre TCA Negative Normal NEGATIVE [facility] Comment on above: Performed By: #### D RUGRPD #### Laboratory [address] [place] [address] Dr. Ana Maria Alexandre THC Negative Normal NEGATIVE [facility] Comment on above: Performed By: #### D RUGRPD #### Laboratory [address] [place] [address] Dr. Ana Maria Alexandre TYPE AND SCREENon 03-22-2022 TYPE AND SCREEN Negative Normal [facility] Comment on above: Performed By: #### T NS #### Laboratory [address] [place] [address] Dr. Ana Maria Alexandre GROUP B STREP CULTUREon 03-01 S. agalactiae Ag Ql (Unsp spec) Culture Observations: Called group B to Madeline Hrutado LPN on 03/15 @ 1502 Isolate 1 [...] F Tetracycline >=16 R F Normal The Comment on above: Performed By: #### G BSCX #### Laboratory [address] [address] [address] Ana Maria Alexandre VAGINITIS/VAGINOSIS DNA PROB Chad 03-14-2022 Elena species Negative Normal Negative [facility] Comment on above: Performed By: #### V AGINT #### Laboratory [address] [place] [address] Dr. Ana Maria Alexandre Gardnerella vaginalis Negative Normal Negative [facility] Comment on above: Performed By: #### V AGINT #### Laboratory [address] [address] [address] Ana Maria Alexandre Trichomonas vaginalis Negative Normal Negative The Comment on above: Performed By: #### V AGINT #### Laboratory [address] [place] [address] Dr. Ana Maria Alexandre US PREG GROWTHon [...] by: CHARITY FLORES Date: 2022-03-01 16:15 Normal The US PREG GROWTHon 02-01-2022 US PREG GROWTH [...] by: CHARITY FLORES Date: 2022-02-01 16:43 Normal [facility] US PREG REEVAL ABNon 022 US PREG [...] by: CHASITY NGUYEN Date: 2022-01-08 19:27 Normal [facility] Vital Signs Date Time Vital Sign Value Performing Clinician Margret kenneyy 07-14-2024 13:19-0500 Body weight 58.12 kg [employer] Work Phone: [facility] 07-14-2024 13:19-0500 Diastolic blood pressure 62 mm[Hg] Mike Raghu DO Work Phone: [facility] 07-14-2024 13:19-0500 Systolic blood pressure 116 mm[Hg] Mike Raghu DO Work Phone: [facility] 06-17-2024 10:01-0500 Body weight 55.79 kg Damari Dagmar PA Work Phone: [facility] 06-17-2024 10:01-0500 Diastolic blood pressure 62 mm[Hg] Damari Memo PA Work Phone: [facility] 06-17-2024 10:01-0500 Systolic blood pressure 104 mm[Hg] Damari Memo PA Work Phone: [facility] 05-25-2024 09:51-0500 Body weight 54.43 kg Damari Memo PA Work Phone: [facility] 05-25-2024 09:51-0500 Diastolic blood pressure 58 mm[Hg] Damari Memo PA Work Phone: [facility] 05-25-2024 09:51-0500 Systolic blood pressure 104 mm[Hg] Damari Memo PA Work Phone: [facility] 05-11-2024 11:41-0500 Body weight 53.89 kg Mike Raghu DO Work Phone: [facility] 05-11-2024 11:41-0500 Diastolic blood pressure 60 mm[Hg] Mike Raghu DO Work Phone: [facility] 05-11-2024 11:41-0500 Systolic blood pressure 100 mm[Hg] Mike Raghu DO Work Phone: [facility] 04-13-2024 13:46-0400 Body weight 51.26 kg Damari Memo PA Work Phone: [facility] 04-13-2024 13:46-0400 Diastolic blood pressure 62 mm[Hg] Damari Dagmar PA Work Phone: [facility] 04-13-2024 13:46-0400 Systolic blood pressure 100 mm[Hg] Damari Memo PA Work Phone: [facility] 03-16-2024 11:38-0400 Body weight 50.8 kg Mike Raghu DO Work Phone: [facility] 03-16-2024 11:38-0400 Diastolic blood pressure 70 mm[Hg] Mike Raghu DO Work Phone: [facility] 03-16-2024 11:38-0400 Systolic blood pressure 120 mm[Hg] Mike Raghu DO Work Phone: [facility] Encounters Encounter Date Encounter Type Care Provider Facility Start: 07-23-2024 End: 07-23-2024 Bamboo flowsheet Damari GALAVIZ Work Phone: [facility] Start: 07-23-2024 End: 07-23-2024 Bamboo flowsheet Damari GALAVIZ Work Phone: [facility] Start: 07-21-2024 End: 07-21-2024 Clinisync Result Encounter Mike Raghu DO Work Phone: [facility] External Department Unsolicited Start: 07-21-2024 End: 07-21-2024 Clinisync Result Encounter Mike Raghu DO Work Phone: [facility] External Department Unsolicited Start: 07-14-2024 End: 07-14-2024 Bamboo flowsheet Mike Raghu DO Work Phone: [facility] Start: 07-14-2024 End: 07-14-2024 Bamboo flowsheet Mike Raghu DO Work Phone: [facility] Start: 07-14-2024 End: 07-14-2024 Office outpatient visit 15 minutes Mike Raghu DO Work Phone: [facility] Comment on above: 35 weeks [...] Not Available Start: 04-16-2024 End: 04-16-2024 ambulatory eHsham Olsen MD Facility:[facility] Start: 04-13-2024 End: 04-13-2024 Bamboo flowsheet Damari GALAVIZ Work Phone: [facility] Start: 04-13-2024 End: 04-13-2024 Bamboo flowsheet Damari GALAVIZ Work Phone: [facility] Start: 04-13-2024 End: 04-13-2024 flow sheet Damari GALAVIZ Work Phone: [facility] Comment on above: Diabetes mellitus sc reening; Second trimester ; 22 weeks gestation of Start: 04-13-2024 End: 04-13-2024 ambulatory DAMARI TYLER Not Available Start: 03-16-2024 End: 03-16-2024 Bamboo flowsheet Mike Raghu DO Work Phone: [facility] Start: 03-16-2024 End: 03-20-2024 Bamboo flowsheet Mike Raghu DO Work Phone: [facility] Start: 03-16-2024 End: 03-20-2024 Clinisync Result Encounter Mike Raghu DO Work Phone: [facility] External Department Unsolicited Start: 03-16-2024 End: 03-18-2024 External Result Encounter Mike Raghu DO Work Phone: [facility] External Department Unsolicited Start: 03-16-2024 End: 03-16-2024 Patient encounter procedure Mike Raghu DO Work Phone: [facility] Start: 03-16-2024 End: 03-16-2024 Periodic preventive med est patient 18-39 yrs Mike Raghu DO Work Phone: [facility] Comment on above: 18 weeks [...] Unsolicited Start: 02-28-2024 End: 02-28-2024 ambulatory MIKE KRISHNAMURTHY Not Available Start: 02-28-2024 End: 02-28-2024 Office outpatient visit 5 minutes [facility] Raghu Nurse [facility] Comment on above: GA: 15w4d Start: 02-18-2024 End: 02-18-2024 ambulatory [facility] Start: 11-15-2023 End: 11-16-2023 ambulatory [facility] Start: 11-15-2023 Encounter for genera l adult medical examination without abnormal findings [facility] Start: 10-21-2023 End: 10-21-2023 ambulatory [facility] Start: 10-21-2023 Encounter for genera l adult medical examination without abnormal findings [facility] Start: 10-14-2023 End: 10-14-2023 Telephone encounter Ana Matson [facility] tilidya Comment on above: retention outreach Start: 07-10-2023 End: 07-10-2023 ambulatory 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 Facility:[facility] Start: 04-02-2022 ambulatory [...] Skin , External Approach DR MIKE KRISHNAMURTHY Start: 08-07-2021 Adult depression scr eening assessment Ana Matson CMA Plan of Treatment Date Care Activity Detail Author Start: 07-23-2024 End: 07-23-2024 Patient encounter procedure [facility] Comment on above: Arrived Start: 07-14-2024 End: 07-14-2024 Patient encounter procedure 07/14/2024 1:20 PM EST Routine [facility] [address] [place] [id number] Mike Krishnamurthy, DO [address] [place], [place] [id number] Arrived [facility] Comment on above: Arrived Start: 07-08-2024 End: 07-08-2024 Patient encounter procedure 07/08/2024 2:00 PM EST Routine [facility] [address] [place] [phone] Mike Krishnamurthy, DO [address] [place] [address] [facility] Start: 07-08-2024 End: 07-08-2024 Professional / ancillary services management 07/08/2024 1:30 PM EST Ancillary Procedure [facility] [address] [place] [id number] [facility] Start: 06-17-2024 End: 06-17-2025 US for US OB SCAN FOR GROWTH Imaging Routine SGA (small for gestational age) Expected: 06/17/2024 (Approximate), Expires: 06/17/2025 [facility] Comment on above: Expected: 06/17/2024 (Approximate), Expires: 06/17/2025 Start: 06-15-2024 End: 06-15-2024 Patient encounter procedure 06/15/2024 9:30 AM EST Routine [facility] [address] [place] [phone] Mike Krishnamurthy, DO [address] [place] [address] [facility] Start: 05-25-2024 End: 05-25-2024 Patient encounter procedure [facility] Comment on above: Arrived Start: 05-11-2024 End: 05-11-2024 Patient encounter procedure 05/11/2024 11:20 AM EST Routine [facility] [address] [place] [phone] Mike Krishnamurthy, DO [address], [place] [id number] [facility] Start: 04-28-2024 End: 04-28-2024 Professional / ancillary services management 04/28/2024 8:00 AM EDT Ancillary Procedure [facility] [address] [place] [phone] [facility] Start: 04-13-2024 End: 04-13-2025 CBC panel - Blood by Automated count CBC Lab Routine Diabetes mellitus screening Expected: 04/13/2024 (Approximate), Expires: 04/13/2025 [facility] Work Phone: Comment on above: Expected: 04/13/2024 (Approximate), Expires: 04/13/2025 Start: 04-13-2024 End: 04-13-2025 Measurement of glucose 1 hour after glucose challenge for glucose tolerance test Glucose tolerance, 1 hour Lab Routine Diabetes mellitus screening Expected: 04/13/2024 (Approximate), Expires: 04/13/2025 [facility] Comment on above: Expected: 04/13/2024 (Approximate), Expires: 04/13/2025 Start: 04-13-2024 End: 04-13-2024 Patient encounter procedure [facility] Comment on above: Arrived Start: 03-31-2024 End: 03-31-2024 Professional / ancillary services management 03/31/2024 1:00 PM EDT Ancillary Procedure [facility] [address] [place] [address] [facility] Start: 03-16-2024 End: 04-15-2024 Alpha fetoprotein, maternal Alpha fetoprotein, maternal Lab Routine 18 weeks gestation of Expected: 03/16/2024 (Approximate), Expires: 04/15/2024 [facility] Comment on above: Expected: 03/16/2024 (Approximate), Expires: 04/15/2024 Start: 03-16-2024 End: 03-16-2025 US for US OB ANATOMY SINGLE W US OB CERVICAL LENGTH Imaging Routine Screening, , for anatomic survey Expected: 03/16/2024 (Approximate), Expires: 03/16/2025 [facility] Comment on above: Expected: 03/16/2024 (Approximate), Expires: 03/16/2025 Start: 03-16-2024 End: 03-16-2024 Patient encounter procedure [facility] Comment on above: Arrived Start: 03-01-2024 Influenza vaccination Influenza Vacc ine [facility] Start: 02-28-2024 End: 02-27-2025 ABO/Rh ABO/Rh Lab Routine Missed menses Expected: 02/28/2024 (Approximate), Expires: 02/27/2025 [facility] Comment on above: Expected: 02/28/2024 (Approximate), Expires: 02/27/2025 Start: 02-28-2024 End: 02-27-2025 Blood type and Indirect antibody screen panel - Blood Type and screen Lab Routine Missed menses Expected: 02/28/2024 (Approximate), Expires: 02/27/2025 [facility] Work Phone: Comment on above: Expected: 02/28/2024 (Approximate), Expires: 02/27/2025 Start: 02-28-2024 End: 02-27-2025 US for US OB > 14 WEEKS Imaging Routine Missed menses Expected: 02/28/2024 (Approximate), Expires: 02/27/2025 [facility] Comment on above: Expected: 02/28/2024 (Approximate), Expires: 02/27/2025 Start: 01-31-2024 Adult BMI Screening Adult BMI Screen ing [facility] Start: 01-31-2024 Screening for Chlamy jose trachomatis Chlamydia Screening [facility] Start: 01-31-2024 Tobacco Screening Tobacco Screening [facility] Start: 04-16-2023 DTaP,Tdap and Td Vaccines (7 - Td or Tdap) DTaP,Tdap and Td Vaccines (7 - Td or Tdap) [facility] Start: 08-07-2022 Depression Screening Depression Scre ening [facility] Start: 2022 Screening for malign ant neoplasm of cervix Pap Smear [facility] Bacteria identified in Urine by Culture Urine culture Microbiology Routine Missed menses Ordered: 02/28/2024 [facility] Comment on above: Ordered: 02/28/2024 CBC W Auto Different ial panel - Blood CBC and differential Lab Routine SGA (small for gestational age) Ordered: 06/17/2024 [facility] Comment on above: Ordered: 06/17/2024 CBC W Auto Different ial panel - Blood CBC and differential Lab Routine Missed menses Ordered: 02/28/2024 [facility] Comment on above: Ordered: 02/28/2024 CHLAMYDIA TRACHOMATI S (GENITO/STI) CHLAMYDIA TRACHOMATIS (GENITO/STI) Lab Routine Exposure to STD Ordered: 03/16/2024 [facility] Comment on above: Ordered: 03/16/2024 Cytology Cervical or vaginal smear or scraping study Pap Smear Pathology and Cytology Routine Well woman exam with routine gynecological exam Ordered: 03/16/2024 [facility] Comment on above: Ordered: 03/16/2024 Hemoglobin A1c/Hemoglobin.total in Blood Hemoglobin A1c Lab Routine SGA (small for gestational age) Ordered: 06/17/2024 [facility] Work Phone: Comment on above: Ordered: 06/17/2024 Hemoglobin A1c/Hemoglobin.total in Blood Hemoglobin A1c Lab Routine Missed menses Ordered: 02/28/2024 [facility] Comment on above: Ordered: 02/28/2024 Hepatitis B virus surface Ag [Presence] in Serum or Plasma by Immunoassay Hepatitis B surface antigen Lab Routine Missed menses Ordered: 02/28/2024 [facility] Comment on above: Ordered: 02/28/2024 Hepatitis C virus Ab [Presence] in Serum or Plasma by Immunoassay Hepatitis C antibody Lab Routine Missed menses Ordered: 02/28/2024 [facility] Comment on above: Ordered: 02/28/2024 HIV-1/HIV-2 antigen/antibody combination immunoassay HIV-1 and HIV-2 antibodies Lab Routine Missed menses Ordered: 02/28/2024 [facility] Comment on above: Ordered: 02/28/2024 Neisseria gonorrhoea e DNA [Presence] in Unspecified specimen by RUTH ANN with probe detection Neisseria gonorrhea DNA probe, direct Lab Routine Exposure to STD Ordered: 03/16/2024 [facility] Comment on above: Ordered: 03/16/2024 Reagin Ab [Presence] in Serum by RPR RPR Lab Routine Missed menses Ordered: 02/28/2024 [facility] Comment on above: Ordered: 02/28/2024 Rubella antibody, IgG Rubella an tibody, IgG Lab Routine Missed menses Ordered: 02/28/2024 [facility] Comment on above: Ordered: 02/28/2024 SURESWAB(R) ADVANCED VAGINITIS PLUS, TMA SURESWAB(R) ADVANCED VAGINITIS PLUS, TMA Pathology and Cytology Routine Vaginal discharge Ordered: 03/16/2024 [facility] Work Phone: Comment on above: Ordered: 03/16/2024 Immunizations Immunization Date Immunization Notes Care Provider Margot samson 02-12-2017 hepatitis A vaccine, adult dosage Ana Matson [facility] 02-12-2017 Human Papillomavirus 9-valent vaccine Ana Matson [facility] 02-12-2017 meningococcal oligosaccharide (groups A, C, Y and W-135) diphtheria toxoid conjugate vaccine (MCV4O) Ana Matson [facility] 08-09-2016 Human Papillomavirus 9-valent vaccine Ana Matson [facility] 08-09-2016 varicella virus vaccine Ana dave [facility] 05-31-2016 hepatitis A vaccine, adult dosage Ana Matson [facility] 05-31-2016 Human Papillomavirus 9-valent vaccine Ana [facility] 04-16-2013 tetanus toxoid, redu jose alfredo diphtheria toxoid, and acellular pertussis vaccine, adsorbed Ana [facility] 06-15-2009 influenza virus vacc ine, unspecified formulation Ana [facility] 04-18-2009 influenza virus vacc ine, unspecified formulation Ana [facility] 11-23-2005 diphtheria, tetanus toxoids and acellular pertussis vaccine Ana [facility] 11-23-2005 poliovirus vaccine, inactivated Ana [facility] 11-03-2005 measles, mumps and rubella virus vaccine Ana [facility] 03-05-2002 diphtheria, tetanus toxoids and acellular pertussis vaccine Ana [facility] 03-05-2002 haemophilus influenz ae type b vaccine, conjugate unspecified formulation Ana [facility] 01-29-2002 hepatitis B vaccine, adult dosage Ana [facility] 01-29-2002 measles, mumps and rubella virus vaccine Ana [facility] 01-29-2002 varicella virus vaccine Ana [facility] 2001 diphtheria, tetanus toxoids and acellular pertussis vaccine Ana [facility] 2001 haemophilus influenz ae type b vaccine, conjugate unspecified formulation Ana [facility] 2001 pneumococcal conjuga te vaccine, 7 valent Ana [facility] 2001 poliovirus vaccine, inactivated Ana [facility] 2001 pneumococcal conjuga te vaccine, 7 valent Ana [facility] 2001 diphtheria, tetanus toxoids and acellular pertussis vaccine Ana [facility] 2001 haemophilus influenz ae type b vaccine, conjugate unspecified formulation Ana [facility] 2001 hepatitis B vaccine, adult dosage [facility] poliovirus vaccine, inactivated Ana [facility] 2001 diphtheria, tetanus toxoids and acellular pertussis vaccine Ana [facility] 2001 haemophilus influenz ae type b vaccine, conjugate unspecified formulation Ana [facility] 2001 hepatitis B vaccine, adult dosage Ana [facility] 2001 poliovirus vaccine, inactivated Ana [facility] Payers Date Payer Category Payer Medicaid (Managed Care) [employer] [id number] 2023 Unknown 2023 Private Health Insurance [id number] 2023 Private Health Insurance [id number] 2003 Medicaid [employer] [id number] 2003-Present [phone] [address] [place] [address] [id number] 2001 Unknown [id number] 2.16.840.1.814832.3.579.2. 593 2001 Unknown [id number] 2.16.840.1.054076.3.579.2. 593 2001 Unknown [id number] 2.16.840.1.847768.3.579.2. 593 2001 Unknown [id number] 2.16.840.1.010363.3.579.2. 593 2001 Unknown [id number] 2.16.840.1.028528.3.579.2. 593 2001 Unknown [id number] 2.16.840.1.943356.3.579.2. 593 2001 Unknown [id number] 2.16.840.1.497099.3.579.2. 593 2001 Unknown [id number] 2.16.840.1.055690.3.579.2. 593 2001 Unknown [id number] 2.16.840.1.090905.3.579.2. 593 2001 Unknown [id number] 2.16840.1.479359.3.579.2. 593 2001 Unknown [id number] 2.16840.1.685567.3.579.2. 1286 2001 Unknown [id number] 2.16840.1.122294.3.579.2. 128 2001 Unknown [id number] 2.16840.1.184286.3.579.2. 1286 2001 Unknown [id number] 2.16840.1.063136.3.579.2. 196 2001 Unknown [id number] 2.16.840.1.025927.3.579.2. 1259 2001 Unknown [id number] 2.16.840.1.208409.3.579.2. 1259 2001 Unknown [id number] 2.16.840.1.177358.3.579.2. 1259 2001 Unknown [id number] 2.16.840.1.404782.3.579.2. 1259 2001 Unknown [id number] 2.16.840.1.843982.3.579.2. 1259 2001 Unknown [id number] 2.16.840.1.488619.3.579.2. 1259 2001 Unknown [id number] 2.16.840.1.700338.3.579.2. 1259 1959 Self-pay 1959 Unknown [id number] 1959 Unknown [id number] Social History Date Type Detail Facility Tobacco smoking stat [facility] Tobacco smoking consumption unknown [facility] Start: 11-25-2023 [facility] Start: 2001 Sex assigned at Not on file [facility] Start: 08-11-2020 End: 04-13-2024 Gender identity Not on file [facility] Start: 04-13-2024 Tobacco smoking stat [facility] Never smoked tobacco [facility] End: 11-30-2023 History of tobacco use Cigarette Smoker [facility] History of tobacco use Passive smoker [facility] Start: 04-13-2024 End: 06-17-2024 Alcoholic beverage intake Ex-drinker (finding) [facility] Start: 08-11-2020 End: 04-13-2024 History of Social function [facility] Start: 08-13-2022 Tobacco smoking stat [facility] Ex-smoker [facility] End: 07-21-2020 History of tobacco use Current smoker [facility] Start: 08-13-2022 Tobacco use and exposure Smokeless tobacco non-user [facility] Start: 01-30-2023 Alcoholic beverage intake Lifetime non-drinker (finding) [facility] How hard is it for y ou to pay for the very basics like food, housing, medical care, and heating Patient declined [facility] Start: 07-30-2019 Alcohol Comment rare use [facility] Goals Date Patient Goal Desired Activity /State Personal health goal Comment on above: Formatting of this n ote might be different from the original. Evaluation of progress towards goal: Safe dc transition from hospital to home with family support. Clinical Notes 07-10-2023 to 07-14-2024 Kaleigh Aguilar LPN - 07/14/2024 1:20 PM ANASTACIA Lawson - 06/17/2024 9:40 AM ANASTACIA Lawson - 05/25/2024 9:40 AM Beba MobleyQUEENIE - 05/11/2024 11:20 AM ANASTACIA Lawson - 04/13/2024 1:30 PM EDT Note Date & Type Note Facility 07-14-2024 History of Presen t illness Narrative Reason for Appointment: Patient ID: Angela Meeks is a 24 y.o. female who presents for No chief complaint on file. Patient presents today for Return OB appointment. MEDICATIONS Current Outpatient Medications Medication Instructions Eqpjpjba-Cbz-Dn-FA (, w/Iron & FA,) 27-0.8 MG tablet [...] nursing note reviewed. Exam conducted with a shoe cobbler present. Vitals: There is no height or [...] Mike Krishnamurthy DO documented in this encounter [facility] 06-17-2024 History of Presen t illness Narrative Reason for Appointment: Patient ID: Angela Meeks is a 24 y.o. female who presents for Routine Visit Patient presents today for Return OB appointment. MEDICATIONS Current Outpatient Medications Medication Instructions Qatjnwzm-Emx-Sd-FA (, w/Iron & FA,) 27-0.8 MG tablet [...] of: ANASTACIA Barragan documented in this encounter [facility] 05-25-2024 History of Presen t illness Narrative Reason for Appointment: Patient ID: Angela Meeks is a 24 y.o. female who presents for Routine Visit Patient presents today for Return OB appointment. MEDICATIONS Current Outpatient Medications Medication Instructions Duiyjnyv-Qrq-Mm-FA (, w/Iron & FA,) 27-0.8 MG tablet [...] for routine OB appointment. Documented by ANASTACIA aBrragan on behalf of: ANASTACIA Barragan documented in this encounter [facility] 05-11-2024 History of Presen t illness Narrative Reason for Appointment: Patient ID: Angela Meeks is a 24 y.o. female who presents for Routine Visit Patient presents today for Return OB appointment. MEDICATIONS Current Outpatient Medications Medication Instructions Phvkribk-Wps-Ej-FA (, w/Iron & FA,) 27-0.8 MG tablet [...] nursing note reviewed. Exam conducted with a shoe cobbler present. Vitals: There is no height or [...] Discussed HSV treatment to be sent to [facility] in [place]. Patient voiced that she does have tingling in her fingers that radiates to elbow at night. Patient to return to clinic in 2 weeks for routine OB appointment. Documented by Radha Mobley LPN on behalf of: Mike Krishnamurthy DO documented in this encounter [facility] 04-13-2024 History of Presen t illness Narrative Reason for Appointment: Patient ID: Angela Meeks is a 24 y.o. female who presents for No chief complaint on file. Patient presents today for Return OB appointment. MEDICATIONS Current Outpatient Medications Medication Instructions Xjilzbas-Vrh-Lu-FA (, w/Iron & FA,) 27-0.8 MG tablet [...] of: ANASTACIA Barragan documented in this encounter [facility] 03-16-2024 History of Presen t illness Narrative Reason for Appointment: Patient ID: Angela Meeks is a 24 y.o. female who presents for Routine Visit, Well Women Visit, and STI Screening Patient presents today for Annual Exam. and Return OB appointment. MEDICATIONS Current Outpatient Medications Medication Instructions Ywqeludk-Veu-Pv-FA (, w/Iron & FA,) 27-0.8 MG tablet [...] nursing note reviewed. Exam conducted with a shoe cobbler present. Vitals: There is no height or [...] obtained without difficulty and [facility]. Orders Placed This [...] Mike Krishnamurthy DO documented in this encounter [facility] 02-28-2024 History of Presen t illness Narrative Reason [...] or undercooked meat, and stay away [facility]. Patient has also been advised to [...] Thais Engel LPN documented in this encounter [facility] 10-14-2023 Miscellaneous Notes EMPANELMENT OUTREACH Angela Meeks has been contacted in effort to establish and/or re-establish care as a new patient with [facility]: Yes Outreach Date: October 14, 2023 Outreach Reason: Empanelment Outreach Method: Telephone Outreach Attempt: First Attempt Outreach Outcome: Left Message New Patient Appointment: NA Attributed Provider: Dr. Chasity Miller Additional Comments: Patient previously saw Dr. Heri Arreola. Unable to reach patient. Letter sent regarding establishing care. documented in this encounter [facility] 10-14-2023 Telephone encounter Note EMPANELMENT OUTREACH Angela Meeks has been contacted in effort to establish and/or re-establish care as a new patient with [facility]: Yes Outreach Date: October 14, 2023 Outreach Reason: Empanelment Outreach Method: Telephone Outreach Attempt: First Attempt Outreach Outcome: Left Message New Patient Appointment: NA Attributed Provider: Dr. Chasity Miller Additional Comments: Patient previously saw Dr. Heri Arreola. Unable to reach patient. Letter sent regarding establishing care. [facility] 07-10-2023 Note Patient Education Ma terials Name: Angela Meeks Current Date: 07/10/2023 19:27:39 [place] : 2000 [facility]: [id number] The following sheet(s) are the Patient Education [...] and water are not available, use alcohol-based skin care therapist to keep from spreading the infection to [...] of the eyes or skin ? [employer]. [address] [place] [address]. All rights reserved. This information is not [...] ER for any worsening or emergent symptoms. [facility] Evaluation note Diagnosis Diabetes mellitus screening [...] of complication SGA (small for gestational age) Erhgx-lqw-wvhxa without mention of malnutrition, unspecified (weight) [facility] Diagnosis Missed menses [facility]* Diagnosis 35 weeks gestation of Third trimester state, incidental documented in this encounter [facility] HealthcareInstructionsNot on filedocumented in this encounterPro[facility] Purpose Family History No Family History Records FoundNo Family History Records FoundNo Family History Records FoundNo Family History Records FoundNo Family History Records Found Advance Directives Date Activated Date Inactivated Comments 10/19/2020 8:09 AM 10/21/2020 4:06 PM Additional Source Comments INFORMATION SOURCE (unrecogn ized section and content) DATE CREATED AUTHOR 04/03/2022 [facility] DATE CREATED AUTHOR AUTHOR'S ORGANIZ ATION 11/18/2023 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 Dealer Relationship Specialty Start Date End Date Heri Arreola MD [address] [place] [address], [address] [place] [address] PCP - General Family Medicine 02/28/24 Automobile Dealer Relationship Specialty Start Date End Date Heri Arreola MD [address] [place] [address], [address] [place] [address] PCP - General Family Medicine 02/28/24 Automobile Dealer Relationship Specialty Start Date End Date Heri Arreola MD [address] [place] [address], [address] [place] [address] PCP - General Family Medicine 02/28/24 Automobile Dealer Relationship Specialty Start Date End Date Heri Arreola MD [address] [place] [address], [address] [place] [address] PCP - General Family Medicine 02/28/24 Automobile Dealer Relationship Specialty Start Date End Date Heri Arreola MD [address] [place] [address], [address] [place] [address] PCP - General Family Medicine 02/28/24 Automobile Dealer Relationship Specialty Start Date End Date Heri Arreola MD [address] [place] [address], [address] [place] [address] PCP - General Family Medicine 02/28/24 Automobile Dealer Relationship Specialty Start Date End Date Heri Arreola MD [address] [place] [address], [address] [place] [address] PCP - General Family Medicine 02/28/24 Automobile Dealer Relationship Specialty Start Date End Date Heri Arreola MD [address] [place] [address], [address] [place] [address] PCP - General Family Medicine 02/28/24 Automobile Dealer Relationship Specialty Start Date End Date Heri Arreola MD [address] [place] [address], [address] [place] [address] PCP - General Family Medicine 02/28/24 [employer] Relationship Specialty Start Date End Date Heri Arreola MD [address] [place] [address], [address] [place], [place] [id number] PCP - General Family Medicine 02/28/24 [employer] Relationship Specialty Start Date End Date Heri Arreola MD [address] [place] [address], [address] [place] [id number] PCP - General Pediatrics 09/10/18 Reason for Visit (unrecogniz ed section and content) Reason Comments Routine Visit Reason Comments Routine Visit [facility] Women Visit STI Screening Reason Comments Amenorrhea Reason Onset Date Comments retention outreach 10/14/2023 FOR RECORDS PERTAINING TO PATIENTS WHO ARE [...] BE BASED ON THE PRIMARY CLINICAL RECORDS. [facility]. provides no warranty or guarantee of the accuracy or completeness of information in this document.
== END 2024-07-25 10:21 | disposition home or self-care (01) ==
LOC: US 09:44 → FBC 09:45
PROVIDERS: Visit Provider Obstetrics & Gynecology
DX: L29.9 Pruritus, unspecified (principal); O36.5930 Maternal care for other known or suspected poor fetal growth, third trimester, not applicable or unspecified; O69.81X0 Labor and delivery complicated by cord around neck, without compression, not applicable or unspecified; O69.2XX0 Labor and delivery complicated by other cord entanglement, with compression, not applicable or unspecified; Z3A.36 36 weeks gestation of pregnancy
CPT/HCPCS: 76818; 76820

== ENCOUNTER 2024-07-27 05:16 | Inpatient (IN) | payer OTHER, SELFPAY ==
[2024-07-27] VITALS (51 sets, daily range): BP systolic 100–134; BP diastolic 51–77; PULSE 52–96; TEMP 36.7–36.9
--- OUTSIDE RECORDS SUMMARY | 2024-07-27 05:19 | XMS_ITS | CCD ---
Author Organization [facility] Care Team Providers Care Diversional Therapist Name Role Phone RAGHU, DR MCKEON Attending Unavailable REQUEST, NONE LISTED Primary Care Unavaila ble RAGHU, DR MCKEON Admitting Unavailable RAGHU, DR MCKEON Attending Unavailable REQUEST, NONE LISTED Primary Care Unavaila ble RAGHU, DR MCKEON Consulting Unavailable RAGHU, DR MCKEON Admitting Unavailable BRYCE SANTAMARIA Consulting Unavailable RAGHU, DR MCKEON Procedure Practitioner Unavailab JORGE Alegria Consulting Unavailable RAGHU, DR MCKEON Attending Unavailable RAGHU, DR MCKEON Admitting Unavailable RAGHU, DR MCKEON Attending Unavailable REQUEST, DR NONE LISTED Primary Care Unavaila ble RAGHU, DR MCKEON Admitting Unavailable RAGHU, DR MCKEON Attending Unavailable REQUEST, DR DAVIDSON LISTED Primary Care Unavaila ble RAGHU, DR MCKEON Admitting Unavailable RAGHU, DR MCKEON Attending Unavailable REQUEST, DR NONE LISTED Primary Care Unavaila ble RAGHU, [...] Consulting Unavailable RAGHU, DR MCKEON Admitting Unavailable MARK, DR CHARITY Felix Consulting Unavailable HERI ARREOLA Referring Unavailable HERI ARREOLA Primary Care Unavailable HERI ARREOLA Attending Unavailable HERI ARREOLA Referring Unavailable HERI ARREOLA Primary Care Unavailable ANNALISE ROUSE Attending Unavailable HERI ARREOLA Referring Unavailable HERI ARREOLA Primary Care Unavailable Heri Arreola MD Primary Care Provider Raúl ACEVEDO, Hesham Agosto Attending Padma jocelyn Matamoros APRN-AUTOMOTIVE CENTER MANAGER, Evelin Ya Attending Unavailable Heri Arreola MD Primary Care Provider DAMARI TYLER Attending Unavailable MIKE KRISHNAMURTHY Attending [...] FOR SYMPTOMS 270 capsule 5 01/02/2023 Active 17-brwu-nwmmke 9-dha 31 mg iron- 1 mg-200 mg capsule (1 source) Start: 01-30-2023 take 1 capsule by mouth in the morning 75-piwh-sxpbwn 9-dha 31 mg iron- 1 mg-200 mg capsule Indications: Attempting to conceive , Patient desires Take 1 capsule by mouth in the morning. 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 NA/UNS] Onset: 02-28-2022 Episodic Other [...] low weight; and growth retardation (2 sources) Prmnj-ipn-puhox baby; Translations: [ small for gestational age, [...] AUTO DIFFon BASOPHILS ABSOLUTE AUTO 0 [facility] Basophils/100 WBC (Bld) 0.4 % 0.2 - 2.0 % [facility] Eosinophils/100 WBC (Bld) 0.7 % Low 0.9 - 7.0 % [facility] Erythrocyte distribution width (RBC) [Ratio] 11.9 % 11.0 - 15.0 % [facility] Hematocrit (Bld) [Volume fraction] 31.5 % Low 36.0 - 48.0 % [facility] ([facility] [Mass/Vol] 10.6 g/dL Low 12.0 - 16.0 g/dL [facility] IMMATURE GRANULOCYTES ABS AUTO 0.04 High [facility] Immature granulocytes/100 WBC (Bld) 0.4 % 0.0 - 0.5 % [facility] Interpretation and review of laboratory results Abnormal [facility] LYMPHOCYTES ABSOLUTE AUTO 1.8 [facility] Lymphocytes/100 WBC (Bld) 19.4 % Low 20.5 - 60.0 % [facility] MCH (RBC) [Entitic mass] 30.9 pg 26.7 - 34.0 pg [facility] MCHC (RBC) [Mass/Vol] 33.7 g/dL 29.9 - 35.2 g/dL [facility] MCV (RBC) [Entitic vol] 91.8 fL 81.0 - 99.0 fL [facility] MONOCYTES ABSOLUTE AUTO 0.5 [facility] Monocytes/100 WBC (Bld) 5.7 % 1.7 - 12.0 % [facility] NEUTROPHILS ABSOLUTE AUTO 6.7 High [facility] Neutrophils/100 WBC (Bld) 73.4 % 43.0 - 75.0 % [facility] Platelet mean volume (Bld) [Entitic vol] 11.1 fL 9.5 - 13.5 fL [facility] TBH EO # 0.1 [facility] PLT 230 [facility] RBC 3.43 Low [facility] WBC 9.1 [facility] e Urinalysis macro (dipstick) panel (U)on 07-14-2024 Bilirubin, UA Positive Negative - 4(70) +++ mg/dL [facility] Blood, UA Negative Negative - 50 Luis Alberto/mcL [facility] Healthcare Clarity, UA Clear [facility] re Color, UA Beatrice [facility] e Glucose, UA Negative Negative - 1999(110) ++++ mg/dL [facility] Interpretation and review of laboratory results Abnormal [facility] re Ketones, UA Positive Negative - 160(16) ++++ mg/dL [facility] Leukocytes, UA Trace Negative - 500+++ Juan C/mcL [facility] Nitrite, UA Negative Negative - Positive [facility] pH, UA 7.5 5 - 9 [facility] Health[facility] e Protein, UA Positive Negative - 1999(20) ++++ mg/dL [facility] Spec Grav, UA 1.02 1 - 1.03 [facility] Urobilinogen, UA 2.0 0.2 - 12 mg/dL [facility] e Urinalysis macro (dipstick) panel (U)on 06-17-2024 Bilirubin, UA Negative Negative - 4(70) +++ mg/dL [facility] Blood, UA Negative Negative - 50 Luis Alberto/mcL [facility] Healthcare Clarity, UA Clear [facility] re Color, UA Yellow [facility] Glucose, UA Negative Negative - 1999(110) ++++ mg/dL [facility] Interpretation and review of laboratory results Normal [facility] re Ketones, UA Negative Negative - 160(16) ++++ mg/dL [facility] Leukocytes, UA Negative Negative - 500+++ Juan C/mcL [facility] Healthcare Nitrite, UA Negative Negative - Positive [facility] pH, UA 7 5 - 9 [facility] Healthcar e Protein, UA Negative Negative - 1999(20) ++++ mg/dL [facility] Spec Grav, UA 1.025 1 - 1.03 [facility] Health care Urobilinogen, UA 0.2 0.2 - 12 mg/dL [facility] Urinalysis macro (dipstick) panel (U)on 05-25-2024 Bilirubin, UA Negative Negative - 4(70) +++ mg/dL [facility] Blood, UA Negative Negative - 50 Luis Alberto/mcL [facility] Healthcare Clarity, UA Clear [facility] Color, UA Yellow [facility] Glucose, UA Negative Negative - 1999(110) ++++ mg/dL [facility] Interpretation and review of laboratory results Abnormal [facility] Ketones, UA Negative Negative - 160(16) ++++ mg/dL [facility] Healthcare Leukocytes, UA Few Negative - 500+++ Juan C/mcL [facility] Comment on above: small Nitrite, UA Negative Negative - Positive [facility] pH, UA 7 5 - 9 [facility] Healthcar e Protein, UA Negative Negative - 1999(20) ++++ mg/dL [facility] Spec Grav, UA 1.015 1 - 1.03 [facility] Health care Urobilinogen, UA 1.0 0.2 - 12 mg/dL [facility] Urinalysis macro (dipstick) panel (U)on 05-11-2024 Bilirubin, UA Negative Negative - 4(70) +++ mg/dL [facility] Blood, UA Negative Negative - 50 Luis Alberto/mcL [facility] Healthcare Clarity, UA Clear [facility] Color, UA Yellow [facility] Healthcar e Glucose, UA Negative Negative - 1999(110) ++++ mg/dL [facility] Interpretation and review of laboratory results Normal [facility] re Ketones, UA Negative Negative - 160(16) ++++ mg/dL [facility] Leukocytes, UA Negative Negative - 500+++ Juan C/mcL [facility] Nitrite, UA Negative Negative - Positive [facility] pH, UA 7 5 - 9 [facility] Healthcar e Protein, UA Negative Negative - 1999(20) ++++ mg/dL [facility] Spec Grav, UA 1.015 1 - 1.03 [facility] Urobilinogen, UA 1.0 0.2 - 12 mg/dL [facility] TB-QFTon 04-17-2024 Mitogen minus Nil 9.91 IU/mL [facility] Comment on above: Performed By: #### C D:[id number] #### [place] [address] Nil Result 0.09 IU/mL [facility] Comment on above: Performed By: #### C D:[id number] #### [place] [address] QuantiFERON-TB Gold Plus Negative Normal Negative [facility] Comment on above: Result Comment: No i [...] an Interferon-gamma level Performed By: #### C D:[id number] #### [place] [address] TB1 Ag minus Nil <0.00 [facility] Comment on above: Performed By: #### C D:[id number] #### [place] [address] TB2 Ag minus Nil <0.00 [facility] Comment on above: Performed By: #### C D:[id number] #### [place] [address] OR Trackon 04-16-2024 QuantiFeron TB Drk Grn Li Hep # 1 [facility] Comment on above: Performed By: #### O shakir Tracking Order #### [place] [address] Specimens Received From [facility] Comment on above: Performed By: #### [facility] #### [facility] [address] [place] [address] Urinalysis macro (dipstick) panel (U)on 04-13-2024 Bilirubin, UA Negative Negative - 4(70) +++ mg/dL [facility] Blood, UA Negative Negative - 50 Luis Alberto/mcL [facility] Clarity, UA Clear [facility] Healthca re Color, UA Yellow [facility] Health[facility] e Glucose, UA Negative Negative - 1999(110) ++++ mg/dL [facility] Interpretation and review of laboratory results Normal [facility] re Ketones, UA Negative Negative - 160(16) ++++ mg/dL [facility] Leukocytes, UA Negative Negative - 500+++ Juan C/mcL [facility] Nitrite, UA Negative Negative - Positive [facility] pH, UA 7 5 - 9 [facility] e Protein, UA Negative Negative - 1999(20) ++++ mg/dL [facility] Spec Grav, UA 1.025 1 - 1.03 [facility] Urobilinogen, UA 1.0 0.2 - 12 mg/dL [facility] IGP,APTIMA HPV,AGE GDLNon AGE GDLN ACOG TESTING Note . [facility] Comment on above: TESTS RESULT FLAG UN ITS REF RANGE LAB Clinician Provided Cytology Information Source.............Cervix Other.............. No. of containers..01 ThinPrep Vial Age Algo ACOG Nohemi... -29 07 FLAG LEGEND: L-Low Normal,H-High Normal,LL-Alert Low,HH-Alert High <-Panic Low,>-Panic High,A-Abnormal,AA-Critical Abnormal Performed at: 01 =[address] [facility] [place] [address] Lor Moy MD, IGP, RFX APTIMA HPV ASCU Note . [facility] Comment on above: TESTS RESULT FLAG UN ITS REF RANGE LAB DIAGNOSIS: 02 NEGATIVE FOR INTRAEPITHELIAL LESION OR MALIGNANCY. CELLULAR CHANGES ASSOCIATED WITH INFLAMMATION ARE PRESENT. Specimen adequacy: 02 Satisfactory for evaluation. Endocervical and/or squamous metaplastic cells (endocervical component) are present. Performed by: Agatha Burks, [employer] [facility] . 02 Note: Note 02 The Pap [...] <-Panic Low,>-Panic High,A-Abnormal,AA-Critical Abnormal Performed at: [address] [address] Lor Moy MD, Performed at: = - [address] [id number] [employer]ish Blender: Lor Moy MD, Phone: [phone] Performed at: [facility] [address] [id number] Relish Blender: Lor Moy MD, Phone: [phone] SPATULA-ALONE CERVIX [facility] Health[facility] e URETHRITIS/DISCHARGE PLUS VA GINITIS (HTRX)on 03-18-2024 ATOPOBIUM VAGINAE 0.000 [facility] ATOPOBIUM VAGINAE Not detected [facility] BVAB 2,3 (BACTERIAL VAGINOSIS ASSOCIATED BACTERIA 2, 3); MOBILUNCUS SPP 0.000 [facility] BVAB 2,3 (BACTERIAL VAGINOSIS ASSOCIATED BACTERIA 2, 3); MOBILUNCUS SPP Not detected [facility] ELENA ALBICANS, PARAPSILOSIS, TROPICALIS 0.000 [facility] ELENA ALBICANS, PARAPSILOSIS, TROPICALIS Not detected [facility] ELENA GLABRATA 0.000 [facility] ELENA GLABRATA Not detected [facility] ELENA KRUSEI 0.000 [facility] E[facility]NA KRUSEI Not detected [facility] CHLAMYDIA TRACHOMATIS 0.000 [facility] CHLAMYDIA TRACHOMATIS Not detected [facility] ERMB, C; MEFA 23.017 Abnormal [facility] ERMB, C; MEFA Detected Abnormal [facility] GARDNERELLA VAGINALIS 32.321 Abnormal [facility] GARDNERELLA VAGINALIS Detected Abnormal [facility] Interpretation and review of laboratory results Abnormal [facility] Healthca re MEGASPHAERA (TYPES 1, 2) 0.000 [facility] Healthcare MEGASPHAERA (TYPES 1, 2) Not detected [facility] MYCOPLASMA GENITALIUM 0.000 [facility] MYCOPLASMA GENITALIUM Not detected [facility] NEISSERIA GONORRHOEAE 0.000 [facility] NEISSERIA GONORRHOEAE Not detected [facility] TET B, TET M 25.883 [facility]normal [facility] TET B, TET M Detected Abnormal [facility] are TRICHOMONAS VAGINALIS 0.000 [facility] TRICHOMONAS VAGINALIS Not detected [facility] e Urinalysis macro (dipstick) panel (U)on 03-16-2024 Bilirubin, UA Negative Negative - 4(70) +++ mg/dL [facility] Blood, UA Negative Negative - 50 Luis Alberto/mcL [facility] Clarity, UA Clear [facility] re Color, UA Yellow [facility] Glucose, UA Negative Negative - 1999(110) ++++ mg/dL [facility] Interpretation and review of laboratory results Normal [facility] re Ketones, UA Negative Negative - 160(16) ++++ mg/dL [facility] Leukocytes, UA Negative Negative - 500+++ Juan C/mcL [facility] Nitrite, UA Negative Negative - Positive [facility] pH, UA 7.0 5 - 9 [facility] Protein, UA Negative Negative - 1999(20) ++++ mg/dL [facility] Spec Grav, UA 1.015 1 - 1.03 [facility] Urobilinogen, UA 0.2 0.2 - 12 mg/dL [facility] Health[facility] e ALL CBC WITH AUTO DIFFon BASOPHILS ABSOLUTE AUTO 0.1 [facility] Basophils/100 WBC (Bld) 0.6 % 0.2 - 2.0 % [facility] Eosinophils/100 WBC (Bld) 0.8 % Low 0.9 - 7.0 % [facility] Erythrocyte distribution width (RBC) [Ratio] 13.4 % 11.0 - 15.0 % [facility] Hematocrit (Bld) [Volume fraction] 32.0 % Low 36.0 - 48.0 % [facility] e Hemoglobin (Bld) [Mass/Vol] 11.3 g/dL Low 12.0 - 16.0 g/dL [facility] IMMATURE GRANULOCYTES ABS AUTO 0.04 High [facility] Immature granulocytes/100 WBC (Bld) 0.5 % 0.0 - 0.5 % [facility] Interpretation and review of laboratory results Abnormal [facility] re LYMPHOCYTES ABSOLUTE AUTO 2.4 [facility] Lymphocytes/100 WBC (Bld) 27.7 % 20.5 - 60.0 % [facility] MCH (RBC) [Entitic mass] 32.3 pg 26.7 - 34.0 pg [facility] MCHC (RBC) [Mass/Vol] 35.3 g/dL High 29.9 - 35.2 g/dL [facility] MCV (RBC) [Entitic vol] 91.4 fL 81.0 - 99.0 fL [facility] MONOCYTES ABSOLUTE AUTO 0.4 [facility] Monocytes/100 WBC (Bld) 5.1 % 1.7 - 12.0 % [facility] NEUTROPHILS ABSOLUTE AUTO 5.6 [facility] Neutrophils/100 WBC (Bld) 65.3 % 43.0 - 75.0 % [facility] Platelet mean volume (Bld) [Entitic vol] 9.9 fL 9.5 - 13.5 fL [facility] TBH EO # 0.1 [facility] TB PLT 208 [facility] e TB RBC 3.50 Low [facility] TB WBC 8.6 [facility] HCG ( test) Ql (U)o n 02-28-2024 Interpretation and review of laboratory results Abnormal [facility] re Preg Test, Ur Positive [facility] e Urinalysis macro (dipstick) panel (U)on 02-28-2024 Bilirubin, UA Negative Negative - 4(70) +++ mg/dL [facility] Blood, UA Negative Negative - 50 Luis Alberto/mcL [facility] Clarity, UA Clear [facility] re Color, UA Yellow [facility] Glucose, UA Negative Negative - 1999(110) ++++ mg/dL [facility] Interpretation and review of laboratory results Normal [facility] re Ketones, UA Negative Negative - 160(16) ++++ mg/dL [facility] Leukocytes, UA Negative Negative - 500+++ Juan C/mcL [facility] Nitrite, UA Negative Negative - Positive [facility] pH, UA 7.0 5 - 9 [facility] e Protein, UA Negative Negative - 1999(20) ++++ mg/dL [facility] Spec Grav, UA 1.020 1 - 1.03 [facility] Urobilinogen, UA 1.0 0.2 - 12 mg/dL [facility] e CBC AND AUTO DIFFon 05-17-20 24 ABSOLUTE BASOPHIL 0.0 X10E9/L Normal 0.0-0.2 [facility] Comment on above: Performed By: #### C BCA, CMP, FEPR, THYR, 82376-6 #### [facility] ([id number]) [address], [address] [place] [address] ABSOLUTE NEUTROPHIL 2.5 X10E9/L Normal 1.5-6.6 [facility] Comment on above: Performed By: #### C BCA, CMP, FEPR, THYR, 59231-5 #### [facility] ([id number]) [address], [facility] [address] [place] [address] Basophils/100 WBC (Bld) 0.8 % Normal [facility] Comment on above: Performed By: #### C BCA, CMP, FEPR, THYR, 94180-4 #### [facility] ([id number]) [address], [address] [place] [address] Eosinophils (Bld) [#/Vol] 0.1 10*3/uL Normal 0.0-0.4 [facility] Comment on above: Performed By: #### C BCA, CMP, FEPR, THYR, 63193-3 #### [facility] ([id number]) [address] [address] [place] [address] Eosinophils/100 WBC (Bld) 1.4 % Normal [facility] Comment on above: Performed By: #### C BCA, CMP, FEPR, THYR, 31260-6 #### [facility] ([id number]) [address] [address] [place] [address] Erythrocyte distribution width (RBC) [Ratio] 12.9 % Normal 11.5-15.0 [facility] Comment on above: Performed By: #### C BCA, CMP, FEPR, THYR, 79309-7 #### [facility] ([id number]) [address] [address] [place] [address] Hematocrit (Bld) [Volume fraction] 35.4 % Normal 35-47 [facility] Comment on above: Performed By: #### C BCA, CMP, FEPR, THYR, 33248-0 #### [facility] ([id number]) [address] [address] [place] [address] Hemoglobin (Bld) [Mass/Vol] 12.2 g/dL Normal 11.7-15.5 [facility] Comment on above: Performed By: #### C BCA, CMP, FEPR, THYR, 95253-6 #### [facility] ([id number]) [address] [address] [place] [address] Lymphocytes (Bld) [#/Vol] 2.1 10*3/uL Normal 1.0-3.5 [facility] Comment on above: Performed By: #### C BCA, CMP, FEPR, THYR, 36665-2 #### [facility] ([id number]) [address] [address] [place] [address] Lymphocytes/100 WBC (Bld) 41.5 % Normal [facility] Comment on above: Performed By: #### C BCA, CMP, FEPR, THYR, 95030-8 #### [facility] ([id number]) [address] [address] [place] [address] MCH (RBC) [Entitic mass] 31.2 pg Normal 27-34 [facility] Comment on above: Performed By: #### C BCA, CMP, FEPR, THYR, 13508-3 #### [facility] ([id number]) [address] [address] [place] [address] MCHC (RBC) [Mass/Vol] 34.5 g/dL Normal 32-36 [facility] Comment on above: Performed By: #### C BCA, CMP, FEPR, THYR, 72015-8 #### [facility] ([id number]) [address], [address] [place] [address] MCV (RBC) [Entitic vol] 90 fL Normal 80-100 [facility] Comment on above: Performed By: #### C BCA, CMP, FEPR, THYR, 73018-5 #### [facility] ([id number]) [address], [address] [place] [address] Monocytes (Bld) [#/Vol] 0.4 10*3/uL Normal 0-0.9 [facility] Comment on above: Performed By: #### C BCA, CMP, FEPR, THYR, 24105-2 #### [facility] ([id number]) [address] [address] [place] [address] Monocytes/100 WBC (Bld) 7.0 % Normal [facility] Comment on above: Performed By: #### C BCA, CMP, FEPR, THYR, 14628-9 #### [facility] ([id number]) [address], [address] [place] [address] Neutrophils/100 WBC (Bld) 49.3 % Normal [facility] Comment on above: Performed By: #### C BCA, CMP, FEPR, THYR, 72464-8 #### [facility] ([id number]) [address], [address] [place] [address] Platelet mean volume (Bld) [Entitic vol] 8.7 fL Normal 7-12 [facility] Comment on above: Performed By: #### C BCA, CMP, FEPR, THYR, 59495-2 #### [facility] ([id number]) [address], [address] [place] [address] Platelets (Bld) [#/Vol] 232 10*3/uL Normal 150-450 [facility] Comment on above: Performed By: #### C BCA, CMP, FEPR, THYR, 71729-2 #### [facility] ([id number]) [address], [address] [place] [address] RBC COUNT 3.92 X10E12/L Normal 3.80-5.20 [facility] Comment on above: Performed By: #### C BCA, CMP, FEPR, THYR, 82602-1 #### [facility] ([id number]) [address], [address] [address] [place] [address] WBC (Bld) [#/Vol] 5.0 10*3/uL Normal 4.0-11.0 [facility] Comment on above: Performed By: #### C BCA, CMP, FEPR, THYR, 46093-3 #### [facility] ([id number]) [address], [address] [place] [address] COMPREHENSIVE METABOLIC PANE Wang 11-15-2023 Albumin [Mass/Vol] 4.4 g/dL Normal 3.2-5.3 [facility] Comment on above: Performed By: #### C BCA, CMP, FEPR, THYR, 90966-3 #### [facility] ([id number]) [address], [address] [place] [address] ALP [Catalytic activity/Vol] 37 U/L Low 39-130 [facility] Comment on above: Performed By: #### C BCA, CMP, FEPR, THYR, 66360-4 #### [facility] ([id number]) [address], [address] [place] [address] ALT [Catalytic activity/Vol] 11 U/L Normal 0-31 [facility] Comment on above: Performed By: #### C BCA, CMP, FEPR, THYR, 91173-7 #### [facility] ([id number]) [address] [address] [place] [address] Anion gap [Moles/Vol] 9 mmol/L Normal 5-15 [facility] Comment on above: Performed By: #### C BCA, CMP, FEPR, THYR, 08492-8 #### [facility] ([id number]) [address], [address] [place] [address] AST [Catalytic activity/Vol] 15 U/L Normal 0-41 [facility] Comment on above: Performed By: #### C BCA, CMP, FEPR, THYR, 00588-2 #### [facility] ([id number]) [address], [address] [place] [address] Bilirubin [Mass/Vol] 1.4 mg/dL High 0.3-1.2 [facility] Comment on above: Performed By: #### C BCA, CMP, FEPR, THYR, 69321-0 #### [facility] ([id number]) [address], [address] [place] [address] Calcium [Mass/Vol] 9.1 mg/dL Normal 8.5-10.5 [facility] Comment on above: Performed By: #### C BCA, CMP, FEPR, THYR, 37116-9 #### [facility] ([id number]) [address], [address] [place] [address] Chloride [Moles/Vol] 104 mmol/L Normal 98-109 [facility] Comment on above: Performed By: #### C BCA, CMP, FEPR, THYR, 86934-0 #### [facility] ([id number]) [address], [address] [place] [address] CO2 [Moles/Vol] 25 mmol/L Normal 22-32 [facility] Comment on above: Performed By: #### C BCA, CMP, FEPR, THYR, 72309-1 #### [facility] ([id number]) [address], [address] [place] [address] Creatinine [Mass/Vol] 0.74 mg/dL Normal 0.40-1.00 [facility] Comment on above: Result Comment: METH OD TRACEABLE TO IDMS STANDARD Performed By: #### C BCA, CMP, FEPR, THYR, 49343-5 #### [facility] ([id number]) [address], [address] [place] [address] eGFR (CKD-EPI) NON-RACE DEPENDENT >90 Normal >59 [facility] Comment on above: Result Comment: Reported eGFR is based on the CKD-EPI 2020 equation that does not use a race coefficient. Performed By: #### C BCA, CMP, FEPR, THYR, 74618-9 #### [facility] ([id number]) [address], [address] [place] [address] Glucose [Mass/Vol] 100 mg/dL High 65-99 [facility] Comment on above: Performed By: #### C BCA, CMP, FEPR, THYR, 42535-2 #### [facility] ([id number]) [address], [address] [place] [address] Potassium [Moles/Vol] 3.7 mmol/L Normal 3.5-5.0 [facility] Comment on above: Performed By: #### C BCA, CMP, FEPR, THYR, 60786-8 #### [facility] ([id number]) [address], [address] [place] [address] Protein [Mass/Vol] 6.9 g/dL Normal 6.0-8.0 [facility] Comment on above: Performed By: #### C BCA, CMP, FEPR, THYR, 22992-2 #### [facility] ([id number]) [address], [address] [place] [address] Sodium [Moles/Vol] 138 mmol/L Normal 134-146 [facility] Comment on above: Performed By: #### C BCA, CMP, FEPR, THYR, 61490-5 #### [facility] ([id number]) [address], [address] [place] [address] Urea nitrogen [Mass/Vol] 12 mg/dL Normal 5-23 [facility] Comment on above: Performed By: #### C BCA, CMP, FEPR, THYR, 83265-7 #### [facility] ([id number]) [address], [address] [place] [address] IRON PROFILEon 11-15-2023 Iron [Mass/Vol] 81 ug/dL Normal 50-170 [facility] Comment on above: Performed By: #### C BCA, CMP, FEPR, THYR, 55794-7 #### [facility] ([id number]) [address], [address] [place] [address] IRON BINDING 309 ug/dL Normal 250-425 [facility] Comment on above: Performed By: #### C BCA, CMP, FEPR, THYR, 62817-3 #### [facility] ([id number]) [address], [address] [place] [address] IRON SATURATION 26 % SATURATION Normal 15-50 [facility] Comment on above: Performed By: #### C BCA, CMP, FEPR, THYR, 10322-2 #### [facility] ([id number]) [address], [address] [place] [address] THYROID PROFILEon 11-15-2023 Free T4 [Mass/Vol] 1.01 ng/dL Normal 0.61-1.60 [facility] Comment on above: Performed By: #### C BCA, CMP, FEPR, THYR, 81312-1 #### [facility] ([id number]) [address] [address] [place] [address] TSH 1.81 uIU/mL Normal 0.49-4.67 [facility] Comment on above: Performed By: #### C BCA, CMP, FEPR, THYR, 93767-3 #### [facility] ([id number]) [address] [place] [address], [address] [place] [address] Vitamin D+Metabolites [Mass/ Vol]on 11-15-2023 VITAMIN D 25 HYD TOT 18.7 ng/mL Low 30-100 [facility] Comment on above: Result Comment: Vitamin D status 25 [place] Vitamin D Deficiency <20 ng/mL Insufficiency 20-29 ng/mL Sufficiency 30-100 ng/mL Toxicity >100 ng/mL NOTE: A pediatric reference range has not been established by the partition setter of this kit. The [place] [employer] recommends a Vitamin D level of = or >20ng/mL in infants and children. Performed By: #### C BCA, CMP, FEPR, THYR, 01732-1 #### [facility] ([id number]) [address] [place] [address], [address] [place] [address] Urgent Care Office/Clinic No zackary 07-10-2023 Urgent [...] declines COVID testing in office today. No [id number] medications for symptom management. Significant other is [...] Negative 07/10/2023 19:06 EST Electronically signed by Doe Smithhenry Hollowaybeth 07/10/23 19:47 EST Normal [facility] CBC AUTO DIFFon 03-23-2022 BASO # 0.0 103/ul Normal 0.0-0.1 [facility] Comment on above: Performed By: #### C BC #### [facility] [address] [place] [address] Dr. Ana Maria Alexandre Basophils/100 WBC (Bld) 0.2 % Normal 0.2-2.0 [facility] Comment on above: Performed By: #### C BC #### [facility] [address] [place] [address] Dr. Ana Maria Alexandre EO # 0.0 103/ul Normal 0.0-0.7 [facility] Comment on above: Performed By: #### C BC #### [facility] [address] [place] [address] Dr. Ana Maria Alexandre Eosinophils/100 WBC (Bld) 0.3 % Critically low 0.9-7.0 [facility] Comment on above: Performed By: #### C BC #### [facility] [address] [place] [address] Dr. Ana Maria Alexandre Erythrocyte distribution width (RBC) [Ratio] 12.9 % Normal 11.0-15.0 [facility] Comment on above: Performed By: #### C BC #### [facility] [address] [place] [address] Dr. Ana Maria Alexandre Hematocrit (Bld) [Volume fraction] 25.6 % Critically low 36.0-48.0 [facility] Comment on above: Performed By: #### C BC #### [facility] [address] [place] [address] Dr. Ana Maria Alexandre Hemoglobin (Bld) [Mass/Vol] 8.5 g/dL Critically low 12.0-16.0 [facility] Comment on above: Performed By: #### C BC #### [facility] [address] [place] [address] Dr. Ana Maria Alexandre IG # 0.05 10e3/ul Critically high 0.00-0.03 [facility] Comment on above: Performed By: #### C BC #### [facility] [address] [place] [address] Dr. Ana Maria Alexandre IG % 0.4 % Normal 0.0-0.5 [facility] Comment on above: Performed By: #### C BC #### [facility] [address] [place] [address] Dr. Ana Maria Alexandre LYMPH # 2.5 103/ul Normal 1.2-3.8 [facility] Comment on above: Performed By: #### C BC #### [facility] [address] [place] [address] Dr. Ana Maria Alexandre Lymphocytes/100 WBC (Bld) 17.2 % Critically low 20.5-60.0 [facility] Comment on above: Performed By: #### C BC #### [facility] [address] [place] [address] Dr. Ana Maria Alexandre MANUAL DIFF REQ NO Normal [facility] Comment on above: Performed By: #### C BC #### [facility] [address] [place] [address] Dr. Ana Maria Alexandre MCH (RBC) [Entitic mass] 28.1 pg Normal 26.7-34.0 [facility] Comment on above: Performed By: #### C BC #### [facility] [address] [address] [address] Ana Maria Alexandre MCHC (RBC) [Mass/Vol] 33.2 g/dL Normal 29.9-35.2 [facility] Comment on above: Performed By: #### C BC #### [facility] [address] [address] [address] Ana Maria Alexandre MCV (RBC) [Entitic vol] 84.5 fL Normal 81.0-99.0 [facility] Comment on above: Performed By: #### C BC #### [facility] [address] [address] [address] Ana Maria Alexandre MONO # 0.9 103/ul Critically high 0.3-0.8 [facility] Comment on above: Performed By: #### C BC #### [facility] [address] [address] [address] Ana Maria Alexandre Monocytes/100 WBC (Bld) 6.0 % Normal 1.7-12.0 [facility] Comment on above: Performed By: #### C BC #### [facility] [address] [address] [address] Ana Maria Alexandre NEUT # 10.8 103/ul Critically high 1.4-6.5 [facility] Comment on above: Performed By: #### C BC #### [facility] [address] [address] [address] Ana Maria Alexandre Neutrophils/100 WBC (Bld) 75.9 % Critically high 43.0-75.0 [facility] Comment on above: Performed By: #### C BC #### [facility] [address] [address] [address] Ana Maria Alexandre Platelet mean volume (Bld) [Entitic vol] 11.4 fL Normal 9.5-13.5 [facility] Comment on above: Performed By: #### C BC #### [facility] [address] [address] [address] Ana Maria Alexandre PLT 152 103/ul Normal 150-450 [facility] Comment on above: Performed By: #### C BC #### [facility] [address] [address] [address] Ana Maria Alexandre RBC 3.03 106/ul Critically low 4.20-5.40 [facility] Comment on above: Performed By: #### C BC #### [facility] [address] [address] [address] Ana Maria Alexandre WBC 14.2 103/ul Critically high 4.0-11.0 [facility] Comment on above: Performed By: #### C BC #### [facility] [address] [place] [address] Dr. Ana Maria Alexandre CBC AUTO DIFFon 03-22-2022 BASO # 0.0 103/ul Normal 0.0-0.1 [facility] Comment on above: Performed By: #### C BC #### [facility] [address] [place] [address] Dr. Ana Maria Alexandre Basophils/100 WBC (Bld) 0.3 % Normal 0.2-2.0 [facility] Comment on above: Performed By: #### C BC #### [facility] [address] [place] [address] Dr. Ana Maria Alexandre EO # 0.1 103/ul Normal 0.0-0.7 [facility] Comment on above: Performed By: #### C BC #### [facility] [address] [place] [address] Dr. Ana Maria Alexandre Eosinophils/100 WBC (Bld) 0.6 % Critically low 0.9-7.0 [facility] Comment on above: Performed By: #### C BC #### [facility] [address] [place] [address] Dr. Ana Maria Alexandre Erythrocyte distribution width (RBC) [Ratio] 12.6 % Normal 11.0-15.0 [facility] Comment on above: Performed By: #### C BC #### [facility] [address] [place] [address] Dr. Ana Maria Alexandre Hematocrit (Bld) [Volume fraction] 30.4 % Critically low 36.0-48.0 [facility] Comment on above: Performed By: #### C BC #### [facility] [address] [address] [address] Ana Maria Alexandre Hemoglobin (Bld) [Mass/Vol] 9.9 g/dL Critically low 12.0-16.0 [facility] Comment on above: Performed By: #### C BC #### [facility] [address] [address] [address] Ana Maria Alexandre IG # 0.08 10e3/ul Critically high 0.00-0.03 [facility] Comment on above: Performed By: #### C BC #### [facility] [address] [address] [address] Ana Maria Alexandre IG % 0.6 % Critically high 0.0-0.5 [facility] Comment on above: Performed By: #### C BC #### [facility] [address] [address] [address] Ana Maria Alexandre LYMPH # 1.9 103/ul Normal 1.2-3.8 [facility] Comment on above: Performed By: #### C BC #### [facility] [address] [address] [address] Ana Maria Alexandre Lymphocytes/100 WBC (Bld) 15.5 % Critically low 20.5-60.0 [facility] Comment on above: Performed By: #### C BC #### [facility] [address] [address] [address] Ana Maria Alexandre MANUAL DIFF REQ NO Normal [facility] Comment on above: Performed By: #### C BC #### [facility] [address] [address] [address] Ana Maria Alexandre MCH (RBC) [Entitic mass] 27.5 pg Normal 26.7-34.0 [facility] Comment on above: Performed By: #### C BC #### [facility] [address] [address] [address] Ana aMria Alexandre MCHC (RBC) [Mass/Vol] 32.6 g/dL Normal 29.9-35.2 [facility] Comment on above: Performed By: #### C BC #### [facility] [address] [address] [address] Ana Maria Alexandre MCV (RBC) [Entitic vol] 84.4 fL Normal 81.0-99.0 [facility] Comment on above: Performed By: #### C BC #### [facility] [address] [address] [address] Ana Maria Alexandre MONO # 0.7 103/ul Normal 0.3-0.8 [facility] Comment on above: Performed By: #### C BC #### [facility] [address] [address] [address] Ana Maria Alexandre Monocytes/100 WBC (Bld) 5.2 % Normal 1.7-12.0 [facility] Comment on above: Performed By: #### C BC #### [facility] [address] [place] [address] Dr. Ana Maria Alexandre NEUT # 9.7 103/ul Critically high 1.4-6.5 [facility] Comment on above: Performed By: #### C BC #### [facility] [address] [place] [address] Dr. Ana Maria Alexandre Neutrophils/100 WBC (Bld) 77.8 % Critically high 43.0-75.0 [facility] Comment on above: Performed By: #### C BC #### [facility] [address] [place] [address] Dr. Ana Maria Alexandre Platelet mean volume (Bld) [Entitic vol] 11.5 fL Normal 9.5-13.5 [facility] Comment on above: Performed By: #### C BC #### [facility] [address] [place] [address] Dr. Ana Maria Alexandre PLT 202 103/ul Normal 150-450 [facility] Comment on above: Performed By: #### C BC #### [facility] [address] [place] [address] Dr. Ana Maria Alexandre RBC 3.60 106/ul Critically low 4.20-5.40 [facility] Comment on above: Performed By: #### C BC #### [facility] [address] [place] [address] Dr. Ana Maria Alexandre WBC 12.5 103/ul Critically high 4.0-11.0 [facility] Comment on above: Performed By: #### C BC #### [facility] [address] [place] [address] Dr. Ana Maria Alexandre Covid-19 PCR ([facility])on 03-02 SARS-CoV-2 (COVID-19) RNA RUTH ANN+probe Ql (Unsp spec) Not detected Normal NOT DETECTED [facility] Comment on above: Result Comment: [...] for this test is supported by the [place] of [employer] and Human Service's declaration that [...] used). Performed By: #### C VDTBH #### [facility] [address] [place] [address] Dr. Ana Maria Alexandre DRUG SCREEN RAPID (URINE)on 03-22-2022 AMP Negative Normal NEGATIVE [facility] Comment on above: Performed By: #### D RUGRPD #### [facility] [address] [place] [address] Dr. Ana Maria Alexandre BAR Negative Normal NEGATIVE [facility] Comment on above: Performed By: #### D RUGRPD #### [facility] [address] [place] [address] Dr. Ana Maria Alexandre BUP Negative Normal NEGATIVE [facility] Comment on above: Performed By: #### D RUGRPD #### [facility] [address] [place] [address] Dr. Ana Maria Alexandre BZO Negative Normal NEGATIVE [facility] Comment on above: Performed By: #### D RUGRPD #### [facility] [address] [place] [address] Dr. Ana Maria Alexandre BRIGHT Negative Normal NEGATIVE [facility] Comment on above: Performed By: #### D RUGRPD #### [facility] [address] [place] [address] Dr. Ana Maria Alexandre CUT-OFFS SEE BELOW Normal [facility] Comment on above: Result Comment: AMP [...] ng/mL Performed By: #### D RUGRPD #### [facility] [address] [place] [address] Dr. Ana Maria Alexandre DRUG CUT HEADER DRUG CLASS TEST SYSTEM CUT-OFF CONCENTRATIONS ARE FOLLOWS: Normal [facility] Comment on above: Performed By: #### D RUGRPD #### [facility] [address] [place] [address] Dr. Ana Maria Alexandre mAMP Negative Normal NEGATIVE [facility] Comment on above: Performed By: #### D RUGRPD #### [facility] [address] [place] [address] Dr. Ana Maria Alexandre MTD Negative Normal NEGATIVE [facility] Comment on above: Performed By: #### D RUGRPD #### [facility] [address] [place] [address] Dr. Ana Maria Alexandre OPI Negative Normal NEGATIVE [facility] Comment on above: Performed By: #### D RUGRPD #### [facility] [address] [address] [address] Ana Maria Alexandre OXY Negative Normal NEGATIVE [facility] Comment on above: Performed By: #### D RUGRPD #### [facility] [address] [address] [address] Ana Maria Alexandre PCP Negative Normal NEGATIVE [facility] Comment on above: Performed By: #### D RUGRPD #### [facility] [address] [address] [address] Ana Maria Alexandre PPX Negative Normal NEGATIVE [facility] Comment on above: Performed By: #### D RUGRPD #### [facility] [address] [address] [address] Ana Maria Alexandre TCA Negative Normal NEGATIVE [facility] Comment on above: Performed By: #### D RUGRPD #### [facility] [address] [address] [address] Ana Maria Alexandre THC Negative Normal NEGATIVE [facility] Comment on above: Performed By: #### D RUGRPD #### [facility] [address] [address] [address] Ana Maria Alexandre TYPE AND SCREENon 03-22-2022 TYPE AND SCREEN Negative Normal [facility] Comment on above: Performed By: #### T NS #### [facility] [address] [place] [address] Dr. Ana Maria Alexandre GROUP B STREP [...] F Tetracycline >=16 R F Normal [facility] Comment on above: Performed By: #### G BSCX #### [facility] [address] [address] [address] Ana Maria Alexandre VAGINITIS/VAGINOSIS DNA PROB Chad 03-14-2022 Elena species Negative Normal Negative [facility] Comment on above: Performed By: #### V AGINT #### [facility] [address] [address] [address] Ana Maria Alexandre Gardnerella vaginalis Negative Normal Negative [facility] Comment on above: Performed By: #### V AGINT #### [facility] [address] [address] [address] Ana Maria Alexandre Trichomonas vaginalis Negative Normal Negative [facility] Comment on above: Performed By: #### V AGINT #### [facility] [address] [address] [address] Ana Maria Alexandre US PREG GROWTHon [...] CHARITY FLORES Date: 2022-03-01 16:15 Normal [facility] US PREG GROWTHon 02-01-2022 US PREG GROWTH [...] by: CHARITY FLORES Date: 2022-02-01 16:43 Normal [facility] US PREG REEVAL ABNon 022 US [...] by: CHASITY NGUYEN Date: 2022-01-08 19:27 Normal [facility] Vital Signs Date Time Vital Sign Value Performing Clinician Margret hernandez 07-14-2024 13:19-0500 Body weight 58.12 kg Mikekeshawn Krishnamurthy DO Work Phone: [facility] 07-14-2024 13:19-0500 Diastolic blood pressure 62 mm[Hg] Mike Raghu DO Work Phone: [facility] 07-14-2024 13:19-0500 Systolic blood pressure 116 mm[Hg] Mike Raghu DO Work Phone: [facility] 06-17-2024 10:01-0500 Body weight 55.79 kg Damari Memo PA Work Phone: [facility] 06-17-2024 10:01-0500 Diastolic blood pressure 62 mm[Hg] Damari Empire PA Work Phone: [facility] 06-17-2024 10:01-0500 Systolic blood pressure 104 mm[Hg] Damari Empire PA Work Phone: [facility] 05-25-2024 09:51-0500 Body weight 54.43 kg Damari Empire PA Work Phone: [facility] [facility] 05-25-2024 09:51-0500 Diastolic blood pressure 58 mm[Hg] Damari Memo PA Work Phone: [facility] 05-25-2024 09:51-0500 Systolic blood pressure 104 mm[Hg] Damari Memo PA Work Phone: [facility] 05-11-2024 11:41-0500 Body weight 53.89 kg Mike Raghu DO Work Phone: [facility] 05-11-2024 11:41-0500 Diastolic blood pressure 60 mm[Hg] Mike Raghu DO Work Phone: [facility] 05-11-2024 11:41-0500 Systolic blood pressure 100 mm[Hg] Mike Raghu DO Work Phone: [facility] 04-13-2024 13:46-0400 Body weight 51.26 kg Damari Memo PA Work Phone: [facility] 04-13-2024 13:46-0400 Diastolic blood pressure 62 mm[Hg] Damari Empire PA Work Phone: [facility] 04-13-2024 13:46-0400 Systolic blood pressure 100 mm[Hg] Damari GALAVIZ Work Phone: [facility] 03-16-2024 11:38-0400 Body weight 50.8 kg Mike Raghu DO Work Phone: [facility] 03-16-2024 11:38-0400 Diastolic blood pressure 70 mm[Hg] Mike Raghu DO Work Phone: [facility] 03-16-2024 11:38-0400 Systolic blood pressure 120 mm[Hg] Mike Raghu DO Work Phone: [facility] Healthcare Encounters Encounter Date Encounter Type Care Provider Facility Start: 07-23-2024 End: 07-24-2024 ambulatory DAMARI TYLER Not Available Start: 07-23-2024 End: 07-23-2024 Bamboo flowsheet Damari GALAVIZ Work Phone: [facility] Start: 07-23-2024 End: 07-23-2024 Bamboo flowsheet Damari GALAVIZ Work Phone: [facility] Start: 07-21-2024 End: 07-21-2024 Clinisync Result Encounter Mike Raghu DO Work Phone: [facility] External Department Unsolicited Start: 07-21-2024 End: 07-21-2024 Clinisync Result Encounter Mike Raghu DO Work Phone: [facility] External Department Unsolicited Start: 07-14-2024 End: 07-14-2024 Bamboo flowsheet Mike Raghu DO Work Phone: [facility] Start: 07-14-2024 End: 07-14-2024 Bamboo flowsheet Mike Raghu DO Work Phone: [facility] Start: 07-14-2024 End: 07-14-2024 Office outpatient visit 15 minutes Mike Raghu DO Work Phone: [facility] Comment on above: 36 [...] 04-16-2024 End: 04-16-2024 ambulatory Hesham Olsen MD Facility:[facility] Start: 04-13-2024 End: 04-13-2024 Bamboo flowsheet Damari [...] Bamboo flowsheet Mike Raghu DO Work Phone: [facility] Start: 03-16-2024 End: 03-20-2024 Bamboo flowsheet Mike Raghu DO Work Phone: [facility] Start: 03-16-2024 End: 03-20-2024 Clinisync Result Encounter Mike Raghu DO Work Phone: [facility] External Department Unsolicited Start: 03-16-2024 End: 03-18-2024 External Result Encounter Mike Raghu DO Work Phone: [facility] External Department Unsolicited Start: 03-16-2024 End: 03-16-2024 Patient encounter procedure Mike Raghu DO Work Phone: [facility] Healthcare Start: 03-16-2024 End: 03-16-2024 Periodic preventive med est patient 18-39 yrs Mike Raghu DO Work Phone: [facility] Comment on above: 19 [...] Department Unsolicited Start: 02-28-2024 End: 02-28-2024 ambulatory DAMARI TYLER Not Available Start: 02-28-2024 End: 02-28-2024 Office outpatient visit 5 minutes [facility] Raghu Nurse [facility] Comment on above: GA: 15w4d Start: 02-18-2024 End: 02-18-2024 ambulatory [facility] Start: 11-15-2023 End: 11-16-2023 ambulatory [facility] Start: 11-15-2023 Encounter for genera l adult medical examination without abnormal findings [facility] Start: 10-21-2023 End: 10-21-2023 ambulatory [facility] Start: 10-21-2023 Encounter for genera l adult medical examination without abnormal findings [facility] Start: 10-14-2023 End: 10-14-2023 Telephone encounter Ana Matson CMA [facility] til[facility]ya Comment on above: retention outreach Start: 07-10-2023 End: 07-10-2023 ambulatory Evelin Matamoros CLIENT PROJECT COORDINATOR-CAROLINA Facility:[facility] Start: 04-02-2022 ambulatory [...] Routine [facility] [address] [place] [id number] Mike Krishnamurthy DO [address] [place] [address] Arrived [facility] Comment on above: Arrived Start: 07-08-2024 End: 07-08-2024 Patient encounter procedure 07/08/2024 2:00 PM EST Routine [facility] [address] [place] [id number] Mike Krishnamurthy, DO [address] [place] [address] [facility] Start: 07-08-2024 End: 07-08-2024 Professional / ancillary services management 07/08/2024 1:30 PM EST Ancillary Procedure [facility] [address] [place] [id number] [facility] Start: 06-17-2024 End: 12-18-2025 US for US OB SCAN FOR GROWTH Imaging Routine SGA (small for gestational age) Expected: 06/17/2024 (Approximate), Expires: 06/17/2025 [facility] Comment on above: Expected: 06/17/2024 (Approximate), Expires: 06/17/2025 Start: 06-15-2024 End: 06-15-2024 Patient encounter procedure 06/15/2024 9:30 AM EST Routine [facility] [address] [place] [id number] Mike Krishnamurthy, DO [address] [place] [address] [facility] Start: 05-25-2024 End: 05-25-2024 Patient encounter procedure [facility] Comment on above: Arrived Start: 05-11-2024 End: 05-11-2024 Patient encounter procedure 05/11/2024 11:20 AM EST Routine [facility] [address] [place] [id number] Mike Krishnamurthy, DO [address], [place] [id number] [facility] Start: 04-28-2024 End: 04-28-2024 Professional / ancillary services management 04/28/2024 8:00 AM EDT Ancillary Procedure [facility] [address] [place] [address] [facility] Start: 04-13-2024 End: 04-13-2025 CBC panel - Blood by Automated count CBC Lab Routine Diabetes mellitus screening Expected: 04/13/2024 (Approximate), Expires: 04/13/2025 [facility] Healthcare Work Phone: Comment on above: [...] EDT Ancillary Procedure [facility] [address] [place] [id number] [facility] Start: 03-16-2024 End: 04-15-2024 Alpha fetoprotein, maternal Alpha fetoprotein, maternal Lab Routine 18 weeks gestation of Expected: 03/16/2024 (Approximate), Expires: 04/15/2024 [facility] Comment on above: Expected: 03/16/2024 (Approximate), Expires: 04/15/2024 Start: 03-16-2024 End: 03-16-2025 US for US OB ANATOMY SINGLE W US OB CERVICAL LENGTH Imaging Routine Screening, , for anatomic survey Expected: 03/16/2024 (Approximate), Expires: 03/16/2025 [facility] Comment on above: Expected: 03/16/2024 (Approximate), Expires: 03/16/2025 Start: 03-16-2024 End: 03-16-2024 Patient encounter procedure [facility] Comment on above: Arrived Start: 03-01-2024 Influenza vaccination Influenza Vacc ine [facility] Start: 02-28-2024 End: 02-27-2025 ABO/Rh ABO/Rh Lab Routine Missed menses Expected: 02/28/2024 (Approximate), Expires: 02/27/2025 [facility] Comment on above: Expected: 02/28/2024 (Approximate), Expires: 02/27/2025 Start: 02-28-2024 End: 02-27-2025 Blood type and Indirect antibody screen panel - Blood Type and screen Lab Routine Missed menses Expected: 02/28/2024 (Approximate), Expires: 02/27/2025 [facility] Work Phone: Comment on above: Expected: 02/28/2024 (Approximate), Expires: 02/27/2025 Start: 02-28-2024 End: 02-27-2025 US for US OB > 14 WEEKS Imaging Routine Missed menses Expected: 02/28/2024 (Approximate), Expires: 02/27/2025 [facility] Comment on above: Expected: 02/28/2024 (Approximate), Expires: 02/27/2025 Start: 01-31-2024 Adult BMI Screening Adult BMI Screen ing [facility] Start: 01-31-2024 Screening for Chlamy jose trachomatis Chlamydia Screening [facility] Start: 01-31-2024 Tobacco Screening Tobacco Screening [facility] Start: 04-16-2023 DTaP,Tdap and Td Vaccines (7 - Td or Tdap) DTaP,Tdap and Td Vaccines (7 - Td or Tdap) [facility] Start: 08-07-2022 Depression Screening Depression Scre ening [facility] Start: 2022 Screening for malign ant neoplasm of cervix Pap Smear [facility] Bacteria identified in Urine by Culture Urine culture Microbiology Routine Missed menses Ordered: 02/28/2024 [facility] Comment on above: Ordered: 02/28/2024 CBC W Auto Different ial panel - Blood CBC and differential Lab Routine SGA (small for gestational age) Ordered: 06/17/2024 [facility] Comment on above: Ordered: 06/17/2024 CBC W Auto Different ial panel - Blood CBC and differential Lab Routine Missed menses Ordered: 02/28/2024 [facility] Comment on above: Ordered: 02/28/2024 CHLAMYDIA TRACHOMATI S (GENITO/STI) CHLAMYDIA TRACHOMATIS (GENITO/STI) Lab Routine Exposure to STD Ordered: 03/16/2024 [facility] Comment on above: Ordered: 03/16/2024 Cytology Cervical or vaginal smear or scraping study Pap Smear Pathology and Cytology Routine Well woman exam with routine gynecological exam Ordered: 03/16/2024 [facility] Comment on above: Ordered: 03/16/2024 Hemoglobin A1c/Hemoglobin.total in Blood Hemoglobin A1c Lab Routine SGA (small for gestational age) Ordered: 06/17/2024 [facility] Work Phone: Comment on above: Ordered: 06/17/2024 Hemoglobin A1c/Hemoglobin.total in Blood Hemoglobin A1c Lab Routine Missed menses Ordered: 02/28/2024 [facility] Comment on above: Ordered: 02/28/2024 Hepatitis B virus surface Ag [Presence] in Serum or Plasma by Immunoassay Hepatitis B surface antigen Lab Routine Missed menses Ordered: 02/28/2024 [facility] Comment on above: Ordered: 02/28/2024 Hepatitis C virus Ab [Presence] in Serum or Plasma by Immunoassay Hepatitis C antibody Lab Routine Missed menses Ordered: 02/28/2024 [facility] Comment on above: Ordered: 02/28/2024 HIV-1/HIV-2 antigen/antibody combination immunoassay HIV-1 and HIV-2 antibodies Lab Routine Missed menses Ordered: 02/28/2024 [facility] Comment on above: Ordered: 02/28/2024 Neisseria gonorrhoea e DNA [Presence] in Unspecified specimen by RUTH ANN with probe detection Neisseria gonorrhea DNA probe, direct Lab Routine Exposure to STD Ordered: 03/16/2024 [facility] Comment on above: Ordered: 03/16/2024 Reagin Ab [Presence] in Serum by RPR RPR Lab Routine Missed menses Ordered: 02/28/2024 [facility] Comment on above: Ordered: 02/28/2024 Rubella antibody, IgG Rubella an tibody, IgG Lab Routine Missed menses Ordered: 02/28/2024 [facility] Comment on above: Ordered: 02/28/2024 SURESWAB(R) ADVANCED VAGINITIS PLUS, TMA SURESWAB(R) ADVANCED VAGINITIS PLUS, TMA Pathology and Cytology Routine Vaginal discharge Ordered: 03/16/2024 [facility] Work Phone: Comment on above: Ordered: 03/16/2024 Immunizations Immunization Date Immunization Notes Care Provider Fa cility 02-12-2017 hepatitis A vaccine, adult dosage Ana Matson [facility] 02-12-2017 Human Papillomavirus 9-valent vaccine Ana Matson [facility] 02-12-2017 meningococcal oligosaccharide (groups A, C, Y and W-135) diphtheria toxoid conjugate vaccine (MCV4O) Ana Matson [facility] 08-09-2016 Human Papillomavirus 9-valent vaccine Ana [facility] 08-09-2016 varicella virus vaccine Ana [facility] 05-31-2016 hepatitis A vaccine, adult dosage Ana [facility] 05-31-2016 Human Papillomavirus 9-valent vaccine Ana [facility] 04-16-2013 tetanus toxoid, redu jose alfredo diphtheria toxoid, and acellular pertussis vaccine, adsorbed Ana [facility] 06-15-2009 influenza virus vacc ine, unspecified formulation Ana [facility] 04-18-2009 influenza virus vacc ine, unspecified formulation Ana [facility] 11-23-2005 diphtheria, tetanus toxoids and acellular pertussis vaccine Ana [facility] 11-23-2005 poliovirus vaccine, inactivated Ana [facility] 11-03-2005 measles, mumps and rubella virus vaccine [facility] 03-05-2002 diphtheria, tetanus toxoids and acellular pertussis vaccine Ana [facility] 03-05-2002 haemophilus influenz ae type b vaccine, conjugate unspecified formulation Ana [facility] 01-29-2002 hepatitis B vaccine, adult dosage Ana [facility] 01-29-2002 measles, mumps and rubella virus vaccine Ana [facility] 01-29-2002 varicella virus vaccine Ana [facility] 2001 diphtheria, tetanus toxoids and acellular pertussis vaccine Ana [facility] 2001 haemophilus influenz ae type b vaccine, conjugate unspecified formulation Ana [facility] 2001 pneumococcal conjuga te vaccine, 7 valent Ana [facility] 2001 poliovirus vaccine, inactivated Ana [facility] 2001 pneumococcal conjuga te vaccine, 7 valent Ana [facility] 2001 diphtheria, tetanus toxoids and [facility]ellular [facility] haemophilus influenz ae type b vaccine, conjugate unspecified formulation Ana [facility] 2001 hepatitis B vaccine, adult dosage Ana [facility] 2001 poliovirus vaccine, inactivated Ana [facility] 2001 diphtheria, tetanus toxoids and [facility] haemophilus influenz ae type b vaccine, conjugate unspecified formulation Ana [facility] 2001 hepatitis B vaccine, adult dosage Ana [facility] 2001 poliovirus vaccine, inactivated Ana [facility] Payers Date Payer Category Payer Medicaid (Managed Care) [employer] [id number] 2023 Unknown 2023 Private Health Insurance [id number] 2023 Private Health Insurance [id number] 2003 Medicaid [employer] [id number] 2003-Present [phone] [address] [facility] [place] [address] [id number] 2001 Unknown [id number] 2.16.840.1.416362.3.579.2. 593 2001 Unknown [id number] 2.16.840.1.004402.3.579.2. 593 2001 Unknown [id number] 2.16.840.1.320395.3.579.2. 593 2001 Unknown [id number] 2.16.840.1.508453.3.579.2. 593 2001 Unknown [id number] 2.16.840.1.806831.3.579.2. 593 2001 Unknown [id number] 2.16.840.1.218061.3.579.2. 593 2001 Unknown [id number] 2.16.840.1.992900.3.579.2. 593 2001 Unknown [id number] 2.16.840.1.800006.3.579.2. 593 2001 Unknown [id number] 2.16.840.1.765314.3.579.2. 593 2001 Unknown [id number] 2.16.840.1.092572.3.579.2. 593 2001 Unknown [id number] 2.16.840.1.610633.3.579.2. 1286 2001 Unknown [id number] 2.16.840.1.491935.3.579.2. 1286 2001 Unknown [id number] 2.16.840.1.606759.3.579.2. 1286 2001 Unknown [id number] 2.16.840.1.462661.3.579.2. 196 2001 Unknown [id number] 2.16.840.1.887571.3.579.2. 1259 2001 Unknown [id number] 2.16.840.1.751032.3.579.2. 1259 2001 Unknown [id number] 2.16.840.1.175232.3.579.2. 1259 2001 Unknown [id number] 2.16.840.1.853758.3.579.2. 9 2001 Unknown [id number] 2.16.840.1.422840.3.579.2. 9 2001 Unknown [id number] 2.16.840.1.508708.3.579.2. 9 2001 Unknown [id number] 2.16.840.1.910112.3.579.2. 9 2001 Unknown [id number] 2.16.840.1.308779.3.579.2. 1259 1959 Self-pay 1959 Unknown [id number] 1959 Unknown [id number] Social History Date Type Detail Facility Tobacco smoking stat [facility] Tobacco smoking consumption unknown [facility] Start: 11-25-2023 [facility] Start: 2001 Sex assigned at Not on file [facility] Start: 08-11-2020 End: 04-13-2024 Gender identity Not on file [facility] Start: 04-13-2024 Tobacco smoking stat [facility] Never smoked tobacco [facility] End: 11-30-2023 History of tobacco use Cigarette Smoker [facility] History of tobacco use Passive smoker [facility] Start: 04-13-2024 End: 06-17-2024 Alcoholic beverage intake Ex-drinker (finding) [facility] Start: 08-11-2020 End: 04-13-2024 History of Social function [facility] Start: 08-13-2022 Tobacco smoking stat [facility] Ex-smoker [facility] End: 07-21-2020 History of tobacco use Current smoker [facility] Start: 08-13-2022 Tobacco use and exposure Smokeless tobacco non-user [facility] Start: 01-30-2023 Alcoholic beverage intake Lifetime non-drinker (finding) [facility] How hard is it for y ou to pay for the very basics like food, housing, medical care, and heating Patient declined [facility] Start: 07-30-2019 Alcohol Comment rare use [facility] Goals Date Patient Goal Desired Activity /State Personal health goal Comment on above: Formatting of this n ote might be different from the original. Evaluation of progress towards goal: Safe dc transition from hospital to home with family support. Clinical Notes 07-10-2023 to 07-14-2024 Kaleigh Aguilar, QUEENIE - 07/14/2024 1:20 PM ANASTACIA Lawson - 06/17/2024 9:40 AM ANASTACIA Lawson - 05/25/2024 9:40 AM Beba Oumarchapin, QUEENIE - 05/11/2024 11:20 AM ANASTACIA Lawson - 04/13/2024 1:30 PM EDT Note Date & Type Note Facility 07-14-2024 History of Presen t illness Narrative Reason for Appointment: Patient ID: Argenis Pina is a 24 y.o. female who presents for No chief complaint on file. Patient presents today for Return OB appointment. MEDICATIONS Current Outpatient Medications Medication Instructions Aradquqm-Nwx-Ge-FA (, w/Iron & FA,) 27-0.8 MG tablet [...] nursing note reviewed. Exam conducted with a education associate present. Vitals: There is no height or [...] Krishnamurthy DO documented in this encounter [facility] 06-17-2024 History of Presen t illness Narrative Reason for Appointment: Patient ID: Argenis Pina is a 24 y.o. female who presents for Routine Visit Patient presents today for Return OB appointment. MEDICATIONS Current Outpatient Medications Medication Instructions Noghlbuv-Byb-Ao-FA (, w/Iron & FA,) 27-0.8 MG tablet [...] ANASTACIA Barragan documented in this encounter [facility] 05-25-2024 History of Presen t illness Narrative Reason for Appointment: Patient ID: Argenis Pina is a 24 y.o. female who presents for Routine Visit Patient presents today for Return OB appointment. MEDICATIONS Current Outpatient Medications Medication Instructions Svmmoaow-Trz-Tt-FA (, w/Iron & FA,) 27-0.8 MG tablet [...] ANASTACIA Barragan documented in this encounter [facility] 05-11-2024 History of Presen t illness Narrative Reason for Appointment: Patient ID: Argenis Pina is a 24 y.o. female who presents for Routine Visit Patient presents today for Return OB appointment. MEDICATIONS Current Outpatient Medications Medication Instructions Fjzqunbt-Kxi-Dd-FA (, w/Iron & FA,) 27-0.8 MG tablet [...] nursing note reviewed. Exam conducted with a education associate present. Vitals: There is no height or [...] Discussed HSV treatment to be sent to [facility] in [place]. Patient voiced that she does have tingling in her fingers that radiates to elbow at night. Patient to return to clinic in 2 weeks for routine OB appointment. Documented by Radha Mobley LPN on behalf of: Mike Krishnamurthy DO documented in this encounter [facility] 04-13-2024 History of Presen t illness Narrative Reason for Appointment: Patient ID: Argenis Pina is a 24 y.o. female who presents for No chief complaint on file. Patient presents today for Return OB appointment. MEDICATIONS Current Outpatient Medications Medication Instructions Vzunbxme-Qmc-Dq-FA (, w/Iron & FA,) 27-0.8 MG tablet [...] ANASTACIA Barragan documented in this encounter [facility] 03-16-2024 History of Presen t illness Narrative Reason for Appointment: Patient ID: Argenis Pina is a 24 y.o. female who presents for Routine Visit, Well Women Visit, and STI Screening Patient presents today for Annual Exam. and Return OB appointment. MEDICATIONS Current Outpatient Medications Medication Instructions Fyjygsxg-Cys-Ar-FA (, w/Iron & FA,) 27-0.8 MG tablet [...] nursing note reviewed. Exam conducted with a education associate present. Vitals: There is no height or [...] obtained without difficulty and patient was given msAFP order to have obtained. Orders Placed This [...] Krishnamurthy DO documented in this encounter [facility] 02-28-2024 History of Presen t illness Narrative Reason for Appointment: Patient ID: Argenis Pina is a 24 y.o. female who presents [...] or undercooked meat, [facility]. Patient has also been advised to [...] Engel LPN documented in this encounter [facility] 10-14-2023 [facility]isc[facility] [...] regarding establishing care. documented in this encounter [facility] 10-14-2023 Telephone encounter Note EMPANEENT OUTREACH [place] [facility] has been contacted in effort to establish [...] reach patient. Letter sent regarding establishing care. [facility] 07-10-2023 Note Patient Education Ma grace Name: Argenis Pina Current Date: 07/10/2023 19:27:39 [place] : 2000 [...] and water are not available, use alcohol-based hvac journeyman to keep from spreading the infection to [...] of the eyes or skin ? [employer]. [address] [place] [address], [place] [address]. All rights reserved. This information is not [...] ER for any worsening or emergent symptoms. [facility] Evaluation note Diagnosis Diabetes mellitus screening Screening [...] of complication SGA (small for gestational age) Qvjtw-gbr-ovota without mention of malnutrition, unspecified (weight) documented [facility] Diagnosis Missed menses documented [facility]* Diagnosis 35 weeks gestation of Third trimester state, incidental documented in this encounter [facility] HealthcareInstructionsNot on filedocumented [facility] Summary Purpose Family History No Family History Records FoundNo Family History Records FoundNo Family History Records FoundNo Family History Records FoundNo Family History Records Found Advance Directives No Advanced Directives Records Found Date Activated Date Inactivated Comments 10/19/2020 8:09 AM 10/21/2020 4:06 PM Additional Source Comments INFORMATION SOURCE (unrecogn ized section and content) DATE CREATED AUTHOR 04/03/2022 [facility] DATE CREATED AUTHOR AUTHOR'S ORGANIZ ATION 11/18/2023 [facility] DATE CREATED AUTHOR AUTHOR'S ORGANIZ ATION 02/20/2024 [facility] DATE CREATED AUTHOR AUTHOR'S ORGANIZ ATION 04/18/2024 [facility] DATE CREATED AUTHOR AUTHOR'S ORGANIZ ATION 07/25/2024 [facility] Care Teams (unrecognized sec tion and content) Diversional Therapist Relationship Specialty Start Date End Date Heri Arreola MD [address] [place] [address], [address] [place] [address] PCP - General Family Medicine 02/28/24 Diversional Therapist Relationship Specialty Start Date End Date Heri Arreola MD [address] [place] [address], [address] [place] [address] PCP - General Family Medicine 02/28/24 Diversional Therapist Relationship Specialty Start Date End Date Heri Arreola MD [address] [place] [address], [address] [place] [address] PCP - General Family Medicine 02/28/24 Diversional Therapist Relationship Specialty Start Date End Date Heri Arreola MD [address] [place] [address], [address] [place] [address] PCP - General Family Medicine 02/28/24 Diversional Therapist Relationship Specialty Start Date End Date Heri Arreola MD [address] [place] [address], [address] [place] [address] PCP - General Family Medicine 02/28/24 Diversional Therapist Relationship Specialty Start Date End Date Heri Arreola MD [address] [place] [address], [address] [place] [address] PCP - General Family Medicine 02/28/24 Diversional Therapist Relationship Specialty Start Date End Date Heri Arreola MD [address] [place] [address], [address] [place], [place] [id number] PCP - General Family Medicine 02/28/24 Diversional Therapist Relationship Specialty Start Date End Date Heri Arreola MD [address] [place] [address], [address] [place] [address] PCP - General Family Medicine 02/28/24 Diversional Therapist Relationship Specialty Start Date End Date Heri Arreola MD [address] [place] [address], [address] [place] [address] PCP - General Family Medicine 02/28/24 Diversional Therapist Relationship Specialty Start Date End Date Heri Arreola MD [address] [place] [address], [address] [place] [address] PCP - General Family Medicine 02/28/24 Diversional Therapist Relationship Specialty Start Date End Date Heri Arreola MD [address] [place] [address], [address] [place] [address] PCP - General Family Medicine 02/28/24 Diversional Therapist Relationship Specialty Start Date End Date Heri Arreola MD [address] [place] [address], [address] [place] [address] PCP - General Pediatrics 09/10/18 Reason for [...] BE BASED ON THE PRIMARY CLINICAL RECORDS. [facility] provides no warranty or guarantee of the accuracy or completeness of information in this document.
[2024-07-27 05:57] LABS: Hematocrit 31.1 % (36.0-48.0); Hemoglobin 10.5 g/dL (12.0-16.0); Mean Corpuscular HGB Conc 33.8 g/dL (29.9-35.2); Mean Corpuscular Hemoglobin 30.7 pg (26.7-34.0); Mean Corpuscular Volume 90.9 fL (81.0-99.0); Mean Platelet Volume 11.6 fL (9.5-13.5); Platelet Count 247 10^3/uL (150-450); Red Blood Count 3.42 10^6/uL (4.20-5.40); White Blood Count 9.7 10^3/uL (4.0-11.0)
[2024-07-27] MEDS: 0.9 % SODIUM CHLORIDE 1,000 ML 125 ML IV (06:00)
[2024-07-27 06:22] LABS: Amphetamine Screen Urine NEGATIVE (NEGATIVE); Barbiturates Screen Urine NEGATIVE (NEGATIVE); Benzodiazepines Screen Urine NEGATIVE (NEGATIVE); Buprenorphine Screen Urine NEGATIVE (NEGATIVE); Cannabinoid Screen Urine NEGATIVE (NEGATIVE); Cocaine Screen Urine NEGATIVE (NEGATIVE); Methadone Screen Urine NEGATIVE (NEGATIVE); Methamphetamines Screen Urine NEGATIVE (NEGATIVE); Opiate Screen Urine NEGATIVE (NEGATIVE); Oxycodone Screen Urine NEGATIVE (NEGATIVE); Phencyclidine Screen Urine NEGATIVE (NEGATIVE); Tricyclic Antidepressant Urine NEGATIVE (NEGATIVE)
[2024-07-27] MEDS: AMPICILLIN SODIUM 2,000 MG in 0.9 % SODIUM CHLORIDE 100 ML 200 MG IV (06:24)
[2024-07-27] MEDS: OXYTOCIN/0.9 % SODIUM CHLORIDE 10 UNITS/500 ML PLAST..BAG 6 UNIT IV (06:32)
[2024-07-27] MEDS: NALBUPHINE HCL 10 MG/ML AMPULE IV (09:32)
[2024-07-27] MEDS: AMPICILLIN SODIUM 1,000 MG in 0.9 % SODIUM CHLORIDE 50 ML 100 MG IV (09:35)
[2024-07-27] MEDS: 0.9 % SODIUM CHLORIDE 1,000 ML 1000 ML IV (09:55)
[2024-07-27] MEDS: ROPIVACAINE HCL/PF 400 MG/200 ML PREMIX 6 MG EPIDURAL (10:43)
[2024-07-27] MEDS: OXYTOCIN/0.9 % SODIUM CHLORIDE 20 UNITS/1,000 ML PLAST..BAG 999 UNIT IV (12:40)
--- NOTE | 2024-07-27 12:40 | PM.OBPRCVD ---
Procedure Intrapartal events: None Induction method: per pitocin protocol Delivery augmentation: rupture of membranes and pitocin Delivery monitor: external FHT and external uterine Route of delivery: Episiotomy Description: none L&D Laceration Description: none Estimated blood loss (mL): 5 Anesthesia type: Epidural Disposition: floor Infant Delivery date: 07/27/24 Gender: male presentation: vertex Placental delivery description: Spontaneous cord description: 3 Vessels
[2024-07-27] MEDS: IBUPROFEN 600 MG TABLET PO ×2 (13:05→21:40)
[2024-07-28 00:07] VITALS: BP 116/60; PULSE 64
[2024-07-28] MEDS: SIMETHICONE 80 MG TAB.CHEW PO ×2 (00:10→08:20)
[2024-07-28] MEDS: IBUPROFEN 600 MG TABLET PO ×3 (04:13→23:57)
[2024-07-28 06:38] LABS: Basophils Percent Auto 0.3 % (0.2-2.0); Eosinophils Absolute Auto 0.1 10^3/uL (0.0-0.7); Eosinophils Percent Auto 1.2 % (0.9-7.0); Hematocrit 25.7 % (36.0-48.0); Hemoglobin 8.6 g/dL (12.0-16.0); Immature Granulocytes Abs Auto 0.04 10^3/uL (0.00-0.03); Immature Granulocytes Pct Auto 0.3 % (0.0-0.5); Lymphocytes Absolute Auto 2.4 10^3/uL (1.2-3.8); Lymphocytes Percent Auto 20.4 % (20.5-60.0); Mean Corpuscular HGB Conc 33.5 g/dL (29.9-35.2); Mean Corpuscular Hemoglobin 30.9 pg (26.7-34.0); Mean Corpuscular Volume 92.4 fL (81.0-99.0); Mean Platelet Volume 11.7 fL (9.5-13.5); Monocytes Absolute Auto 0.7 10^3/uL (0.3-0.8); Monocytes Percent Auto 5.7 % (1.7-12.0); Neutrophils Absolute Auto 8.3 10^3/uL (1.4-6.5); Neutrophils Percent Auto 72.1 % (43.0-75.0); Platelet Count 172 10^3/uL (150-450); Red Blood Count 2.78 10^6/uL (4.20-5.40); Red Cell Distribution Width 12.1 % (11.0-15.0); White Blood Count 11.6 10^3/uL (4.0-11.0)
[2024-07-28 08:14] VITALS: BP 118/58; PULSE 57
[2024-07-28 08:20] VITALS: TEMP 36.2
[2024-07-28] MEDS: DOCUSATE SODIUM 100 MG CAPSULE PO ×2 (08:20→21:07)
--- NOTE | 2024-07-28 08:38 | PM.OBPN ---
OB - PN: Subj Subjective Patient comments: no complaints [place] status: doing well feeding status: exclusively bottle feeding Exam Constitutional Vital Signs, click to edit/add: Last Vital Signs Temp 98.1 F 07/27/24 15:27 Pulse 57 L 07/28/24 08:14 Resp 16 07/27/24 15:27 BP 118/58 07/28/24 08:14 O2 Del Method Room Air 07/28/24 00:08 Common normals: no apparent distress, average body habitus, oriented x3, no limitations, healthy appearing, alert and well nourished Exam limitations: altered mental status General appearance: cooperative and comfortable Orientation/consciousness: Yes awake, Yes oriented to person, Yes oriented to place and Yes oriented to time HENMT Common normals: normocephalic Eye Common normals: EOMs intact bilaterally General eye: normal appearance of both eyes Visual acuity: acuity normal Alignment: alignment normal Neck & C-Spine Common normals: full ROM General: normal visual inspection Lymph Lymphatic: no lymphadenopathy noted Chest Common normals: inspection of chest normal Respiratory Common normals: normal respiratory effort Effort & inspection: able to speak in complete sentences Auscultation: clear to auscultation bilaterally Cardio Common normals: regular rate and regular rhythm Rate: regular rate Rhythm: regular rhythm GI Common normals: Normal to inspection, nondistended, normoactive bowel sounds present, soft to palpation and non-tender Inspection: normal to inspection Palpation: soft Percussion: normal to percussion External Female Exam: normal appearance of the urethra Back & Pelvis Thoracic spine/upper back: normal to inspection Lumbar spine/lower back: normal to inspection Extremity Common normals: normal to inspection and full ROM General: normal exam except as noted Neuro Common normals: oriented x3 Sensorium/orientation: awake, alert, oriented to person, oriented to place and oriented to time Psych Common normals: mental status grossly normal, thought process normal, cooperative, affect normal, speech normal, activity/motor behavior normal, denies hallucinations, denies homicidal ideation and denies suicidal ideation Attitude: calm Speech: normal speech Thought process: normal thought process Thought content: normal thought content Results Labs Labs: Short CBC 07/28/24 Range/Units 06:25 WBC 11.6 H (4.0-11.0) 10^3/uL Hgb 8.6 L (12.0-16.0) g/dL Hct 25.7 L (36.0-48.0) % Plt Count 172 (150-450) 10^3/uL OB - PN: A/P Plan - Vaginal Delivery day: 1 Plan: discharge home Time Spent with Patient Time: Total time spent is greater than 50% in coordination of care (as documented) at patient's floor/unit and/or counseling patient: Total time spent with greater than 50% in coordination of care (as documented) at patient's floor/unit and/or counseling patient: less than 15 minutes
[2024-07-28 16:01] VITALS: BP 118/72; PULSE 94
[2024-07-28 23:53] VITALS: BP 112/57; PULSE 76; TEMP 36.7
[2024-07-29 07:44] VITALS: BP 108/55; PULSE 59
[2024-07-29 07:50] VITALS: TEMP 36.7
[2024-07-29] MEDS: DOCUSATE SODIUM 100 MG CAPSULE PO (08:28)
[2024-07-29] MEDS: IBUPROFEN 600 MG TABLET PO (08:28)
[2024-07-29] MEDS: FLU VAC QS 2024(6MS UP)CEL/PF 60 MCG/0.5 ML SYRINGE IM (08:28)
--- NOTE | 2024-07-29 10:04 | PM.OBPN ---
OB - PN: Subj Subjective Patient comments: no complaints and pain well controlled [place] status: doing well Exam Constitutional Vital Signs, click to edit/add: Last Vital Signs Temp 98.1 F 07/29/24 07:50 Pulse 59 L 07/29/24 07:44 Resp 16 07/29/24 07:50 BP 108/55 07/29/24 07:44 O2 Del Method Room Air 07/29/24 07:50 Documenting provider has reviewed patient's vital signs: yes Common normals: no apparent distress Respiratory Common normals: normal respiratory effort and clear to auscultation bilaterally Cardio Common normals: regular rate and regular rhythm GI Common normals: Normal to inspection, nondistended, normoactive bowel sounds present Extremity Common normals: no clubbing, cyanosis or edema OB - PN: A/P Plan - Vaginal Delivery day: 2 Plan: routine care, discharge home and follow up 6 weeks Time Spent with Patient Time: Total time spent is greater than 50% in coordination of care (as documented) at patient's floor/unit and/or counseling patient: Total time spent with greater than 50% in coordination of care (as documented) at patient's floor/unit and/or counseling patient: less than 15 minutes
== END 2024-07-29 14:35 | disposition home or self-care (01) | DRG 560 ==
PROVIDERS: Admitting Provider Obstetrics & Gynecology; Visit Provider Obstetrics & Gynecology
DX: O69.2XX0 Labor and delivery complicated by other cord entanglement, with compression, not applicable or unspecified (principal); O69.81X0 Labor and delivery complicated by cord around neck, without compression, not applicable or unspecified; O99.891 Other specified diseases and conditions complicating pregnancy; L29.9 Pruritus, unspecified; Z3A.37 37 weeks gestation of pregnancy; Z37.0 Single live birth; O98.52 Other viral diseases complicating childbirth; B00.9 Herpesviral infection, unspecified; Z87.891 Personal history of nicotine dependence
CPT/HCPCS: 36415; 59025; 76818; 76820; 80307; 85025; 85027; 86850; 86900; 86901; 90674; J0290; J2300; J2795